=== PATIENT | female | born 1995 | race Caucasian/White ===

== ENCOUNTER 2020-05-18 15:20 | Emergency (ER) | payer OTHER, SELFPAY | END 2020-05-18 17:06 | disposition left against medical advice (07) | PROVIDERS: Emergency Provider Emergency Medicine; PCP Internal Medicine | DX: R20.0 Anesthesia of skin (principal) ==

== ENCOUNTER 2020-06-28 09:00 | Emergency (ER) | payer OTHER, SELFPAY ==
[2020-06-28 09:01] VITALS: BP 100/78; PULSE 111; RESP 18; TEMP 36.8; O2SAT 100; BMI 17.2
--- NOTE | 2020-06-28 09:41 | ED_ITS ---
HPI - Extremity Problem General Chief complaint: Extremity Problem Stated complaint: swollen feet Time Seen by Provider: 06/28/20 09:15 Source: patient Mode of arrival: ambulatory Limitations: no limitations History of Present Illness HPI Narrative: 25 y/o female with history of IVDA, hepatitis C, and depression who presents to the ED complaining of painful, itchy areas on her feet that started a few days ago and now are worse. She reports when she took a bath today her toes were purple and her feet were swollen. She states the area started out as two red dots and are now in red lines up her feet and there are small itchy lesions on her lower legs as well. She does not inject in her feet. Reports last use was last week and she was sober for 3 years prior to that. She denies fever, chills, N/V/D or abdomainal pain. MD Complaint: extremity pain and extremity swelling Onset (ago): day(s) Pain Consistency: constant Location: left, right and lower extremity Quality: burning and aching Radiation: proximal Relieving factors: nothing Exacerbating factors: palpation Associated symptoms: denies other symptoms Related Data Home Medications Medication Instructions Recorded Confirmed buprenorphine 4 mg-naloxone 1 mg 0 mg SUBLINGUAL 03/04/20 03/04/20 sublingual film hydroxyzine HCl 25 mg tablet 25 mg PO BID 03/04/20 03/04/20 medroxyprogesterone 150 mg/mL 150 mg IM 03/04/20 03/04/20 intramuscular suspension pramipexole 0.125 mg tablet 0.125 mg PO BEDTIME 03/04/20 03/04/20 Previous Rx's Medication Instructions Recorded permethrin 1 appl TOPICAL Q14D #60 g 06/28/20 Allergies Allergy/AdvReac Type Severity Reaction Status Date / Time alprazolam Allergy Unknown unsure Verified 03/04/20 15:53 azithromycin [From ZITHROMAX] AdvReac Unknown VOMITING/DI Unverified 03/04/20 15:53 ARRHEA Zithromax AdvReac Unknown vomiting Uncoded 03/04/20 15:53 Review of Systems Review of Systems: Constitutional: No Fever, No Chills Cardiovascular: No Chest Pain, No SOB, No Edema Respiratory: No Cough, No Sputum Gastrointestinal: No Nausea, No Vomiting, No Diarrhea, No abdominal Pain Musculoskeletal: No joint pain, No Myalgias Skin: + Skin Lesions, + rash Neuro: No Weakness, No Numbness Psych: + Anxiety/Panic, No Depression Heme/Lymph: + Bruising, No Lymphadenopathy Endocrine: No Polyuria, No Polydipsia PMFSH Past Medical History Attestation statement: The following information was validated with the patient. Medical History (Updated 06/28/20 @ 09:53 by RENATO Perez) Hepatitis C Social History Social History Advance Directives: No Advance Directives Information Provided: Yes Physical Exam Vital Signs: Vital Signs: Last Vital Signs Temp 98.2 F 06/28/20 09:01 Pulse 111 H 06/28/20 09:01 Resp 18 06/28/20 09:01 BP 100/78 06/28/20 09:01 Pulse Ox 100 06/28/20 09:01 Body Mass Index 17.2 Appearance: Alert. Oriented X3. No acute distress. HEENT: normal inspection CVS: Normal heart rate and rhythm. Pulses normal. Respiratory: No respiratory distress. Skin: Skin warm and dry. Lower arms with track luong consistent with known drug use. Extremities: bilateral feet with linear erythematous areas starting in between the toes and tracking proximally, pruritic. 2+ DP pulses, warm and well perfused with no edema. small lesions on lower legs as well. Neuro: Oriented X 3. Anxious, restless. Steady gait. Speaks in full, clear sentences. Course Course Course Narrative: 25 y/o female with history of IVDA & hepatitis C presenting with itchy painful rash on bilateral feet - exam is consistent with scabies infestation. Will treat with Permethrin. Patient educated on use. She is agreeable to speak with Manufacturer[employer]S Service Representative who has been contacted. Reevaluation(s) Reevaluation #1: Kirstin Ruvalcabaenter spoke with patient and she is not ready for detox. She was provided with information and detox was highly encouarged. She will follow up with Dr. Po. Erickson for d/c. Critical Care Time Critical Care Time Critical Care Time: No Discharge Plan Discharge Clinical Impression: Scabies, Active intravenous drug use Patient Disposition: Home, Self-Care Instructions: Scabies (ED), Opioid Use Disorder (ED) Additional Instructions: Use the prescribed cream as directed. Apply the cream and leave it on for 8-14 hours before washing it off. It may be easiest to do this before you go to bed and leave it on all night. If you have persistent symptoms in 2 weeks, reapply the cream in the same fashion at that time. For itching take Benadryl 25-50 mg every 6 hours as needed. Follow up with your doctor next week. RECOMMEND DETOX. DO NOT USE IV DRUGS, IT CAN KILL YOU Prescriptions: New permethrin 5 % cream 1 appl topical Q14D Qty: 60 RF: 0 No Action buprenorphine-naloxone 4-1 mg film 0 mg sublingual RF: 0 hydroxyzine HCl 25 mg tablet 25 mg PO BID RF: 0 pramipexole 0.125 mg tablet 0.125 mg PO BEDTIME RF: 0 medroxyprogesterone 150 mg/mL suspension 150 mg IM RF: 0
--- NOTE | 2020-06-28 09:44 | PC.NURSE ---
PT PRESENTS TO ED STATING MY LOWER LEGS AND FEET LOOK SWOLLEN. NO OBVIOUS SWELLING NOTED. PT HAS RASH TO BILATERAL FEET AND STATES IT FEELS ITCHY ALSO REPORTS IM STAYING AT A [facility] AND MAYBE ITS BUGS. PT APPEARS ANXIOUS.
--- NOTE | 2020-06-28 10:16 | MHC.RECOVRN ---
T/w met with pt upon pts request for recovery resources. Pt reports recovery from [id number] while in [place]. After pt returned to [place], pt states the pandemic hit and I had nothing to do, no supports. In [place] I was working the steps. Pt is currently using 1 bundle heroin daily, [place]. Pt states It's only a matter of time until IV again. Last use last night. Pt is not interested in [facility] treatment at this time but was provided with resources, including harm reduction and education regarding HCV.
== END 2020-06-28 10:21 | disposition home or self-care (01) ==
PROVIDERS: Emergency Provider Emergency Medicine Emergency Medical Services; PCP Internal Medicine
DX: B86 Scabies (principal); M79.672 Pain in left foot; M79.671 Pain in right foot; F11.10 Opioid abuse, uncomplicated; R21 Rash and other nonspecific skin eruption; Z79.899 Other long term (current) drug therapy
CPT/HCPCS: 99283

== ENCOUNTER 2021-02-14 19:03 | Emergency (ER) | payer OTHER, SELFPAY | END 2021-02-14 21:10 | disposition left against medical advice (07) | PROVIDERS: Emergency Provider Emergency Medicine; PCP Internal Medicine | DX: F10.139 Alcohol abuse with withdrawal, unspecified (principal) ==

== ENCOUNTER 2021-10-28 04:31 | Emergency (ER) | payer OTHER, SELFPAY ==
--- NOTE | 2021-10-28 04:43 | ED_ITS ---
HPI - Psych General Chief Complaint: Psychiatric Symptoms Stated Complaint: crisis Time Seen by Provider: 10/28/21 04:43 Source: patient Mode of arrival: EMS Limitations: no limitations History of Present Illness HPI Narrative: Patient has anxiety and manic depression. Today she found out that her boyfriend was with another woman and had a baby with that person. Police made her come to the ED. She denies suicidal ideation. According to police the police found her running through the trees, paranoid. There is no history of the above. MD complaint: anxiety Onset (ago): hour(s) Duration: constant History of same: Yes Associated psychiatric symptoms: depression and racing thoughts Associated symptoms: denies other symptoms Related Data Home Medications Medication Instructions Recorded Confirmed methadone 40 mg soluble tablet 94 mg PO DAILY 07/24/21 10/28/21 fluoxetine 10 mg capsule 1 cap PO DAILY 10/28/21 10/28/21 hydroxyzine HCl 25 mg tablet 1 tab PO BID 10/28/21 10/28/21 Previous Rx's Medication Instructions Recorded quetiapine 100 mg tablet 100 - 150 mg PO BEDTIME 90 days 10/03/21 #135 tabs Allergies Allergy/AdvReac Type Severity Reaction Status Date / Time alprazolam Allergy Unknown unsure Verified 07/24/21 09:10 azithromycin [From ZITHROMAX] AdvReac Unknown VOMITING/DI Verified 07/24/21 09:10 ARRHEA Zithromax AdvReac Unknown vomiting Uncoded 03/04/20 15:53 Review of Systems Constitutional: Constitutional: Reports no additional constitutional complaints Eyes: Eyes: Reports no additional eye complaints ENT: Denies dizziness Cardiovascular: Cardiovascular: Reports no additional cardiovascular complaints Respiratory: Respiratory: Reports as per HPI Gastrointestinal: Gastrointestinal: Reports no additional gastrointestinal complaints Genitourinary: Genitourinary: Reports no additional female genitourinary complaints Musculoskeletal: Musculoskeletal: Reports no additional musculoskeletal complaints Integumentary/Breasts: Skin/Breast: Denies rash Neurologic: Reports system reviewed and no additional complaints, except as documented, Denies dizziness and Denies Sensory deficit (Neuro) Psychiatric: Psychiatric: Denies anxiety PMFSH Social History Social History Housing: Assisted Living Facility Housing Other:: treatment Alcohol intake: never Patient Tobacco Use Status: Current someday Tobacco user Tobacco use type: Cigarette Cigarettes Per Day: 5 e-Cigarette/Vaping Use: Currently Using Use of substances other than those prescribed or required for medical reasons: Yes Advance Directives: No service: No Current occupational status: unemployed Physical Exam Vital Signs: Vital Signs: Last Vital Signs Pulse 113 H 10/28/21 07:16 Resp 17 10/28/21 07:16 BP 122/64 10/28/21 07:16 Pulse Ox 97 10/28/21 07:16 O2 Del Method 10/28/21 07:16 BMI result Body Mass Index 24.3 Const: Other: anxious and tearful, paranoid Nutritional Appearance: average body habitus Orientation/consciousness: oriented to person and patient oriented x3 Limitations: no limitations HEENT: Head: Yes normal to inspection Ears: external ears normal General nose exam: Normal external nose present Mouth: Normal oral and palatal mucosa present and oropharynx normal Throat: Yes posterior oropharynx normal Eyes: General: appearance normal, both eyes and all related structures Neck: Other: supple Neck: Yes normal visual inspection Chest: Chest palpation & inspection: normal inspection of the chest Resp: Auscultation: clear to auscultation bilaterally Cardio: Jugular venous distension: no JVD Rate: regular rate Rhythm: regular rhythm Heart sounds: S1 normal heart sound present and S2 normal heart sound present GI: Inspection: Yes normal to inspection Palpation (GI): Soft to palpation, nontender and No hepatosplenomegaly present Auscultation: normal bowel sounds : General: Yes no CVA tenderness Back/Spine/Pelvis: Back: no CVA tenderness Skin: Other: abrasions to legs, track luong to arms Neuro: General: oriented to person and patient oriented x3 Cranial nerves: Yes CN's II-XII intact bilaterally Motor exam (neuro): 5/5 motor strength present throughout Sensory Exam: No Sensory deficit (Neuro) Extrem: General: Yes normal to inspection Psych: Other: agitated Course Reevaluation(s) Reevaluation #1: Patient with polysubstance abuse awaiting crisis evaluation Time: 07:02 Reevaluation #2: Patient placed in physician observation at 7:30am The indication for observat ion is that the patient needs more time to see if her félix improves or she will need to be admitted. At this time the patient is well developed well nourished, lungs clear, CV RRR, abd nontender, neuro is intact, she is less manic Time: 07:43 MDM - Psych Lab Data Result diagrams: 10/28/21 05:09 10/28/21 05:09 Labs: Lab Results 10/28/21 10/28/21 10/28/21 Range/Units 05:09 05:09 05:09 WBC 10.9 H (4.8-10.8) X10*3/uL RBC 4.27 (4.20-5.50) X10*6/uL Hgb 11.9 L (12.0-16.0) g/dl Hct 36.1 L (37.0-47.0) % MCV 84.5 (80.0-98.0) fL MCH 27.9 (27.0-33.0) pg MCHC 33.0 (31.0-35.0) g/dl RDW 13.2 (11.0-16.0) % Plt Count 323 (160-400) X10*3/uL MPV 9.0 L (9.4-12.3) fL Immature Gran % (Auto) 0.4 (0.0-0.4) % Neut % (Auto) 73.2 H (45-73) % Lymph % (Auto) 15.5 L (20-40) % [place] % (Auto) 10.1 (2-11) % Eos % (Auto) 0.3 (0-4) % Baso % (Auto) 0.5 (0-2) % Lymph # (Auto) 1.7 (1.2-4.9) X10*3/uL [place] # (Auto) 1.1 (0.1-1.2) X10*3/uL Eos # (Auto) 0.0 (0.0-0.4) X10*3/uL Baso # (Auto) 0.1 (0.0-0.2) X10*3/uL Abs Immat Gran (auto) 0.04 H (0.00-0.03) X10*3/uL Absolute Neuts (auto) 8.0 (2.0-8.3) x10*3/uL Absolute Nucleated RBC 0.000 (0.0-0.012) X10*3/uL Nucleated RBC % (auto) 0.0 (0.0-0.2) /100WBC Sodium 140 (135-145) mmol/L Potassium 3.3 (3.3-5.1) mmol/L Chloride 107 (96-108) mmol/L Carbon Dioxide 22 (22-29) mmol/L Anion Gap 14 (12-20) BUN 16 (9-16) mg/dL Creatinine 0.94 (0.5-1.4) mg/dL Estim Creat Clear Calc 77.6 Estimated GFR > 60 Random Glucose 127 H (60-115) mg/dL Calcium 9.2 (8.4-10.2) mg/dL Total Bilirubin 0.7 (0.0-1.0) mg/dL AST 33 H (5-31) U/L ALT 19 (0-31) U/L Alkaline Phosphatase 97 (39-117) U/L Total Protein 7.7 (6.5-8.0) g/dL Albumin 4.7 (3.5-5.0) g/dL Urine Test (NEGATIVE) Salicylates < 5.0 L (15-30) mg/dL Urine Opiates Screen (Not Detect) Urine Fentanyl Screen (Not Detect) Acetaminophen < 1 (<30) mcg/mL Ur Barbiturates Screen (Not Detect) Ur Phencyclidine Scrn (Not Detect) Ur Amphetamines Screen (Not Detect) Urine Cocaine Screen (Not Detect) U Marijuana (THC) Screen (Not Detect) Ethyl Alcohol < 10 mg/dL 10/28/21 10/28/21 Range/Units 05:13 07:20 WBC (4.8-10.8) X10*3/uL RBC (4.20-5.50) X10*6/uL Hgb (12.0-16.0) g/dl Hct (37.0-47.0) % MCV (80.0-98.0) fL MCH (27.0-33.0) pg MCHC (31.0-35.0) g/dl RDW (11.0-16.0) % Plt Count (160-400) X10*3/uL MPV (9.4-12.3) fL Immature Gran % (Auto) (0.0-0.4) % Neut % (Auto) (45-73) % Lymph % (Auto) (20-40) % [place] % (Auto) (2-11) % Eos % (Auto) (0-4) % Baso % (Auto) (0-2) % Lymph # (Auto) (1.2-4.9) X10*3/uL [place] # (Auto) (0.1-1.2) X10*3/uL Eos # (Auto) (0.0-0.4) X10*3/uL Baso # (Auto) (0.0-0.2) X10*3/uL Abs Immat Gran (auto) (0.00-0.03) X10*3/uL Absolute Neuts (auto) (2.0-8.3) x10*3/uL Absolute Nucleated RBC (0.0-0.012) X10*3/uL Nucleated RBC % (auto) (0.0-0.2) /100WBC Sodium (135-145) mmol/L Potassium (3.3-5.1) mmol/L Chloride (96-108) mmol/L Carbon Dioxide (22-29) mmol/L Anion Gap (12-20) BUN (9-16) mg/dL Creatinine (0.5-1.4) mg/dL Estim Creat Clear Calc Estimated GFR Random Glucose (60-115) mg/dL Calcium (8.4-10.2) mg/dL Total Bilirubin (0.0-1.0) mg/dL AST (5-31) U/L ALT (0-31) U/L Alkaline Phosphatase (39-117) U/L Total Protein (6.5-8.0) g/dL Albumin (3.5-5.0) g/dL Urine Test NEGATIVE (NEGATIVE) Salicylates (15-30) mg/dL Urine Opiates Screen POSITIVE H (Not Detect) Urine Fentanyl Screen POSITIVE H (Not Detect) Acetaminophen (<30) mcg/mL Ur Barbiturates Screen Not Detected (Not Detect) Ur Phencyclidine Scrn Not Detected (Not Detect) Ur Amphetamines Screen Not Detected (Not Detect) Urine Cocaine Screen POSITIVE H (Not Detect) U Marijuana (THC) Screen Not Detected (Not Detect) Ethyl Alcohol mg/dL Discharge Plan Discharge Clinical Impression: Paranoid delusion, Cocaine intoxication Patient Disposition: Home, Self-Care Instructions: Cocaine Abuse (ED) Additional Instructions: Refrain from the use of street drugs, consists was likely the cause of your paranoid delusions Return to the emergency department any new or worsening symptoms or concerns Prescriptions: No Action quetiapine 100 mg tablet 100 - 150 mg PO BEDTIME 90 Days Qty: 135 2RF fluoxetine 10 mg capsule 1 cap PO DAILY hydroxyzine HCl 25 mg tablet 1 tab PO BID methadone 40 mg tablet,soluble 94 mg PO DAILY
[2021-10-28 04:45] VITALS: BP 148/90; PULSE 148; O2SAT 99; BMI 24.3
[2021-10-28 05:13] LABS: Basophils Absolute Auto 0.1 X10*3/uL (0.0-0.2); Basophils Percent Auto 0.5 % (0-2); Eosinophils Percent Auto 0.3 % (0-4); Hematocrit 36.1 % (37.0-47.0); Hemoglobin 11.9 g/dl (12.0-16.0); Imm Gran Abs Auto 0.04 X10*3/uL (0.00-0.03); Imm Gran Pct Auto 0.4 % (0.0-0.4); Lymphocytes Absolute Auto 1.7 X10*3/uL (1.2-4.9); Lymphocytes Percent Auto 15.5 % (20-40); MANUAL DIFF FLAG NO; Mean Corpuscular Hemoglobin 27.9 pg (27.0-33.0); Mean Corpuscular Volume 84.5 fL (80.0-98.0); Monocytes Absolute Auto 1.1 X10*3/uL (0.1-1.2); Monocytes Percent Auto 10.1 % (2-11); Neutrophils Percent Auto 73.2 % (45-73); Platelet Count 323 X10*3/uL (160-400); Red Blood Count 4.27 X10*6/uL (4.20-5.50); Red Cell Distribution Width 13.2 % (11.0-16.0); White Blood Count 10.9 X10*3/uL (4.8-10.8)
[2021-10-28 05:29] LABS: Ethanol < 10 mg/dL
[2021-10-28 05:33] LABS: Fentanyl, urine POSITIVE (Not Detect)
[2021-10-28 05:33] LABS: Acetaminophen LAB < 1 mcg/mL (<30); Alanine Aminotransferase 19 U/L (0-31); Albumin Level 4.7 g/dL (3.5-5.0); Alkaline Phosphatase 97 U/L (39-117); Anion Gap 14 (12-20); Aspartate Amino Transferase 33 U/L (5-31); Bilirubin Total 0.7 mg/dL (0.0-1.0); Blood Urea Nitrogen 16 mg/dL (9-16); Calcium 9.2 mg/dL (8.4-10.2); Carbon Dioxide 22 mmol/L (22-29); Chloride 107 mmol/L (96-108); Creatinine Clr Calc Pharmacy 77.6; Estimated Glomerular Filt Rate > 60; Glucose Random 127 mg/dL (60-115); Potassium 3.3 mmol/L (3.3-5.1); Salicylate < 5.0 mg/dL (15-30); Sodium 140 mmol/L (135-145); Total Protein 7.7 g/dL (6.5-8.0)
[2021-10-28 05:35] LABS: Amphetamine Screen Urine Not Detected (Not Detect); Barbiturates, Urine Not Detected (Not Detect); Cannabinoid Screen Urine Not Detected (Not Detect); Cocaine Screen Urine POSITIVE (Not Detect); Opiate Screen Urine POSITIVE (Not Detect); Phencyclidine Screen Urine Not Detected (Not Detect)
--- NOTE | 2021-10-28 05:56 | PC.NURSE ---
Elsa arrived with PD for psychiatric evaluation after she is suspected to have used narcotics and likely was having visual hallucinations. On arrival the pt denies drug use and states that while she was at her mothers house she came downstairs to find my boyfriend with his girlfriend and they had pictures of their baby. The story the patient tells is difficult to follow, but I believe she goes on to say that she chased her boyfriend out of the [place] and into [place]. She presents with evidence of running through the [place] with what appears to be small abrasions from brush rubbing against her ankles and shins. EMS and PD stated that a rock was found in the patients purse, possibly crack per PD. In addition, PD states they boyfriend was never there at all. On arrival she was met by RN and security and changed into hospital attire. Her belongings were secured with security. Labs were obtained and VS were obtained. Pt's HR is 138 on arrival. Crystal GALLARDO aware, no interventions requested. Referral sent to [facility] at this time. Pt is awaiting crisis eval and dispo.
[2021-10-28 07:16] VITALS: BP 122/64; PULSE 113; RESP 17; O2SAT 97
[2021-10-28 07:28] LABS: UPreg QC Valid YES; Urine Pregnancy NEGATIVE (NEGATIVE)
[2021-10-28] MEDS: FLUoxetine HCl 10 MG CAPSULE PO (09:59)
[2021-10-28] MEDS: hydrOXYzine HCL 25 MG TABLET PO (09:59)
[2021-10-28] MEDS: methADONE HCl 20 MG/2 ML ORAL.CONC 95 MG PO (10:02)
--- NOTE | 2021-10-28 11:18 | PC.NURSE ---
patient once received meds and methadone was periodically coming to nurse station asking for snacks, cereal, pudding, etc.
--- NOTE | 2021-10-28 12:07 | P.CNPS_ITS ---
History of Present Illness Date of Service: 10/28/2021 Chief Complaint: crisis Reason for Consult: psychosis Discussed with referring provider: Yes Sources of Information: patient interviewed, chart reviewed and crisis/core team assessment reviewed HPI Narrative: Mrs. De Los Santos is a 26 year-old woman with hx of polysubstance use disorder who recently was discharged from shelter residential treatment program for substance use. Pt apparently soon after relapsed. She was brought by police pt f ound running in the [place], going after her boyfriend who she recently learned had affair and child with another woman. In the ED, utox opioid, fentanyl and cocaine. Today, pt presents as calm, cooperative. She reports she learned her boyfriend was seeing someone else. She denies VH/AH. She denies SI/HI. She does note somewhat of agitated behavior prior to coming to ED, does think may have been c ocaine use. She reports she plans to continue outpatient substance use treatment. Collateral information gathered from mother who lives with pt, she reports no hx of psychosis, but thinks it could have been related to recent cocaine use. Mother denies safety concern and agrees that pt safe to return home with her. Past Psychiatric History: Inpatient: none OP: none Suicide attempt: none Medical Evaluation Reviewed: Yes REPLACED BY [facility] Medical History (Updated 10/31/21 @ 15:38 by Ary Cain) Hepatitis C Diagnostics Vital Signs (24Hr): Vital Signs - 24 hr 10/28/21 07:16 Pulse Rate 113 H Respiratory Rate 17 Blood Pressure 122/64 Pulse Oximetry 97 Oxygen Delivery Method Room Air BMI result Body Mass Index 24.3 Labs Results: 10/28/21 05:09 10/28/21 05:09 Labs: Laboratory Results - last 48 hr 10/28/21 10/28/21 10/28/21 05:09 05:09 05:09 WBC 10.9 H RBC 4.27 Hgb 11.9 L Hct 36.1 L MCV 84.5 MCH 27.9 MCHC 33.0 RDW 13.2 Plt Count 323 MPV 9.0 L Immature Gran % (Auto) 0.4 Neut % (Auto) 73.2 H Lymph % (Auto) 15.5 L [place] % (Auto) 10.1 Eos % (Auto) 0.3 Baso % (Auto) 0.5 Lymph # (Auto) 1.7 [place] # (Auto) 1.1 Eos # (Auto) 0.0 Baso # (Auto) 0.1 Abs Immat Gran (auto) 0.04 H Absolute Neuts (auto) 8.0 Absolute Nucleated RBC 0.000 Nucleated RBC % (auto) 0.0 Sodium 140 Potassium 3.3 Chloride 107 Carbon Dioxide 22 Anion Gap 14 BUN 16 Creatinine 0.94 Estim Creat Clear Calc 77.6 Estimated GFR > 60 Random Glucose 127 H Calcium 9.2 Total Bilirubin 0.7 AST 33 H ALT 19 Alkaline Phosphatase 97 Total Protein 7.7 Albumin 4.7 Urine Test Salicylates < 5.0 L Urine Opiates Screen Urine Fentanyl Screen Acetaminophen < 1 Ur Barbiturates Screen Ur Phencyclidine Scrn Ur Amphetamines Screen Urine Cocaine Screen U Marijuana (THC) Screen Ethyl Alcohol < 10 10/28/21 10/28/21 05:13 07:20 WBC RBC Hgb Hct MCV MCH MCHC RDW Plt Count MPV Immature Gran % (Auto) Neut % (Auto) Lymph % (Auto) [place] % (Auto) Eos % (Auto) Baso % (Auto) Lymph # (Auto) [place] # (Auto) Eos # (Auto) Baso # (Auto) Abs Immat Gran (auto) Absolute Neuts (auto) Absolute Nucleated RBC Nucleated RBC % (auto) Sodium Potassium Chloride Carbon Dioxide Anion Gap BUN Creatinine Estim Creat Clear Calc Estimated GFR Random Glucose Calcium Total Bilirubin AST ALT Alkaline Phosphatase Total Protein Albumin Urine Test NEGATIVE Salicylates Urine Opiates Screen POSITIVE H Urine Fentanyl Screen POSITIVE H Acetaminophen Ur Barbiturates Screen Not Detected Ur Phencyclidine Scrn Not Detected Ur Amphetamines Screen Not Detected Urine Cocaine Screen POSITIVE H U Marijuana (THC) Screen Not Detected Ethyl Alcohol Mental Status Exam Mental Status Exam Narrative: Appearance: casually groomed, fair hygiene in NAD Behavior:cooperative psychomotor: no agitation or retardation noted Speech: clear, normal rate/rhythm/volume, spontaneous Thought process:linear Thought content: no signs of psychosis, future oriented wanting to see her mother, return home, upset about boyfriend, but stable. Mood: okay Affect: congruent, non labile. SI:denies HI:denies VH/AH: no sign of psychosis or responding to internal stimuli Delusions: none Insight/judgment: none Memory/cog: alert, oriented x 3. grossly intact to conversational testing. Medications Allergies Allergies Allergy/AdvReac Type Severity Reaction Status Date / Time alprazolam Allergy Unknown unsure Verified 07/24/21 09:10 azithromycin [From ZITHROMAX] AdvReac Unknown VOMITING/DI Verified 07/24/21 09:10 ARRHEA Zithromax AdvReac Unknown vomiting Uncoded 03/04/20 15:53 Assessment & Plan Assessment & Plan (1) Cocaine-induced mood disorder with manic symptoms: Status: Acute Code(s): F14.988 - Cocaine use, unspecified with other cocaine-induced disorder Plan Ms. De Los Santos is a 26 year-old woman with hx of polysubstance use who recently was discharged from residential program for substance use. She apparently quickly relapsed. She was found running in the [place], agitated, erradic behaviors. Pt stayed overnight here in ED. Utox was positive for fentanyl, opioids, cocaine. Today, pt presents as clear, no s/s of félix, psychosis. No SI/HI. Mother comfortable and in agreement with plan to d/c pt back home. Mother denied safety concerns of suicidal or homicidal ideation. PLAN 1. no acute imminent safety concern in terms of suicidality, or homicidality. N or pt presents gravely disable due to psychiatric symptoms. Does not meet criteria for involuntary admission at this point. 2. Pt will return home with mother. give narcan on d/c. I spent minutes with the patient and/or on the patient floor today, greater than?50% of which was spent counseling/coordinating care.
--- NOTE | 2021-10-28 13:29 | MHC.CARE ---
Pts?was in her room seated on her bed in room?BH 6 wearing?hospital?attire and appearance was slightly disheveled which is congruent with reports of events leading to ED visit. Pt reported using cocaine and other?drugs. When seen today she was oriented x4, and was alert and able to answer questions. She was cooperative for this interview and willing to answer all questions and reported some memory?is not clear from the events last night while under the influence. At times in the interview pt was observed to have odd eye movements which pt?stated?is related to anxiety. Pts speech is WNL and at times distracted but redirectable. She was visibly restless and anxious to have her methadone dose (which was later than normal 6am dosing). Pts mood was reported as good and pt affect?noted congruent. Pt denied active delusions or acute paranoia. No psychotic features observed. Pt denied feeling depressed or suicidal. She does not?have a hx of SI or attempts or MH admissions. Pt denied feeling aggressive or homicidal thoughts and carries no hx of violence. Pt denied access to weapons. Due to her recent poor judgment and impulse control pt is being discharged with the plan?to?be?with her mother with agreement to seek help if needed. Pt declined need for referrals for OP mental health and she is aware of how to seek crisis help if needed. CARE reviewed signs and sxs to look for with pts mother also if her situation should change. Pt was seen by hair cutter Tuyet Redding who determined pt was cleared of acute psych need to be contained and advocated for discharge. CARE, real estate marketing coordinator met with ED provider review plan for pt to dc and go stay with her mother. Pts mother strongly advocated that pt be discharged home into her care and denied any concerns?or issues both prior to arrival or currently. Pt also in favor of dc home. Pod escorted pt out of the pod to wait for her ride.??
[2021-10-29 06:59] LABS: Benzodiazepines Screen Urine NOT DETECTED (Not Detect)
== END 2021-10-28 13:10 | disposition home or self-care (01) ==
PROVIDERS: Emergency Provider Emergency Medicine; PCP Internal Medicine
DX: F22 Delusional disorders (principal); F14.129 Cocaine abuse with intoxication, unspecified; F11.20 Opioid dependence, uncomplicated
CPT/HCPCS: 36415; 80053; 80143; 80179; 80307; 81025; 82077; 85025; 99284; 99285

== ENCOUNTER 2022-06-07 09:33 | Emergency (ER) | payer OTHER, SELFPAY ==
--- NOTE | ~2022-06-07 | US_ITS ---
EXAMINATION: US ABDOMEN COMPLETE CLINICAL INFORMATION: Nausea vomiting abdominal pain. COMPARISON: None TECHNIQUE: Real-time imaging of the abdominal viscera. FINDINGS: PANCREAS: The visualized portion of the pancreas head and body are normal, portion of the pancreatic body and tail, not visualized are obscured by bowel gas. ABDOMINAL AORTA: The proximal, mid, and distal segments are normal in caliber. INFERIOR VENA CAVA: Visualized portions are normal. LIVER: Increased echogenicity of the liver parenchyma, this can be seen in the setting of hepatic steatosis or liver parenchymal disease. The liver is normal in size. The liver contour is normal. No focal hepatic lesion. There is no intrahepatic biliary duct dilatation seen. GALLBLADDER: There is echogenic material layering in the gallbladder fall a gallbladder sludge, The gallbladder is physiologically distended without evidence of stones, polyps, wall thickening or pericholecystic fluid. COMMON BILE DUCT: Normal in caliber measuring 0.5 cm in diameter. RIGHT KIDNEY: Normal. No hydronephrosis. No renal calculi or focal parenchymal lesions. The kidney measures 10 cm in maximum dimension. LEFT KIDNEY: Normal. No hydronephrosis. No renal calculi or focal parenchymal lesions. The kidney measures 10 cm in maximum dimension. SPLEEN: Normal. The spleen measures 12 cm in maximum dimension. FREE FLUID: None. US/US abdomen complete IMPRESSION: * Increased echogenicity of the liver parenchyma, this can be seen in the setting of hepatic steatosis. * Gallbladder sludge, no ultrasound evidence of acute cholecystitis.
[2022-06-07 09:45] VITALS: BP 130/70
[2022-06-07 09:46] VITALS: BP 138/86; PULSE 96; RESP 18; O2SAT 99
[2022-06-07 09:58] VITALS: BP 138/86; PULSE 96; RESP 18; O2SAT 96; BMI 22.6
[2022-06-07] MEDS: Ketorolac Tromethamine 30 MG/ML VIAL IVPUSH (10:19)
[2022-06-07] MEDS: 0.9 % Sodium Chloride 1,000 ML 999 ML IVCONT (10:19)
[2022-06-07] MEDS: ondansetron HCL 4 MG/2 ML VIAL IVPUSH (10:19)
[2022-06-07] MEDS: diphenhydrAMINE HCL 50 MG/ML VIAL 25 MG IVPUSH (10:20)
--- NOTE | 2022-06-07 10:32 | MHC.EDTECH ---
PCT attempted to draw labs on pt. Pt states she wants too feel better before labs are drawn. pct will attempt to draw labs as soon as pt gets fluid and feel somewhat better. RN aware.
--- NOTE | 2022-06-07 10:58 | ED_ITS ---
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 Generalized Abdominal pain induced by vomiting. Reports feeling hot and cold with chills. Denies dysuria, but reports increased frequency. Denies bloody stool and vomit. Last menses 2 weeks ago. She reports her periods have become irregular and heavier despite depo. She reports being sexually active. Taking methadone. Did not get her methadone today, took it yesterday. MD elicited complaint: nausea, vomiting, diarrhea and abdominal pain Onset (ago): day(s) Description of vomiting: food contents and watery Description of diarrhea: watery Associated nausea: Yes Associated abdominal pain: Yes Location of pain: epigastric (Epigastric induced by vomiting ) Pain consistency: intermittent Severity: moderate Pain scale (0-10): 8 Quality: cramping and aching Exacerbating factors: other (supine position ) Relieving factors: other (sitting up ) Associated symptoms: myalgias, fever/chills and nausea/vomiting (And diarrhea) Related Data Home Medications Medication Instructions Recorded Confirmed methadone 40 mg soluble tablet 94 mg PO DAILY 07/24/21 10/28/21 Previous Rx's Medication Instructions Recorded quetiapine 100 mg tablet 100 - 150 mg PO BEDTIME 90 days 10/03/21 #135 tabs fluoxetine 10 mg capsule 10 mg PO DAILY 90 days #90 caps 12/04/21 amoxicillin 875 mg tablet 875 mg PO Q12H 7 days #14 tabs 01/13/22 ibuprofen 400 mg tablet 400 mg PO Q8H PRN pain 10 days #30 01/13/22 tabs hydroxyzine HCl 25 mg tablet 50 mg PO TID #60 tabs 01/29/22 ketorolac 10 mg tablet 10 mg PO Q8H #14 tabs 06/07/22 ondansetron HCl 4 mg tablet 4 mg PO Q8H #14 tabs 06/07/22 Allergies Allergy/AdvReac Type Severity Reaction Status Date / Time alprazolam Allergy Unknown unsure Verified 01/13/22 14:31 azithromycin [From ZITHROMAX] AdvReac Unknown VOMITING/DI Verified 01/13/22 14:31 ARRHEA Zithromax AdvReac Unknown vomiting Uncoded 01/13/22 14:31 Review of Systems Review of Systems: Constitutional : No Fever, + Chills, + Sweats, + Fatigue, + Malaise Cardiovascular : No Chest Pain, No SOB Respiratory : No Cough, No Sputum, No Wheezing, No Dyspnea Gastrointestinal : + Nausea, + Vomiting, + Diarrhea, + abdominal Pain, No Hematochezia, No Melena Genitourinary : No irregular bleeding, No Dysuria, No Urinary Frequency, No Hematuria,No Urinary Incontinence, No Urgency, No Flank Pain Musculoskeletal : No joint pain, + Myalgias, No Joint Swelling Skin : No Skin Lesions, No rash Neuro : No Weakness, No Numbness, No Paresthesias, No Loss of Consciousness, No Dizziness, No Headache Heme/Lymph: No Lymphadenopathy Endocrine : No Temperature Intolerance Yes all other systems are reviewed and are negative Gastrointestinal: Gastrointestinal: Reports nausea PMFSH Past Medical History Attestation statement: The following information was validated with the patient. Source: old records reviewed and nursing notes reviewed Medical History Anemia Contraceptive management Hepatitis C Herpes genitalis IV drug user Peptic ulcer disease Ureterolithiasis Surgical History H/O myringotomy H/O sinus surgery Hx of tonsillectomy Family History Family History Other Mental health disorder Substance use disorder Social History Social History Housing: Assisted Living Facility Housing Other:: treatment Alcohol intake: never Patient Tobacco Use Status: Current someday Tobacco user Tobacco use type: Cigarette Cigarettes Per Day: 3 e-Cigarette/Vaping Use: Currently Using Second Hand Smoke Exposure: Yes Advance Directives: No Advance Directives Information Provided: No Patient : No service: No Current occupational status: unemployed Cognitive needs: No Hearing needs: No Vision needs: No Physical Exam Vital Signs: Vital Signs: Last Vital Signs Pulse 96 06/07/22 09:58 Resp 18 02/05/23 09:58 BP 138/86 06/07/22 09:58 Pulse Ox 96 06/07/22 09:58 O2 Del Method 06/07/22 09:58 BMI result Body Mass Index 22.6 vital signs have been reviewed as normal and appeared to be correct. Blood pressure normal. Heart rate normal. Respiration rate normal. Temperature normal. Oxygen saturation normal. Appearance: Alert. Oriented X3. No acute distress. Head: Normal external exam. Normocephalic. Eyes: PERRLA. EOMI. Conjunctiva and sclera normal. Eyelids normal. ENT: Pharynx normal. Uvula midline. Moist mucous membranes. No trismus noted. No drooling noted. No muffled voice noted. Neck: Normal inspection. Neck supple. FROM. No adenopathy. No meningeal signs. CVS: Normal heart rate and rhythm. Heart sound normal. No murmurs noted. Pulses normal throughout. Respiratory: No respiratory distress. Painless inspiration. Breath sounds normal. No wheezes/rales/rhonchi noted. Chest nontender. No accessory muscle usage noted or decreased air movement noted. Abdomen: Soft and TTP to upper quadrants. Nondistended. No guarding. No rigidity. Bowel sounds normal in all 4 quadrants. No distention noted. No organomegaly noted. No visible injury noted. No rebound tenderness. Negative Rovsing sign. Negative obturator's sign. Negative psoas sign. Negative Vernon sign. Back: + CVA tenderness left side only. Full range of motion noted. Skin: Skin warm and dry. Normal skin color. Normal skin turgor. No rashes/lesions/lacerations noted. Extremities: Extremities exhibit normal range of motion. Extremities nontender. Neuro: Oriented X 3. No motor deficit. No sensory deficit. Reflexes normal. Normal steady gait. CN's II-XII intact bilaterally? Course Course Course Narrative: 10am - 27 year old female presents to the Ed for a one day history nausea, vomiting, diarrhea. Abdominal pain induced by vomiting. Reports feeling hot and cold with chills. Denies dysuria, but reports increased frequency. Denies bloody stool and vomit. Last menses 2 weeks ago. She reports her periods have become irregular and heavier despite depo. She reports being sexually active. Taking methadone. Did not get her methadone today, took it yesterday The patient is a 27 year old female with a history of Hep C presents with a one day history of nausea, vomiting, diarrhea. History of methadone use, missed methadone dose today. Physical exam negative aside from CVA tenderness to left side. Abdominal exam included Soft and nontender, nondistended abdomen. No gu arding. No rigidity. Bowel sounds normal in all 4 quadrants. No distention noted. No organomegaly noted. No visible injury noted. No rebound tenderness. Negative Rovsing sign. Negative obturator's sign. Negative psoas sign. Negative Vernon sign. Plan: Labs, UA, COVID/RSV/flu swab, abdominal ultrasound. Provide a L of IV fluids with 30 mg of IV Toradol, 25 mg of IV Benadryl and 4 mg of Zofran and re- evaluate. Reevaluation(s) Reevaluation #1: Labs reviewed - leukocytosis of 13,000. - chloride 113. - carbon dioxide 18. - UA revealed small leukocytes although patient has greater than 20 epithelial cells therefore this is most likely a dirty catch. Will wait for urine culture and patient denies any urinary symptoms. - patient negative for COVID/RSV/flu. - otherwise all other labs are within normal limits. Imaging - Abdominal ultrasound revealed hepatic steatosis of the liver otherwise no other acute processes are noted. Therefore at this time will attempt a p.o. trial for the patient if patient can tolerate p.o. patient will be discharged with symptomatic treatment for gastroenteritis. Instructions to follow-up with PCP. Patient understands agrees with this plan. Time: 12:30 Medications Administered Discontinued Medications Generic Name Dose Route Start Last Admin Trade Name Irvin PRN Reason Stop Dose Admin Diphenhydramine HCl 25 mg 06/07/22 10:00 06/07/22 10:20 Diphenhydramine Hcl 50 Mg/Ml Vial IVPUSH 06/07/22 10:01 25 mg ONCE ONE Administration Sodium Chloride 1,000 mls @ 999 mls/hr 06/07/22 10:00 06/07/22 11:43 Ns IVCONT 06/07/22 11:00 Infused .Q1H1M JOSE Infusion Ketorolac Tromethamine 30 mg 06/07/22 10:00 06/07/22 10:19 Ketorolac Tromethamine 30 Mg/Ml Vial IVPUSH 06/07/22 10:01 30 mg ONCE ONE Administration Ondansetron HCl 4 mg 06/07/22 10:00 06/07/22 10:19 Ondansetron Hcl 4 Mg/2 Ml Vial IVPUSH 06/07/22 10:01 4 mg ONCE ONE Administration Medical Decision Making Lab Data [facility] Lab Attestation statement: I reviewed the patient's lab results. 06/07/22 12:00 06/07/22 11:59 Labs: Lab Results 06/07/22 06/07/22 06/07/22 Range/Units 11:59 11:59 12:00 WBC 13.6 H (4.8-10.8) X10*3/uL RBC 4.54 (4.20-5.50) X10*6/uL Hgb 13.4 (12.0-16.0) g/dl Hct 40.9 (37.0-47.0) % MCV 90.1 (80.0-98.0) fL MCH 29.5 (27.0-33.0) pg MCHC 32.8 (31.0-35.0) g/dl RDW 12.9 (11.0-16.0) % Plt Count 251 (160-400) X10*3/uL MPV 9.9 (9.4-12.3) fL Immature Gran % (Auto) 0.4 (0.0-0.4) % Neut % (Auto) 87.3 H (45-73) % Lymph % (Auto) 6.1 L (20-40) % [place] % (Auto) 5.6 (2-11) % Eos % (Auto) 0.2 (0-4) % Baso % (Auto) 0.4 (0-2) % Lymph # (Auto) 0.8 L (1.2-4.9) X10*3/uL [place] # (Auto) 0.8 (0.1-1.2) X10*3/uL Eos # (Auto) 0.0 (0.0-0.4) X10*3/uL Baso # (Auto) 0.1 (0.0-0.2) X10*3/uL Abs Immat Gran (auto) 0.06 H (0.00-0.03) X10*3/uL Absolute Neuts (auto) 11.9 H (2.0-8.3) x10*3/uL Absolute Nucleated RBC 0.000 (0.0-0.012) X10*3/uL Nucleated RBC % (auto) 0.0 (0.0-0.2) /100WBC ESR (0-20) MM/HR PT (10.0-13.1) SEC INR (0.9-1.1) Sodium 141 (135-145) mmol/L Potassium 4.1 D (3.3-5.1) mmol/L Chloride 113 H (96-108) mmol/L Carbon Dioxide 18 L (22-29) mmol/L Anion Gap 14 (12-20) BUN 11 (9-16) mg/dL Creatinine 0.73 (0.5-1.4) mg/dL Estim Creat Clear Calc 99.0 Estimated GFR > 60 Random Glucose 92 (60-115) mg/dL Calcium 9.0 (8.4-10.2) mg/dL Magnesium 1.9 (1.6-2.6) mg/dL Total Bilirubin 0.4 (0.0-1.0) mg/dL AST 17 (5-31) U/L ALT 9 (0-31) U/L Alkaline Phosphatase 73 (39-117) U/L C-Reactive Protein < 0.10 (< or = 0.50) mg/dL Total Protein 6.6 (6.5-8.0) g/dL Albumin 4.3 (3.5-5.0) g/dL Lipase 21 (8-78) U/L Beta HCG, Quant < 2 mIU/mL Urine Color Urine Appearance Urine pH (5.0-9.0) Ur Specific [place] (1.005-1.025) Urine Protein (Neg-Trace) mg/dL Urine Glucose (UA) (Negative) mg/dL Urine Ketones (Negative) mg/dL Urine Blood (Negative) Urine Nitrite (Negative) Ur Leukocyte Esterase (Negative) Urine RBC (0-2) /HPF Urine WBC (0-5) /HPF Ur Squamous Epith Cells (0-2) /HPF Urine Bacteria (None Seen) Hyaline Casts (0-2) /LPF Urine Opiates Screen (Not Detect) Urine Fentanyl Screen (Not Detect) Ur Barbiturates Screen (Not Detect) Ur Phencyclidine Scrn (Not Detect) Ur Amphetamines Screen (Not Detect) U Benzodiazepines Scrn (Not Detect) Urine Cocaine Screen (Not Detect) U Marijuana (THC) Screen (Not Detect) Ethyl Alcohol < 10 mg/dL Influenza Type A (PCR) (Negative) Influenza Type B (PCR) (Negative) RSV RNA Qual (PCR) (Negative) SARS-CoV-2 RNA (RT-PCR) (Negative) 06/07/22 06/07/22 06/07/22 Range/Units 12:00 12:00 13:01 WBC (4.8-10.8) X10*3/uL RBC (4.20-5.50) X10*6/uL Hgb (12.0-16.0) g/dl Hct (37.0-47.0) % MCV (80.0-98.0) fL MCH (27.0-33.0) pg MCHC (31.0-35.0) g/dl RDW (11.0-16.0) % Plt Count (160-400) X10*3/uL MPV (9.4-12.3) fL Immature Gran % (Auto) (0.0-0.4) % Neut % (Auto) (45-73) % Lymph % (Auto) (20-40) % [place] % (Auto) (2-11) % Eos % (Auto) (0-4) % Baso % (Auto) (0-2) % Lymph # (Auto) (1.2-4.9) X10*3/uL [place] # (Auto) (0.1-1.2) X10*3/uL Eos # (Auto) (0.0-0.4) X10*3/uL Baso # (Auto) (0.0-0.2) X10*3/uL Abs Immat Gran (auto) (0.00-0.03) X10*3/uL Absolute Neuts (auto) (2.0-8.3) x10*3/uL Absolute Nucleated RBC (0.0-0.012) X10*3/uL Nucleated RBC % (auto) (0.0-0.2) /100WBC ESR 3 (0-20) MM/HR PT 12.0 (10.0-13.1) SEC INR 1.0 (0.9-1.1) Sodium (135-145) mmol/L Potassium (3.3-5.1) mmol/L Chloride (96-108) mmol/L Carbon Dioxide (22-29) mmol/L Anion Gap (12-20) BUN (9-16) mg/dL Creatinine (0.5-1.4) mg/dL Estim Creat Clear Calc Estimated GFR Random Glucose (60-115) mg/dL Calcium (8.4-10.2) mg/dL Magnesium (1.6-2.6) mg/dL Total Bilirubin (0.0-1.0) mg/dL AST (5-31) U/L ALT (0-31) U/L Alkaline Phosphatase (39-117) U/L C-Reactive Protein (< or = 0.50) mg/dL Total Protein (6.5-8.0) g/dL Albumin (3.5-5.0) g/dL Lipase (8-78) U/L Beta HCG, Quant mIU/mL Urine Color Yellow Urine Appearance Cloudy Urine pH 5.5 (5.0-9.0) Ur Specific [place] 1.025 (1.005-1.025) Urine Protein Trace (Neg-Trace) mg/dL Urine Glucose (UA) Negative (Negative) mg/dL Urine Ketones Trace (Negative) mg/dL Urine Blood Negative (Negative) Urine Nitrite Negative (Negative) Ur Leukocyte Esterase Small (1+) H (Negative) Urine RBC 3-5 H (0-2) /HPF Urine WBC 11-20 H (0-5) /HPF Ur Squamous Epith Cells >20 (0-2) /HPF Urine Bacteria 1+ (None Seen) Hyaline Casts 0-2 (0-2) /LPF Urine Opiates Screen (Not Detect) Urine Fentanyl Screen (Not Detect) Ur Barbiturates Screen (Not Detect) Ur Phencyclidine Scrn (Not Detect) Ur Amphetamines Screen (Not Detect) U Benzodiazepines Scrn (Not Detect) Urine Cocaine Screen (Not Detect) U Marijuana (THC) Screen (Not Detect) Ethyl Alcohol mg/dL Influenza Type A (PCR) (Negative) Influenza Type B (PCR) (Negative) RSV RNA Qual (PCR) (Negative) SARS-CoV-2 RNA (RT-PCR) (Negative) 06/07/22 06/07/22 Range/Units 13:01 13:01 WBC (4.8-10.8) X10*3/uL RBC (4.20-5.50) X10*6/uL Hgb (12.0-16.0) g/dl Hct (37.0-47.0) % MCV (80.0-98.0) fL MCH (27.0-33.0) pg MCHC (31.0-35.0) g/dl RDW (11.0-16.0) % Plt Count (160-400) X10*3/uL MPV (9.4-12.3) fL Immature Gran % (Auto) (0.0-0.4) % Neut % (Auto) (45-73) % Lymph % (Auto) (20-40) % [place] % (Auto) (2-11) % Eos % (Auto) (0-4) % Baso % (Auto) (0-2) % Lymph # (Auto) (1.2-4.9) X10*3/uL [place] # (Auto) (0.1-1.2) X10*3/uL Eos # (Auto) (0.0-0.4) X10*3/uL Baso # (Auto) (0.0-0.2) X10*3/uL Abs Immat Gran (auto) (0.00-0.03) X10*3/uL Absolute Neuts (auto) (2.0-8.3) x10*3/uL Absolute Nucleated RBC (0.0-0.012) X10*3/uL Nucleated RBC % (auto) (0.0-0.2) /100WBC ESR (0-20) MM/HR PT (10.0-13.1) SEC INR (0.9-1.1) Sodium (135-145) mmol/L Potassium (3.3-5.1) mmol/L Chloride (96-108) mmol/L Carbon Dioxide (22-29) mmol/L Anion Gap (12-20) BUN (9-16) mg/dL Creatinine (0.5-1.4) mg/dL Estim Creat Clear Calc Estimated GFR Random Glucose (60-115) mg/dL Calcium (8.4-10.2) mg/dL Magnesium (1.6-2.6) mg/dL Total Bilirubin (0.0-1.0) mg/dL AST (5-31) U/L ALT (0-31) U/L Alkaline Phosphatase (39-117) U/L C-Reactive Protein (< or = 0.50) mg/dL Total Protein (6.5-8.0) g/dL Albumin (3.5-5.0) g/dL Lipase (8-78) U/L Beta HCG, Quant mIU/mL Urine Color Urine Appearance Urine pH (5.0-9.0) Ur Specific [place] (1.005-1.025) Urine Protein (Neg-Trace) mg/dL Urine Glucose (UA) (Negative) mg/dL Urine Ketones (Negative) mg/dL Urine Blood (Negative) Urine Nitrite (Negative) Ur Leukocyte Esterase (Negative) Urine RBC (0-2) /HPF Urine WBC (0-5) /HPF Ur Squamous Epith Cells (0-2) /HPF Urine Bacteria (None Seen) Hyaline Casts (0-2) /LPF Urine Opiates Screen Not Detected (Not Detect) Urine Fentanyl Screen Not Detected (Not Detect) Ur Barbiturates Screen Not Detected (Not Detect) Ur Phencyclidine Scrn Not Detected (Not Detect) Ur Amphetamines Screen Not Detected (Not Detect) U Benzodiazepines Scrn Not Detected (Not Detect) Urine Cocaine Screen Not Detected (Not Detect) U Marijuana (THC) Screen POSITIVE H (Not Detect) Ethyl Alcohol mg/dL Influenza Type A (PCR) NEGATIVE (Negative) Influenza Type B (PCR) NEGATIVE (Negative) RSV RNA Qual (PCR) NEGATIVE (Negative) SARS-CoV-2 RNA (RT-PCR) NEGATIVE (Negative) Independent Interpretation I performed an independent interpretation of an: Ultrasound Radiology Impression Discussion of test interpretation with radiology: I have reviewed the radiologist's reading. Radiologist Impression: FINDINGS: PANCREAS: The visualized portion of the pancreas head and body are normal, portion of the pancreatic body and tail, not visualized are obscured by bowel gas. ABDOMINAL AORTA: The proximal, mid, and distal segments are normal in caliber. INFERIOR VENA CAVA: Visualized portions are normal. LIVER: Increased echogenicity of the liver parenchyma, this can be seen in the setting of hepatic steatosis or liver parenchymal disease. The liver is normal in size. The liver contour is normal. No focal hepatic lesion. There is no intrahepatic biliary duct dilatation seen. GALLBLADDER: There is echogenic material layering in the gallbladder fall a gallbladder sludge, The gallbladder is physiologically distended without evidence of stones,? polyps, wall thickening or pericholecystic fluid. COMMON BILE DUCT: Normal in caliber measuring 0.5 cm in diameter. RIGHT KIDNEY: Normal. No hydronephrosis. No renal calculi or focal parenchymal lesions. The kidney measures 10 cm in maximum dimension. LEFT KIDNEY: Normal. No hydronephrosis. No renal calculi or focal parenchymal lesions. The kidney measures 10 cm in maximum dimension. SPLEEN: Normal. The spleen measures 12 cm in maximum dimension. FREE FLUID: None. US/US abdomen complete IMPRESSION: ? *? Increased echogenicity of the liver parenchyma, this can be seen in the setting of hepatic steatosis. ? *? Gallbladder sludge, no ultrasound evidence of acute cholecystitis. External Record Review External record reviewed: Inpatient record, Office record, Outpatient record, Prior outpatient labs, Prior outpatient radiology, Primary care record and Outside ED record Prescription Management I considered prescription management with: Pain Medication Discharge Plan Discharge Clinical Impression: Gastroenteritis, Abdominal pain, Nausea vomiting and diarrhea Patient Disposition: Home, Self-Care Instructions: Gastroenteritis (ED) Prescriptions: New ondansetron HCl 4 mg tablet 4 mg PO Q8H Qty: 14 0RF ketorolac 10 mg tablet 10 mg PO Q8H Qty: 14 0RF Rx Instructions: First dose given in the ER by IM and patient tolerated well No Action quetiapine 100 mg tablet 100 - 150 mg PO BEDTIME 90 Days Qty: 135 2RF fluoxetine 10 mg capsule 10 mg PO DAILY 90 Days Qty: 90 0RF hydroxyzine HCl 25 mg tablet 50 mg PO TID Qty: 60 0RF methadone 40 mg tablet,soluble 94 mg PO DAILY amoxicillin 875 mg tablet 875 mg PO Q12H 7 Days Qty: 14 0RF ibuprofen 400 mg tablet 400 mg PO Q8H PRN (Reason: pain) 10 Days Qty: 30 0RF Referrals: Po,Eliazar Denton MD [Primary Care Provider] - 2 days Stand Alone Forms: Work/School Release
--- NOTE | 2022-06-07 11:44 | PC.NURSE ---
NO FURTHER VOMITING. STATES FEELING BETTER AWAITING LABS, PCT WAS UNSUCCESSFUL AT [facility] ATTEMPT
[2022-06-07 12:07] LABS: MANUAL DIFF FLAG NO
[2022-06-07 12:14] LABS: Basophils Absolute Auto 0.1 X10*3/uL (0.0-0.2); Basophils Percent Auto 0.4 % (0-2); Eosinophils Percent Auto 0.2 % (0-4); Hematocrit 40.9 % (37.0-47.0); Hemoglobin 13.4 g/dl (12.0-16.0); Imm Gran Abs Auto 0.06 X10*3/uL (0.00-0.03); Imm Gran Pct Auto 0.4 % (0.0-0.4); Lymphocytes Absolute Auto 0.8 X10*3/uL (1.2-4.9); Lymphocytes Percent Auto 6.1 % (20-40); Mean Corpuscular HGB Conc 32.8 g/dl (31.0-35.0); Mean Corpuscular Hemoglobin 29.5 pg (27.0-33.0); Mean Corpuscular Volume 90.1 fL (80.0-98.0); Mean Platelet Volume 9.9 fL (9.4-12.3); Monocytes Absolute Auto 0.8 X10*3/uL (0.1-1.2); Monocytes Percent Auto 5.6 % (2-11); Neutrophils Absolute Auto 11.9 x10*3/uL (2.0-8.3); Neutrophils Percent Auto 87.3 % (45-73); Platelet Count 251 X10*3/uL (160-400); Red Blood Count 4.54 X10*6/uL (4.20-5.50); Red Cell Distribution Width 12.9 % (11.0-16.0); White Blood Count 13.6 X10*3/uL (4.8-10.8)
[2022-06-07 12:26] LABS: Alanine Aminotransferase 9 U/L (0-31); Albumin Level 4.3 g/dL (3.5-5.0); Alkaline Phosphatase 73 U/L (39-117); Anion Gap 14 (12-20); Aspartate Amino Transferase 17 U/L (5-31); Bilirubin Total 0.4 mg/dL (0.0-1.0); Blood Urea Nitrogen 11 mg/dL (9-16); C Reactive Protein < 0.10 mg/dL (< or = 0.50); Carbon Dioxide 18 mmol/L (22-29); Chloride 113 mmol/L (96-108); Estimated Glomerular Filt Rate > 60; Glucose Random 92 mg/dL (60-115); Lipase 21 U/L (8-78); Magnesium 1.9 mg/dL (1.6-2.6); Potassium 4.1 mmol/L (3.3-5.1); Sodium 141 mmol/L (135-145); Total Protein 6.6 g/dL (6.5-8.0)
[2022-06-07 12:32] LABS: Ethanol < 10 mg/dL
[2022-06-07 12:35] LABS: HCG Quantitative < 2 mIU/mL
[2022-06-07 13:02] LABS: Erythrocyte Sedimentation Rate 3 MM/HR (0-20)
[2022-06-07 13:11] LABS: Appearance Urine Cloudy; Color Urine Yellow; Glucose Urine UA Negative (Negative); Leukocyte Esterase Urine Small (1+) (Negative); Nitrite Urine Negative (Negative); PH 5.5 (5.0-9.0); Specific Gravity - Urine 1.025 (1.005-1.025); UMIC TRIGGER UACC YES; Urine Blood Negative (Negative); Urine Ketones Trace mg/dL (Negative); Urine Protein Trace mg/dL (Neg-Trace)
[2022-06-07 13:16] LABS: Bacteria Urine 1+ (None Seen); Hyaline Casts Urine 0-2 /LPF (0-2); Squamous Epithelial Cell Urine >20 /HPF (0-2); UACC Culture Trigger YES
[2022-06-07 13:24] LABS: Amphetamine Screen Urine Not Detected (Not Detect); Barbiturates, Urine Not Detected (Not Detect); Benzodiazepines Screen Urine Not Detected (Not Detect); Cannabinoid Screen Urine POSITIVE (Not Detect); Cocaine Screen Urine Not Detected (Not Detect); Fentanyl, urine Not Detected (Not Detect); Opiate Screen Urine Not Detected (Not Detect); Phencyclidine Screen Urine Not Detected (Not Detect)
[2022-06-07 13:45] LABS: Influenza A PCR NEGATIVE (Negative); Influenza B PCR NEGATIVE (Negative); Resp Syncy Virus RNA Qual PCR NEGATIVE (Negative); SARS COV2 PCR INHOUSE NEGATIVE (Negative)
[2022-06-07 15:33] VITALS: BP 112/71; PULSE 81; RESP 16; TEMP 36.6; O2SAT 97
== END 2022-06-07 15:36 | disposition home or self-care (01) ==
PROVIDERS: Physician Assistant Medical; Emergency Provider Student in an Organized Health Care Education/Training Program; PCP Internal Medicine
DX: K52.9 Noninfective gastroenteritis and colitis, unspecified (principal); R11.2 Nausea with vomiting, unspecified; M79.10 Myalgia, unspecified site; R50.9 Fever, unspecified; F17.210 Nicotine dependence, cigarettes, uncomplicated; Z71.6 Tobacco abuse counseling; Z20.822 Contact with and (suspected) exposure to COVID-19; Z20.828 Contact with and (suspected) exposure to other viral communicable diseases; Z79.899 Other long term (current) drug therapy
CPT/HCPCS: 0241U; 36415; 76700; 80053; 80307; 81001; 82077; 83690; 83735; 84702; 85025; 85610; 85652; 86140; 87086; 96361; 96374; 96375; 99285; J1200; J1885; J2405

== ENCOUNTER 2022-07-13 10:19 | Emergency (ER) | payer OTHER, SELFPAY ==
--- NOTE | ~2022-07-13 | US_ITS ---
EXAMINATION: US ABDOMEN LIMITED CLINICAL INFORMATION: Epigastric pain. Question gallstones.. COMPARISON: 06/07/2022 TECHNIQUE: Real-time imaging of the right upper quadrant abdominal viscera. FINDINGS: PANCREAS: Mostly obscured by gas. The visualized portion of the pancreatic head is unremarkable. LIVER: Not evaluated. GALLBLADDER: Small amount of sludge in the gallbladder lumen. The gallbladder is physiologically distended without evidence of stones, polyps, wall thickening or pericholecystic fluid. COMMON BILE DUCT: Normal in caliber measuring 0.5 cm in diameter. RIGHT KIDNEY: Not evaluated. FREE FLUID: None. US/US abdomen limited IMPRESSION: Small amount of sludge in the gallbladder lumen. No stones are seen. No inflammatory changes.
[2022-07-13 10:31] VITALS: BP 132/88; BP 153/98; PULSE 60; PULSE 61; RESP 17; TEMP 36.5; O2SAT 99; BMI 24.7
[2022-07-13] MEDS: 0.9 % Sodium Chloride 1,000 ML 999 ML IV ×2 (11:06→12:50)
[2022-07-13] MEDS: ondansetron HCL 4 MG/2 ML VIAL IVPUSH (11:06)
[2022-07-13 11:30] LABS: MANUAL DIFF FLAG NO
[2022-07-13 11:40] LABS: Basophils Percent Auto 0.3 % (0-2); Eosinophils Percent Auto 0.2 % (0-4); Hematocrit 38.6 % (37.0-47.0); Hemoglobin 12.3 g/dl (12.0-16.0); Imm Gran Abs Auto 0.07 X10*3/uL (0.00-0.03); Imm Gran Pct Auto 0.5 % (0.0-0.4); Lymphocytes Absolute Auto 1.2 X10*3/uL (1.2-4.9); Mean Corpuscular HGB Conc 31.9 g/dl (31.0-35.0); Mean Corpuscular Hemoglobin 29.3 pg (27.0-33.0); Mean Corpuscular Volume 91.9 fL (80.0-98.0); Monocytes Absolute Auto 1.2 X10*3/uL (0.1-1.2); Monocytes Percent Auto 7.9 % (2-11); Neutrophils Absolute Auto 12.9 x10*3/uL (2.0-8.3); Neutrophils Percent Auto 83.1 % (45-73); Platelet Count 266 X10*3/uL (160-400); Red Cell Distribution Width 12.9 % (11.0-16.0); White Blood Count 15.5 X10*3/uL (4.8-10.8)
[2022-07-13 12:13] LABS: Alanine Aminotransferase 10 U/L (0-31); Albumin Level 3.9 g/dL (3.5-5.0); Alkaline Phosphatase 62 U/L (39-117); Anion Gap 11 (12-20); Aspartate Amino Transferase 17 U/L (5-31); Bilirubin Total 0.3 mg/dL (0.0-1.0); Blood Urea Nitrogen 13 mg/dL (9-16); Calcium 8.5 mg/dL (8.4-10.2); Carbon Dioxide 19 mmol/L (22-29); Chloride 114 mmol/L (96-108); Creatinine Clr Calc Pharmacy 105.8; Estimated Glomerular Filt Rate > 60; Glucose Random 97 mg/dL (60-115); HCG Quantitative < 2 mIU/mL; Lipase 12 U/L (8-78); Magnesium 1.8 mg/dL (1.6-2.6); Potassium 4.2 mmol/L (3.3-5.1); Sodium 140 mmol/L (135-145); Total Protein 6.3 g/dL (6.5-8.0)
[2022-07-13 12:39] VITALS: BP 91/51; PULSE 70; RESP 17; TEMP 36.7; O2SAT 99
[2022-07-13] MEDS: Lidocaine HCl Viscous 2 % 15 ML SOLUTION MUCOUS MEM (12:50)
[2022-07-13] MEDS: Magnesium Hydrox/Alum Hydrox 30 ML ORAL.SUSP PO (12:50)
[2022-07-13] MEDS: Famotidine/PF 20 MG/2 ML VIAL IVPUSH (12:50)
[2022-07-13 13:17] LABS: Appearance Urine Cloudy; Color Urine Yellow; Glucose Urine UA Negative (Negative); Leukocyte Esterase Urine Small (1+) (Negative); Nitrite Urine Negative (Negative); PH 5.5 (5.0-9.0); Specific Gravity - Urine 1.025 (1.005-1.025); UMIC TRIGGER UACC YES; Urine Blood Negative (Negative); Urine Ketones Trace mg/dL (Negative); Urine Protein Trace mg/dL (Neg-Trace)
[2022-07-13 13:18] LABS: UPreg QC Valid YES; Urine Pregnancy NEGATIVE (NEGATIVE)
[2022-07-13 13:22] LABS: Bacteria Urine 1+ (None Seen); Hyaline Casts Urine 0-2 /LPF (0-2); UACC Culture Trigger YES
[2022-07-13 13:50] VITALS: BP 94/56; PULSE 52; RESP 16; TEMP 36.8; O2SAT 99
--- NOTE | 2022-07-13 14:38 | PC.NURSE ---
pt tolerated po trial (crackers and jesus davey), mlp aware.
--- NOTE | 2022-07-13 14:40 | ED_ITS ---
HPI - General Adult General Chief complaint: Abdominal Pain Stated complaint: ABD PAIN,VOMITING Time Seen by Provider: 07/13/22 10:51 Source: patient Mode of arrival: ambulatory Limitations: no limitations History of Present Illness HPI narrative: 27 yold patient if past medical history of hepatitis C and IV drug use presents to ED for abdominal pain this morning and vomiting. Patient states pain is epigastric. Patient denies any lower abdominal pain, or urinary /Vaginal complaints. patient denies any chest pain or shortness of breath. Related Data Home Medications Medication Instructions Recorded Confirmed methadone 40 mg soluble tablet 94 mg PO DAILY 07/24/21 10/28/21 Previous Rx's Medication Instructions Recorded fluoxetine 10 mg capsule 10 mg PO DAILY 90 days #90 caps 12/04/21 amoxicillin 875 mg tablet 875 mg PO Q12H 7 days #14 tabs 01/13/22 ibuprofen 400 mg tablet 400 mg PO Q8H PRN pain 10 days #30 01/13/22 tabs hydroxyzine HCl 25 mg tablet 50 mg PO TID #60 tabs 01/29/22 ketorolac 10 mg tablet 10 mg PO Q8H #14 tabs 06/07/22 ondansetron HCl 4 mg tablet 4 mg PO Q8H #14 tabs 06/07/22 quetiapine 100 mg tablet See Rx Instructions .Route 06/17/22 .COMPLEX #45 tabs cefuroxime axetil 250 mg tablet 250 mg PO Q12H 7 days #14 tabs 07/13/22 naproxen 500 mg tablet 500 mg PO BID PRN pain 10 days #20 07/13/22 tabs Allergies Allergy/AdvReac Type Severity Reaction Status Date / Time alprazolam Allergy Unknown unsure Verified 01/13/22 14:31 azithromycin [From ZITHROMAX] AdvReac Unknown VOMITING/DI Verified 01/13/22 14:31 ARRHEA Zithromax AdvReac Unknown vomiting Uncoded 01/13/22 14:31 Review of Systems Review of Systems: Abdominal pain vomiting Yes all other systems are reviewed and are negative PMF Past Medical History Medical History Anemia Contraceptive management Hepatitis C Herpes genitalis IV drug user Peptic ulcer disease Ureterolithiasis Surgical History H/O myringotomy H/O sinus surgery Hx of tonsillectomy Family History Family History Other Mental health disorder Substance use disorder Social History Social History Housing: Assisted Living Facility Housing Other:: treatment Alcohol intake: never Patient Tobacco Use Status: Current someday Tobacco user Tobacco use type: Cigarette Cigarettes Per Day: 3 Smoked in Last 30 Days: No e-Cigarette/Vaping Use: Currently Using Second Hand Smoke Exposure: Yes Use of substances other than those prescribed or required for medical reasons: No Advance Directives: No Advance Directives Information Provided: No Patient : No service: No Current occupational status: unemployed Cognitive needs: No Hearing needs: No Vision needs: No Physical Exam ED Vital Signs: Vital Signs - 24 hr 07/13/22 10:31 07/13/22 12:39 07/13/22 13:50 Temperature 97.7 F 98.1 F 98.2 F Pulse Rate 60 70 52 Respiratory Rate 17 17 16 Blood Pressure 153/98 H 91/51 L 94/56 L Pulse Oximetry 99 99 99 Oxygen Delivery Method Room Air Room Air Room Air BMI result Body Mass Index 24.7 Const General: cooperative, healthy appearing, comfortable, no acute distress, well developed, alert, awake and Physically active Orientation/consciousness: oriented to person, oriented to place, oriented to time and patient oriented x3 HENMT Head: Yes normal to inspection, Yes No palpable skull fracture present, Yes normocephalic, Yes atraumatic and No abrasion Eyes General: appearance normal, both eyes and all related structures Neck Neck: Yes normal visual inspection, Yes full ROM, Yes no lymphadenopathy, Yes no meningeal signs, Yes trachea midline, Yes supple, No anterior neck swelling and No tender Chest Chest palpation & inspection: normal inspection of the chest and normal palpation of entire chest wall Resp Effort & Inspection: normal respiratory effort and able to speak in complete sentences Auscultation: clear to auscultation bilaterally Cardio Jugular venous distension: no JVD Heart sounds: S1 normal heart sound present and S2 normal heart sound present GI Inspection: Yes normal to inspection and No abdominal wall ecchymosis Palpation (GI): Soft to palpation, not firm, Tenderness to palpation present (GI) in the epigastrum, no guarding and not rigid General: No CVA tenderness and Yes no CVA tenderness Back/Spine/Pelvis Back: no CVA tenderness, No CVA tenderness and No back tenderness Skin General skin exam: no rashes or lesions noted and elasticity normal Neuro General: oriented to person, oriented to place, oriented to time, patient oriented x3, gait normal, tone normal, moves all extremities, Normal light touch and pain sensation, no meningeal signs, no focal motor deficits, CN's II-XI intact bilaterally and normal sensation to monofilament Extrem General: Yes normal to inspection and Yes full ROM Psych Appearance: grossly normal, well kempt and not disheveled Course Course Course Narrative: labs ordered ultrasound ordered. Pepcid fluids ordered Reevaluation(s) Reevaluation #1: labs came back normal. UA positive for UTI. Negative . Ultrasound shows sludge in gallbladder but there is no signs of cholecystitis. No gallstones. Patient has chronic elevated white blood cell count once trended. Patient would like to be discharged. Patient informed to follow-up with outpatient surgery and primary care provider. patient informed of low blood pressure and for us to repeat and recheck the blood pressure but patient wanted to be discharged immediately. Blood pressure on Discharge was 100/60 on monitor. NEgative [place] sign. Time: 14:46 Medications Administered Discontinued Medications Generic Name Dose Route Start Last Admin Trade Name Edilsonq PRN Reason Stop Dose Admin Al Hydroxide/Mg Hydroxide 30 ml 07/13/22 11:14 07/13/22 12:50 Magnesium Hydrox/Alum Hydrox 30 Ml Oral.Susp PO 07/13/22 11:15 30 ml ONCE ONE Administration Famotidine 20 mg 07/13/22 11:14 07/13/22 12:50 Famotidine/Pf 20 Mg/2 Ml Vial IVPUSH 07/13/22 11:15 20 mg ONCE ONE Administration Sodium Chloride 1,000 mls @ 999 mls/hr 07/13/22 11:00 07/13/22 12:10 Ns IV 07/13/22 12:00 Infused .Q1H1M STA Infusion Sodium Chloride 1,000 mls @ 999 mls/hr 07/13/22 11:01 07/13/22 13:50 Ns IV 07/13/22 12:01 Infused .Q1H1M STA Infusion Lidocaine HCl 15 ml 07/13/22 11:14 07/13/22 12:50 Lidocaine Hcl Viscous 2 % 15 Ml Solution MUCOUS MEM 07/13/22 11:15 15 ml ONCE ONE Administration Ondansetron HCl 4 mg 07/13/22 11:00 07/13/22 11:06 Ondansetron Hcl 4 Mg/2 Ml Vial IVPUSH 07/13/22 11:01 4 mg ONCE ONE Administration Medical Decision Making Medical Decision Making [facility] Narrative: 27-year-old female presents to ED for epigastric abdominal pain. Patient not toxic appearing. Labs ultrasound we did order. Differential Diagnosis Differential Diagnoses: The differential diagnosis associated with the presentation includes ( Cholecystitis, gallstone, pancreatitis, GERD, UTI,) Admission/Observation Consideration of admission/observation: Escalation of care including admission/observation considered Lab Data [facility] Lab Attestation statement: I reviewed the patient's lab results. 07/13/22 11:25 07/13/22 11:25 Labs: Lab Results 07/13/22 07/13/22 07/13/22 Range/Units 11:25 11:25 13:08 WBC 15.5 H (4.8-10.8) X10*3/uL RBC 4.20 (4.20-5.50) X10*6/uL Hgb 12.3 (12.0-16.0) g/dl Hct 38.6 (37.0-47.0) % MCV 91.9 (80.0-98.0) fL MCH 29.3 (27.0-33.0) pg MCHC 31.9 (31.0-35.0) g/dl RDW 12.9 (11.0-16.0) % Plt Count 266 (160-400) X10*3/uL MPV 10.0 (9.4-12.3) fL Immature Gran % (Auto) 0.5 H (0.0-0.4) % Neut % (Auto) 83.1 H (45-73) % Lymph % (Auto) 8.0 L (20-40) % [place] % (Auto) 7.9 (2-11) % Eos % (Auto) 0.2 (0-4) % Baso % (Auto) 0.3 (0-2) % Lymph # (Auto) 1.2 (1.2-4.9) X10*3/uL [place] # (Auto) 1.2 (0.1-1.2) X10*3/uL Eos # (Auto) 0.0 (0.0-0.4) X10*3/uL Baso # (Auto) 0.0 (0.0-0.2) X10*3/uL Abs Immat Gran (auto) 0.07 H (0.00-0.03) X10*3/uL Absolute Neuts (auto) 12.9 H (2.0-8.3) x10*3/uL Absolute Nucleated RBC 0.000 (0.0-0.012) X10*3/uL Nucleated RBC % (auto) 0.0 (0.0-0.2) /100WBC Sodium 140 (135-145) mmol/L Potassium 4.2 (3.3-5.1) mmol/L Chloride 114 H (96-108) mmol/L Carbon Dioxide 19 L (22-29) mmol/L Anion Gap 11 L (12-20) BUN 13 (9-16) mg/dL Creatinine 0.71 (0.5-1.4) mg/dL Estim Creat Clear Calc 105.8 Estimated GFR > 60 Random Glucose 97 (60-115) mg/dL Calcium 8.5 (8.4-10.2) mg/dL Magnesium 1.8 (1.6-2.6) mg/dL Total Bilirubin 0.3 (0.0-1.0) mg/dL AST 17 (5-31) U/L ALT 10 (0-31) U/L Alkaline Phosphatase 62 (39-117) U/L Total Protein 6.3 L (6.5-8.0) g/dL Albumin 3.9 (3.5-5.0) g/dL Lipase 12 (8-78) U/L Beta HCG, Quant < 2 mIU/mL Urine Color Urine Appearance Urine pH (5.0-9.0) Ur Specific [place] (1.005-1.025) Urine Protein (Neg-Trace) mg/dL Urine Glucose (UA) (Negative) mg/dL Urine Ketones (Negative) mg/dL Urine Blood (Negative) Urine Nitrite (Negative) Ur Leukocyte Esterase (Negative) Urine RBC (0-2) /HPF Urine WBC (0-5) /HPF Ur Squamous Epith Cells (0-2) /HPF Urine Bacteria (None Seen) Hyaline Casts (0-2) /LPF Urine Test NEGATIVE (NEGATIVE) 07/13/22 Range/Units 13:08 WBC (4.8-10.8) X10*3/uL RBC (4.20-5.50) X10*6/uL Hgb (12.0-16.0) g/dl Hct (37.0-47.0) % MCV (80.0-98.0) fL MCH (27.0-33.0) pg MCHC (31.0-35.0) g/dl RDW (11.0-16.0) % Plt Count (160-400) X10*3/uL MPV (9.4-12.3) fL Immature Gran % (Auto) (0.0-0.4) % Neut % (Auto) (45-73) % Lymph % (Auto) (20-40) % [place] % (Auto) (2-11) % Eos % (Auto) (0-4) % Baso % (Auto) (0-2) % Lymph # (Auto) (1.2-4.9) X10*3/uL [place] # (Auto) (0.1-1.2) X10*3/uL Eos # (Auto) (0.0-0.4) X10*3/uL Baso # (Auto) (0.0-0.2) X10*3/uL Abs Immat Gran (auto) (0.00-0.03) X10*3/uL Absolute Neuts (auto) (2.0-8.3) x10*3/uL Absolute Nucleated RBC (0.0-0.012) X10*3/uL Nucleated RBC % (auto) (0.0-0.2) /100WBC Sodium (135-145) mmol/L Potassium (3.3-5.1) mmol/L Chloride (96-108) mmol/L Carbon Dioxide (22-29) mmol/L Anion Gap (12-20) BUN (9-16) mg/dL Creatinine (0.5-1.4) mg/dL Estim Creat Clear Calc Estimated GFR Random Glucose (60-115) mg/dL Calcium (8.4-10.2) mg/dL Magnesium (1.6-2.6) mg/dL Total Bilirubin (0.0-1.0) mg/dL AST (5-31) U/L ALT (0-31) U/L Alkaline Phosphatase (39-117) U/L Total Protein (6.5-8.0) g/dL Albumin (3.5-5.0) g/dL Lipase (8-78) U/L Beta HCG, Quant mIU/mL Urine Color Yellow Urine Appearance Cloudy Urine pH 5.5 (5.0-9.0) Ur Specific [place] 1.025 (1.005-1.025) Urine Protein Trace (Neg-Trace) mg/dL Urine Glucose (UA) Negative (Negative) mg/dL Urine Ketones Trace (Negative) mg/dL Urine Blood Negative (Negative) Urine Nitrite Negative (Negative) Ur Leukocyte Esterase Small (1+) H (Negative) Urine RBC 3-5 H (0-2) /HPF Urine WBC 11-20 H (0-5) /HPF Ur Squamous Epith Cells 11-20 (0-2) /HPF Urine Bacteria 1+ (None Seen) Hyaline Casts 0-2 (0-2) /LPF Urine Test (NEGATIVE) Independent Interpretation I performed an independent interpretation of an: Ultrasound Radiology Impression Discussion of test interpretation with radiology: I have reviewed the radiologist's reading. Prescription Management I considered prescription management with: Pain Medication and Antibiotic Discharge Plan Discharge Clinical Impression: Biliary colic, UTI (urinary tract infection), Abdominal pain Patient Disposition: Home, Self-Care Instructions: Biliary Colic (ED), Urinary Tract Infection in Women (ED), Abdo robles Pain (ED) Additional Instructions: your urine showed an infection. Abdominal ultrasound was negative for signs of cholecystitis or gallstones were used to have sludge in the gallbladder. Recommend follow-up with surgeon and primary care provider. He will be discharged with antibiotics and pain medication. Return to the ED immediately for worsening abdominal pain, nausea, vomiting, flank pain, fever, chills, dysuria, or any other concerning symptoms. Prescriptions: New cefuroxime axetil 250 mg tablet 250 mg PO Q12H 7 Days Qty: 14 0RF naproxen 500 mg tablet 500 mg PO BID PRN (Reason: pain) 10 Days Qty: 20 0RF No Action fluoxetine 10 mg capsule 10 mg PO DAILY 90 Days Qty: 90 0RF hydroxyzine HCl 25 mg tablet 50 mg PO TID Qty: 60 0RF quetiapine 100 mg tablet See Rx Instructions .ROUTE .COMPLEX Qty: 45 0RF Dose Instruction: TAKE 1 TABLET TO 1 AND 1/2 TABLET BY MOUTH EVERY NIGHT AT BEDTIME Rx Instructions: TAKE 1 TABLET TO 1 AND 1/2 TABLET BY MOUTH EVERY NIGHT AT BEDTIME ondansetron HCl 4 mg tablet 4 mg PO Q8H Qty: 14 0RF ketorolac 10 mg tablet 10 mg PO Q8H Qty: 14 0RF Rx Instructions: First dose given in the ER by IM and patient tolerated well methadone 40 mg tablet,soluble 94 mg PO DAILY amoxicillin 875 mg tablet 875 mg PO Q12H 7 Days Qty: 14 0RF ibuprofen 400 mg tablet 400 mg PO Q8H PRN (Reason: pain) 10 Days Qty: 30 0RF Referrals: [facility] [place] General Surgeons [Provider Group] (Biliary COlic) Po,Eliazar Denton MD [Primary Care Provider] - ( UTI. Biliary COlic) Stand Alone Forms: Work/School Release Interventions: ED Discharge Assessment Last Done: 07/13/22 15:35 Discharge Date/Time: 07/13/22 15:36 Print Language: Irish
== END 2022-07-13 15:36 | disposition home or self-care (01) ==
PROVIDERS: Physician Assistant Medical; Emergency Provider Student in an Organized Health Care Education/Training Program; PCP Internal Medicine
DX: K80.50 Calculus of bile duct without cholangitis or cholecystitis without obstruction (principal); N39.0 Urinary tract infection, site not specified; F17.210 Nicotine dependence, cigarettes, uncomplicated; Z79.899 Other long term (current) drug therapy; Z71.6 Tobacco abuse counseling
CPT/HCPCS: 36415; 76705; 80053; 81001; 81025; 83690; 83735; 84702; 85025; 87086; 96361; 96374; 96375; 99284; J2405

== ENCOUNTER 2022-08-29 10:22 | Emergency (ER) | payer OTHER, SELFPAY ==
--- NOTE | ~2022-08-29 | US_ITS ---
EXAMINATION: US ABDOMEN LIMITED CLINICAL INFORMATION: Abdominal pain. COMPARISON: Abdominal ultrasound 07/13/2022. TECHNIQUE: Targeted ultrasound of the right upper quadrant was performed. The physician requested only evaluation of the gallbladder and common bile duct. FINDINGS: GALLBLADDER: There is echogenic bile within the gallbladder. The gallbladder is otherwise within normal limits. There is no gallbladder wall thickening, mural edema, pericholecystic fluid. The patient reported tenderness in the region of the gallbladder during the exam. COMMON BILE DUCT: Normal in caliber measuring 0.3 cm in diameter. US/US abdomen limited IMPRESSION: The patient reported tenderness over the gallbladder during the exam. There is echogenic bile in the gallbladder but otherwise the gallbladder is normal in appearance. There is no evidence of cholecystitis. No visible cholelithiasis.
--- NOTE | ~2022-08-29 | CT_ITS ---
EXAMINATION: CT ABDOMEN AND PELVIS WITHOUT CONTRAST CLINICAL INFORMATION: Abdominal pain and vomiting. COMPARISON: Abdominal ultrasound 08/29/2022. CT abdomen and pelvis 04/03/2019. TECHNIQUE: Multidetector volumetric imaging was performed from the superior aspect of the liver through the pubic symphysis. Sagittal and coronal reformatted images were obtained on the technologist's workstation. This CT examination was performed using dose optimization techniques as appropriate, variously including the following: *Automated exposure control *Adjustment of mA and/or kV according to patient size (this includes techniques or standardized protocols for targeted exams where dose is matched to indication/reason for exam; i.e. extremities or head) *Use of iterative reconstruction technique DLP: 436 mGy-cm FINDINGS: LUNG BASES: The visualized lung bases are unremarkable. LIVER, GALLBLADDER, AND BILIARY TREE: The liver is normal in size, shape, and attenuation. No focal hepatic lesion or biliary ductal dilatation is present. The gallbladder is unremarkable with no evidence of radiopaque gallstones, gallbladder wall thickening, or obvious pericholecystic inflammatory changes. PANCREAS: No discrete pancreatic mass. No ductal dilatation. No peripancreatic fluid. SPLEEN: Normal. ADRENAL GLANDS: No adrenal mass. KIDNEYS AND URETERS: Punctate nonobstructing calculus in the upper pole the right kidney 7 cm from the posterior skin surface. No hydroureteronephrosis. No discrete renal mass. No perinephric stranding. No ureteral calculus seen. BLADDER: No bladder calculus. GASTROINTESTINAL TRACT: The small bowel is normal in caliber. No mesenteric mass or fluid. The appendix is normal. The large bowel is normal in caliber. Minimal diverticulosis of the sigmoid colon. ABDOMINAL WALL: No significant hernia is appreciated. LYMPH NODES: No lymphadenopathy. VASCULAR: Retroaortic left renal vein. No aortic aneurysm. PELVIC VISCERA: The uterus and adnexa are unremarkable. OSSEOUS STRUCTURES: Mild degenerative disc disease at L5-S1. CT/CT abdomen pelvis wo IV con IMPRESSION: Punctate nonobstructing calculus in the upper pole right kidney. No hydroureteronephrosis. Gallbladder, biliary tree, pancreas unremarkable. No acute inflammatory changes involving the bowel. No evidence of bowel obstruction. Normal appendix. Fleischner guidelines were followed.
--- NOTE | 2022-08-29 10:32 | ED_ITS ---
HPI - Abdominal Pain General Chief Complaint: Nausea/Vomiting/Diarrhea Stated Complaint: ABD PAIN Time Seen by Provider: 08/29/22 10:26 Source: patient and EMS Mode of arrival: EMS Limitations: no limitations History of Present Illness HPI narrative: [age] y/o female with history of IV drug abuse, hepatitis-C, depression, bipolar disorder, presented today by EMS for evaluation of mid abdominal pain with nausea vomiting, no clear exacerbating or relieving factor. Patient was seen 2 weeks ago for similar pain was diagnosed with gallbladder disease. Declined any fever chills. No past surgical histories in the past. Related Data Home Medications Medication Instructions Recorded Confirmed methadone 40 mg soluble tablet 94 mg PO DAILY 07/24/21 10/28/21 Previous Rx's Medication Instructions Recorded fluoxetine 10 mg capsule 10 mg PO DAILY 90 days #90 caps 12/04/21 amoxicillin 875 mg tablet 875 mg PO Q12H 7 days #14 tabs 01/13/22 ibuprofen 400 mg tablet 400 mg PO Q8H PRN pain 10 days #30 01/13/22 tabs hydroxyzine HCl 25 mg tablet 50 mg PO TID #60 tabs 01/29/22 ketorolac 10 mg tablet 10 mg PO Q8H #14 tabs 06/07/22 ondansetron HCl 4 mg tablet 4 mg PO Q8H #14 tabs 06/07/22 cefuroxime axetil 250 mg tablet 250 mg PO Q12H 7 days #14 tabs 07/13/22 naproxen 500 mg tablet 500 mg PO BID PRN pain 10 days #20 07/13/22 tabs quetiapine 100 mg tablet See Rx Instructions .Route 07/16/22 .COMPLEX #135 tabs ondansetron 4 mg disintegrating 4 mg PO Q8-12H PRN nausea and 08/29/22 tablet vomiting #10 tabs Allergies Allergy/AdvReac Type Severity Reaction Status Date / Time alprazolam Allergy Unknown unsure Verified 01/13/22 14:31 azithromycin [From ZITHROMAX] AdvReac Unknown VOMITING/DI Verified 01/13/22 14:31 ARRHEA Zithromax AdvReac Unknown vomiting Uncoded 01/13/22 14:31 Review of Systems Review of Systems All other systems are reviewed and are negative Constitutional: Reports as per HPI and Reports no additional constitutional complaints Eyes: Reports as per HPI and Reports no additional eye complaints Reports system reviewed and no additional complaints, except as documented Cardiovascular: Reports as per HPI and Reports no additional cardiovascular complaints Respiratory: Reports as per HPI and Reports no additional respiratory complaints Gastrointestinal: Reports as per HPI and Reports no additional gastrointestinal complaints Genitourinary: Reports no additional female genitourinary complaints Musculoskeletal: Reports no additional musculoskeletal complaints Skin/Breast: Reports system reviewed and no additional complaints, except as d ocu Psychiatric: Reports no additional psychiatric complaints Endocrine: Reports no additional endocrine complaints Hematologic/Lymphatic: Reports no additional hematologic/lymphatic complaints Allergic/Immunologic: Reports no additional allergic/immunologic complaints Reports system reviewed and no additional complaints, except as documented and Reports Abnormal speech present [facility] Past Medical History Medical History Anemia Contraceptive management Hepatitis C Herpes genitalis IV drug user Peptic ulcer disease Ureterolithiasis Surgical History H/O myringotomy H/O sinus surgery Hx of tonsillectomy Family History Family History Other Mental health disorder Substance use disorder Social History Social History Housing: Assisted Living Facility Housing Other:: treatment Alcohol intake: never Patient Tobacco Use Status: Current someday Tobacco user Tobacco use type: Cigarette Cigarettes Per Day: 3 e-Cigarette/Vaping Use: Currently Using Second Hand Smoke Exposure: Yes Advance Directives: No Advance Directives Information Provided: No service: No Current occupational status: unemployed Cognitive needs: No Hearing needs: No Vision needs: No Physical Exam ED Vital Signs: Vital Signs - 24 hr 08/29/22 10:40 08/29/22 12:56 08/29/22 14:51 Temperature 98.1 F Pulse Rate 63 76 80 Respiratory Rate 16 16 16 Blood Pressure 165/103 H 106/67 115/63 Pulse Oximetry 94 99 97 Oxygen Delivery Method Room Air Room Air Room Air BMI result Body Mass Index 23.3 Vital signs have been reviewed as appeared to be correct. Blood pressure normal. Heart rate normal. Respiration rate normal. Temperature normal. Oxygen saturation normal. Appearance: Alert. Oriented X3. No acute distress. Head: Normal external exam. Normocephalic. Atraumatic. No Mckenzie signs noted. No raccoon eyes noted Eyes: PERRLA. EOMI. Conjunctiva and sclera normal. Eyelids normal. ENT: TM's Normal. Pharynx normal. Uvula midline. Moist mucous membranes. No trismus noted. No drooling noted. No muffled voice noted. Neck: Normal inspection. Neck supple. FROM. No adenopathy. Thyroid Normal. No meningeal signs. No neck mass noted. CVS: Normal heart rate and rhythm. Heart sound normal. No murmurs noted. Pulses normal throughout. Respiratory: No respiratory distress. Painless inspiration. Breath sounds normal. No wheezes/rales/rhonchi noted. Chest nontender. No accessory muscle usage noted or decreased air movement noted. Abdomen: Soft and nontender. Bowel sounds normal in all 4 quadrants. No distention noted. No organomegaly noted. No visible injury noted. Back: No CVA tenderness. Full range of motion noted. Skin: Skin warm and dry. Normal skin color. Normal skin turgor. No rashes/lesions/lacerations noted. Extremities: No lower extremity edema. Extremities exhibit normal range of motion. Extremities nontender. Neuro: Oriented X 3. Cranial nerve exam: II-XII are grossly intact No motor deficit. No sensory deficit. Reflexes normal. Course Course Course Narrative: A 27-year-old female came in with upper abdominal pain with nausea and vomiting, patient with elevated lactic acid which is secondary to dehydration lactic acidosis was improved after was given 3 L of fluid in the emergency department, patient now is not feeling nauseous or vomiting able to tolerate p.o. intake, negative ultrasound/CT of the abdomen and pelvis for acute intra-abdominal pathology. Will discharge the patient to follow-up with PCP. Medical Decision Making Differential Diagnosis Differential Diagnoses: The differential diagnosis associated with the presentation includes (Gastritis, pancreatitis, electrolyte abnormalities, severe dehydration, severe anemia, UTI.) Lab Data MDM Lab Attestation statement: I reviewed the patient's lab results. 08/29/22 10:40 08/29/22 12:21 Labs: Lab Results 08/29/22 08/29/22 08/29/22 Range/Units 10:40 10:40 12:21 WBC 13.2 H (4.8-10.8) X10*3/uL RBC 5.20 D (4.20-5.50) X10*6/uL Hgb 15.4 D (12.0-16.0) g/dl Hct 46.2 (37.0-47.0) % MCV 88.8 (80.0-98.0) fL MCH 29.6 (27.0-33.0) pg MCHC 33.3 (31.0-35.0) g/dl RDW 12.4 (11.0-16.0) % Plt Count 301 (160-400) X10*3/uL MPV 10.3 (9.4-12.3) fL Immature Gran % (Auto) 0.4 (0.0-0.4) % Neut % (Auto) 64.3 (45-73) % Lymph % (Auto) 29.6 (20-40) % [place] % (Auto) 4.6 (2-11) % Eos % (Auto) 0.6 (0-4) % Baso % (Auto) 0.5 (0-2) % Lymph # (Auto) 3.9 (1.2-4.9) X10*3/uL [place] # (Auto) 0.6 (0.1-1.2) X10*3/uL Eos # (Auto) 0.1 (0.0-0.4) X10*3/uL Baso # (Auto) 0.1 (0.0-0.2) X10*3/uL Abs Immat Gran (auto) 0.05 H (0.00-0.03) X10*3/uL Absolute Neuts (auto) 8.5 H (2.0-8.3) x10*3/uL Absolute Nucleated RBC 0.000 (0.0-0.012) X10*3/uL Nucleated RBC % (auto) 0.0 (0.0-0.2) /100WBC Sodium 140 (135-145) mmol/L Potassium 3.6 (3.3-5.1) mmol/L Chloride 111 H (96-108) mmol/L Carbon Dioxide 25 (22-29) mmol/L Anion Gap 8 L (12-20) BUN 11 (9-16) mg/dL Creatinine 0.69 (0.5-1.4) mg/dL Estim Creat Clear Calc 109.2 Estimated GFR > 60 Random Glucose 103 (60-115) mg/dL Lactic Acid 2.6 H* (0.5-2.0) mmol/L Lactic Acid F/U @ 2Hr (0.5-2.0) mmol/L Lactic Acid F/U @ 4Hr (0.5-2.0) mmol/L Calcium 8.5 (8.4-10.2) mg/dL Total Bilirubin 0.4 (0.0-1.0) mg/dL Direct Bilirubin 0.1 (0.0-0.5) mg/dL AST 17 (5-31) U/L ALT 11 (0-31) U/L Alkaline Phosphatase 61 (39-117) U/L Total Protein 6.1 L (6.5-8.0) g/dL Albumin 3.8 (3.5-5.0) g/dL Lipase 28 (8-78) U/L Beta HCG, Quant < 2 mIU/mL Urine Color Urine Appearance Urine pH (5.0-9.0) Ur Specific [place] (1.005-1.025) Urine Protein (Neg-Trace) mg/dL Urine Glucose (UA) (Negative) mg/dL Urine Ketones (Negative) mg/dL Urine Blood (Negative) Urine Nitrite (Negative) Ur Leukocyte Esterase (Negative) Urine RBC (0-2) /HPF Urine WBC (0-5) /HPF Ur Squamous Epith Cells (0-2) /HPF Urine Bacteria (None Seen) Hyaline Casts (0-2) /LPF Urine Test (NEGATIVE) 08/29/22 08/29/22 08/29/22 Range/Units 13:03 14:21 14:21 WBC (4.8-10.8) X10*3/uL RBC (4.20-5.50) X10*6/uL Hgb (12.0-16.0) g/dl Hct (37.0-47.0) % MCV (80.0-98.0) fL MCH (27.0-33.0) pg MCHC (31.0-35.0) g/dl RDW (11.0-16.0) % Plt Count (160-400) X10*3/uL MPV (9.4-12.3) fL Immature Gran % (Auto) (0.0-0.4) % Neut % (Auto) (45-73) % Lymph % (Auto) (20-40) % [place] % (Auto) (2-11) % Eos % (Auto) (0-4) % Baso % (Auto) (0-2) % Lymph # (Auto) (1.2-4.9) X10*3/uL [place] # (Auto) (0.1-1.2) X10*3/uL Eos # (Auto) (0.0-0.4) X10*3/uL Baso # (Auto) (0.0-0.2) X10*3/uL Abs Immat Gran (auto) (0.00-0.03) X10*3/uL Absolute Neuts (auto) (2.0-8.3) x10*3/uL Absolute Nucleated RBC (0.0-0.012) X10*3/uL Nucleated RBC % (auto) (0.0-0.2) /100WBC Sodium (135-145) mmol/L Potassium (3.3-5.1) mmol/L Chloride (96-108) mmol/L Carbon Dioxide (22-29) mmol/L Anion Gap (12-20) BUN (9-16) mg/dL Creatinine (0.5-1.4) mg/dL Estim Creat Clear Calc Estimated GFR Random Glucose (60-115) mg/dL Lactic Acid (0.5-2.0) mmol/L Lactic Acid F/U @ 2Hr 5.0 H* (0.5-2.0) mmol/L Lactic Acid F/U @ 4Hr (0.5-2.0) mmol/L Calcium (8.4-10.2) mg/dL Total Bilirubin (0.0-1.0) mg/dL Direct Bilirubin (0.0-0.5) mg/dL AST (5-31) U/L ALT (0-31) U/L Alkaline Phosphatase (39-117) U/L Total Protein (6.5-8.0) g/dL Albumin (3.5-5.0) g/dL Lipase (8-78) U/L Beta HCG, Quant mIU/mL Urine Color Yellow Urine Appearance Clear Urine pH 6.0 (5.0-9.0) Ur Specific [place] 1.025 (1.005-1.025) Urine Protein Negative (Neg-Trace) mg/dL Urine Glucose (UA) Negative (Negative) mg/dL Urine Ketones 40 (Negative) mg/dL Urine Blood Trace H (Negative) Urine Nitrite Negative (Negative) Ur Leukocyte Esterase Negative (Negative) Urine RBC 3-5 H (0-2) /HPF Urine WBC 0-5 (0-5) /HPF Ur Squamous Epith Cells 0-2 (0-2) /HPF Urine Bacteria None Seen (None Seen) Hyaline Casts 0-2 (0-2) /LPF Urine Test NEGATIVE (NEGATIVE) 08/29/22 Range/Units 15:20 WBC (4.8-10.8) X10*3/uL RBC (4.20-5.50) X10*6/uL Hgb (12.0-16.0) g/dl Hct (37.0-47.0) % MCV (80.0-98.0) fL MCH (27.0-33.0) pg MCHC (31.0-35.0) g/dl RDW (11.0-16.0) % Plt Count (160-400) X10*3/uL MPV (9.4-12.3) fL Immature Gran % (Auto) (0.0-0.4) % Neut % (Auto) (45-73) % Lymph % (Auto) (20-40) % [place] % (Auto) (2-11) % Eos % (Auto) (0-4) % Baso % (Auto) (0-2) % Lymph # (Auto) (1.2-4.9) X10*3/uL [place] # (Auto) (0.1-1.2) X10*3/uL Eos # (Auto) (0.0-0.4) X10*3/uL Baso # (Auto) (0.0-0.2) X10*3/uL Abs Immat Gran (auto) (0.00-0.03) X10*3/uL Absolute Neuts (auto) (2.0-8.3) x10*3/uL Absolute Nucleated RBC (0.0-0.012) X10*3/uL Nucleated RBC % (auto) (0.0-0.2) /100WBC Sodium (135-145) mmol/L Potassium (3.3-5.1) mmol/L Chloride (96-108) mmol/L Carbon Dioxide (22-29) mmol/L Anion Gap (12-20) BUN (9-16) mg/dL Creatinine (0.5-1.4) mg/dL Estim Creat Clear Calc Estimated GFR Random Glucose (60-115) mg/dL Lactic Acid (0.5-2.0) mmol/L Lactic Acid F/U @ 2Hr (0.5-2.0) mmol/L Lactic Acid F/U @ 4Hr 0.9 (0.5-2.0) mmol/L Calcium (8.4-10.2) mg/dL Total Bilirubin (0.0-1.0) mg/dL Direct Bilirubin (0.0-0.5) mg/dL AST (5-31) U/L ALT (0-31) U/L Alkaline Phosphatase (39-117) U/L Total Protein (6.5-8.0) g/dL Albumin (3.5-5.0) g/dL Lipase (8-78) U/L Beta HCG, Quant mIU/mL Urine Color Urine Appearance Urine pH (5.0-9.0) Ur Specific [place] (1.005-1.025) Urine Protein (Neg-Trace) mg/dL Urine Glucose (UA) (Negative) mg/dL Urine Ketones (Negative) mg/dL Urine Blood (Negative) Urine Nitrite (Negative) Ur Leukocyte Esterase (Negative) Urine RBC (0-2) /HPF Urine WBC (0-5) /HPF Ur Squamous Epith Cells (0-2) /HPF Urine Bacteria (None Seen) Hyaline Casts (0-2) /LPF Urine Test (NEGATIVE) Independent Interpretation I performed an independent interpretation of an: Ultrasound (Gallbladder: No ac [place] gallbladder pathology.) and CT Scan (Abdomen and pelvis: No acute intra- abdominal pathology) Radiology Impression Discussion of test interpretation with radiology: I have reviewed the radiologist's reading. Medications Administered Discontinued Medications Generic Name Dose Route Start Last Admin Trade Name Freq PRN Reason Stop Dose Admin Sodium Chloride 1,000 mls @ 999 mls/hr 08/29/22 10:26 08/29/22 13:05 Ns IV 08/29/22 11:26 Infused .Q1H1M ONE Infusion Sodium Chloride 1,000 mls @ 999 mls/hr 08/29/22 11:13 08/29/22 16:27 Ns IV 08/29/22 12:13 Infused .Q1H1M ONE Infusion Sodium Chloride 1,905.09 mls @ 1,905.09 mls/hr 08/29/22 14:19 08/29/22 15:19 Ns 30 ml/kg infuse over 1 hr (1905.09 ml) 08/29/22 15:18 1,905.09 mls/hr IV Administration .Q1H STA Ceftriaxone Sodium 1 gm/ 50 mls @ 100 mls/hr 08/29/22 14:19 08/29/22 16:28 Sodium Chloride IV 08/29/22 14:48 Infused ONCE ONE Infusion Morphine Sulfate 1 mg 08/29/22 10:31 08/29/22 10:59 Morphine Sulfate 2 Mg/Ml Cartridge IVPUSH 08/29/22 10:32 1 mg ONCE ONE Administration Protocol Ondansetron HCl 4 mg 08/29/22 10:31 08/29/22 10:59 Ondansetron Hcl 4 Mg/2 Ml Vial IVPUSH 08/29/22 10:32 4 mg ONCE ONE Administration Ondansetron HCl 4 mg 08/29/22 11:47 08/29/22 11:53 Ondansetron Hcl 4 Mg/2 Ml Vial IVPUSH 08/29/22 11:48 4 mg ONCE ONE Administration Discharge Plan Discharge Clinical Impression: Gastritis, Dehydration, Acidosis, lactic Patient Disposition: Home, Self-Care Instructions: Dehydration (ED) Prescriptions: New ondansetron 4 mg tablet,disintegrating 4 mg PO Q8-12H PRN (Reason: nausea and vomiting) Qty: 10 0RF No Action fluoxetine 10 mg capsule 10 mg PO DAILY 90 Days Qty: 90 0RF hydroxyzine HCl 25 mg tablet 50 mg PO TID Qty: 60 0RF quetiapine 100 mg tablet See Rx Instructions .ROUTE .COMPLEX Qty: 135 1RF Dose Instruction: TAKE 1 TABLET TO 1 AND 1/2 TABLET BY MOUTH EVERY NIGHT AT BEDTIME Rx Instructions: TAKE 1 TABLET TO 1 AND 1/2 TABLET BY MOUTH EVERY NIGHT AT BEDTIME ondansetron HCl 4 mg tablet 4 mg PO Q8H Qty: 14 0RF ketorolac 10 mg tablet 10 mg PO Q8H Qty: 14 0RF Rx Instructions: First dose given in the ER by IM and patient tolerated well cefuroxime axetil 250 mg tablet 250 mg PO Q12H 7 Days Qty: 14 0RF naproxen 500 mg tablet 500 mg PO BID PRN (Reason: pain) 10 Days Qty: 20 0RF methadone 40 mg tablet,soluble 94 mg PO DAILY amoxicillin 875 mg tablet 875 mg PO Q12H 7 Days Qty: 14 0RF ibuprofen 400 mg tablet 400 mg PO Q8H PRN (Reason: pain) 10 Days Qty: 30 0RF Referrals: Po,Eliazar Denton MD [Primary Care Provider] -
[2022-08-29 10:40] VITALS: BP 165/103; PULSE 63; RESP 16; O2SAT 94; BMI 23.3
[2022-08-29 10:48] LABS: MANUAL DIFF FLAG NO
[2022-08-29 10:49] LABS: Basophils Absolute Auto 0.1 X10*3/uL (0.0-0.2); Basophils Percent Auto 0.5 % (0-2); Eosinophils Absolute Auto 0.1 X10*3/uL (0.0-0.4); Eosinophils Percent Auto 0.6 % (0-4); Hematocrit 46.2 % (37.0-47.0); Hemoglobin 15.4 g/dl (12.0-16.0); Imm Gran Abs Auto 0.05 X10*3/uL (0.00-0.03); Imm Gran Pct Auto 0.4 % (0.0-0.4); Lymphocytes Absolute Auto 3.9 X10*3/uL (1.2-4.9); Lymphocytes Percent Auto 29.6 % (20-40); Mean Corpuscular HGB Conc 33.3 g/dl (31.0-35.0); Mean Corpuscular Hemoglobin 29.6 pg (27.0-33.0); Mean Corpuscular Volume 88.8 fL (80.0-98.0); Mean Platelet Volume 10.3 fL (9.4-12.3); Monocytes Absolute Auto 0.6 X10*3/uL (0.1-1.2); Monocytes Percent Auto 4.6 % (2-11); Neutrophils Absolute Auto 8.5 x10*3/uL (2.0-8.3); Neutrophils Percent Auto 64.3 % (45-73); Platelet Count 301 X10*3/uL (160-400); Red Cell Distribution Width 12.4 % (11.0-16.0); White Blood Count 13.2 X10*3/uL (4.8-10.8)
[2022-08-29] MEDS: ondansetron HCL 4 MG/2 ML VIAL IVPUSH ×2 (10:59→11:53)
[2022-08-29] MEDS: Morphine Sulfate 2 MG/ML CARTRIDGE 1 MG IVPUSH (10:59)
[2022-08-29] MEDS: 0.9 % Sodium Chloride 1,000 ML 999 ML IV ×2 (11:00→14:20)
[2022-08-29 11:09] VITALS: BP 106/70; PULSE 60
[2022-08-29 11:10] LABS: Lactic Acid 2.6 mmol/L (0.5-2.0)
--- NOTE | 2022-08-29 11:10 | PC.NURSE ---
Alert and oriented coming from home for nausea/vomiting since last night. States she has had issues in the past similar to this related to her gallbladder. Vomiting bile in room, sticking fingers down throat to induce vomiting. IV established, medicated per the MAR, fluids infusing at this time.
[2022-08-29 12:45] LABS: Reflex Lactate? Lactic Acid Added
[2022-08-29 12:54] LABS: Alanine Aminotransferase 11 U/L (0-31); Albumin Level 3.8 g/dL (3.5-5.0); Alkaline Phosphatase 61 U/L (39-117); Anion Gap 8 (12-20); Aspartate Amino Transferase 17 U/L (5-31); Bilirubin Direct 0.1 mg/dL (0.0-0.5); Bilirubin Total 0.4 mg/dL (0.0-1.0); Blood Urea Nitrogen 11 mg/dL (9-16); Calcium 8.5 mg/dL (8.4-10.2); Carbon Dioxide 25 mmol/L (22-29); Chloride 111 mmol/L (96-108); Creatinine Clr Calc Pharmacy 109.2; Estimated Glomerular Filt Rate > 60; Glucose Random 103 mg/dL (60-115); Lipase 28 U/L (8-78); Potassium 3.6 mmol/L (3.3-5.1); Sodium 140 mmol/L (135-145); Total Protein 6.1 g/dL (6.5-8.0)
[2022-08-29 12:56] VITALS: BP 106/67; PULSE 76; RESP 16; O2SAT 99
[2022-08-29 13:09] LABS: HCG Quantitative < 2 mIU/mL
--- NOTE | 2022-08-29 13:13 | PC.NURSE ---
Repeat labs obtained, pt resting in bed with call brandt in reach
[2022-08-29 14:31] LABS: Appearance Urine Clear; Color Urine Yellow; Glucose Urine UA Negative (Negative); Leukocyte Esterase Urine Negative (Negative); Nitrite Urine Negative (Negative); Specific Gravity - Urine 1.025 (1.005-1.025); UMIC TRIGGER UACC YES; Urine Blood Trace (Negative); Urine Ketones 40 mg/dL (Negative); Urine Protein Negative (Neg-Trace)
[2022-08-29 14:38] LABS: UPreg QC Valid YES; Urine Pregnancy NEGATIVE (NEGATIVE)
[2022-08-29 14:39] LABS: Bacteria Urine None Seen (None Seen); Hyaline Casts Urine 0-2 /LPF (0-2); Squamous Epithelial Cell Urine 0-2 /HPF (0-2); WBC Urine 0-5 /HPF (0-5)
[2022-08-29 14:51] VITALS: BP 115/63; PULSE 80; RESP 16; TEMP 36.7; O2SAT 97
[2022-08-29] MEDS: cefTRIAXone sodium 1 GM in 0.9 % Sodium Chloride 50 ML IV (14:57)
[2022-08-29 15:06] LABS: Reflex Lactate? 2 Y
[2022-08-29] MEDS: 0.9 % Sodium Chloride 1,905.09 ML 1905.09 ML IV (15:19)
[2022-08-29 15:43] LABS: ~Lactic Acid-LAB USE ONLY 0.9 mmol/L (0.5-2.0)
--- NOTE | 2022-08-29 16:00 | PC.NURSE ---
Pt resting comfortably in bed, no nausea/vomiting at this time reports feeling much better. IV fluids/antibiotics infusing
== END 2022-08-29 17:06 | disposition home or self-care (01) ==
PROVIDERS: Emergency Provider Emergency Medicine; PCP Internal Medicine
DX: K29.70 Gastritis, unspecified, without bleeding (principal); E86.0 Dehydration; E87.20 Acidosis, unspecified; F19.10 Other psychoactive substance abuse, uncomplicated; B19.20 Unspecified viral hepatitis C without hepatic coma; F31.9 Bipolar disorder, unspecified; F11.20 Opioid dependence, uncomplicated; F17.210 Nicotine dependence, cigarettes, uncomplicated; Z79.899 Other long term (current) drug therapy
CPT/HCPCS: 36415; 74176; 76705; 80048; 80076; 81001; 81025; 83605; 83690; 84702; 85025; 87040; 96361; 96365; 96375; 96376; 99284; J0696; J2270; J2405

== ENCOUNTER → 2022-09-02 11:25 | Outpatient (BNVA) | payer OTHER, SELFPAY | PROVIDERS: PCP Internal Medicine; Visit Provider Surgery | DX: R10.9 Unspecified abdominal pain (principal) | CPT/HCPCS: 99202 ==

== ENCOUNTER 2022-09-13 11:00 | Emergency (ER) | payer OTHER, SELFPAY ==
[2022-09-13 11:03] VITALS: BP 143/89; PULSE 83; RESP 90; TEMP 36.6; O2SAT 96; BMI 24.0
--- NOTE | 2022-09-13 11:31 | ECG_ITS ---
Test Reason : NAUSEA Blood Pressure : / mmHG Vent. Rate : 063 BPM Atrial Rate : 063 BPM P-R Int : 142 ms QRS Dur : 096 ms QT Int : 400 ms P-R-T Axes : 020 024 039 degrees QTc Int : 409 ms Normal sinus rhythm Normal ECG No previous ECGs available Referred By: Vianney Duffy Electronically Signed By:Luis Felipe Swartz
--- NOTE | 2022-09-13 11:51 | ED.GENADULT ---
HPI - General Adult General Chief complaint: Nausea/Vomiting/Diarrhea Stated complaint: gallbladder issues Time Seen by Provider: 09/13/22 11:12 Source: patient and RN notes reviewed Mode of arrival: ambulatory Limitations: no limitations History of Present Illness HPI narrative: This is a 27-year-old female, with a past medical history bipolar disorder, polysubstance abuse, and hepatitis-C, who presents to the emergency department the with complaints right upper abdominal pain, nausea, vomiting, and diarrhea. She states that all these symptoms started late last night after she ate pizza. Patient has been seen here at the emergency department for the same symptoms. She is following up outpatient patient is supposed to get a ?gallbladder test? in a week. Upon review of medical records, patient its ultrasound as well as CT scans have been unremarkable without any signs of cholecystitis or gallbladder problems. Patient is unaware that she should be altering her diet especially with having these type symptoms. She denies any fevers, chills, sore throat, nasal congestion, chest pain, shortness of breath, palpitations, urinary symptoms. No other complaints or concerns at this time. MD complaint: R UQ pain, N/V/D Severity: moderate Severity scale (1-10): 8 Quality: aching Pain Consistency: intermittent and colicky Relieving factors: none Exacerbating factors: none Associated symptoms: loss of appetite and nausea/vomiting Treatments prior to arrival: none Related Data Home Medications Medication Instructions Recorded Confirmed methadone 40 mg soluble tablet 94 mg PO DAILY 07/24/21 10/28/21 Previous Rx's Medication Instructions Recorded fluoxetine 10 mg capsule 10 mg PO DAILY 90 days #90 caps 12/04/21 amoxicillin 875 mg tablet 875 mg PO Q12H 7 days #14 tabs 01/13/22 ibuprofen 400 mg tablet 400 mg PO Q8H PRN pain 10 days #30 01/13/22 tabs hydroxyzine HCl 25 mg tablet 50 mg PO TID #60 tabs 01/29/22 ketorolac 10 mg tablet 10 mg PO Q8H #14 tabs 06/07/22 ondansetron HCl 4 mg tablet 4 mg PO Q8H #14 tabs 06/07/22 cefuroxime axetil 250 mg tablet 250 mg PO Q12H 7 days #14 tabs 07/13/22 naproxen 500 mg tablet 500 mg PO BID PRN pain 10 days #20 03/13/23 tabs quetiapine 100 mg tablet See Rx Instructions .Route 07/16/22 .COMPLEX #135 tabs ondansetron 4 mg disintegrating 4 mg PO Q8-12H PRN nausea and 08/29/22 tablet vomiting #10 tabs ondansetron HCl 4 mg tablet 4 mg PO DAILY PRN nausea and 09/13/22 vomiting 0 days #10 tabs Allergies Allergy/AdvReac Type Severity Reaction Status Date / Time alprazolam Allergy Unknown unsure Verified 09/02/22 11:32 azithromycin [From ZITHROMAX] AdvReac Unknown VOMITING/DI Verified 09/02/22 11:32 ARRHEA Zithromax AdvReac Unknown vomiting Uncoded 09/02/22 11:32 Review of Systems Review of Systems: Constitutional: No Weight loss, No Fever, No Chills, No Night Sweats, No Fatigue, No Malaise ENT/Mouth: No Hearing loss, No Ear Pain, No Nasal Congestion, No Sinus Pain, No Hoarseness, No sore throat, No Rhinorrhea, No Swallowing Difficulty Eyes: No Eye Pain, No Swelling, No Redness, No Foreign Body, No Discharge, No Vision Changes Cardiovascular: No Chest Pain, No SOB, No Dyspnea on Exertion, No Orthopnea, No Edema, No Palpitations Respiratory: No Cough, No Sputum, No Wheezing, No Smoke Exposure, No Dyspnea Gastrointestinal: + Nausea, +Vomiting, + Diarrhea, No Constipation, + Abdominal pain, No Hematochezia, No Melena Genitourinary: No irregular bleeding, No Dysuria, No Urinary Frequency, No Hematuria, No Urinary Incontinence/retention, No Urgency, No Flank Pain, No Urinary Flow Changes, No Hesitancy Musculoskeletal: No joint pain, No Myalgias, No Joint Swelling Skin: No Skin Lesions, No rash Neuro: No Weakness, No Numbness, No Paresthesias, No Loss of Consciousness, No Dizziness, No Headache Psych: No Anxiety/Panic, No Depression, No SI/HI/AH/VH, No Social Issues, Heme/Lymph: No Bruising, No Bleeding,No Lymphadenopathy Endocrine: No Polyuria, No Polydipsia, No Temperature Intolerance Yes all other systems are reviewed and are negative Constitutional: Constitutional: Reports as per [facility] Past Medical History Medical History Anemia Contraceptive management Hepatitis C Herpes genitalis IV drug user Peptic ulcer disease Right sided abdominal pain Ureterolithiasis Surgical History H/O myringotomy H/O sinus surgery Hx of tonsillectomy Family History Family History Other Mental health disorder Substance use disorder Social History Social History Housing: Assisted Living Facility Housing Other:: treatment Alcohol intake: never Patient Tobacco Use Status: Current someday Tobacco user Tobacco use type: Cigarette Cigarettes Per Day: 3 Smoked in Last 30 Days: No e-Cigarette/Vaping Use: Currently Using Second Hand Smoke Exposure: Yes Use of substances other than those prescribed or required for medical reasons: Yes Substance Use Type: Marijuana Advance Directives: No Advance Directives Information Provided: Yes Patient : No service: No Current occupational status: unemployed Cognitive needs: No Hearing needs: No Vision needs: No Physical Exam ED Vital Signs: Vital Signs - 24 hr 09/13/22 11:03 09/13/22 16:04 Temperature 98 F 97.9 F Pulse Rate 83 75 Respiratory Rate 90 H 18 Blood Pressure 143/89 H 109/73 Pulse Oximetry 96 98 Oxygen Delivery Method Room Air Room Air BMI result Body Mass Index 24.0 Const General: cooperative, comfortable and no acute distress Orientation/consciousness: patient oriented x3 Limitations: no limitations HENMT Head: Yes normal to inspection, Yes normocephalic and Yes atraumatic Ears: hearing grossly normal bilaterally General nose exam: Normal external nose present Face and sinus: Yes normal facial exam Mouth: Normal oral and palatal mucosa present, oropharynx normal and moist mucous membranes Throat: Yes posterior oropharynx normal Eyes General: appearance normal, both eyes and all related structures Eyelids: Yes eyelids normal Conjunctivae: conjunctivae normal Sclerae: sclerae normal Pupils: Equal, round and reactive pupils present EOM: EOMs intact bilaterally Neck Neck: Yes normal visual inspection, Yes full ROM and Yes no lymphadenopathy Lymphatic: no lymphadenopathy noted Chest Chest palpation & inspection: normal inspection of the chest Resp Effort & Inspection: normal respiratory effort and able to speak in complete sentences Auscultation: clear to auscultation bilaterally, no crackles, no rales, no rhonchi and no wheezes Cardio Rate: regular rate Rhythm: regular rhythm Heart sounds: S1 normal heart sound present and S2 normal heart sound present GI Other: Abdomen is soft, with tenderness in the right upper quadrant, no rebound, some guarding. Normoactive bowel sounds. Inspection: Yes normal to inspection Skin General skin exam: no rashes or lesions noted Trauma: no lacerations or abrasions Wounds: no wounds Neuro General: patient oriented x3 and moves all extremities Cranial nerves: Yes Equal, round and reactive pupils present Extrem General: Yes normal to inspection Right upper extremity: normal to inspection Left upper extremity: normal to inspection Right lower extremity: normal to inspection Left lower extremity: normal to inspection Course Reevaluation(s) Reevaluation #1: Patient re-evaluated, reporting her pain is improved after risks 0.5 L of IV fluids, Toradol, and Zofran. Still experiencing some abdominal pain. Will allow patient to rest and re-evaluate when IV fluids and medication have been discontinued. Patient remained stable. Time: 13:47 Reevaluation #2: Patient re-evaluated after receiving all medications. She still reports nausea and abdominal pain, although improved. Will administer 2nd 1 L fluids, Phenergan, and Benadryl. Time: 14:16 Reevaluation #3: Patient re-evaluated feeling better, still having some abdominal pain but feels as though she is ready to go home. P.o. trial performed in tolerated well without any nausea or vomiting or worsening pain. Patient feeling better and would like to be discharged home. Discussed with patient the importance of following up on her HIDA scan as well as staying well hydrated and avoiding foods that can trigger her gallbladder pain. Patient understands and agrees with plan, patient stable for discharge. Time: 16:18 Medications Administered Discontinued Medications Generic Name Dose Route Start Last Admin Trade Name Freq PRN Reason Stop Dose Admin Diphenhydramine HCl 50 mg 09/13/22 14:03 09/13/22 14:21 Diphenhydramine Hcl 50 Mg/Ml Vial IVPUSH 09/13/22 14:04 50 mg ONCE ONE Administration Sodium Chloride 1,000 mls @ 999 mls/hr 09/13/22 11:29 09/13/22 12:58 Ns IVCONT 09/13/22 12:29 Infused .Q1H1M ONE Infusion Promethazine HCl 12.5 mg/ 50.5 mls @ 202 mls/hr 09/13/22 14:03 09/13/22 14:42 Sodium Chloride IV 09/13/22 14:04 Infused ONCE ONE Infusion Sodium Chloride 1,000 mls @ 999 mls/hr 09/13/22 14:04 09/13/22 15:13 Ns IVCONT 09/13/22 15:04 Infused .Q1H1M ONE Infusion Ketorolac Tromethamine 30 mg 09/13/22 12:10 09/13/22 12:25 Ketorolac Tromethamine 30 Mg/Ml Vial IVPUSH 09/13/22 12:11 30 mg ONCE ONE Administration Ondansetron HCl 4 mg 09/13/22 11:28 09/13/22 11:52 Ondansetron Hcl 4 Mg/2 Ml Vial IVPUSH 09/13/22 11:29 4 mg ONCE ONE Administration Medical Decision Making Medical Decision Making [facility] Narrative: 27-year-old female, with a past medical history of bipolar disorder, polysubstance abuse, and hepatitis-C, who presents to the emergency department today episode of right upper quadrant pain, nausea, vomiting, and diarrhea since last night after eating pizza. Patient has been seen in the noted multiple times for the same symptoms, last seen on August 29, 2022 where she had a benign right upper quadrant ultrasound as well as abdomen CT. Patient is scheduled to follow-up with her GI specialist likely getting a HIDA scan within the next several weeks. On examination, patient is afebrile, normotensive, in no acute distress. Abdomen is soft with tenderness in the right upper quadrant, some guarding. No rebound. Symptoms are likely secondary to biliary dyskinesia. Plan: Labs, EKG, UA. Will hold off on repeat imaging given patient is afebrile presenting with same symptoms as before. Patient will be medicated with 1 L of IV fluids, Zofran, and Toradol 30 mg IV. Will re-evaluate symptoms after given this medication. Differential Diagnosis Differential Diagnoses: The differential diagnosis associated with the presentation includes Biliary dyskinesia, cholecystitis, cholelithiasis, cholangitis, gastritis Admission/Observation Consideration of admission/observation: Escalation of care including admission/observation considered Lab Data [facility] Lab Attestation statement: I reviewed the patient's lab results. 09/13/22 11:48 09/13/22 11:48 Labs: Lab Results 09/13/22 09/13/22 09/13/22 Range/Units 11:48 11:48 11:48 WBC 10.7 (4.8-10.8) X10*3/uL RBC 4.53 (4.20-5.50) X10*6/uL Hgb 13.1 (12.0-16.0) g/dl Hct 39.2 (37.0-47.0) % MCV 86.5 (80.0-98.0) fL MCH 28.9 (27.0-33.0) pg MCHC 33.4 (31.0-35.0) g/dl RDW 13.0 (11.0-16.0) % Plt Count 278 (160-400) X10*3/uL MPV 9.6 (9.4-12.3) fL Immature Gran % (Auto) 0.2 (0.0-0.4) % Neut % (Auto) 80.8 H (45-73) % Lymph % (Auto) 12.2 L (20-40) % [place] % (Auto) 6.0 (2-11) % Eos % (Auto) 0.4 (0-4) % Baso % (Auto) 0.4 (0-2) % Lymph # (Auto) 1.3 (1.2-4.9) X10*3/uL [place] # (Auto) 0.6 (0.1-1.2) X10*3/uL Eos # (Auto) 0.0 (0.0-0.4) X10*3/uL Baso # (Auto) 0.0 (0.0-0.2) X10*3/uL Abs Immat Gran (auto) 0.02 (0.00-0.03) X10*3/uL Absolute Neuts (auto) 8.6 H (2.0-8.3) x10*3/uL Absolute Nucleated RBC 0.000 (0.0-0.012) X10*3/uL Nucleated RBC % (auto) 0.0 (0.0-0.2) /100WBC Sodium 139 (135-145) mmol/L Potassium 4.3 (3.3-5.1) mmol/L Chloride 112 H (96-108) mmol/L Carbon Dioxide 20 L (22-29) mmol/L Anion Gap 11 L (12-20) BUN 15 (9-16) mg/dL Creatinine 0.74 (0.5-1.4) mg/dL Estim Creat Clear Calc 97.7 Estimated GFR > 60 Random Glucose 95 (60-115) mg/dL Calcium 9.2 D (8.4-10.2) mg/dL Magnesium 1.9 (1.6-2.6) mg/dL Total Bilirubin 0.6 (0.0-1.0) mg/dL Direct Bilirubin 0.1 (0.0-0.5) mg/dL AST 20 (5-31) U/L ALT 11 (0-31) U/L Alkaline Phosphatase 64 (39-117) U/L Total Protein 7.2 (6.5-8.0) g/dL Albumin 4.4 (3.5-5.0) g/dL Lipase 12 (8-78) U/L Urine Color Urine Appearance Urine pH (5.0-9.0) Ur Specific [place] (1.005-1.025) Urine Protein (Neg-Trace) mg/dL Urine Glucose (UA) (Negative) mg/dL Urine Ketones (Negative) mg/dL Urine Blood (Negative) Urine Nitrite (Negative) Ur Leukocyte Esterase (Negative) Ethyl Alcohol < 10 mg/dL 09/13/22 Range/Units 16:10 WBC (4.8-10.8) X10*3/uL RBC (4.20-5.50) X10*6/uL Hgb (12.0-16.0) g/dl Hct (37.0-47.0) % MCV (80.0-98.0) fL MCH (27.0-33.0) pg MCHC (31.0-35.0) g/dl RDW (11.0-16.0) % Plt Count (160-400) X10*3/uL MPV (9.4-12.3) fL Immature Gran % (Auto) (0.0-0.4) % Neut % (Auto) (45-73) % Lymph % (Auto) (20-40) % [place] % (Auto) (2-11) % Eos % (Auto) (0-4) % Baso % (Auto) (0-2) % Lymph # (Auto) (1.2-4.9) X10*3/uL [place] # (Auto) (0.1-1.2) X10*3/uL Eos # (Auto) (0.0-0.4) X10*3/uL Baso # (Auto) (0.0-0.2) X10*3/uL Abs Immat Gran (auto) (0.00-0.03) X10*3/uL Absolute Neuts (auto) (2.0-8.3) x10*3/uL Absolute Nucleated RBC (0.0-0.012) X10*3/uL Nucleated RBC % (auto) (0.0-0.2) /100WBC Sodium (135-145) mmol/L Potassium (3.3-5.1) mmol/L Chloride (96-108) mmol/L Carbon Dioxide (22-29) mmol/L Anion Gap (12-20) BUN (9-16) mg/dL Creatinine (0.5-1.4) mg/dL Estim Creat Clear Calc Estimated GFR Random Glucose (60-115) mg/dL Calcium (8.4-10.2) mg/dL Magnesium (1.6-2.6) mg/dL Total Bilirubin (0.0-1.0) mg/dL Direct Bilirubin (0.0-0.5) mg/dL AST (5-31) U/L ALT (0-31) U/L Alkaline Phosphatase (39-117) U/L Total Protein (6.5-8.0) g/dL Albumin (3.5-5.0) g/dL Lipase (8-78) U/L Urine Color Yellow Urine Appearance Clear Urine pH 5.5 (5.0-9.0) Ur Specific [place] 1.025 (1.005-1.025) Urine Protein Negative (Neg-Trace) mg/dL Urine Glucose (UA) Negative (Negative) mg/dL Urine Ketones Trace (Negative) mg/dL Urine Blood Negative (Negative) Urine Nitrite Negative (Negative) Ur Leukocyte Esterase Negative (Negative) Ethyl Alcohol mg/dL External Record Review External record reviewed: Inpatient record, Office record, Outpatient record, Prior outpatient labs, Prior outpatient radiology, Primary care record and Outside ED record Discharge Plan Discharge Clinical Impression: Abdominal pain Patient Disposition: Home, Self-Care Instructions: Low Fat Diet (ED), Abdominal Pain (ED) Additional Instructions: Please stick to a bland diet, avoid spicy, fatty, red meats, and dairy. See attached dietary instructions for further details about this. Please follow-up with your GI doctor, as they have a HIDA scan scheduled in this is the best course of evaluation for your symptoms at this time. Please continue to stay well hydrated and get plenty of rest. If any new or worsening symptoms occur, including but not limited to fevers, chills, worsening abdominal pain, unable to tolerate food or drink please return for re-evaluation. Prescriptions: New ondansetron HCl 4 mg tablet 4 mg PO DAILY PRN (Reason: nausea and vomiting) Qty: 10 0RF No Action fluoxetine 10 mg capsule 10 mg PO DAILY 90 Days Qty: 90 0RF hydroxyzine HCl 25 mg tablet 50 mg PO TID Qty: 60 0RF quetiapine 100 mg tablet See Rx Instructions .ROUTE .COMPLEX Qty: 135 1RF Dose Instruction: TAKE 1 TABLET TO 1 AND 1/2 TABLET BY MOUTH EVERY NIGHT AT BEDTIME Rx Instructions: TAKE 1 TABLET TO 1 AND 1/2 TABLET BY MOUTH EVERY NIGHT AT BEDTIME ondansetron HCl 4 mg tablet 4 mg PO Q8H Qty: 14 0RF ketorolac 10 mg tablet 10 mg PO Q8H Qty: 14 0RF Rx Instructions: First dose given in the ER by IM and patient tolerated well cefuroxime axetil 250 mg tablet 250 mg PO Q12H 7 Days Qty: 14 0RF naproxen 500 mg tablet 500 mg PO BID PRN (Reason: pain) 10 Days Qty: 20 0RF ondansetron 4 mg tablet,disintegrating 4 mg PO Q8-12H PRN (Reason: nausea and vomiting) Qty: 10 0RF methadone 40 mg tablet,soluble 94 mg PO DAILY amoxicillin 875 mg tablet 875 mg PO Q12H 7 Days Qty: 14 0RF ibuprofen 400 mg tablet 400 mg PO Q8H PRN (Reason: pain) 10 Days Qty: 30 0RF
[2022-09-13 11:52] LABS: MANUAL DIFF FLAG NO
[2022-09-13] MEDS: ondansetron HCL 4 MG/2 ML VIAL IVPUSH (11:52)
[2022-09-13 11:53] LABS: Basophils Percent Auto 0.4 % (0-2); Eosinophils Percent Auto 0.4 % (0-4); Hematocrit 39.2 % (37.0-47.0); Hemoglobin 13.1 g/dl (12.0-16.0); Imm Gran Abs Auto 0.02 X10*3/uL (0.00-0.03); Imm Gran Pct Auto 0.2 % (0.0-0.4); Lymphocytes Absolute Auto 1.3 X10*3/uL (1.2-4.9); Lymphocytes Percent Auto 12.2 % (20-40); Mean Corpuscular HGB Conc 33.4 g/dl (31.0-35.0); Mean Corpuscular Hemoglobin 28.9 pg (27.0-33.0); Mean Corpuscular Volume 86.5 fL (80.0-98.0); Mean Platelet Volume 9.6 fL (9.4-12.3); Monocytes Absolute Auto 0.6 X10*3/uL (0.1-1.2); Neutrophils Absolute Auto 8.6 x10*3/uL (2.0-8.3); Neutrophils Percent Auto 80.8 % (45-73); Platelet Count 278 X10*3/uL (160-400); Red Blood Count 4.53 X10*6/uL (4.20-5.50); White Blood Count 10.7 X10*3/uL (4.8-10.8)
[2022-09-13] MEDS: 0.9 % Sodium Chloride 1,000 ML 999 ML IVCONT ×2 (11:54→14:20)
[2022-09-13 12:19] LABS: Ethanol < 10 mg/dL
[2022-09-13 12:20] LABS: Alanine Aminotransferase 11 U/L (0-31); Albumin Level 4.4 g/dL (3.5-5.0); Alkaline Phosphatase 64 U/L (39-117); Anion Gap 11 (12-20); Aspartate Amino Transferase 20 U/L (5-31); Bilirubin Direct 0.1 mg/dL (0.0-0.5); Bilirubin Total 0.6 mg/dL (0.0-1.0); Blood Urea Nitrogen 15 mg/dL (9-16); Calcium 9.2 mg/dL (8.4-10.2); Carbon Dioxide 20 mmol/L (22-29); Chloride 112 mmol/L (96-108); Creatinine Clr Calc Pharmacy 97.7; Estimated Glomerular Filt Rate > 60; Glucose Random 95 mg/dL (60-115); Lipase 12 U/L (8-78); Magnesium 1.9 mg/dL (1.6-2.6); Potassium 4.3 mmol/L (3.3-5.1); Sodium 139 mmol/L (135-145); Total Protein 7.2 g/dL (6.5-8.0)
[2022-09-13] MEDS: Ketorolac Tromethamine 30 MG/ML VIAL IVPUSH (12:25)
[2022-09-13] MEDS: diphenhydrAMINE HCL 50 MG/ML VIAL IVPUSH (14:21)
[2022-09-13 16:04] VITALS: BP 109/73; PULSE 75; RESP 18; TEMP 36.6; O2SAT 98
[2022-09-13 16:20] LABS: Appearance Urine Clear; Color Urine Yellow; Glucose Urine UA Negative (Negative); Leukocyte Esterase Urine Negative (Negative); Nitrite Urine Negative (Negative); PH 5.5 (5.0-9.0); Specific Gravity - Urine 1.025 (1.005-1.025); Urine Blood Negative (Negative); Urine Ketones Trace mg/dL (Negative); Urine Protein Negative (Neg-Trace)
== END 2022-09-13 16:37 | disposition home or self-care (01) ==
PROVIDERS: Physician Assistant Medical; Emergency Provider Emergency Medicine; PCP Internal Medicine
DX: R10.11 Right upper quadrant pain (principal); R10.13 Epigastric pain; R11.2 Nausea with vomiting, unspecified; F17.200 Nicotine dependence, unspecified, uncomplicated; Z71.6 Tobacco abuse counseling; Z79.899 Other long term (current) drug therapy
CPT/HCPCS: 36415; 80048; 80076; 80307; 81003; 83690; 83735; 85025; 93005; 96361; 96374; 96375; 99284; 99285; J1200; J1885; J2405; J2550

== ENCOUNTER 2022-09-16 03:26 | Emergency (ER) | payer OTHER, SELFPAY ==
[2022-09-16 03:34] VITALS: BP 118/85; BP 144/92; PULSE 71; PULSE 76; RESP 20; TEMP 36.8; O2SAT 94; O2SAT 98; BMI 23.3
--- NOTE | 2022-09-16 03:41 | ECG_ITS ---
Test Reason : ABD PAIN Blood Pressure : / mmHG Vent. Rate : 069 BPM Atrial Rate : 069 BPM P-R Int : 182 ms QRS Dur : 088 ms QT Int : 418 ms P-R-T Axes : 029 014 014 degrees QTc Int : 447 ms Normal sinus rhythm Normal ECG When compared with ECG of 13-SEP-2022 11:36, No significant change was found Referred By: Generic ED Physician Electronically Signed By:Luis Felipe Swartz
[2022-09-16 04:00] LABS: Basophils Percent Auto 0.6 % (0-2); Eosinophils Absolute Auto 0.1 X10*3/uL (0.0-0.4); Eosinophils Percent Auto 1.8 % (0-4); Hematocrit 34.5 % (37.0-47.0); Hemoglobin 11.7 g/dl (12.0-16.0); Imm Gran Abs Auto 0.02 X10*3/uL (0.00-0.03); Imm Gran Pct Auto 0.3 % (0.0-0.4); Lymphocytes Absolute Auto 2.7 X10*3/uL (1.2-4.9); Lymphocytes Percent Auto 43.8 % (20-40); MANUAL DIFF FLAG NO; Mean Corpuscular HGB Conc 33.9 g/dl (31.0-35.0); Mean Corpuscular Hemoglobin 29.8 pg (27.0-33.0); Mean Corpuscular Volume 87.8 fL (80.0-98.0); Mean Platelet Volume 9.8 fL (9.4-12.3); Monocytes Absolute Auto 0.4 X10*3/uL (0.1-1.2); Monocytes Percent Auto 6.7 % (2-11); Neutrophils Absolute Auto 2.9 x10*3/uL (2.0-8.3); Neutrophils Percent Auto 46.8 % (45-73); Platelet Count 227 X10*3/uL (160-400); Red Blood Count 3.93 X10*6/uL (4.20-5.50); Red Cell Distribution Width 12.9 % (11.0-16.0); White Blood Count 6.3 X10*3/uL (4.8-10.8)
[2022-09-16 04:27] LABS: Alanine Aminotransferase 8 U/L (0-31); Albumin Level 3.6 g/dL (3.5-5.0); Alkaline Phosphatase 52 U/L (39-117); Anion Gap 10 (12-20); Aspartate Amino Transferase 16 U/L (5-31); Bilirubin Total 0.3 mg/dL (0.0-1.0); Blood Urea Nitrogen 10 mg/dL (9-16); Calcium 8.6 mg/dL (8.4-10.2); Carbon Dioxide 22 mmol/L (22-29); Chloride 114 mmol/L (96-108); Creatinine Clr Calc Pharmacy 109.6; Estimated Glomerular Filt Rate > 60; Glucose Random 97 mg/dL (60-115); Potassium 3.7 mmol/L (3.3-5.1); Sodium 142 mmol/L (135-145); Total Protein 5.8 g/dL (6.5-8.0)
--- NOTE | 2022-09-16 04:35 | PC.NURSE ---
this rn assumed care of pt @ 0330. iv line placed in L hand. pt tolerated well. bloodwork obtained and sent down to lab. ekg obtained. lights dimmed pt resting on stretcher
[2022-09-16 05:51] VITALS: BP 119/83; PULSE 73; RESP 18; TEMP 36.8; O2SAT 98
--- NOTE | 2022-09-16 07:07 | PC.NURSE ---
this rn made dr zuleta aware of pt status.no new orders placed. pt became agitated with wait. this rn attempted to redirect pt as additional oncoming providers are coming. pt agitation continued. pt states this hospital cannot do anything for me . oncoming nurse at bedside with this rn. oncoming nurse removed pt iv. pt left without being seen
== END 2022-09-16 07:11 | disposition left against medical advice (07) ==
PROVIDERS: Emergency Provider Emergency Medicine Emergency Medical Services; PCP Internal Medicine
DX: R10.30 Lower abdominal pain, unspecified (principal); R11.2 Nausea with vomiting, unspecified; R07.89 Other chest pain; Z79.899 Other long term (current) drug therapy
CPT/HCPCS: 36415; 80053; 85025; 93005; 99283

== ENCOUNTER → 2022-09-21 10:36 | Outpatient (REF) | payer OTHER, SELFPAY ==
--- NOTE | ~2022-09-21 | NM_ITS ---
EXAMINATION: BILIARY TRACT IMAGING STUDY WITH CCK CLINICAL INFORMATION: Unspecified abdominal pain. COMPARISON: CT of the abdomen and pelvis done on 08/29/2022.. TECHNIQUE: Serial gamma scintillation camera images were obtained over the abdomen for a total observation period of 60 minutes following the intravenous administration of 5.0 mCi Tc-99m mebrofenin. The radiotracer was injected through right hand superficial vein without complications. FINDINGS: There is good concentration of activity in the liver by 5 minutes post injection. Biliary activity is visualized by 10 minutes. The gallbladder is well visualized by 30 minutes. Small bowel is well visualized by 40 minutes. At 60 minutes post radiopharmaceutical injection, a 30-minute infusion of 1.2 micrograms Sincalide was then begun and an additional 40 minutes of images were obtained. There is minimal emptying of the gallbladder. By the end of the study there is good clearance of activity from the liver and visualization of diffuse small bowel activity. The calculated gallbladder ejection fraction is 28% (normal gallbladder ejection fraction is greater than 35%). NM/NM hepatobiliary w pharm IMPRESSION: Visualization of the gallbladder is evidence of a patent cystic duct and strong evidence against the diagnosis of acute cholecystitis. The common bile duct is patent. Gallbladder emptying and ejection fraction are abnormal. Liver function appears normal.
== END ==
LOC: HO.NUCMED 10:36
PROVIDERS: PCP Internal Medicine; Visit Provider Surgery
DX: R10.9 Unspecified abdominal pain (principal)
CPT/HCPCS: 78227; A9537

== ENCOUNTER 2022-09-23 21:38 | Emergency (ER) | payer OTHER, SELFPAY ==
--- NOTE | ~2022-09-23 | CT_ITS ---
EXAMINATION: CT ABDOMEN AND PELVIS WITHOUT CONTRAST CLINICAL INFORMATION: Abdominal pain, nausea/vomiting, difficulty voiding. COMPARISON: CT abdomen/pelvis 08/29/2022. TECHNIQUE: Multidetector volumetric imaging was performed from the superior aspect of the liver through the pubic symphysis. Sagittal and coronal reformatted images were obtained on the technologist's workstation. This CT examination was performed using dose optimization techniques as appropriate, variously including the following: *Automated exposure control *Adjustment of mA and/or kV according to patient size (this includes techniques or standardized protocols for targeted exams where dose is matched to indication/reason for exam; i.e. extremities or head) *Use of iterative reconstruction technique DLP: 347 mGy-cm FINDINGS: The lack of intravenous contrast limits evaluation of the solid visceral organs including the liver, spleen, pancreas, and kidneys. LUNG BASES: No focal consolidation or pleural effusion. LIVER, GALLBLADDER, AND BILIARY TREE: The liver is normal in size, shape, and attenuation. No focal hepatic lesion or biliary ductal dilatation is present. Subtle amount of layering hyperattenuating debris in the gallbladder without evidence of gallbladder wall thickening nor pericholecystic inflammatory changes to suspect acute cholecystitis. No biliary ductal dilatation. PANCREAS: Limited noncontrast examination. No significant peripancreatic fat stranding or free fluid. SPLEEN: Unremarkable. ADRENAL GLANDS: Unremarkable. KIDNEYS AND URETERS: Redemonstration of a few punctate nonobstructive calculi in the upper pole both kidneys. No hydronephrosis. No perinephric fat stranding. BLADDER: Underdistended, limiting its evaluation. No significant perivesical fat stranding. GASTROINTESTINAL TRACT: The stomach and the small bowel are nondilated. Normal appendix. No pericolonic fat stranding. No evidence of bowel obstruction. ABDOMINAL WALL: No significant hernia is appreciated. LYMPH NODES: No lymphadenopathy. VASCULAR: Abdominal aorta is normal in caliber. PELVIC VISCERA: Retroverted uterus. OSSEOUS STRUCTURES: No acute or aggressive appearing osseous abnormalities. CT/CT abdomen pelvis wo IV con IMPRESSION: 1. No acute abdominal or pelvic abnormalities to explain the patient's symptoms. 2. Nonobstructive bilateral renal calculi. 3. Decompressed urinary bladder, limiting its evaluation. If clinically deemed appropriate, consider reimaging after appropriate distention which could be performed with an ultrasound.
[2022-09-23 21:42] VITALS: BP 114/77; BP 136/72; PULSE 76; PULSE 80; RESP 18; TEMP 36.1; O2SAT 100; O2SAT 98; BMI 24.0
[2022-09-23 22:39] LABS: MANUAL DIFF FLAG NO
[2022-09-23 22:40] LABS: Basophils Percent Auto 0.3 % (0-2); Eosinophils Absolute Auto 0.1 X10*3/uL (0.0-0.4); Eosinophils Percent Auto 1.3 % (0-4); Hemoglobin 11.9 g/dl (12.0-16.0); Imm Gran Abs Auto 0.01 X10*3/uL (0.00-0.03); Imm Gran Pct Auto 0.2 % (0.0-0.4); Lymphocytes Absolute Auto 2.2 X10*3/uL (1.2-4.9); Lymphocytes Percent Auto 35.9 % (20-40); Mean Corpuscular HGB Conc 33.1 g/dl (31.0-35.0); Mean Corpuscular Hemoglobin 29.2 pg (27.0-33.0); Mean Corpuscular Volume 88.2 fL (80.0-98.0); Mean Platelet Volume 9.6 fL (9.4-12.3); Monocytes Absolute Auto 0.4 X10*3/uL (0.1-1.2); Monocytes Percent Auto 6.5 % (2-11); Neutrophils Absolute Auto 3.5 x10*3/uL (2.0-8.3); Neutrophils Percent Auto 55.8 % (45-73); Platelet Count 240 X10*3/uL (160-400); Red Blood Count 4.08 X10*6/uL (4.20-5.50); Red Cell Distribution Width 12.9 % (11.0-16.0); White Blood Count 6.2 X10*3/uL (4.8-10.8)
[2022-09-23 23:07] LABS: Alanine Aminotransferase 11 U/L (0-31); Albumin Level 3.9 g/dL (3.5-5.0); Alkaline Phosphatase 55 U/L (39-117); Anion Gap 11 (12-20); Aspartate Amino Transferase 15 U/L (5-31); Bilirubin Direct 0.2 mg/dL (0.0-0.5); Bilirubin Total 0.6 mg/dL (0.0-1.0); Blood Urea Nitrogen 9 mg/dL (9-16); Carbon Dioxide 25 mmol/L (22-29); Chloride 106 mmol/L (96-108); Creatinine Clr Calc Pharmacy 106.3; Estimated Glomerular Filt Rate > 60; Glucose Random 97 mg/dL (60-115); Lipase 10 U/L (8-78); Potassium 3.2 mmol/L (3.3-5.1); Sodium 139 mmol/L (135-145); Total Protein 6.1 g/dL (6.5-8.0)
[2022-09-23 23:21] LABS: UPreg QC Valid YES; Urine Pregnancy NEGATIVE (NEGATIVE)
[2022-09-23 23:27] LABS: Appearance Urine Clear; Color Urine Yellow; Glucose Urine UA Negative (Negative); Leukocyte Esterase Urine Negative (Negative); Nitrite Urine Negative (Negative); PH 6.5 (5.0-9.0); Specific Gravity - Urine 1.025 (1.005-1.025); Urine Blood Negative (Negative); Urine Ketones 40 mg/dL (Negative); Urine Protein Trace mg/dL (Neg-Trace)
[2022-09-23 23:29] LABS: Bacteria Urine None Seen (None Seen); Hyaline Casts Urine 0-2 /LPF (0-2); WBC Urine 0-5 /HPF (0-5)
[2022-09-23] MEDS: ondansetron HCL 4 MG/2 ML VIAL IVPUSH (23:50)
[2022-09-23] MEDS: 0.9 % Sodium Chloride 1,000 ML 999 ML IV (23:50)
--- NOTE | 2022-09-24 00:12 | ED.ABDPAIN ---
HPI - Abdominal Pain General Chief Complaint: Abdominal Pain Stated Complaint: ABD PAIN, VOMITING X3 HOURS Time Seen by Provider: 09/23/22 23:28 Source: patient Mode of arrival: ambulatory Limitations: no limitations History of Present Illness HPI narrative: Patient is a 27 year old female with history of bipolar disorder, polysubstance abuse, cocaine-induced mood disorder and hepatitis C presenting with 5 hours of right upper quadrant and flank pain with associated nausea and vomititng. Patient reports a known kidney stone and says that throughout the past 2 weeks she has had issues with her gallbladder and had a HIDA scan done on Wednesday pending results. She states that the abdominal pain she's experienced this evening is a 7/10 and is worse than what she's experienced previously. She additionally report darkened urine this evening. Related Data Home Medications Medication Instructions Recorded Confirmed methadone 40 mg soluble tablet 40 mg PO DAILY 09/15/22 09/15/22 quetiapine 100 mg tablet See Rx Instructions .Route .COMPLEX 09/15/22 Previous Rx's Medication Instructions Recorded ibuprofen 400 mg tablet 400 mg PO Q8H PRN pain 10 days #30 01/13/22 tabs ketorolac 10 mg tablet 10 mg PO Q8H #14 tabs 06/07/22 ondansetron HCl 4 mg tablet 4 mg PO DAILY PRN nausea and 09/13/22 vomiting 0 days #10 tabs fluoxetine 10 mg capsule 10 mg PO DAILY 90 days #90 caps 09/15/22 Allergies Allergy/AdvReac Type Severity Reaction Status Date / Time alprazolam Allergy Unknown unsure Verified 09/15/22 14:13 azithromycin [From ZITHROMAX] AdvReac Unknown VOMITING/DI Verified 09/15/22 14:13 ARRHEA Zithromax AdvReac Unknown vomiting Uncoded 09/02/22 11:32 Review of Systems Review of Systems Constitutional : + Weight loss, + Fever, + Chills, + Fatigue, + Malaise ENT/Mouth : No sore throat, No Rhinorrhea Eyes: No Eye Pain, No Swelling, No Redness Cardiovascular : No Chest Pain, No SOB, No Dyspnea on Exertion, No Orthopnea, No Edema, No Palpitations Respiratory : No Cough, No Sputum, No Wheezing Gastrointestinal : + Nausea, + Vomiting, No Diarrhea, No Constipation, No abdominal Pain, No Hematochezia, No Melena Genitourinary : + darkening of urine, No Dysuria, No Urinary Frequency, No Hematuria, Musculoskeletal : No joint pain, No Myalgias, No Joint Swelling Skin : No Skin Lesions, No rash Neuro : No Weakness, No Numbness, No Dizziness, No Headache Psych : No Anxiety/Panic, No Depression All other systems reviewed and are negative Yes all other systems are reviewed and are negative [facility] Past Medical History Medical History Anemia Contraceptive management Hepatitis C Herpes genitalis IV drug user Peptic ulcer disease Right sided abdominal pain Ureterolithiasis Surgical History H/O myringotomy H/O sinus surgery Hx of tonsillectomy Family History Family History Other Mental health disorder Substance use disorder Social History Social History Housing: Assisted Living Facility Housing Other:: treatment Alcohol intake: never Patient Tobacco Use Status: Current someday Tobacco user Tobacco use type: Cigarette Cigarettes Per Day: 3 Smoked in Last 30 Days: Yes e-Cigarette/Vaping Use: Currently Using Second Hand Smoke Exposure: Yes Use of substances other than those prescribed or required for medical reasons: Yes Substance Use Type: Marijuana Advance Directives: No Advance Directives Information Provided: Yes service: No Current occupational status: unemployed Cognitive needs: No Hearing needs: No Vision needs: No Physical Exam ED Vital Signs: Vital Signs - 24 hr 09/23/22 21:42 Temperature 97 F Pulse Rate 76 Respiratory Rate 18 Blood Pressure 114/77 Pulse Oximetry 100 Oxygen Delivery Method Room Air BMI result Body Mass Index 24.0 Vital signs stable Appearance: Alert.? Oriented X3.? No acute distress.? Head: Normocephalic, atraumatic, no step-offs or deformities Eyes: Pupils equal, round and reactive to light.? CVS: Normal heart rate and rhythm.? Pulses normal.? Respiratory: No respiratory distress.? Breath sounds normal.? Abdomen: Soft. Tenderness to palpation in RUQ. Positive for CVA tenderness on right side Skin: Skin warm and dry.? Normal skin color.? Normal skin turgor.? Extremities: No lower extremity edema.? No calf ttp. 5/5 strength to bilateral upper and lower extremities Neuro: Oriented X 3.? No motor deficit.? No sensory deficit. CN 2-12 intact Medical Decision Making Medical Decision Making [facility] Narrative: 0019 Patient is a 27 year old female presenting to the emergency department after 5 hours of nausea, vomitting and right upper quadrant pain. Physical exam significant for tnderness to palpation in RUQ. Positive for CVA tenderness on right side Differential includes kidney stones, acute cholecystitis, peptic ulcer disease, gastritis, viral illness, obstructing uropathy. Less likely cholangitis, acute abdomen. Will rule out electrolyte abnormalities, , UTI. Plan labs, imaging, UA. Differential Diagnosis Differential Diagnoses: The differential diagnosis associated with the presentation includes Differential includes kidney stones, acute cholecystitis, peptic ulcer disease, gastritis, viral illness, obstructing uropathy. Less likely cholangitis, acute abdomen. Will rule out electrolyte abnormalities, , UTI. Admission/Observation Consideration of admission/observation: Escalation of care including admission/observation considered Lab Data [facility] Lab Attestation statement: I reviewed the patient's lab results. 09/23/22 22:28 09/23/22 22:28 Labs: Lab Results 09/23/22 09/23/22 09/23/22 Range/Units 22:28 22:28 23:13 WBC 6.2 (4.8-10.8) X10*3/uL RBC 4.08 L (4.20-5.50) X10*6/uL Hgb 11.9 L (12.0-16.0) g/dl Hct 36.0 L (37.0-47.0) % MCV 88.2 (80.0-98.0) fL MCH 29.2 (27.0-33.0) pg MCHC 33.1 (31.0-35.0) g/dl RDW 12.9 (11.0-16.0) % Plt Count 240 (160-400) X10*3/uL MPV 9.6 (9.4-12.3) fL Immature Gran % (Auto) 0.2 (0.0-0.4) % Neut % (Auto) 55.8 (45-73) % Lymph % (Auto) 35.9 (20-40) % [place] % (Auto) 6.5 (2-11) % Eos % (Auto) 1.3 (0-4) % Baso % (Auto) 0.3 (0-2) % Lymph # (Auto) 2.2 (1.2-4.9) X10*3/uL [place] # (Auto) 0.4 (0.1-1.2) X10*3/uL Eos # (Auto) 0.1 (0.0-0.4) X10*3/uL Baso # (Auto) 0.0 (0.0-0.2) X10*3/uL Abs Immat Gran (auto) 0.01 (0.00-0.03) X10*3/uL Absolute Neuts (auto) 3.5 (2.0-8.3) x10*3/uL Absolute Nucleated RBC 0.000 (0.0-0.012) X10*3/uL Nucleated RBC % (auto) 0.0 (0.0-0.2) /100WBC Sodium 139 (135-145) mmol/L Potassium 3.2 L (3.3-5.1) mmol/L Chloride 106 (96-108) mmol/L Carbon Dioxide 25 (22-29) mmol/L Anion Gap 11 L (12-20) BUN 9 (9-16) mg/dL Creatinine 0.68 (0.5-1.4) mg/dL Estim Creat Clear Calc 106.3 Estimated GFR > 60 Random Glucose 97 (60-115) mg/dL Calcium 9.0 (8.4-10.2) mg/dL Total Bilirubin 0.6 (0.0-1.0) mg/dL Direct Bilirubin 0.2 (0.0-0.5) mg/dL AST 15 (5-31) U/L ALT 11 (0-31) U/L Alkaline Phosphatase 55 (39-117) U/L Total Protein 6.1 L (6.5-8.0) g/dL Albumin 3.9 (3.5-5.0) g/dL Lipase 10 (8-78) U/L Urine Color Yellow Urine Appearance Clear Urine pH 6.5 (5.0-9.0) Ur Specific [place] 1.025 (1.005-1.025) Urine Protein Trace (Neg-Trace) mg/dL Urine Glucose (UA) Negative (Negative) mg/dL Urine Ketones 40 (Negative) mg/dL Urine Blood Negative (Negative) Urine Nitrite Negative (Negative) Ur Leukocyte Esterase Negative (Negative) Urine RBC 3-5 H (0-2) /HPF Urine WBC 0-5 (0-5) /HPF Ur Squamous Epith Cells 6-10 (0-2) /HPF Urine Bacteria None Seen (None Seen) Hyaline Casts 0-2 (0-2) /LPF Urine Test (NEGATIVE) 09/23/22 Range/Units 23:13 WBC (4.8-10.8) X10*3/uL RBC (4.20-5.50) X10*6/uL Hgb (12.0-16.0) g/dl Hct (37.0-47.0) % MCV (80.0-98.0) fL MCH (27.0-33.0) pg MCHC (31.0-35.0) g/dl RDW (11.0-16.0) % Plt Count (160-400) X10*3/uL MPV (9.4-12.3) fL Immature Gran % (Auto) (0.0-0.4) % Neut % (Auto) (45-73) % Lymph % (Auto) (20-40) % [place] % (Auto) (2-11) % Eos % (Auto) (0-4) % Baso % (Auto) (0-2) % Lymph # (Auto) (1.2-4.9) X10*3/uL [place] # (Auto) (0.1-1.2) X10*3/uL Eos # (Auto) (0.0-0.4) X10*3/uL Baso # (Auto) (0.0-0.2) X10*3/uL Abs Immat Gran (auto) (0.00-0.03) X10*3/uL Absolute Neuts (auto) (2.0-8.3) x10*3/uL Absolute Nucleated RBC (0.0-0.012) X10*3/uL Nucleated RBC % (auto) (0.0-0.2) /100WBC Sodium (135-145) mmol/L Potassium (3.3-5.1) mmol/L Chloride (96-108) mmol/L Carbon Dioxide (22-29) mmol/L Anion Gap (12-20) BUN (9-16) mg/dL Creatinine (0.5-1.4) mg/dL Estim Creat Clear Calc Estimated GFR Random Glucose (60-115) mg/dL Calcium (8.4-10.2) mg/dL Total Bilirubin (0.0-1.0) mg/dL Direct Bilirubin (0.0-0.5) mg/dL AST (5-31) U/L ALT (0-31) U/L Alkaline Phosphatase (39-117) U/L Total Protein (6.5-8.0) g/dL Albumin (3.5-5.0) g/dL Lipase (8-78) U/L Urine Color Urine Appearance Urine pH (5.0-9.0) Ur Specific [place] (1.005-1.025) Urine Protein (Neg-Trace) mg/dL Urine Glucose (UA) (Negative) mg/dL Urine Ketones (Negative) mg/dL Urine Blood (Negative) Urine Nitrite (Negative) Ur Leukocyte Esterase (Negative) Urine RBC (0-2) /HPF Urine WBC (0-5) /HPF Ur Squamous Epith Cells (0-2) /HPF Urine Bacteria (None Seen) Hyaline Casts (0-2) /LPF Urine Test NEGATIVE (NEGATIVE) Independent Interpretation I performed an independent interpretation of an: CT Scan Radiology Impression Discussion of test interpretation with radiology: I have reviewed the radiologist's reading. Core Measures AMI core measures followed: Yes Measure exclusions: not indicated Medications Administered Generic Name Dose Route Start Last Admin Trade Name Freq PRN Reason Stop Dose Admin Sodium Chloride 1,000 mls @ 999 mls/hr 09/23/22 23:45 09/23/22 23:50 Ns IV 09/24/22 00:45 999 mls/hr .Q1H1M JOSE Administration Discontinued Medications Generic Name Dose Route Start Last Admin Trade Name Freq PRN Reason Stop Dose Admin Ondansetron HCl 4 mg 09/23/22 23:40 09/23/22 23:50 Ondansetron Hcl 4 Mg/2 Ml Vial IVPUSH 09/23/22 23:41 4 mg ONCE ONE Administration Discharge Plan Discharge Clinical Impression: Abdominal pain, RUQ, Nausea & vomiting Patient Disposition: Home, Self-Care Instructions: Abdominal Pain (ED), Acute Nausea and Vomiting (ED) Additional Instructions: Take your medications as prescribed. If you were prescribed antibiotics today, it is important that you take your medication to their entirety, do not skip any doses, do not finish them early. Follow-up with your primary care provider this week. Return to the emergency department with new or worsening symptoms. Such as fevers, chills, chest pain, shortness of breath, nausea, vomiting, dizziness, headache, vision changes, lethargy In case of emergency call 911 Prescriptions: No Action ketorolac 10 mg tablet 10 mg PO Q8H Qty: 14 0RF Rx Instructions: First dose given in the ER by IM and patient tolerated well ondansetron HCl 4 mg tablet 4 mg PO DAILY PRN (Reason: nausea and vomiting) Qty: 10 0RF methadone 40 mg tablet,soluble 40 mg PO DAILY ibuprofen 400 mg tablet 400 mg PO Q8H PRN (Reason: pain) 10 Days Qty: 30 0RF quetiapine 100 mg tablet See Rx Instructions .ROUTE .COMPLEX Dose Instruction: TAKE 1 TABLET TO 1 AND 1/2 TABLET BY MOUTH EVERY NIGHT AT BEDTIME Rx Instructions: TAKE 1 TABLET TO 1 AND 1/2 TABLET BY MOUTH EVERY NIGHT AT BEDTIME fluoxetine 10 mg capsule 10 mg PO DAILY 90 Days Qty: 90 0RF Referrals: Physician,Unknown J [Primary Care Provider] - 2 days [facility] [place] [facility] [Provider Group] - 2 days Stand Alone Forms: Work/School Release
[2022-09-24] MEDS: Ketorolac Tromethamine 15 MG/ML VIAL 30 MG IVPUSH (00:38)
== END 2022-09-24 02:59 | disposition home or self-care (01) ==
PROVIDERS: Emergency Provider Internal Medicine
DX: R10.11 Right upper quadrant pain (principal); R11.2 Nausea with vomiting, unspecified; F11.20 Opioid dependence, uncomplicated; F17.210 Nicotine dependence, cigarettes, uncomplicated
CPT/HCPCS: 36415; 74176; 80048; 80076; 81001; 81025; 83690; 85025; 96361; 96374; 96375; 99284; J1885; J2405

== ENCOUNTER 2022-09-24 11:14 | Emergency (ER) | payer OTHER, SELFPAY ==
--- NOTE | 2022-09-24 11:26 | ED_ITS ---
HPI - Abdominal Pain General Chief Complaint: Abdominal Pain Stated Complaint: Vomiting/Abd pain Time Seen by Provider: 09/24/22 12:57 History of Present Illness HPI narrative: Patient was seen here last night with CT scan and labs done for similar complaint Complaint today is she has had persistent vomiting, she has had intermittent crampy abdominal pain, she is not dizzy or weak no confusion no headache no neck pain no chest pain no shortness of breath no dysuria Main complaint is persistent nausea and vomiting Second complaint is she is out of Seroquel and fluoxetine and has not taken it 3 days and has no prescriber, she denies any suicidal ideation, does not 1 hurt anybody does not hear voices but feels better when she is compliant with her medications Related Data Home Medications Medication Instructions Recorded Confirmed methadone 40 mg soluble tablet 40 mg PO DAILY 09/15/22 09/15/22 quetiapine 100 mg tablet See Rx Instructions .Route .COMPLEX 09/15/22 Previous Rx's Medication Instructions Recorded ibuprofen 400 mg tablet 400 mg PO Q8H PRN pain 10 days #30 01/13/22 tabs ketorolac 10 mg tablet 10 mg PO Q8H #14 tabs 06/07/22 ondansetron HCl 4 mg tablet 4 mg PO DAILY PRN nausea and 09/13/22 vomiting 0 days #10 tabs fluoxetine 10 mg capsule 10 mg PO DAILY 90 days #90 caps 09/15/22 cefuroxime axetil 250 mg tablet 250 mg PO BID 7 days #14 tabs 09/24/22 famotidine 20 mg tablet (Pepcid) 20 mg PO DAILY #14 tabs 09/24/22 fluoxetine 10 mg capsule 10 mg PO DAILY #14 caps 09/24/22 ketorolac 10 mg tablet 10 mg PO TID PRN pain 5 days #15 09/24/22 tabs quetiapine 200 mg tablet (Seroquel) 200 mg PO BEDTIME #14 tabs 09/24/22 Allergies Allergy/AdvReac Type Severity Reaction Status Date / Time alprazolam Allergy Unknown unsure Verified 09/15/22 14:13 azithromycin [From ZITHROMAX] AdvReac Unknown VOMITING/DI Verified 09/15/22 14:13 ARRHEA Zithromax AdvReac Unknown vomiting Uncoded 09/02/22 11:32 [facility] Past Medical History Source: nursing notes reviewed Medical History Anemia Contraceptive management Hepatitis C Herpes genitalis IV drug user Peptic ulcer disease Right sided abdominal pain Ureterolithiasis Surgical History H/O myringotomy H/O sinus surgery Hx of tonsillectomy Family History Family History Other Mental health disorder Substance use disorder Social History Social History Housing: Assisted Living Facility Housing Other:: treatment Alcohol intake: unknown Patient Tobacco Use Status: Current someday Tobacco user Tobacco use type: Cigarette Cigarettes Per Day: 3 Smoked in Last 30 Days: Yes e-Cigarette/Vaping Use: Currently Using Second Hand Smoke Exposure: Yes Use of substances other than those prescribed or required for medical reasons: Yes Substance Use Type: Marijuana and Other Substance Use Type Other:: fentynl Substance Use Frequency: Chronic Longstanding Last Used Substance: Unknown Advance Directives: No Advance Directives Information Provided: Yes service: No Current occupational status: unemployed Cognitive needs: No Hearing needs: No Vision needs: No Physical Exam ED Vital Signs: Vital Signs - 24 hr 09/24/22 11:30 09/24/22 13:48 09/24/22 15:34 Temperature 98.1 F 99.3 F Pulse Rate 80 70 Respiratory Rate 18 16 Blood Pressure 97/55 L 98/58 L 112/71 Pulse Oximetry 93 98 Oxygen Delivery Method Room Air Room Air BMI result Body Mass Index 18.9 General appearance no acute distress but uncomfortable appearing The eyes anicteric no pallor The pharynx is clear without redness swelling or exudate, membranes are mildly dry The neck is supple Chest is clear Abdomen soft nontender Extremities pharyngeal motion x4 Skin no rash Course Course Course Narrative: This is a rapid medical exam. Deferred additional HPI, ROS, PE to primary provider. 27 year old female with history of bipolar disorder, polysubstance abuse, cocaine-induced mood disorder and hepatitis C here with right sided abdominal pain, vomiting, chills, diarrhea, restless, irritable x 2 days. Was here last evening and had CT, labs. Haven't had fluoextine and seroquel x 4 days-ran out. Does not have a prescribing provider. Will obtain labs, UA, ur preg, [place], covid screen. VSS Patient is treated with IV fluids and Zofran and she fell asleep and when she woke up she was able to tolerate p.o., repeat abdominal exam was negative, she is sent home with prescription for Zofran and for her medications needing refill Labs from last night and today were reviewed, no acute abnormalities She is not CT from last night no acute pathology Medical Decision Making Lab Data MDM Lab Attestation statement: I reviewed the patient's lab results. 09/24/22 12:04 09/24/22 12:04 Labs: Lab Results 09/24/22 09/24/22 09/24/22 Range/Units 11:48 11:48 11:48 WBC (4.8-10.8) X10*3/uL RBC (4.20-5.50) X10*6/uL Hgb (12.0-16.0) g/dl Hct (37.0-47.0) % MCV (80.0-98.0) fL MCH (27.0-33.0) pg MCHC (31.0-35.0) g/dl RDW (11.0-16.0) % Plt Count (160-400) X10*3/uL MPV (9.4-12.3) fL Immature Gran % (Auto) (0.0-0.4) % Neut % (Auto) (45-73) % Lymph % (Auto) (20-40) % [place] % (Auto) (2-11) % Eos % (Auto) (0-4) % Baso % (Auto) (0-2) % Lymph # (Auto) (1.2-4.9) X10*3/uL [place] # (Auto) (0.1-1.2) X10*3/uL Eos # (Auto) (0.0-0.4) X10*3/uL Baso # (Auto) (0.0-0.2) X10*3/uL Abs Immat Gran (auto) (0.00-0.03) X10*3/uL Absolute Neuts (auto) (2.0-8.3) x10*3/uL Absolute Nucleated RBC (0.0-0.012) X10*3/uL Nucleated RBC % (auto) (0.0-0.2) /100WBC Sodium (135-145) mmol/L Potassium (3.3-5.1) mmol/L Chloride (96-108) mmol/L Carbon Dioxide (22-29) mmol/L Anion Gap (12-20) BUN (9-16) mg/dL Creatinine (0.5-1.4) mg/dL Estim Creat Clear Calc Estimated GFR Random Glucose (60-115) mg/dL Calcium (8.4-10.2) mg/dL Total Bilirubin (0.0-1.0) mg/dL Direct Bilirubin (0.0-0.5) mg/dL AST (5-31) U/L ALT (0-31) U/L Alkaline Phosphatase (39-117) U/L Total Protein (6.5-8.0) g/dL Albumin (3.5-5.0) g/dL Urine Color Yellow Urine Appearance Cloudy Urine pH 6.0 (5.0-9.0) Ur Specific [place] 1.020 (1.005-1.025) Urine Protein Trace (Neg-Trace) mg/dL Urine Glucose (UA) Negative (Negative) mg/dL Urine Ketones >=160 (Negative) mg/dL Urine Blood Negative (Negative) Urine Nitrite Negative (Negative) Ur Leukocyte Esterase Negative (Negative) Urine Test NEGATIVE (NEGATIVE) Urine Opiates Screen Not Detected (Not Detect) Urine Fentanyl Screen POSITIVE H (Not Detect) Ur Barbiturates Screen Not Detected (Not Detect) Ur Phencyclidine Scrn Not Detected (Not Detect) Ur Amphetamines Screen Not Detected (Not Detect) U Benzodiazepines Scrn Not Detected (Not Detect) Urine Cocaine Screen Not Detected (Not Detect) U Marijuana (THC) Screen POSITIVE H (Not Detect) COVID-19 (ROSA) (Negative) COVID-19 Clin Com 09/24/22 09/24/22 09/24/22 Range/Units 11:49 12:04 12:04 WBC 6.9 (4.8-10.8) X10*3/uL RBC 4.07 L (4.20-5.50) X10*6/uL Hgb 11.9 L (12.0-16.0) g/dl Hct 36.3 L (37.0-47.0) % MCV 89.2 (80.0-98.0) fL MCH 29.2 (27.0-33.0) pg MCHC 32.8 (31.0-35.0) g/dl RDW 12.9 (11.0-16.0) % Plt Count 252 (160-400) X10*3/uL MPV 9.7 (9.4-12.3) fL Immature Gran % (Auto) 0.1 (0.0-0.4) % Neut % (Auto) 77.8 H (45-73) % Lymph % (Auto) 15.4 L (20-40) % [place] % (Auto) 5.7 (2-11) % Eos % (Auto) 0.7 (0-4) % Baso % (Auto) 0.3 (0-2) % Lymph # (Auto) 1.1 L (1.2-4.9) X10*3/uL [place] # (Auto) 0.4 (0.1-1.2) X10*3/uL Eos # (Auto) 0.1 (0.0-0.4) X10*3/uL Baso # (Auto) 0.0 (0.0-0.2) X10*3/uL Abs Immat Gran (auto) 0.01 (0.00-0.03) X10*3/uL Absolute Neuts (auto) 5.4 (2.0-8.3) x10*3/uL Absolute Nucleated RBC 0.000 (0.0-0.012) X10*3/uL Nucleated RBC % (auto) 0.0 (0.0-0.2) /100WBC Sodium 141 (135-145) mmol/L Potassium 3.7 (3.3-5.1) mmol/L Chloride 108 (96-108) mmol/L Carbon Dioxide 24 (22-29) mmol/L Anion Gap 13 (12-20) BUN 9 (9-16) mg/dL Creatinine 0.65 (0.5-1.4) mg/dL Estim Creat Clear Calc 101.5 Estimated GFR > 60 Random Glucose 95 (60-115) mg/dL Calcium 8.9 (8.4-10.2) mg/dL Total Bilirubin 0.6 (0.0-1.0) mg/dL Direct Bilirubin 0.2 (0.0-0.5) mg/dL AST 14 (5-31) U/L ALT 11 (0-31) U/L Alkaline Phosphatase 53 (39-117) U/L Total Protein 6.1 L (6.5-8.0) g/dL Albumin 4.0 (3.5-5.0) g/dL Urine Color Urine Appearance Urine pH (5.0-9.0) Ur Specific [place] (1.005-1.025) Urine Protein (Neg-Trace) mg/dL Urine Glucose (UA) (Negative) mg/dL Urine Ketones (Negative) mg/dL Urine Blood (Negative) Urine Nitrite (Negative) Ur Leukocyte Esterase (Negative) Urine Test (NEGATIVE) Urine Opiates Screen (Not Detect) Urine Fentanyl Screen (Not Detect) Ur Barbiturates Screen (Not Detect) Ur Phencyclidine Scrn (Not Detect) Ur Amphetamines Screen (Not Detect) U Benzodiazepines Scrn (Not Detect) Urine Cocaine Screen (Not Detect) U Marijuana (THC) Screen (Not Detect) COVID-19 (ROSA) Negative (Negative) COVID-19 Clin Com See Note Medications Administered Discontinued Medications Generic Name Dose Route Start Last Admin Trade Name Freq PRN Reason Stop Dose Admin Famotidine 20 mg 09/24/22 13:28 09/24/22 13:47 Famotidine/Pf 20 Mg/2 Ml Vial IVPUSH 09/24/22 13:29 20 mg ONCE ONE Administration Sodium Chloride 1,000 mls @ 999 mls/hr 09/24/22 13:30 09/24/22 15:33 Ns IVCONT 09/24/22 14:30 Infused .Q1H1M JOSE Infusion Ondansetron HCl 4 mg 09/24/22 13:25 09/24/22 13:47 Ondansetron Hcl 4 Mg/2 Ml Vial IVPUSH 09/24/22 13:26 4 mg ONCE ONE Administration Discharge Plan Discharge Clinical Impression: Vomiting and diarrhea, Medication refill Patient Disposition: Home, Self-Care Additional Instructions: drink plenty of fluids Follow with your prescribing doctor for your regular medications Return any time any worse condition or any concerns Lab evaluation today did not show any urine infection kidneys and liver function were all normal no acute or emergent findings Prescriptions: New fluoxetine 10 mg capsule 10 mg PO DAILY Qty: 14 0RF quetiapine [Seroquel] 200 mg tablet 200 mg PO BEDTIME Qty: 14 0RF famotidine [Pepcid] 20 mg tablet 20 mg PO DAILY Qty: 14 0RF No Action ketorolac 10 mg tablet 10 mg PO Q8H Qty: 14 0RF Rx Instructions: First dose given in the ER by IM and patient tolerated well cefuroxime axetil 250 mg tablet 250 mg PO BID 7 Days Qty: 14 0RF ketorolac 10 mg tablet 10 mg PO TID PRN (Reason: pain) 5 Days Qty: 15 0RF ondansetron HCl 4 mg tablet 4 mg PO DAILY PRN (Reason: nausea and vomiting) Qty: 10 0RF methadone 40 mg tablet,soluble 40 mg PO DAILY ibuprofen 400 mg tablet 400 mg PO Q8H PRN (Reason: pain) 10 Days Qty: 30 0RF quetiapine 100 mg tablet See Rx Instructions .ROUTE .COMPLEX Dose Instruction: TAKE 1 TABLET TO 1 AND 1/2 TABLET BY MOUTH EVERY NIGHT AT BEDTIME Rx Instructions: TAKE 1 TABLET TO 1 AND 1/2 TABLET BY MOUTH EVERY NIGHT AT BEDTIME fluoxetine 10 mg capsule 10 mg PO DAILY 90 Days Qty: 90 0RF Interventions: ED Discharge Assessment Last Done: 09/24/22 17:13 Discharge Date/Time: 09/24/22 17:13
[2022-09-24 11:30] VITALS: BP 97/55; PULSE 80; RESP 18; TEMP 36.7; O2SAT 93; BMI 18.9
[2022-09-24 12:10] LABS: MANUAL DIFF FLAG NO
[2022-09-24 12:22] LABS: Appearance Urine Cloudy; Color Urine Yellow; Glucose Urine UA Negative (Negative); Leukocyte Esterase Urine Negative (Negative); Nitrite Urine Negative (Negative); Urine Blood Negative (Negative); Urine Ketones >=160 mg/dL (Negative); Urine Protein Trace mg/dL (Neg-Trace)
[2022-09-24 12:23] LABS: Basophils Percent Auto 0.3 % (0-2); Eosinophils Absolute Auto 0.1 X10*3/uL (0.0-0.4); Eosinophils Percent Auto 0.7 % (0-4); Hematocrit 36.3 % (37.0-47.0); Hemoglobin 11.9 g/dl (12.0-16.0); Imm Gran Abs Auto 0.01 X10*3/uL (0.00-0.03); Imm Gran Pct Auto 0.1 % (0.0-0.4); Lymphocytes Absolute Auto 1.1 X10*3/uL (1.2-4.9); Lymphocytes Percent Auto 15.4 % (20-40); Mean Corpuscular HGB Conc 32.8 g/dl (31.0-35.0); Mean Corpuscular Hemoglobin 29.2 pg (27.0-33.0); Mean Corpuscular Volume 89.2 fL (80.0-98.0); Mean Platelet Volume 9.7 fL (9.4-12.3); Monocytes Absolute Auto 0.4 X10*3/uL (0.1-1.2); Monocytes Percent Auto 5.7 % (2-11); Neutrophils Absolute Auto 5.4 x10*3/uL (2.0-8.3); Neutrophils Percent Auto 77.8 % (45-73); Platelet Count 252 X10*3/uL (160-400); Red Blood Count 4.07 X10*6/uL (4.20-5.50); Red Cell Distribution Width 12.9 % (11.0-16.0); White Blood Count 6.9 X10*3/uL (4.8-10.8)
[2022-09-24 12:25] LABS: Amphetamine Screen Urine Not Detected (Not Detect); Barbiturates, Urine Not Detected (Not Detect); Benzodiazepines Screen Urine Not Detected (Not Detect); Cannabinoid Screen Urine POSITIVE (Not Detect); Cocaine Screen Urine Not Detected (Not Detect); Fentanyl, urine POSITIVE (Not Detect); Opiate Screen Urine Not Detected (Not Detect); Phencyclidine Screen Urine Not Detected (Not Detect)
[2022-09-24 12:27] LABS: Alanine Aminotransferase 11 U/L (0-31); Alkaline Phosphatase 53 U/L (39-117); Anion Gap 13 (12-20); Aspartate Amino Transferase 14 U/L (5-31); Bilirubin Direct 0.2 mg/dL (0.0-0.5); Bilirubin Total 0.6 mg/dL (0.0-1.0); Blood Urea Nitrogen 9 mg/dL (9-16); Calcium 8.9 mg/dL (8.4-10.2); Carbon Dioxide 24 mmol/L (22-29); Chloride 108 mmol/L (96-108); Creatinine Clr Calc Pharmacy 101.5; Estimated Glomerular Filt Rate > 60; Glucose Random 95 mg/dL (60-115); Potassium 3.7 mmol/L (3.3-5.1); Sodium 141 mmol/L (135-145); Total Protein 6.1 g/dL (6.5-8.0)
[2022-09-24 12:28] LABS: COVID-19 Test Negative (Negative); IDNOW Serial# BCCEAD1C
[2022-09-24 12:56] LABS: UPreg QC Valid YES
[2022-09-24 12:57] LABS: Urine Pregnancy NEGATIVE (NEGATIVE)
[2022-09-24] MEDS: 0.9 % Sodium Chloride 1,000 ML 999 ML IVCONT (13:42)
[2022-09-24] MEDS: ondansetron HCL 4 MG/2 ML VIAL IVPUSH (13:47)
[2022-09-24] MEDS: Famotidine/PF 20 MG/2 ML VIAL IVPUSH (13:47)
[2022-09-24 13:48] VITALS: BP 98/58; PULSE 70; RESP 16; TEMP 37.4; O2SAT 98
--- NOTE | 2022-09-24 13:53 | PC.NURSE ---
meds scanned by Katie DOWD but were given by Alma PINEDA.
[2022-09-24 15:34] VITALS: BP 112/71
[2022-09-24 16:57] VITALS: BP 122/77; PULSE 72; RESP 16; TEMP 36.8; O2SAT 99
== END 2022-09-24 17:13 | disposition home or self-care (01) ==
PROVIDERS: Nurse Practitioner Family; Emergency Provider Emergency Medicine
DX: R11.2 Nausea with vomiting, unspecified (principal); R19.7 Diarrhea, unspecified; Z76.0 Encounter for issue of repeat prescription; Z20.822 Contact with and (suspected) exposure to COVID-19; Z20.828 Contact with and (suspected) exposure to other viral communicable diseases; Z79.899 Other long term (current) drug therapy
CPT/HCPCS: 36415; 80048; 80076; 80307; 81003; 81025; 85025; 87635; 96361; 96374; 96375; 99284; J2405

== ENCOUNTER → 2022-10-05 15:07 | Outpatient (BNVA) | payer OTHER, SELFPAY | PROVIDERS: Visit Provider Surgery | DX: K82.8 Other specified diseases of gallbladder (principal) | CPT/HCPCS: 99212 ==

== ENCOUNTER 2022-10-22 09:57 | Day surgery (SDC) | payer OTHER, SELFPAY ==
--- NOTE | 2022-10-20 15:20 | P.CONAN_ITS ---
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) Hepatitis C (Acute) Past Medical History Medical History Anemia Biliary dyskinesia Contraceptive management Hepatitis C Herpes genitalis IV drug user Peptic ulcer disease Right sided abdominal pain Ureterolithiasis Family History Family History Other Mental health disorder Substance use disorder Surgical History Surgical History H/O myringotomy H/O sinus surgery Hx of tonsillectomy Social History Social History Housing: Assisted Living Facility Housing Other:: treatment Alcohol intake: unknown Patient Tobacco Use Status: Former Tobacco user Quit Date: 2021 Tobacco use type: Cigarette Cigarettes Per Day: 3 Smoked in Last 30 Days: No e-Cigarette/Vaping Use: Currently Using Second Hand Smoke Exposure: Yes Use of substances other than those prescribed or required for medical reasons: Yes Substance Use Type: Marijuana and Other Substance Use Frequency: Daily Are you DNR?: No Advance Directives: No Advance Directives Information Provided: Yes service: No Current occupational status: unemployed Cognitive needs: No Hearing needs: No Vision needs: No Meds Allergies Allergy/AdvReac Type Severity Reaction Status Date / Time alprazolam Allergy Unknown I dont Verified 10/22/22 10:15 like taking it per patient azithromycin [From ZITHROMAX] AdvReac Unknown VOMITING/DI Verified 10/22/22 10:15 ARRHEA Zithromax AdvReac Mild vomiting Uncoded 10/22/22 10:15 Home Medications Medication Instructions Recorded Confirmed Last Taken Type methadone 40 mg soluble tablet 37 mg PO DAILY 09/15/22 10/22/22 10/22/22 History quetiapine 100 mg tablet See Rx Instructions .Route .COMPLEX 09/15/22 10/22/22 Unknown History Exam Exam Date and Time: October 20, 2022 1520 Pertinent Lab Results Pertinent Lab Results: Laboratory Tests 09/24/22 09/24/22 12:04 12:04 WBC 6.9 Hgb 11.9 L Hct 36.3 L Plt Count 252 Sodium 141 Potassium 3.7 Chloride 108 Carbon Dioxide 24 BUN 9 Creatinine 0.65 Narrative Narrative: EKG 08/2022 Vent. Rate : 069 BPM ? ? Atrial Rate : 069 BPM ?? P-R Int : 182 ms? QRS Dur : 088 ms ? ? QT Int : 418 ms ? ? ? P-R-T Axes : 029 014 014 degrees ?? QTc Int : 447 ms ? Normal sinus rhythm Normal ECG When compared with ECG of 13-SEP-2022 11:36, No significant change was found Assessment and Plan Assessment Anesthesia Assessment: Chart Reviewed Documented by User: Harjinder Armenta MD 10/22/22 11:39 HPI - Anesthesia Eval Consult details Narrative: 27yo F for Cholecystectomy Laparoscopic poss open IVDA with Methadone daily +Fentanyl utox 09/24/22 Denies cocaine use recently. States she has been clean for years . [facility] Past Medical History Medical History Anemia Biliary dyskinesia Contraceptive management Hepatitis C Herpes genitalis IV drug user Peptic ulcer disease Right sided abdominal pain Ureterolithiasis Family History Family History Other Mental health disorder Substance use disorder Family history of problems with anesthesia: Yes Surgical History Surgical History H/O myringotomy H/O sinus surgery Hx of tonsillectomy History of Problems with Anesthesia: Yes Social History Social History Housing: Assisted Living Facility Housing Other:: treatment Alcohol intake: unknown Patient Tobacco Use Status: Former Tobacco user Quit Date: 2021 Tobacco use type: Cigarette Cigarettes Per Day: 3 Smoked in Last 30 Days: No e-Cigarette/Vaping Use: Currently Using Second Hand Smoke Exposure: Yes Use of substances other than those prescribed or required for medical reasons: Yes Substance Use Type: Marijuana and Other Substance Use Frequency: Daily Are you DNR?: No Advance Directives: No Advance Directives Information Provided: Yes service: No Current occupational status: unemployed Cognitive needs: No Hearing needs: No Vision needs: No Meds Allergies Allergy/AdvReac Type Severity Reaction Status Date / Time alprazolam Allergy Unknown I dont Verified 10/22/22 10:15 like taking it per patient azithromycin [From ZITHROMAX] AdvReac Unknown VOMITING/DI Verified 10/22/22 10:15 ARRHEA Zithromax AdvReac Mild vomiting Uncoded 10/22/22 10:15 Home Medications Medication Instructions Recorded Confirmed Last Taken Type methadone 40 mg soluble tablet 37 mg PO DAILY 09/15/22 10/22/22 10/22/22 History quetiapine 100 mg tablet See Rx Instructions .Route .COMPLEX 09/15/22 10/22/22 Unknown History Exam Airway Mallampati Class: I TM Dist: >3cm Neck ROM: Full Partial: Lower Loose/Missing/Broken Teeth: Yes (7 [place] teeth lower, rest missing) Assessment and Plan Assessment Anesthesia Assessment: Anesthesia Plan Discussed Final Anesthetic Review Family History of Problems with Anesthesia: Yes History of Problems with Anesthesia: Yes NPO: Yes ASA Class: III Final Preanesthetic Review: No Changes in Pt Med Stat, Meds/Allgs Chart Reviewed, Consent Obtained/Reviewed and Anes Risks/Benef Reviewed Patient Risk: Intermediate Procedure Risk: Intermediate Anesthetic Plan Anesthetic Plan: GA Disposition: Standard PACU
[2022-10-22] VITALS (10 sets, daily range): BP systolic 101–115; BP diastolic 45–71; PULSE 64–84; RESP 12–18; TEMP 36.1–36.8; O2SAT 94–100; BMI 22.7
[2022-10-22 10:20] LABS: UPreg QC Valid YES; Urine Pregnancy NEGATIVE (NEGATIVE)
[2022-10-22 10:42] LABS: Amphetamine Screen Urine Not Detected (Not Detect); Barbiturates, Urine Not Detected (Not Detect); Benzodiazepines Screen Urine Not Detected (Not Detect); Cannabinoid Screen Urine POSITIVE (Not Detect); Cocaine Screen Urine Not Detected (Not Detect); Fentanyl, urine Not Detected (Not Detect); Opiate Screen Urine Not Detected (Not Detect); Phencyclidine Screen Urine Not Detected (Not Detect)
[2022-10-22] MEDS: Lactated Ringers 1,000 ML 100 ML IVCONT (10:52)
--- NOTE | 2022-10-22 11:19 | MHC.SHP ---
Pre-Procedural Eval Section A Date of Service: 10/22/22 The patient is an INPATIENT: No Changes since office visit: No Cold of Flu in the past 2 weeks, No New Medical Problems, No Changes in Medication and No Patient answered all questions The History & Physical has been completed within 30 days and I have reviewed it.: Yes Section B Chief Complaint: Other specified diseases of gallbladder Allergies: Allergies Allergy/AdvReac Type Severity Reaction Status Date / Time alprazolam Allergy Unknown I dont Verified 10/22/22 10:15 like taking it per patient azithromycin [From ZITHROMAX] AdvReac Unknown VOMITING/DI Verified 10/22/22 10:15 ARRHEA Zithromax AdvReac Mild vomiting Uncoded 10/22/22 10:15 Plan I have reviewed the history and physical and performed a pertinent physical examination on my patient. No changes have occurred unless specified. Time Spent With Patient Time: Total time managing care of this patient today ____ minutes.
--- NOTE | 2022-10-22 12:55 | W.PM.OPN ---
Operative Note Operative Note Date of Service: 10/22/22 Narrative: Prep diagnosis: Biliary dyskinesia Postop diagnosis: biliary dyskinesia Procedure: Laparoscopic cholecystectomy Surgeon: Dagoberto Dove MD delinquent tax collection assistant: RENATO Aguilera The patient is a 27-year-old female with note of chronic right upper quadrant pain and tenderness with HIDA scan showing a decreased ejection fraction of 28%. The rest of her imaging studies do not reveal any other obvious collagen. In view of her persistent pain, along with poor oral intake secondary to this, she wanted to proceed with mastectomy. She understood the technique of laparoscopic cholecystectomy. She was aware of the risks, benefits, and alternatives. She was brought to the operating room. He was placed supine under general anesthesia via endotracheal tube. The abdomen is prepped and draped in the usual sterile fashion. A surgical time-out was done. The patient received Cefotan 2 g IV preoperatively I made a short supraumbilical incision using blade 15. This was carried down through the full-thickness of the skin and subcutaneous fat to the fascia. The fascia was incised. The peritoneum was entered. Through this incision a Walt port was introduced. Pneumoperitoneum was introduced to a pressure of 15 mm hg. From here on the rest of the procedure was done under vision with the 10 mm 0 degree laparoscope. With laparoscopic visualization a 5/12 mm ports introduced a small incision in the epigastric area below the subcostal margin. Two 5 mm ports were introduced through small incisions in the subcostal margin along the anterior axillary line and the midclavicular line. Graspers were placed through these working ports. the patient was placed in head-up and [id number] position. The gallbladder was seen. This was inflamed and supple. I applied a grasper towards the fundus to retract this cephalad. Another grasper was applied towards the pus retract this laterally. At this point therefore the gallbladder was being retracted in a cephalad and lateral fashion to put the area of the cystic duct on stretch. I dissected the cystic duct by teasing off the peritoneal lining using the [place] dissector until I was able to completely define this. Able to confirm its confluence with the neck of the gallbladder. A critical view of the hepatocystic triangle was also is achieved. There were no other tubular structures in this area except for what appeared to be very thin cystic artery. I therefore applied clips on the cystic duct with 2 clips being applied distally. The cystic duct was transected between clips with Endo scissors. I applied clips on the cystic artery and this was transected between clips with Endo scissors as well. 2 clips had been applied distally. With traction on the gallbladder away from the liver bed, I proceeded to then gently across the hilum with the electrocautery spatula. I then incised the peritoneum the gallbladder and proceeded to define a plane of dissection between the gallbladder wall and the liver bed using a combination of blunt dissection with the tip of the spatula and electrocautery. I the gallbladder from the liver bed along this well-defined plane of dissection all the way to the fundus until the entire gallbladder was completely . The gallbladder was retrieved through an endobag through the umbilical incision. I reinserted all ports and re-insufflated. Examine the subhepatic space. There was no evidence of any bleeding or any bile leak. I observed all 4 quadrants. There was no evidence of any bowel injury or any other pathology . Once hemostasis was confirmed, I desufflated through the port sites. I then removed all ports under vision with the laparoscope. The umbilical port was removed last . The fascia of the umbilical incision was closed with a [id number] Polysorb 0 stitch. Skin closure was achieved on all incisions using Polysorb 4-0 for all incisions with subcuticular running sutures. Steri-Strips were applied. All incisions were infiltrated with Marcaine 0.5% for postop analgesia Dressings were applied. The procedure was completed. The patient tolerated the procedure well. There were no immediate complications . Estimated blood loss was about 25 cc. The patient was extubated without difficulty and transferred to the recovery room with stable vital signs.
[2022-10-22] MEDS: oxyCODONE HCl Immed Release 5 MG TABLET 10 MG PO (13:33)
[2022-10-22] MEDS: HYDROmorphone HCl 0.5 MG/0.5 ML SYRINGE 0.25 MG IVPUSH ×2 (13:55→14:00)
== END 2022-10-22 14:56 | disposition home or self-care (01) ==
PROVIDERS: Nurse Practitioner; PCP Internal Medicine; Visit Provider Surgery
PROC: 0FT44ZZ Resection of Gallbladder, Percutaneous Endoscopic Approach (ICD-10-PCS; CPT 47562; principal; 2022-10-22 11:30)
DX: K80.10 Calculus of gallbladder with chronic cholecystitis without obstruction (principal); K82.9 Disease of gallbladder, unspecified; F11.90 Opioid use, unspecified, uncomplicated; F12.90 Cannabis use, unspecified, uncomplicated; F14.14 Cocaine abuse with cocaine-induced mood disorder; Z79.1 Long term (current) use of non-steroidal anti-inflammatories (NSAID); Z79.899 Other long term (current) drug therapy; Z88.1 Allergy status to other antibiotic agents; Z88.8 Allergy status to other drugs, medicaments and biological substances
CPT/HCPCS: 47562; 80307; 81025; 88304; J0131; J1100; J1170; J1885; J2250; J2405; J2795; J3010

== ENCOUNTER → 2022-11-04 13:03 | Outpatient (BNVA) | payer OTHER, SELFPAY | PROVIDERS: Visit Provider Surgery ==

== ENCOUNTER 2022-11-12 09:25 | Outpatient (AMB) | payer OTHER, SELFPAY ==
--- NOTE | 2022-11-12 09:41 | MHC.OFFVIS ---
Intake Vital Signs 11/12/22 09:45 Weight 119 lb BP 109/76 Blood Pressure Location Rt brachial Position Sitting Pulse 68 Intake Visit Reasons: post op assess (pt wants to go back to work early) Intake Note: This patient presents for a post-op follow-up assessment status post laparoscopic cholecystectomy. Patient denies complaints pertaining to surgery at this time and is ready to go back to work. Crown Blocker Required: No Accompanied by: Self / Same As Patient Allergies alprazolam Allergy (Unknown, Verified 11/12/22 09:46) I dont like taking it per patient azithromycin [From ZITHROMAX] Adverse Reaction (Unknown, Verified 11/12/22 09:46) VOMITING/DIARRHEA Zithromax Adverse Reaction (Mild, Uncoded 11/12/22 09:46) vomiting HPI post op assess (pt wants to go back to work early) HPI Details She had undergone laparoscopic cholecystectomy, uneventful, last 10/22/2022. She says she really needs to go back to work soon. She says that she does not have any income and may lose her job if she does not go back to work. She denies any complaints and says she feels well. [facility] Medical History Anemia Biliary dyskinesia Contraceptive management Hepatitis C Herpes genitalis IV drug user Peptic ulcer disease Right sided abdominal pain Ureterolithiasis Surgical History (Updated 11/12/22 @ 09:52 by Dagoberto Dove MD) H/O myringotomy H/O sinus surgery Hx laparoscopic cholecystectomy Hx of tonsillectomy Status post laparoscopic cholecystectomy Family History Other Mental health disorder Substance use disorder Social History Housing: Assisted Living Facility Housing Other:: treatment Alcohol intake: unknown Patient Tobacco Use Status: Former Tobacco user Quit Date: 2021 Tobacco use type: Cigarette Cigarettes Per Day: 3 e-Cigarette/Vaping Use: Currently Using Second Hand Smoke Exposure: Yes Substance Use Type: Marijuana and Other service: No Current occupational status: unemployed Cognitive needs: No Hearing needs: No Vision needs: No Review of Systems Const Denies chills and Denies fever(s) Card Denies chest pain, Denies dyspnea and Denies dyspnea on exertion Resp Denies cough, Denies dyspnea and Denies dyspnea on exertion GI Denies hematochezia and Denies change in bowel habits Denies hematuria Musc Denies back pain and Denies limited range of motion Neuro Denies focal weakness and Denies convulsions Psych Denies depression and Denies mood swings Physical Exam Vital Signs: Last Vital Signs Pulse 68 11/12/22 09:45 BP 109/76 11/12/22 09:45 Const General: comfortable and no acute distress Eyes Sclerae: sclerae normal Resp Effort & Inspection: normal respiratory effort GI Other: Incisions well healed, no hernias Assessment & Plan Assessment & Plan (1) Status post laparoscopic cholecystectomy: Code(s): Z90.49 - Acquired absence of other specified parts of digestive tract Plan: She insists on returning to work soon. I explained to her that she will be at risk for developing if she does heavy lifting to early. I had recommended for her to wait for at least a full 4 weeks before she can do heavy lifting as she is [employer]. She says she has to go back to work before that. She understands the risks of developing these hernias. I wrote her a note stating she is cleared to return to work with restrictions starting 11/16/2022. Coding Level of Care Code Global (78380) Diagnoses Status post laparoscopic cholecystectomy Z90.49
[2022-11-12 09:45] VITALS: BP 109/76; PULSE 68
== END 2022-11-12 09:51 | disposition home or self-care (01) ==
PROVIDERS: Visit Provider Surgery
DX: Z90.49 Acquired absence of other specified parts of digestive tract (principal)
CPT/HCPCS: 99024

== ENCOUNTER → 2022-11-12 09:25 | Outpatient (BNVA) | payer OTHER, SELFPAY | PROVIDERS: Visit Provider Surgery ==

== ENCOUNTER 2022-12-27 06:26 | Emergency (ER) | payer OTHER, SELFPAY ==
--- NOTE | ~2022-12-27 | US_ITS ---
EXAMINATION:US pelvic and transvaginal, US pelvic ovarian doppler CLINICAL INFORMATION: Reason for Exam RLQ pain COMPARISON: Prior ultrasound April 2019 LMP: One month ago FINDINGS: UTERUS: The uterus is anteverted. Size: 7 x 4.2 x 5.3 cm. Uterine mass: There is no uterine mass. Cervix: Grossly unremarkable. Endometrium: No ultrasound evidence of endometrial lesion. endometrial thickness measures 1 cm ADNEXA: Normal Right ovary: Normal in size. Hypoechoic Hemorrhagic cyst in the right ovary 4 x 4.5 x 4.7 cm. Small amount of free fluid. Left ovary: Normal in size. Doppler exam: Normal Doppler flow identified in both ovaries. FREE FLUID: Trace amount of free fluid. OTHER FINDINGS: None US/US pelvic and transvaginal IMPRESSION: - Hemorrhagic cyst right ovary 4.7 cm. In this patient age group this is considered physiologic, no follow-up is required. - No ultrasound explanation for patient's pain symptoms. In women who undergo transvaginal ultrasound (TVUS) imaging of adnexal masses, benign ovarian and other adnexal cysts are commonly detected, leading to follow-up sonographic evaluation and, often, patient anxiety. In 2010 the Society of Radiologists in Ultrasound convened a panel of gynecologists, radiologists, and pathologists to develop a consensus statement encompassing characteristic imaging findings for various adnexal cysts as well as follow-up recommendations. Highlights of the statement are as follows: Simple cysts (reproductive age) * Follicles <3 cm in diameter are considered normal. * Cysts <5 cm: follow-up not required. * Cysts >5 to <7 cm: annual follow-up recommended. Simple cysts (postmenopausal) * Cysts <3 cm are considered clinically unimportant. * Simple cysts of any size are highly likely to be benign, but annual sonographic follow-up of cysts >3 cm is reasonable. Simple cysts >7 cm (any age) * Further imaging (e.g., magnetic resonance imaging) or surgical evaluation should be considered. Thin-walled cysts with single thin septation or focal calcification in [place] * Follow-up similar to that for simple cysts based on size and menopausal status. Hemorrhagic cysts (reproductive age) * Cysts <5 cm: No follow-up needed. * Cysts >5 cm: Follow-up in 6 to 12 weeks to ensure resolution.
--- NOTE | ~2022-12-27 | CT_ITS ---
EXAMINATION: CT abdomen pelvis w IV con CLINICAL INFORMATION: Reason for Exam LLQ pain COMPARISON: Prior CT August 2022 TECHNIQUE: Multidetector volumetric imaging was performed from the superior aspect of the liver through the pubic symphysis 85 mL of Omnipaque 350 injected Sagittal and coronal reformatted images were obtained on the technologist's workstation. This CT examination was performed using dose optimization techniques as appropriate, variously including the following: *Automated exposure control *Adjustment of mA and/or kV according to patient size (this includes techniques or standardized protocols for targeted exams where dose is matched to indication/reason for exam; i.e. extremities or head) *Use of iterative reconstruction technique DLP: 341 mGy-cm FINDINGS: LOWER THORAX: Included lung bases are clear. HEPATOBILIARY: No focal hepatic lesions. No biliary ductal dilatation. GALLBLADDER: Gallbladder has been removed. SPLEEN: Spleen is normal in size. PANCREAS: No focal mass or ductal dilatation. STOMACH AND GASTROINTESTINAL TRACT: Stomach is grossly unremarkable. There is no bowel distention or thickening. No CT evidence of appendicitis. There is excess amount of stool in the colon suggests constipation. ADRENALS: No adrenal nodules. KIDNEYS/URETERS: No hydronephrosis, stones or solid mass lesions. There is a small cystic structure upper pole right kidney 9 mm, attenuation of its matrix measuring 50, this is higher than expected for a simple cyst, this could be artifactual, difficult to properly evaluate due to small size, most commonly evolving cysts. No solid lesion. No kidney stone or hydronephrosis. URINARY BLADDER: Partially decompressed. PELVIC VISCERA: There is a cystic mass in the right side of the pelvis most likely of right ovarian origin measures 5 x 4.6 cm, there is adjacent small amount of free fluid in the right adnexa and cul-de-sac, uncertain origin.. PERITONEUM: There is no free air in the abdomen or pelvis. LYMPH NODES: No lymphadenopathy. VASCULAR:Abdominal aorta normal in size, no aneurysm found. BONES, ABDOMINAL WALL AND SOFT TISSUES: Age-appropriate changes of the spine and skeletal system, no destructive osteolytic or osteosclerotic bone lesion found CT/CT abdomen pelvis w IV con IMPRESSION: - There is cystic mass in the right side of the pelvis most likely of right ovarian origin measures 5 cm, there is adjacent small amount of free fluid in the right adnexa and cul-de-sac, uncertain origin. Would recommend correlation with follow-up outpatient pelvic ultrasound. - Excess amount of stool in the colon suggests constipation. Otherwise no CT explanation for patient's left lower quadrant pain. No evidence of diverticular disease. No kidney stone or hydronephrosis. - Gallbladder has been removed.
[2022-12-27 06:35] VITALS: BP 103/57; BP 124/80; PULSE 66; PULSE 91; RESP 16; TEMP 36.7; O2SAT 97; O2SAT 98; BMI 20.6
[2022-12-27 06:44] VITALS: BP 103/57; PULSE 66; RESP 16; TEMP 36.7; O2SAT 97
--- NOTE | 2022-12-27 06:44 | ED.ABDPAIN ---
HPI - Abdominal Pain General Chief Complaint: Abdominal Pain Stated Complaint: vomiting Time Seen by Provider: 12/27/22 06:38 Source: patient Mode of arrival: ambulatory Limitations: no limitations History of Present Illness HPI narrative: Patient is a 27 year old female with a past medical history of polysubstance use and cholecystitis (status post cholecystectomy 2 months ago) presenting for nausea and vomiting starting last night. Patient reports that last night she began feeling nauseous, vomiting yellow vomit and is having left sided abdominal pain. Patient states she was vomiting all night. Patient has a history of kidney stones. Patient states her last period was around December 10 and admits to a chance of . Patient denies sick contacts. Patient denies headache, fevers, chills, chest pain, shortness of breath, changes in urination or changes in bowel movements. Related Data Home Medications Medication Instructions Recorded Confirmed methadone 40 mg soluble tablet 37 mg PO DAILY 09/15/22 10/22/22 quetiapine 100 mg tablet See Rx Instructions .Route .COMPLEX 09/15/22 10/22/22 Previous Rx's Medication Instructions Recorded ibuprofen 400 mg tablet 400 mg PO Q8H PRN pain 10 days #30 01/13/22 tabs ondansetron HCl 4 mg tablet 4 mg PO DAILY PRN nausea and 09/13/22 vomiting 0 days #10 tabs quetiapine 200 mg tablet (Seroquel) 200 mg PO BEDTIME #14 tabs 09/24/22 ibuprofen 600 mg tablet 600 mg PO Q6H PRN pain #30 tabs 10/22/22 oxycodone-acetaminophen 5 mg-325 1 tab PO Q4-6H PRN pain #30 tabs 10/22/22 mg tablet (Percocet) docusate sodium 100 mg capsule 100 mg PO BID #20 caps 12/27/22 (Colace) ketorolac 10 mg tablet 10 mg PO TID PRN pain 5 days #15 12/27/22 tabs ondansetron 4 mg disintegrating 4 mg PO Q6H PRN nausea and 12/27/22 tablet vomiting #14 tabs polyethylene glycol 3350 17 17 g PO BID PRN constipation #238 12/27/22 gram/dose oral powder (Miralax) grams sennosides 8.6 mg tablet (senna) 8.6 mg PO BEDTIME #14 tabs 12/27/22 Allergies Allergy/AdvReac Type Severity Reaction Status Date / Time alprazolam Allergy Unknown I dont Verified 11/12/22 09:46 like taking it per patient azithromycin [From ZITHROMAX] AdvReac Unknown VOMITING/DI Verified 11/12/22 09:46 ARRHEA Zithromax AdvReac Mild vomiting Uncoded 11/12/22 09:46 Review of Systems Review of Systems Constitutional : No Weight loss, No Fever, No Chills, No Fatigue, No Malaise ENT/Mouth : No sore throat, No Rhinorrhea Eyes: No Eye Pain, No Swelling, No Redness Cardiovascular : No Chest Pain, No SOB, No Dyspnea on Exertion, No Orthopnea, No Edema, No Palpitations Respiratory : No Cough, No Sputum, No Wheezing Gastrointestinal : + Nausea, Vomiting, and abdominal pain, No Diarrhea, No Constipation, No Hematochezia, No Melena Genitourinary : No Dysuria, No Urinary Frequency, No Hematuria, Musculoskeletal : No joint pain, No Myalgias, No Joint Swelling Skin : No Skin Lesions, No rash Neuro : No Weakness, No Numbness, No Dizziness, No Headache Psych : No Anxiety/Panic, No Depression Heme/Lymph: No Bruising, No Bleeding,No Lymphadenopathy Endocrine : No Polyuria, No Polydipsia All other systems reviewed and are negative Yes all other systems are reviewed and are negative [facility] Past Medical History Attestation statement: The following information was validated with the patient. Source: old records reviewed and nursing notes reviewed Medical History Anemia Biliary dyskinesia Contraceptive management Hepatitis C Herpes genitalis IV drug user Peptic ulcer disease Right sided abdominal pain Ureterolithiasis Surgical History H/O myringotomy H/O sinus surgery Hx laparoscopic cholecystectomy Hx of tonsillectomy Status post laparoscopic cholecystectomy Family History Family History Other Mental health disorder Substance use disorder Social History Social History Housing: Assisted Living Facility Housing Other:: treatment Alcohol intake: unknown Patient Tobacco Use Status: Former Tobacco user Quit Date: 2021 Tobacco use type: Cigarette Cigarettes Per Day: 3 Smoked in Last 30 Days: No e-Cigarette/Vaping Use: Currently Using Second Hand Smoke Exposure: Yes Use of substances other than those prescribed or required for medical reasons: No Substance Use Type: Marijuana and Other Advance Directives: No Advance Directives Information Provided: Yes service: No Current occupational status: unemployed Cognitive needs: No Hearing needs: No Vision needs: No Physical Exam ED Vital Signs: Vital Signs - 24 hr 12/27/22 06:35 12/27/22 06:44 12/27/22 08:33 Temperature 98.1 F 98.1 F Pulse Rate 66 66 55 Respiratory Rate 16 16 16 Blood Pressure 103/57 L 103/57 L 108/66 Pulse Oximetry 97 97 98 Oxygen Delivery Method Room Air Room Air Room Air 12/27/22 10:40 Temperature Pulse Rate 57 Respiratory Rate 16 Blood Pressure 93/52 L Pulse Oximetry 98 Oxygen Delivery Method Room Air BMI result Body Mass Index 20.6 VSS Appearance: Alert.? Oriented X3.? No acute distress.? Head: Normocephalic, atraumatic, no step-offs or deformities Eyes: Pupils equal, round and reactive to light.? ENT: Pharynx normal.? Neck: Normal inspection.? Neck supple.? CVS: Normal heart rate and rhythm.? Pulses normal.? Respiratory: No respiratory distress.? Breath sounds normal.? Abdomen: Soft and nondistended. Mild tenderness to palpation to the left upper and lower quadrants.? Negative [place], [place], and [place]. No rebound tenderness. No signs of acute abdomen. Skin: Skin warm and dry.? Normal skin color.? Normal skin turgor.? Extremities: No lower extremity edema.? No calf ttp. 5/5 strength to bilateral upper and lower extremities Back: No midline tenderness, no C-spine tenderness, full range of motion, no CVA tenderness bilaterally Neuro: Oriented X 3.? No motor deficit.? No sensory deficit. CN 2-12 intact Course Reevaluation(s) Reevaluation #1: CBC with slight leukocytosis 11.9 likely secondary to reactivity nausea, vomiting, chemistry unremarkable no acute findings requiring intervention. Lipase normal hCG negative. UA with 1+ bacteria however high level of urine squamous epithelial cells, likely contaminated, no UTI symptoms low suspicion for UTI however will repeat urine. Patient's CT abdomen pelvis with a cystic mass in the right side of the pelvis most likely of right ovarian origin measuring 5 cm there is an adjacent small amount of free fluid in the right adnexa and cul-de-sac. Recommend ultrasound will obtain with Doppler. Excess amount of stool in the colon suggesting constipation will give patient senna, Colace and MiraLax. US pending Time: 10:36 Reevaluation #2: Ultrasound of pelvic and transvaginal region with a hemorrhagic cyst of the right ovary 4.7 cm normal Doppler flow. Have her follow-up with OBGYN. Will repeat urine at this time in color of results are positive. Patient feeling well she states the medicine helped a lot. Patient comfortable appearing. Educated patient on diagnosis and treatment plan, answered all question, patient verbalizes understanding. At this time patient will be discharged home, advised to return with new or worsening symptoms. Educated on worrisome signs and symptoms and when to return. At this time I feel comfortable discharge home. Time: 12:25 Medical Decision Making Medical Decision Making [facility] Narrative: 6:30 27 year old female presenting with left sided abdominal pain, nausea and vomiting X1 day. Exam significant for mild left sided abdominal tenderness to palpation. This is likely viral illness vs kidney stones vs vs small bowel obstruction. Unlikely torsion, ovarian cysts, ectopic , urinary tract infection, sexually trasmitted infection given history and physical exam and lack of pelvic/urinary symptoms. Unlikely diverticulitis given no changes in bowel movements and no history. Unlikely appendicitis given the location of pain and no rebound tenderness. Unlikely acute abdomen, arterial occlusion, or perforation given the history and exam findings of mild tenderness. Plan: labs, urine Differential Diagnosis Differential Diagnoses: The differential diagnosis associated with the presentation includes This is likely viral illness vs kidney stones vs vs small bowel obstruction. Unlikely torsion, ovarian cysts, ectopic , urinary tract infection, sexually trasmitted infection given history and physical exam and lack of pelvic/urinary symptoms. Unlikely diverticulitis given no changes in bowel movements and no history. Unlikely appendicitis given the location of pain and no rebound tenderness. Unlikely acute abdomen, arterial occlusion, or perforation given the history and exam findings of mild tenderness. Admission/Observation Consideration of admission/observation: Escalation of care including admission/observation considered Not indicated. Lab Data MDM Lab Attestation statement: I reviewed the patient's lab results. 12/27/22 07:20 12/27/22 07:20 Labs: Lab Results 12/27/22 12/27/22 12/27/22 Range/Units 07:20 07:20 07:20 WBC 11.9 H (4.8-10.8) X10*3/uL RBC 4.60 (4.20-5.50) X10*6/uL Hgb 13.7 (12.0-16.0) g/dl Hct 40.7 (37.0-47.0) % MCV 88.5 (80.0-98.0) fL MCH 29.8 (27.0-33.0) pg MCHC 33.7 (31.0-35.0) g/dl RDW 12.9 (11.0-16.0) % Plt Count 246 (160-400) X10*3/uL MPV 9.7 (9.4-12.3) fL Immature Gran % (Auto) 0.3 (0.0-0.4) % Neut % (Auto) 82.6 H (45-73) % Lymph % (Auto) 10.9 L (20-40) % [place] % (Auto) 5.6 (2-11) % Eos % (Auto) 0.3 (0-4) % Baso % (Auto) 0.3 (0-2) % Lymph # (Auto) 1.3 (1.2-4.9) X10*3/uL [place] # (Auto) 0.7 (0.1-1.2) X10*3/uL Eos # (Auto) 0.0 (0.0-0.4) X10*3/uL Baso # (Auto) 0.0 (0.0-0.2) X10*3/uL Abs Immat Gran (auto) 0.04 H (0.00-0.03) X10*3/uL Absolute Neuts (auto) 9.8 H (2.0-8.3) x10*3/uL Absolute Nucleated RBC 0.000 (0.0-0.012) X10*3/uL Nucleated RBC % (auto) 0.0 (0.0-0.2) /100WBC Sodium 139 (135-145) mmol/L Potassium 4.3 (3.3-5.1) mmol/L Chloride 112 H (96-108) mmol/L Carbon Dioxide 19 L (22-29) mmol/L Anion Gap 12 (12-20) BUN 16 (9-16) mg/dL Creatinine 0.73 (0.5-1.4) mg/dL Estim Creat Clear Calc 98.5 Estimated GFR > 60 Random Glucose 102 (60-115) mg/dL Calcium 9.5 D (8.4-10.2) mg/dL Magnesium 2.1 (1.6-2.6) mg/dL Total Bilirubin 0.3 (0.0-1.0) mg/dL AST 19 (5-31) U/L ALT 13 (0-31) U/L Alkaline Phosphatase 49 (39-117) U/L Total Protein 7.8 (6.5-8.0) g/dL Albumin 4.7 (3.5-5.0) g/dL Lipase 13 (8-78) U/L Beta HCG, Quant < 2 mIU/mL Urine Color Urine Appearance Urine pH (5.0-9.0) Ur Specific [place] (1.005-1.025) Urine Protein (Neg-Trace) mg/dL Urine Glucose (UA) (Negative) mg/dL Urine Ketones (Negative) mg/dL Urine Blood (Negative) Urine Nitrite (Negative) Ur Leukocyte Esterase (Negative) Urine RBC (0-2) /HPF Urine WBC (0-5) /HPF Ur Squamous Epith Cells (0-2) /HPF Urine Bacteria (None Seen) Hyaline Casts (0-2) /LPF 12/27/22 Range/Units 08:47 WBC (4.8-10.8) X10*3/uL RBC (4.20-5.50) X10*6/uL Hgb (12.0-16.0) g/dl Hct (37.0-47.0) % MCV (80.0-98.0) fL MCH (27.0-33.0) pg MCHC (31.0-35.0) g/dl RDW (11.0-16.0) % Plt Count (160-400) X10*3/uL MPV (9.4-12.3) fL Immature Gran % (Auto) (0.0-0.4) % Neut % (Auto) (45-73) % Lymph % (Auto) (20-40) % [place] % (Auto) (2-11) % Eos % (Auto) (0-4) % Baso % (Auto) (0-2) % Lymph # (Auto) (1.2-4.9) X10*3/uL [place] # (Auto) (0.1-1.2) X10*3/uL Eos # (Auto) (0.0-0.4) X10*3/uL Baso # (Auto) (0.0-0.2) X10*3/uL Abs Immat Gran (auto) (0.00-0.03) X10*3/uL Absolute Neuts (auto) (2.0-8.3) x10*3/uL Absolute Nucleated RBC (0.0-0.012) X10*3/uL Nucleated RBC % (auto) (0.0-0.2) /100WBC Sodium (135-145) mmol/L Potassium (3.3-5.1) mmol/L Chloride (96-108) mmol/L Carbon Dioxide (22-29) mmol/L Anion Gap (12-20) BUN (9-16) mg/dL Creatinine (0.5-1.4) mg/dL Estim Creat Clear Calc Estimated GFR Random Glucose (60-115) mg/dL Calcium (8.4-10.2) mg/dL Magnesium (1.6-2.6) mg/dL Total Bilirubin (0.0-1.0) mg/dL AST (5-31) U/L ALT (0-31) U/L Alkaline Phosphatase (39-117) U/L Total Protein (6.5-8.0) g/dL Albumin (3.5-5.0) g/dL Lipase (8-78) U/L Beta HCG, Quant mIU/mL Urine Color Yellow Urine Appearance Turbid Urine pH 6.0 (5.0-9.0) Ur Specific [place] 1.025 (1.005-1.025) Urine Protein Negative (Neg-Trace) mg/dL Urine Glucose (UA) Negative (Negative) mg/dL Urine Ketones Negative (Negative) mg/dL Urine Blood Negative (Negative) Urine Nitrite Negative (Negative) Ur Leukocyte Esterase Small (1+) H (Negative) Urine RBC 3-5 H (0-2) /HPF Urine WBC 6-10 H (0-5) /HPF Ur Squamous Epith Cells 11-20 (0-2) /HPF Urine Bacteria 1+ (None Seen) Hyaline Casts 0-2 (0-2) /LPF Core Measures AMI core measures followed: Yes Measure exclusions: not indicated Medications Administered Discontinued Medications Generic Name Dose Route Start Last Admin Trade Name Freq PRN Reason Stop Dose Admin Docusate Sodium 100 mg 12/27/22 10:36 12/27/22 10:45 Docusate Sodium 100 Mg Capsule PO 12/27/22 10:37 100 mg ONCE ONE Administration Sodium Chloride 1,000 mls @ 999 mls/hr 12/27/22 06:45 12/27/22 08:31 Ns IV 12/27/22 07:45 Infused .Q1H1M JOSE Infusion Sodium Chloride 1,000 mls @ 999 mls/hr 12/27/22 10:45 12/27/22 10:48 Ns IV 12/27/22 11:45 999 mls/hr .Q1H1M JOSE Administration Iohexol 85 ml 12/27/22 09:39 12/27/22 09:40 Iohexol 350 Mg/Ml 100 Ml Infus..Btl IV 12/27/22 09:40 85 ml ONCE ONE Administration Ketorolac Tromethamine 15 mg 12/27/22 08:12 12/27/22 08:31 Ketorolac Tromethamine 15 Mg/Ml Vial IVPUSH 12/27/22 08:13 15 mg ONCE ONE Administration Ondansetron HCl 4 mg 12/27/22 07:21 12/27/22 07:32 Ondansetron Hcl 4 Mg/2 Ml Vial IVPUSH 12/27/22 07:22 4 mg ONCE ONE Administration Polyethylene Glycol 17 gm 12/27/22 10:36 12/27/22 10:45 Polyethylene Glycol 3350 17 Gm Powd.Pack PO 12/27/22 10:37 17 gm ONCE ONE Administration Senna 15 ml 12/27/22 10:36 12/27/22 10:45 Senna Purple Sage Extract Oral Syrup 15 Ml Syrup PO 12/27/22 10:37 15 ml ONCE ONE Administration Critical Care Time Critical Care Time Critical Care Time: No Discharge Plan Discharge Clinical Impression: Abdominal pain, Nausea & vomiting, Ovarian cyst, Constipation Patient Disposition: Home, Self-Care Instructions: Ovarian Cyst (ED), Acute Nausea and Vomiting (ED), Abdominal Pain (ED) Additional Instructions: Take your medications as prescribed. If you were prescribed antibiotics today, it is important that you take your medication to their entirety, do not skip any doses, do not finish them early. Follow-up with your primary care provider this week. Please follow-up with OBGYN as soon as possible Return to the emergency department with new or worsening symptoms. Such as fevers, chills, chest pain, shortness of breath, nausea, vomiting, dizziness, headache, vision changes, lethargy In case of emergency call 911 Toradol has been sent to your pharmacy, you tolerated this well in the department. Please take this as prescribed do not take this with ibuprofen, or other NSAIDs, do not mix this with alcohol. Side effects of this medication including increased risk for bleeding and possible kidney injury. ?US/US pelvic ovarian doppler IMPRESSION: ? - Hemorrhagic cyst right ovary 4.7 cm. In this patient age group this is considered physiologic, no follow-up is required. ? - No ultrasound explanation for patient's pain symptoms. ? CT/CT abdomen pelvis w IV con IMPRESSION: ? - There is cystic mass in the right side of the pelvis most likely of right ovarian origin measures 5 cm, there is adjacent small amount of free fluid in the right adnexa and cul-de-sac, uncertain origin. Would recommend correlation with follow-up outpatient pelvic ultrasound. ? - Excess amount of stool in the colon suggests constipation. Otherwise no CT explanation for patient's left lower quadrant pain. No evidence of diverticular disease. No kidney stone or hydronephrosis. ? - Gallbladder has been removed. Prescriptions: New ketorolac 10 mg tablet 10 mg PO TID PRN (Reason: pain) 5 Days Qty: 15 0RF ondansetron 4 mg tablet,disintegrating 4 mg PO Q6H PRN (Reason: nausea and vomiting) Qty: 14 0RF sennosides [senna] 8.6 mg tablet 8.6 mg PO BEDTIME Qty: 14 0RF docusate sodium [Colace] 100 mg capsule 100 mg PO BID Qty: 20 0RF polyethylene glycol 3350 [Miralax] 17 gram/dose powder 17 g PO BID PRN (Reason: constipation) Qty: 238 0RF No Action ondansetron HCl 4 mg tablet 4 mg PO DAILY PRN (Reason: nausea and vomiting) Qty: 10 0RF quetiapine [Seroquel] 200 mg tablet 200 mg PO BEDTIME Qty: 14 0RF oxycodone-acetaminophen [Percocet] 5-325 mg tablet 1 tab PO Q4-6H PRN (Reason: pain) Qty: 30 0RF Rx Instructions: Partial Fill upon patient request. ibuprofen 600 mg tablet 600 mg PO Q6H PRN (Reason: pain) Qty: 30 0RF methadone 40 mg tablet,soluble 37 mg PO DAILY ibuprofen 400 mg tablet 400 mg PO Q8H PRN (Reason: pain) 10 Days Qty: 30 0RF quetiapine 100 mg tablet See Rx Instructions .ROUTE .COMPLEX Dose Instruction: TAKE 1 TABLET TO 1 AND 1/2 TABLET BY MOUTH EVERY NIGHT AT BEDTIME Rx Instructions: TAKE 1 TABLET TO 1 AND 1/2 TABLET BY MOUTH EVERY NIGHT AT BEDTIME Referrals: Austin Warren MD [Physician] - 2 days Stand Alone Forms: Work/School Release
[2022-12-27 07:27] LABS: MANUAL DIFF FLAG NO
[2022-12-27 07:29] LABS: Basophils Percent Auto 0.3 % (0-2); Eosinophils Percent Auto 0.3 % (0-4); Hematocrit 40.7 % (37.0-47.0); Hemoglobin 13.7 g/dl (12.0-16.0); Imm Gran Abs Auto 0.04 X10*3/uL (0.00-0.03); Imm Gran Pct Auto 0.3 % (0.0-0.4); Lymphocytes Absolute Auto 1.3 X10*3/uL (1.2-4.9); Lymphocytes Percent Auto 10.9 % (20-40); Mean Corpuscular HGB Conc 33.7 g/dl (31.0-35.0); Mean Corpuscular Hemoglobin 29.8 pg (27.0-33.0); Mean Corpuscular Volume 88.5 fL (80.0-98.0); Mean Platelet Volume 9.7 fL (9.4-12.3); Monocytes Absolute Auto 0.7 X10*3/uL (0.1-1.2); Monocytes Percent Auto 5.6 % (2-11); Neutrophils Absolute Auto 9.8 x10*3/uL (2.0-8.3); Neutrophils Percent Auto 82.6 % (45-73); Platelet Count 246 X10*3/uL (160-400); Red Cell Distribution Width 12.9 % (11.0-16.0); White Blood Count 11.9 X10*3/uL (4.8-10.8)
[2022-12-27] MEDS: ondansetron HCL 4 MG/2 ML VIAL IVPUSH (07:32)
[2022-12-27] MEDS: 0.9 % Sodium Chloride 1,000 ML 999 ML IV ×2 (07:32→10:48)
[2022-12-27 07:47] LABS: Alanine Aminotransferase 13 U/L (0-31); Albumin Level 4.7 g/dL (3.5-5.0); Alkaline Phosphatase 49 U/L (39-117); Anion Gap 12 (12-20); Aspartate Amino Transferase 19 U/L (5-31); Bilirubin Total 0.3 mg/dL (0.0-1.0); Blood Urea Nitrogen 16 mg/dL (9-16); Calcium 9.5 mg/dL (8.4-10.2); Carbon Dioxide 19 mmol/L (22-29); Chloride 112 mmol/L (96-108); Creatinine Clr Calc Pharmacy 98.5; Estimated Glomerular Filt Rate > 60; Glucose Random 102 mg/dL (60-115); Lipase 13 U/L (8-78); Magnesium 2.1 mg/dL (1.6-2.6); Potassium 4.3 mmol/L (3.3-5.1); Sodium 139 mmol/L (135-145); Total Protein 7.8 g/dL (6.5-8.0)
[2022-12-27 07:51] LABS: HCG Quantitative < 2 mIU/mL
--- NOTE | 2022-12-27 07:54 | PC.NURSE ---
pt reports LLQ abd pain/n/v onset today 010. pt denies d/cp/sob. vss. respirations even and unlabored. iv established; labs drawn. ivf infusing; pt medicated per mar. denies questions/concerns at this time. call brandt within reach.
[2022-12-27] MEDS: Ketorolac Tromethamine 15 MG/ML VIAL IVPUSH (08:31)
[2022-12-27 08:33] VITALS: BP 108/66; PULSE 55; RESP 16; O2SAT 98
[2022-12-27 09:19] LABS: Appearance Urine Turbid; Color Urine Yellow; Glucose Urine UA Negative (Negative); Leukocyte Esterase Urine Small (1+) (Negative); Nitrite Urine Negative (Negative); Specific Gravity - Urine 1.025 (1.005-1.025); UMIC TRIGGER UACC YES; Urine Blood Negative (Negative); Urine Ketones Negative (Negative); Urine Protein Negative (Neg-Trace)
[2022-12-27 09:32] LABS: Bacteria Urine 1+ (None Seen); Hyaline Casts Urine 0-2 /LPF (0-2); UACC Culture Trigger YES
[2022-12-27] MEDS: iohexoL 350 MG/ML 100 ML INFUS..BTL 85 ML IV (09:40)
[2022-12-27 10:40] VITALS: BP 93/52; PULSE 57; RESP 16; O2SAT 98
[2022-12-27] MEDS: polyethylene glycoL 3350 17 GM POWD.PACK PO (10:45)
[2022-12-27] MEDS: Docusate Sodium 100 MG CAPSULE PO (10:45)
--- NOTE | 2022-12-27 10:52 | PC.NURSE ---
pt states abd. pain decreased to level 3/10. last bp soft / Christina GROSS aware. pt denies dizziness; ambulatory to bathroom with steady gait. IVF infusing per order. pt medicated per order. all needs met at this time; call brandt within reach.
--- NOTE | 2022-12-27 11:04 | PC.NURSE ---
pt to u/s at this time.
--- NOTE | 2022-12-27 11:47 | PC.NURSE ---
pt return from u/s. resting in stretcher. call brandt within reach.
[2022-12-27 12:47] LABS: Appearance Urine Clear; Color Urine Yellow; Glucose Urine UA Negative (Negative); Leukocyte Esterase Urine Negative (Negative); Nitrite Urine Negative (Negative); PH 5.5 (5.0-9.0); Specific Gravity - Urine >= 1.030 (1.005-1.025); Urine Blood Negative (Negative); Urine Ketones Negative (Negative); Urine Protein Negative (Neg-Trace)
== END 2022-12-27 13:00 | disposition home or self-care (01) ==
PROVIDERS: Physician Assistant; Emergency Provider Emergency Medicine; PCP Internal Medicine
DX: R11.2 Nausea with vomiting, unspecified (principal); N83.201 Unspecified ovarian cyst, right side; D64.9 Anemia, unspecified; R10.31 Right lower quadrant pain; F19.90 Other psychoactive substance use, unspecified, uncomplicated; K59.00 Constipation, unspecified; Z90.49 Acquired absence of other specified parts of digestive tract
CPT/HCPCS: 36415; 74177; 76830; 76856; 80053; 81001; 81003; 83690; 83735; 84702; 85025; 87086; 93975; 96361; 96374; 96375; 99284; 99285; J1885; J2405; Q9967

== ENCOUNTER 2023-04-09 08:04 | Emergency (ER) | payer OTHER, SELFPAY ==
--- NOTE | ~2023-04-09 | CT_ITS ---
EXAMINATION: CT CERVICAL SPINE WITHOUT CONTRAST CLINICAL INFORMATION: Seizure. Trauma. COMPARISON: Cervical spine CT from 2016 TECHNIQUE: Axial images through the cervical spine without contrast. Sagittal and coronal reconstructions on the technologist workstation were performed This CT examination was performed using dose optimization techniques as appropriate, variously including the following: *Automated exposure control *Adjustment of mA and/or kV according to patient size (this includes techniques or standardized protocols for targeted exams where dose is matched to indication/reason for exam; i.e. extremities or head) *Use of iterative reconstruction technique DLP: 215 mGy-cm FINDINGS: Bone alignment is normal. No fracture or dislocation. Normal disc spaces. Normal prevertebral soft tissues. Visualized lung apices are clear. CT/CT cervical spine wo IV con IMPRESSION: Unremarkable examination. Fleischner guidelines were followed.
--- NOTE | ~2023-04-09 | CT_ITS ---
EXAMINATION: CT HEAD WITHOUT CONTRAST CLINICAL INFORMATION: Seizure COMPARISON: None available. TECHNIQUE: Contiguous axial imaging was performed from the skull base to vertex without intravenous administration of contrast. This CT examination was performed using dose optimization techniques as appropriate, variously including the following: *Automated exposure control *Adjustment of mA and/or kV according to patient size (this includes techniques or standardized protocols for targeted exams where dose is matched to indication/reason for exam; i.e. extremities or head) *Use of iterative reconstruction technique DLP: 571 mGy-cm FINDINGS: There is no evidence of an extra-axial collection. There is no evidence of intra-axial or extra-axial hemorrhage. The ventricles and extra-axial CSF spaces are appropriate. Chopra-white matter differentiation is normal. No mass, mass effect or infarct. No skull fracture. Visualized paranasal sinuses, mastoid air cells and middle ears are clear. CT/CT head/brain wo IV con IMPRESSION: Unremarkable exam
[2023-04-09 08:08] VITALS: BP 100/72; BP 113/70; PULSE 79; PULSE 80; RESP 20; TEMP 36.7; O2SAT 95; O2SAT 97; BMI 19.7
--- NOTE | 2023-04-09 08:08 | ECG_ITS ---
Test Reason : seizure Blood Pressure : / mmHG Vent. Rate : 078 BPM Atrial Rate : 078 BPM P-R Int : 102 ms QRS Dur : 096 ms QT Int : 386 ms P-R-T Axes : 046 028 125 degrees QTc Int : 440 ms Sinus rhythm with short MS Nonspecific T wave abnormality Abnormal ECG When compared with ECG of 16-SEP-2022 03:51, MS interval has decreased Nonspecific T wave abnormality now evident in Lateral leads Referred By: Cristobal Rojas Electronically Signed By:SHANTEL BARCENAS
--- NOTE | 2023-04-09 08:10 | ED.SEIZURE ---
HPI - Seizure General Chief Complaint: Seizure Stated Complaint: SEIZURE LAST NIGHT HIT HEAD Source: patient and EMS Mode of arrival: EMS Limitations: no limitations History of Present Illness HPI Narrative: patient with no prior history of seizure. Today her heard a crash and found her on the floor having a grandmal seizure. She denies recent drug use, she is on 20mg of methadone. She presents slightly confused with large hematoma over her left eye MD complaint: seizure Onset (ago): minute(s) Description of Episode: tonic-clonic movement Witnessed: Yes - by Bystander Seizure History: No Place: Home Related Data Home Medications Medication Instructions Recorded Confirmed methadone 40 mg soluble tablet 37 mg PO DAILY 09/15/22 10/22/22 quetiapine 100 mg tablet See Rx Instructions .Route .COMPLEX 09/15/22 10/22/22 Previous Rx's Medication Instructions Recorded ibuprofen 400 mg tablet 400 mg PO Q8H PRN pain 10 days #30 01/13/22 tabs ondansetron HCl 4 mg tablet 4 mg PO DAILY PRN nausea and 09/13/22 vomiting 0 days #10 tabs quetiapine 200 mg tablet (Seroquel) 200 mg PO BEDTIME #14 tabs 09/24/22 ibuprofen 600 mg tablet 600 mg PO Q6H PRN pain #30 tabs 10/22/22 oxycodone-acetaminophen 5 mg-325 1 tab PO Q4-6H PRN pain #30 tabs 10/22/22 mg tablet (Percocet) docusate sodium 100 mg capsule 100 mg PO BID #20 caps 12/27/22 (Colace) ketorolac 10 mg tablet 10 mg PO TID PRN pain 5 days #15 12/27/22 tabs ondansetron 4 mg disintegrating 4 mg PO Q6H PRN nausea and 12/27/22 tablet vomiting #14 tabs polyethylene glycol 3350 17 17 g PO BID PRN constipation #238 12/27/22 gram/dose oral powder (Miralax) grams sennosides 8.6 mg tablet (senna) 8.6 mg PO BEDTIME #14 tabs 12/27/22 Allergies Allergy/AdvReac Type Severity Reaction Status Date / Time alprazolam Allergy Unknown I dont Verified 11/12/22 09:46 like taking it per patient azithromycin [From ZITHROMAX] AdvReac Unknown VOMITING/DI Verified 11/12/22 09:46 ARRHEA Zithromax AdvReac Mild vomiting Uncoded 11/12/22 09:46 Review of Systems Review of Systems: Yes all other systems are reviewed and are negative Neurologic: Denies Sensory deficit (Neuro) [facility] Past Medical History Medical History Biliary dyskinesia Right sided abdominal pain Herpes genitalis Ureterolithiasis Peptic ulcer disease Anemia Contraceptive management IV drug user Hepatitis C Surgical History Status post laparoscopic cholecystectomy Hx laparoscopic cholecystectomy H/O myringotomy H/O sinus surgery Hx of tonsillectomy Family History Family History Other Mental health disorder Substance use disorder Social History Social History Housing: Assisted Living Facility Housing Other:: treatment Alcohol intake: unknown Patient Tobacco Use Status: Former Tobacco user Quit Date: 2021 Tobacco use type: Cigarette Cigarettes Per Day: 3 Smoked in Last 30 Days: Yes e-Cigarette/Vaping Use: Currently Using Second Hand Smoke Exposure: Yes Use of substances other than those prescribed or required for medical reasons: Yes Substance Use Type: Marijuana Advance Directives: No service: No Current occupational status: unemployed Cognitive needs: No Hearing needs: No Vision needs: No Physical Exam Vital Signs: Vital Signs: Last Vital Signs Temp 98.4 F 04/09/23 10:25 Pulse 61 04/09/23 10:25 Resp 16 04/09/23 10:25 BP 107/68 04/09/23 10:25 Pulse Ox 98 04/09/23 10:25 O2 Del Method Room Air 04/09/23 10:25 BMI result Body Mass Index 19.7 Const: Other: female looking older than stated age Nutritional Appearance: average body habitus Orientation/consciousness: oriented to person and patient oriented x3 Limitations: no limitations HEENT: Other: hematoma over right eyebrow Ears: external ears normal General nose exam: Normal external nose present Mouth: Normal oral and palatal mucosa present and oropharynx normal Throat: Yes posterior oropharynx normal Eyes: General: appearance normal, both eyes and all related structures Neck: Other: supple Neck: Yes normal visual inspection Chest: Chest palpation & inspection: normal inspection of the chest Resp: Auscultation: clear to auscultation bilaterally Cardio: Jugular venous distension: no JVD Rate: regular rate Rhythm: regular rhythm Heart sounds: S1 normal heart sound present and S2 normal heart sound present GI: Inspection: Yes normal to inspection Palpation (GI): Soft to palpation, nontender and No hepatosplenomegaly present Auscultation: normal bowel sounds : General: Yes no CVA tenderness Back/Spine/Pelvis: Back: no CVA tenderness Skin: General skin exam: no rashes or lesions noted Neuro: General: oriented to person and patient oriented x3 Cranial nerves: Yes CN's II-XII intact bilaterally Motor exam (neuro): 5/5 motor strength present throughout Sensory Exam: No Sensory deficit (Neuro) Extrem: General: Yes normal to inspection Psych: Appearance: grossly normal Course Reevaluation(s) Reevaluation #1: Patient awake and alert, CT negative will dc home with followup Time: 10:32 Medications Administered Discontinued Medications Generic Name Dose Route Start Last Admin Trade Name Edilsonq PRN Reason Stop Dose Admin Acetaminophen 650 mg 04/09/23 10:06 04/09/23 10:12 Acetaminophen 325 Mg Tablet PO 04/09/23 10:07 650 mg ONCE ONE Administration Medical Decision Making Differential Diagnosis Differential Diagnoses: The differential diagnosis associated with the presentation includes (seizure, brain bleed, brain mass, drug abuse, withdrawal were all considered) Admission/Observation Consideration of admission/observation: Escalation of care including admission/observation considered (upon arrival patient was considered for admission) Lab Data MDM Lab Attestation statement: I reviewed the patient's lab results. 04/09/23 08:19 04/09/23 08:19 Labs: Lab Results 04/09/23 04/09/23 Range/Units 08:19 10:03 WBC 5.7 (4.8-10.8) X10*3/uL RBC 4.50 (4.20-5.50) X10*6/uL Hgb 13.4 (12.0-16.0) g/dl Hct 40.6 (37.0-47.0) % MCV 90.2 (80.0-98.0) fL MCH 29.8 (27.0-33.0) pg MCHC 33.0 (31.0-35.0) g/dl RDW 12.1 (11.0-16.0) % Plt Count 245 (160-400) X10*3/uL MPV 9.5 (9.4-12.3) fL Immature Gran % (Auto) 0.3 (0.0-0.4) % Neut % (Auto) 49.6 (45-73) % Lymph % (Auto) 40.6 H (20-40) % [place] % (Auto) 6.6 (2-11) % Eos % (Auto) 2.4 (0-4) % Baso % (Auto) 0.5 (0-2) % Lymph # (Auto) 2.3 (1.2-4.9) X10*3/uL [place] # (Auto) 0.4 (0.1-1.2) X10*3/uL Eos # (Auto) 0.1 (0.0-0.4) X10*3/uL Baso # (Auto) 0.0 (0.0-0.2) X10*3/uL Abs Immat Gran (auto) 0.02 (0.00-0.03) X10*3/uL Absolute Neuts (auto) 2.8 (2.0-8.3) x10*3/uL Absolute Nucleated RBC 0.000 (0.0-0.012) X10*3/uL Nucleated RBC % (auto) 0.0 (0.0-0.2) /100WBC Sodium 142 (135-145) mmol/L Potassium 4.0 (3.3-5.1) mmol/L Chloride 111 H (96-108) mmol/L Carbon Dioxide 20 L (22-29) mmol/L Anion Gap 15 (12-20) BUN 10 (9-16) mg/dL Creatinine 0.79 (0.5-1.4) mg/dL Estim Creat Clear Calc 87.0 Estimated GFR > 60 Random Glucose 93 (60-115) mg/dL Calcium 9.1 (8.4-10.2) mg/dL Urine Color Yellow Urine Appearance Clear Urine pH 6.5 (5.0-9.0) Ur Specific [place] 1.020 (1.005-1.025) Urine Protein Negative (Neg-Trace) mg/dL Urine Glucose (UA) Negative (Negative) mg/dL Urine Ketones Trace (Negative) mg/dL Urine Blood Negative (Negative) Urine Nitrite Negative (Negative) Ur Leukocyte Esterase Trace H (Negative) Urine RBC 0-2 (0-2) /HPF Urine WBC 0-5 (0-5) /HPF Ur Squamous Epith Cells 6-10 (0-2) /HPF Urine Bacteria None Seen (None Seen) Hyaline Casts 0-2 (0-2) /LPF Urine Test NEGATIVE (NEGATIVE) Independent Interpretation I performed an independent interpretation of an: EKG (sinus 80, no st or twave changes) and CT Scan (brain: no mass or bleed Cervical: no fracture) Radiology Impression Discussion of test interpretation with radiology: I have reviewed the radiologist's reading. (and agree) Independent Historian Clinical information obtained from an independent historian. History obtained from or confirmed by: EMS Tests considered The following testing was considered but not selected: MRI considered but will perform as outpatient Social Determinants Patient?s care significantly limited by Social Determinants of Health including: Alcoholism and drug addiction in family Discharge Plan Discharge Clinical Impression: Generalized seizure Patient Disposition: Home, Self-Care Instructions: New-Onset Seizure in Adults (ED) Prescriptions: No Action ondansetron HCl 4 mg tablet 4 mg PO DAILY PRN (Reason: nausea and vomiting) Qty: 10 0RF quetiapine [Seroquel] 200 mg tablet 200 mg PO BEDTIME Qty: 14 0RF oxycodone-acetaminophen [Percocet] 5-325 mg tablet 1 tab PO Q4-6H PRN (Reason: pain) Qty: 30 0RF Rx Instructions: Partial Fill upon patient request. ibuprofen 600 mg tablet 600 mg PO Q6H PRN (Reason: pain) Qty: 30 0RF ketorolac 10 mg tablet 10 mg PO TID PRN (Reason: pain) 5 Days Qty: 15 0RF ondansetron 4 mg tablet,disintegrating 4 mg PO Q6H PRN (Reason: nausea and vomiting) Qty: 14 0RF sennosides [senna] 8.6 mg tablet 8.6 mg PO BEDTIME Qty: 14 0RF docusate sodium [Colace] 100 mg capsule 100 mg PO BID Qty: 20 0RF polyethylene glycol 3350 [Miralax] 17 gram/dose powder 17 g PO BID PRN (Reason: constipation) Qty: 238 0RF methadone 40 mg tablet,soluble 37 mg PO DAILY ibuprofen 400 mg tablet 400 mg PO Q8H PRN (Reason: pain) 10 Days Qty: 30 0RF quetiapine 100 mg tablet See Rx Instructions .ROUTE .COMPLEX Dose Instruction: TAKE 1 TABLET TO 1 AND 1/2 TABLET BY MOUTH EVERY NIGHT AT BEDTIME Rx Instructions: TAKE 1 TABLET TO 1 AND 1/2 TABLET BY MOUTH EVERY NIGHT AT BEDTIME Referrals: Po,Eliazar Denton MD [Primary Care Provider] - 5 days
[2023-04-09 08:22] LABS: MANUAL DIFF FLAG NO
[2023-04-09 08:24] LABS: Basophils Percent Auto 0.5 % (0-2); Eosinophils Absolute Auto 0.1 X10*3/uL (0.0-0.4); Eosinophils Percent Auto 2.4 % (0-4); Hematocrit 40.6 % (37.0-47.0); Hemoglobin 13.4 g/dl (12.0-16.0); Imm Gran Abs Auto 0.02 X10*3/uL (0.00-0.03); Imm Gran Pct Auto 0.3 % (0.0-0.4); Lymphocytes Absolute Auto 2.3 X10*3/uL (1.2-4.9); Lymphocytes Percent Auto 40.6 % (20-40); Mean Corpuscular Hemoglobin 29.8 pg (27.0-33.0); Mean Corpuscular Volume 90.2 fL (80.0-98.0); Mean Platelet Volume 9.5 fL (9.4-12.3); Monocytes Absolute Auto 0.4 X10*3/uL (0.1-1.2); Monocytes Percent Auto 6.6 % (2-11); Neutrophils Absolute Auto 2.8 x10*3/uL (2.0-8.3); Neutrophils Percent Auto 49.6 % (45-73); Platelet Count 245 X10*3/uL (160-400); Red Cell Distribution Width 12.1 % (11.0-16.0); White Blood Count 5.7 X10*3/uL (4.8-10.8)
[2023-04-09 08:36] LABS: Anion Gap 15 (12-20); Blood Urea Nitrogen 10 mg/dL (9-16); Calcium 9.1 mg/dL (8.4-10.2); Carbon Dioxide 20 mmol/L (22-29); Chloride 111 mmol/L (96-108); Estimated Glomerular Filt Rate > 60; Glucose Random 93 mg/dL (60-115); Sodium 142 mmol/L (135-145)
[2023-04-09 10:11] LABS: UPreg QC Valid YES; Urine Pregnancy NEGATIVE (NEGATIVE)
[2023-04-09 10:12] LABS: Appearance Urine Clear; Color Urine Yellow; Glucose Urine UA Negative (Negative); Leukocyte Esterase Urine Trace (Negative); Nitrite Urine Negative (Negative); PH 6.5 (5.0-9.0); UMIC TRIGGER UACC YES; Urine Blood Negative (Negative); Urine Ketones Trace mg/dL (Negative); Urine Protein Negative (Neg-Trace)
[2023-04-09] MEDS: Acetaminophen 325 MG TABLET 650 MG PO (10:12)
[2023-04-09 10:16] LABS: Bacteria Urine None Seen (None Seen); Hyaline Casts Urine 0-2 /LPF (0-2); RBC Urine 0-2 /HPF (0-2); WBC Urine 0-5 /HPF (0-5)
[2023-04-09 10:25] VITALS: BP 107/68; PULSE 61; RESP 16; TEMP 36.9; O2SAT 98
[2023-04-09 10:45] LABS: Amphetamine Screen Urine Not Detected (Not Detect); Barbiturates, Urine Not Detected (Not Detect); Benzodiazepines Screen Urine Not Detected (Not Detect); Cannabinoid Screen Urine POSITIVE (Not Detect); Cocaine Screen Urine Not Detected (Not Detect); Fentanyl, urine Not Detected (Not Detect); Opiate Screen Urine Not Detected (Not Detect); Phencyclidine Screen Urine Not Detected (Not Detect)
== END 2023-04-09 11:04 | disposition home or self-care (01) ==
PROVIDERS: Emergency Provider Emergency Medicine; PCP Internal Medicine
DX: R56.9 Unspecified convulsions (principal); M54.2 Cervicalgia; R51.9 Headache, unspecified; R94.31 Abnormal electrocardiogram [ECG] [EKG]; Z87.891 Personal history of nicotine dependence; Z79.899 Other long term (current) drug therapy
CPT/HCPCS: 36415; 70450; 72125; 80048; 80307; 81001; 81025; 85025; 93005; 99284

== ENCOUNTER → 2023-04-09 08:08 | Outpatient (BNV) | payer OTHER, SELFPAY | PROVIDERS: Emergency Provider Emergency Medicine; PCP Internal Medicine; Visit Provider Internal Medicine | DX: R94.31 Abnormal electrocardiogram [ECG] [EKG] (principal) | CPT/HCPCS: 93010 ==

== ENCOUNTER 2023-05-06 08:58 | Emergency (ER) | payer OTHER, SELFPAY ==
--- NOTE | 2023-05-06 09:20 | ED_ITS ---
HPI - General Adult General Chief complaint: Seizure Stated complaint: WIT SZ,POST ICTAL PER EMS Time Seen by Provider: 05/06/23 09:20 Source: patient and EMS Mode of arrival: EMS Limitations: no limitations History of Present Illness HPI narrative: Patient is a 28 year old assigned female at with a history of polysubstance abuse, hepatitis C, and seizure presenting to the emergency department today after a seizure. Patient states that she was sitting on the couch when she began to shake and roll around, per her patient's . Patient states that this is her second seizure and she has not seen a neurologist. Patient denies any trauma with this seizure. Patient denies any dizziness, lightheadedness, abdominal pain, nausea, vomiting, fever, chills, blurry vision, double vision, loss of vision, chest pain, difficulty breathing, shortness of breath, back pain, night sweats, pain with urination, increased urinary frequency, increased urinary urgency, blood in her urine or stool, syncope or a near syncopal episode, bowel incontinence, bladder incontinence, bowel retention, bladder retention, or any other complaints at this time. Onset (ago): minute(s) Relieving factors: none Exacerbating factors: none Associated symptoms: seizure Treatments prior to arrival: none Related Data Home Medications Medication Instructions Recorded Confirmed methadone 40 mg soluble tablet 37 mg PO DAILY 09/15/22 10/22/22 quetiapine 100 mg tablet See Rx Instructions .Route .COMPLEX 09/15/22 10/22/22 Previous Rx's Medication Instructions Recorded ibuprofen 400 mg tablet 400 mg PO Q8H PRN pain 10 days #30 01/13/22 tabs ondansetron HCl 4 mg tablet 4 mg PO DAILY PRN nausea and 09/13/22 vomiting 0 days #10 tabs quetiapine 200 mg tablet (Seroquel) 200 mg PO BEDTIME #14 tabs 09/24/22 ibuprofen 600 mg tablet 600 mg PO Q6H PRN pain #30 tabs 10/22/22 oxycodone-acetaminophen 5 mg-325 1 tab PO Q4-6H PRN pain #30 tabs 10/22/22 mg tablet (Percocet) docusate sodium 100 mg capsule 100 mg PO BID #20 caps 12/27/22 (Colace) ketorolac 10 mg tablet 10 mg PO TID PRN pain 5 days #15 12/27/22 tabs ondansetron 4 mg disintegrating 4 mg PO Q6H PRN nausea and 12/27/22 tablet vomiting #14 tabs polyethylene glycol 3350 17 17 g PO BID PRN constipation #238 12/27/22 gram/dose oral powder (Miralax) grams sennosides 8.6 mg tablet (senna) 8.6 mg PO BEDTIME #14 tabs 12/27/22 levetiracetam 500 mg tablet 500 mg PO BID #60 tabs 05/06/23 (Keppra) Allergies Allergy/AdvReac Type Severity Reaction Status Date / Time alprazolam Allergy Unknown I dont Verified 05/06/23 09:34 like taking it per patient azithromycin [From ZITHROMAX] AdvReac Unknown VOMITING/DI Verified 05/06/23 09:34 ARRHEA Zithromax AdvReac Mild vomiting Uncoded 11/12/22 09:46 Review of Systems 2 Constitutional: Constitutional: Reports no additional constitutional complaints, Denies chills, Denies fever(s) and Denies night sweats Eyes: Eyes: Reports no additional eye complaints, Denies blurry vision, Denies change in vision, Denies diplopia, Denies eye discharge, Denies loss of vision and Denies eye pain ENT: Denies dizziness Cardiovascular: Cardiovascular: Reports no additional cardiovascular complaints, Denies chest pain, Denies lightheadedness, Denies Loss of Consciousness and Denies dyspnea Respiratory: Respiratory: Reports no additional respiratory complaints and Denies dyspnea Gastrointestinal: Gastrointestinal: Reports no additional gastrointestinal complaints, Denies abdominal pain, Denies melena, Denies hematochezia, Denies change in bowel habits and Denies change in stool character Genitourinary: Genitourinary: Denies hematuria, Denies urinary frequency, Denies dysuria, Denies urinary incontinence, Denies urinary hesitancy and Denies urinary urgency Musculoskeletal: Musculoskeletal: Reports no additional musculoskeletal complaints, Denies numbness and Denies tingling Neurologic: Denies dizziness, Denies loss of vision, Denies numbness, Reports seizure-like activity and Denies tingling Psychiatric: Psychiatric: Reports no additional psychiatric complaints Endocrine: Endocrine: Reports no additional endocrine complaints Hematologic/Lymphatic: Hematologic/Lymphatic: Reports no additional hematologic/lymphatic complaints Allergic/Immunologic: Allergic/Immunologic: Reports no additional allergic/immunologic complaints PMFSH Past Medical History Attestation statement: The following information was validated with the patient. Source: old records reviewed and nursing notes reviewed Onset Date is defined in the Problem List Problems that require an onset date and time if occurred within 24 hrs of arrival to the ED Aortic Dissection and Rupture; Neurologic impairment; Cardiopulmonary Arrest; Endotracheal Intubation; Insertion or Replacement of Mechanical Circulatory Assist Device Medical History Biliary dyskinesia Right sided abdominal pain Pre-employment examination Left otitis media Cocaine-induced mood disorder with manic symptoms Herpes genitalis Ureterolithiasis Peptic ulcer disease Anemia Contraceptive management IV drug user Hepatitis C Surgical History Status post laparoscopic cholecystectomy Hx of cholecystectomy H/O myringotomy H/O sinus surgery Hx of tonsillectomy Family History Family History Other Mental health disorder Substance use disorder Social History Social History Housing: Assisted Living Facility Housing Other:: treatment Alcohol intake: unknown Patient Tobacco Use Status: Former Tobacco user Quit Date: 2021 Tobacco use type: Cigarette Cigarettes Per Day: 3 Smoked in Last 30 Days: No e-Cigarette/Vaping Use: Currently Using Second Hand Smoke Exposure: Yes Use of substances other than those prescribed or required for medical reasons: Yes Substance Use Type: Marijuana Substance Use Frequency: Occasionally Advance Directives: No service: No Current occupational status: unemployed Cognitive needs: No Hearing needs: No Vision needs: No Physical Exam ED Vital Signs: Vital Signs - 24 hr 05/06/23 09:29 05/06/23 10:53 05/06/23 13:05 Temperature 98.0 F Pulse Rate 63 61 73 Respiratory Rate 18 16 18 Blood Pressure 106/64 101/55 L 94/46 L Pulse Oximetry 95 100 Oxygen Delivery Method Room Air Room Air BMI result Body Mass Index 20.8 Const General: cooperative, no acute distress, alert and awake Nutritional Appearance: well nourished Orientation/consciousness: patient oriented x3 Limitations: no limitations HENMT Head: Yes normal to inspection and Yes atraumatic Ears: hearing grossly normal bilaterally and external ears normal General nose exam: Normal external nose present, no nasal discharge noted and no epistaxis Face and sinus: Yes normal facial exam, No abrasion and No laceration Mouth: Normal oral and palatal mucosa present, no drooling and no muffled voice Eyes General: appearance normal, both eyes and all related structures Periorbital: periorbital findings normal Eyelids: Yes eyelids normal Conjunctivae: conjunctivae normal Pupils: Equal, round and reactive pupils present EOM: EOMs intact bilaterally Neck Neck: Yes normal visual inspection, Yes full ROM and Yes no lymphadenopathy Chest Chest palpation & inspection: normal inspection of the chest Resp Effort & Inspection: normal respiratory effort and able to speak in complete sentences GI Inspection: Yes normal to inspection Neuro General: patient oriented x3 and moves all extremities Cranial nerves: Yes Equal, round and reactive pupils present Cognition (Neuro): normal cognition Motor exam (neuro): 5/5 motor strength present throughout Sensory Exam: Normal double simultaneous stimulation for sensation Coordination: [id number] test normal Extrem General: Yes normal to inspection, Yes full ROM and Yes capillary refill normal Psych Appearance: grossly normal Mental Status: mental status grossly normal Affect: normal affect Attitude: cooperative Thought process: Normal thought process present Thought content: Normal thought content present Insight: Good insight present (Psych) Medications Administered Discontinued Medications Generic Name Dose Route Start Last Admin Trade Name Edilsonq PRN Reason Stop Dose Admin Acetaminophen 650 mg 05/06/23 10:49 05/06/23 11:02 Acetaminophen 325 Mg Tablet PO 05/06/23 10:50 650 mg ONCE ONE Administration Sodium Chloride 1,000 mls @ 999 mls/hr 05/06/23 12:45 05/06/23 14:11 Ns IV 05/06/23 13:45 Infused .Q1H1M JOSE Infusion Levetiracetam 1,000 mg in 100 mls @ 400 mls/hr 05/06/23 13:01 05/06/23 13:25 Keppra IV 05/06/23 13:15 Infused ONCE ONE Infusion Sodium Chloride 1,000 mls @ 999 mls/hr 05/06/23 13:15 05/06/23 14:12 Ns IV 05/06/23 14:15 999 mls/hr .Q1H1M JOSE Administration Medical Decision Making Medical Decision Making MDM Narrative: Patient is a 28 year old assigned female at with a history of seizure, hepatitis C, and polysubstance abuse presenting to the emergency department today after seizure like activity on the couch. Patient's physical exam was unremarkable. Patient's blood work showed an elevated lactic of 3.6 which is consistent with a seizure type episode. Repeat lactic decreased to 1.4. Patient's urine showed no acute process. Patient's EKG was unremarkable. Patient's chest x-ray showed no acute process. Patient received 1 liter of NS. This is the second seizure in 1 month however, the patient's neurological examination is non-focal. Patient does not need medical admission at this time but does need neurological follow up on an outpatient basis, will start on Keppra. I explained my physical exam findings as well as all test results to the patient. I answered all questions asked by the patient. I stressed the importance of the patient taking her medication as prescribed. I stressed the importance of the patient following up with her primary care provider. I stressed the importance of the patient returning to the emergency department immediately if her symptoms were to worsen or if she were to develop any dizziness, shortness of breath, difficulty breathing, chest pain, blurry vision, loss of vision, nausea, vomiting, abdominal pain, fever, chills, back pain, or any other complaints. Patient verbalized agreement and understanding with this treatment plan and discharge. Differential Diagnosis Differential Diagnoses: The differential diagnosis associated with the presentation includes Seizure Epilepsy Polysubstance abuse Admission/Observation Consideration of admission/observation: Escalation of care including admission/observation considered Patient would have been admitted to the hospital had her work up had any findings where hospital admission was appropriate and her clinical presentation warranted hospital admission. Lab Data [facility] Lab Attestation statement: I reviewed the patient's lab results. My interpretation of these results are in the [facility] Rationale portion of this note. 05/06/23 10:43 05/06/23 10:43 Labs: Lab Results 05/06/23 05/06/23 05/06/23 Range/Units 10:43 10:44 10:58 WBC 6.8 (4.8-10.8) X10*3/uL RBC 4.23 (4.20-5.50) X10*6/uL Hgb 12.6 (12.0-16.0) g/dl Hct 37.5 (37.0-47.0) % MCV 88.7 (80.0-98.0) fL MCH 29.8 (27.0-33.0) pg MCHC 33.6 (31.0-35.0) g/dl RDW 12.4 (11.0-16.0) % Plt Count 250 (160-400) X10*3/uL MPV 9.5 (9.4-12.3) fL Immature Gran % (Auto) 0.3 (0.0-0.4) % Neut % (Auto) 72.1 (45-73) % Lymph % (Auto) 20.4 (20-40) % [place] % (Auto) 6.2 (2-11) % Eos % (Auto) 0.6 (0-4) % Baso % (Auto) 0.4 (0-2) % Lymph # (Auto) 1.4 (1.2-4.9) X10*3/uL [place] # (Auto) 0.4 (0.1-1.2) X10*3/uL Eos # (Auto) 0.0 (0.0-0.4) X10*3/uL Baso # (Auto) 0.0 (0.0-0.2) X10*3/uL Abs Immat Gran (auto) 0.02 (0.00-0.03) X10*3/uL Absolute Neuts (auto) 4.9 (2.0-8.3) x10*3/uL Absolute Nucleated RBC 0.000 (0.0-0.012) X10*3/uL Nucleated RBC % (auto) 0.0 (0.0-0.2) /100WBC PT 12.7 (11.1-13.3) SEC INR 1.0 (0.9-1.1) APTT 27.2 (26.0-36.4) SEC Sodium 139 (135-145) mmol/L Potassium 4.2 (3.3-5.1) mmol/L Chloride 110 H (96-108) mmol/L Carbon Dioxide 22 (22-29) mmol/L Anion Gap 11 L (12-20) BUN 10 (9-16) mg/dL Creatinine 0.73 (0.5-1.4) mg/dL Estim Creat Clear Calc 98.2 Estimated GFR > 60 Random Glucose 99 (60-115) mg/dL Lactic Acid (0.5-2.0) mmol/L Lactic Acid F/U @ 2Hr (0.5-2.0) mmol/L Calcium 8.9 (8.4-10.2) mg/dL Magnesium 2.1 (1.6-2.6) mg/dL Total Bilirubin 0.4 (0.0-1.0) mg/dL AST 19 (5-31) U/L ALT 7 (0-31) U/L Alkaline Phosphatase 41 (39-117) U/L Troponin I High Sens < 2.7 (<3.5-17.0) ng/L Total Protein 7.0 (6.5-8.0) g/dL Albumin 4.1 (3.5-5.0) g/dL Urine Color Yellow Urine Appearance Clear Urine pH 6.0 (5.0-9.0) Ur Specific [place] 1.020 (1.005-1.025) Urine Protein Trace (Neg-Trace) mg/dL Urine Glucose (UA) Negative (Negative) mg/dL Urine Ketones Trace (Negative) mg/dL Urine Blood Negative (Negative) Urine Nitrite Negative (Negative) Ur Leukocyte Esterase Negative (Negative) Urine Opiates Screen Not Detected (Not Detect) Urine Fentanyl Screen Not Detected (Not Detect) Ur Barbiturates Screen Not Detected (Not Detect) Ur Phencyclidine Scrn Not Detected (Not Detect) Ur Amphetamines Screen Not Detected (Not Detect) U Benzodiazepines Scrn Not Detected (Not Detect) Urine Cocaine Screen Not Detected (Not Detect) U Marijuana (THC) Screen POSITIVE H (Not Detect) Ethyl Alcohol < 10 mg/dL Influenza Type A (PCR) NEGATIVE (Negative) Influenza Type B (PCR) NEGATIVE (Negative) RSV RNA Qual (PCR) NEGATIVE (Negative) SARS-CoV-2 RNA (RT-PCR) NEGATIVE (Negative) 05/06/23 05/06/23 Range/Units 11:57 14:25 WBC (4.8-10.8) X10*3/uL RBC (4.20-5.50) X10*6/uL Hgb (12.0-16.0) g/dl Hct (37.0-47.0) % MCV (80.0-98.0) fL MCH (27.0-33.0) pg MCHC (31.0-35.0) g/dl RDW (11.0-16.0) % Plt Count (160-400) X10*3/uL MPV (9.4-12.3) fL Immature Gran % (Auto) (0.0-0.4) % Neut % (Auto) (45-73) % Lymph % (Auto) (20-40) % [place] % (Auto) (2-11) % Eos % (Auto) (0-4) % Baso % (Auto) (0-2) % Lymph # (Auto) (1.2-4.9) X10*3/uL [place] # (Auto) (0.1-1.2) X10*3/uL Eos # (Auto) (0.0-0.4) X10*3/uL Baso # (Auto) (0.0-0.2) X10*3/uL Abs Immat Gran (auto) (0.00-0.03) X10*3/uL Absolute Neuts (auto) (2.0-8.3) x10*3/uL Absolute Nucleated RBC (0.0-0.012) X10*3/uL Nucleated RBC % (auto) (0.0-0.2) /100WBC PT (11.1-13.3) SEC INR (0.9-1.1) APTT (26.0-36.4) SEC Sodium (135-145) mmol/L Potassium (3.3-5.1) mmol/L Chloride (96-108) mmol/L Carbon Dioxide (22-29) mmol/L Anion Gap (12-20) BUN (9-16) mg/dL Creatinine (0.5-1.4) mg/dL Estim Creat Clear Calc Estimated GFR Random Glucose (60-115) mg/dL Lactic Acid 3.6 H* (0.5-2.0) mmol/L Lactic Acid F/U @ 2Hr 1.4 (0.5-2.0) mmol/L Calcium (8.4-10.2) mg/dL Magnesium (1.6-2.6) mg/dL Total Bilirubin (0.0-1.0) mg/dL AST (5-31) U/L ALT (0-31) U/L Alkaline Phosphatase (39-117) U/L Troponin I High Sens (<3.5-17.0) ng/L Total Protein (6.5-8.0) g/dL Albumin (3.5-5.0) g/dL Urine Color Urine Appearance Urine pH (5.0-9.0) Ur Specific [place] (1.005-1.025) Urine Protein (Neg-Trace) mg/dL Urine Glucose (UA) (Negative) mg/dL Urine Ketones (Negative) mg/dL Urine Blood (Negative) Urine Nitrite (Negative) Ur Leukocyte Esterase (Negative) Urine Opiates Screen (Not Detect) Urine Fentanyl Screen (Not Detect) Ur Barbiturates Screen (Not Detect) Ur Phencyclidine Scrn (Not Detect) Ur Amphetamines Screen (Not Detect) U Benzodiazepines Scrn (Not Detect) Urine Cocaine Screen (Not Detect) U Marijuana (THC) Screen (Not Detect) Ethyl Alcohol mg/dL Influenza Type A (PCR) (Negative) Influenza Type B (PCR) (Negative) RSV RNA Qual (PCR) (Negative) SARS-CoV-2 RNA (RT-PCR) (Negative) Independent Interpretation I performed an independent interpretation of an: EKG and Plain X-Ray Interpretation: My interpretation is in agreement with the radiologist's impression of this imaging study. - EXAMINATION: XR CHEST CLINICAL INFORMATION: Seizure. COMPARISON: None available. TECHNIQUE: 2 views of the chest were obtained. FINDINGS: The lungs are well expanded. No focal consolidation. No pleural effusion. Cardiac silhouette is within normal limits. XR/XR chest 2V IMPRESSION: No acute abnormality. Dictated By: Oneil Fisher MD Signed By: Electronically signed by Oneil Fisher MD 05/06/23 1030 - Vent. Rate: 054 BPM Atrial Rate: 054 BPM P-R Int: 134 ms QRS Dur: 100 ms QT Int: 428 ms P-R-T Axes: 010 037 055 degrees QTc Int: 405 ms Sinus bradycardia Otherwise normal ECG When compared with ECG of 09-APR-2023 08:16, Nonspecific T wave abnormality no longer evident in Inferior leads Nonspecific T wave abnormality no longer evident in Lateral leads DD/ 1030 Radiology Impression Discussion of test interpretation with radiology: I have reviewed the radiologist's reading. Independent Historian Clinical information obtained from an independent historian. History obtained from or confirmed by: EMS (EMS provided additional history and confirmed the history provided by the patient.) Prescription Management I considered prescription management with: Other (patient prescribed keppra) Critical Care Time Critical Care Time Critical Care Time: Yes Total Critical Care Time: 35 Attestation: I spent 35 minutes of Critical Care Time with this patient. This does not include time spent on separately reported billable procedures. Discharge Plan Discharge Clinical Impression: Seizure Patient Disposition: Home, Self-Care Instructions: New-Onset Seizure in Adults (ED) Additional Instructions: Follow up with your primary care provider and a neurologist. Return to the emergency department immediately if your symptoms worsen or if you develop any dizziness, shortness of breath, difficulty breathing, chest pain, blurry vision, loss of vision, nausea, vomiting, abdominal pain, fever, chills, back pain, or any other complaints. Prescriptions: New levetiracetam [Keppra] 500 mg tablet 500 mg PO BID Qty: 60 0RF No Action ondansetron HCl 4 mg tablet 4 mg PO DAILY PRN (Reason: nausea and vomiting) Qty: 10 0RF quetiapine [Seroquel] 200 mg tablet 200 mg PO BEDTIME Qty: 14 0RF oxycodone-acetaminophen [Percocet] 5-325 mg tablet 1 tab PO Q4-6H PRN (Reason: pain) Qty: 30 0RF Rx Instructions: Partial Fill upon patient request. ibuprofen 600 mg tablet 600 mg PO Q6H PRN (Reason: pain) Qty: 30 0RF ketorolac 10 mg tablet 10 mg PO TID PRN (Reason: pain) 5 Days Qty: 15 0RF ondansetron 4 mg tablet,disintegrating 4 mg PO Q6H PRN (Reason: nausea and vomiting) Qty: 14 0RF sennosides [senna] 8.6 mg tablet 8.6 mg PO BEDTIME Qty: 14 0RF docusate sodium [Colace] 100 mg capsule 100 mg PO BID Qty: 20 0RF polyethylene glycol 3350 [Miralax] 17 gram/dose powder 17 g PO BID PRN (Reason: constipation) Qty: 238 0RF methadone 40 mg tablet,soluble 37 mg PO DAILY ibuprofen 400 mg tablet 400 mg PO Q8H PRN (Reason: pain) 10 Days Qty: 30 0RF quetiapine 100 mg tablet See Rx Instructions .ROUTE .COMPLEX Dose Instruction: TAKE 1 TABLET TO 1 AND 1/2 TABLET BY MOUTH EVERY NIGHT AT BEDTIME Rx Instructions: TAKE 1 TABLET TO 1 AND 1/2 TABLET BY MOUTH EVERY NIGHT AT BEDTIME Referrals: Rosi Ley MD [Physician] - (Call to establish and follow up with a neurologist.) Eliazar Case MD [Primary Care Provider] - Stand Alone Forms: Work/School Release Print Language: Libyan
[2023-05-06 09:29] VITALS: BP 102/67; BP 106/64; PULSE 63; PULSE 80; RESP 18; TEMP 36.7; O2SAT 95; O2SAT 97; BMI 20.8
--- NOTE | 2023-05-06 10:25 | PC.NURSE ---
pt is alert and oriented, skin pwd, respirations even and unlabored, ls clear, pt reports new diagnosis of seizures about three weeks, not taking any medications for seizures as of now, boyfriend reported to ems that pt had seizure like activity for about 45sec, did not hit her head, but pt is reporting a headache 11/09, no incontinence but was post ictal on see with ems, seizure pads in place, ns on the monitor
[2023-05-06 10:49] LABS: MANUAL DIFF FLAG NO
[2023-05-06 10:51] LABS: Basophils Percent Auto 0.4 % (0-2); Eosinophils Percent Auto 0.6 % (0-4); Hematocrit 37.5 % (37.0-47.0); Hemoglobin 12.6 g/dl (12.0-16.0); Imm Gran Abs Auto 0.02 X10*3/uL (0.00-0.03); Imm Gran Pct Auto 0.3 % (0.0-0.4); Lymphocytes Absolute Auto 1.4 X10*3/uL (1.2-4.9); Lymphocytes Percent Auto 20.4 % (20-40); Mean Corpuscular HGB Conc 33.6 g/dl (31.0-35.0); Mean Corpuscular Hemoglobin 29.8 pg (27.0-33.0); Mean Corpuscular Volume 88.7 fL (80.0-98.0); Mean Platelet Volume 9.5 fL (9.4-12.3); Monocytes Absolute Auto 0.4 X10*3/uL (0.1-1.2); Monocytes Percent Auto 6.2 % (2-11); Neutrophils Absolute Auto 4.9 x10*3/uL (2.0-8.3); Neutrophils Percent Auto 72.1 % (45-73); Platelet Count 250 X10*3/uL (160-400); Red Blood Count 4.23 X10*6/uL (4.20-5.50); Red Cell Distribution Width 12.4 % (11.0-16.0); White Blood Count 6.8 X10*3/uL (4.8-10.8)
[2023-05-06 10:53] VITALS: BP 101/55; PULSE 61; RESP 16; O2SAT 100
[2023-05-06 10:56] LABS: Prothrombin Time 12.7 SEC (11.1-13.3)
[2023-05-06 10:59] LABS: Partial Thromboplastin Time 27.2 SEC (26.0-36.4)
[2023-05-06 11:06] LABS: Alanine Aminotransferase 7 U/L (0-31); Albumin Level 4.1 g/dL (3.5-5.0); Alkaline Phosphatase 41 U/L (39-117); Anion Gap 11 (12-20); Aspartate Amino Transferase 19 U/L (5-31); Bilirubin Total 0.4 mg/dL (0.0-1.0); Blood Urea Nitrogen 10 mg/dL (9-16); Calcium 8.9 mg/dL (8.4-10.2); Carbon Dioxide 22 mmol/L (22-29); Chloride 110 mmol/L (96-108); Creatinine Clr Calc Pharmacy 98.2; Estimated Glomerular Filt Rate > 60; Glucose Random 99 mg/dL (60-115); Magnesium 2.1 mg/dL (1.6-2.6); Potassium 4.2 mmol/L (3.3-5.1); Sodium 139 mmol/L (135-145)
[2023-05-06 11:08] LABS: Appearance Urine Clear; Color Urine Yellow; Glucose Urine UA Negative (Negative); Leukocyte Esterase Urine Negative (Negative); Nitrite Urine Negative (Negative); Urine Blood Negative (Negative); Urine Ketones Trace mg/dL (Negative); Urine Protein Trace mg/dL (Neg-Trace)
[2023-05-06 13:05] VITALS: BP 94/46; PULSE 73; RESP 18
[2023-05-06 14:51] VITALS: BP 112/53; PULSE 71; RESP 18
== END 2023-05-06 15:42 | disposition home or self-care (01) ==
PROVIDERS: Physician Assistant Medical; Emergency Provider Student in an Organized Health Care Education/Training Program; PCP Internal Medicine
DX: R56.9 Unspecified convulsions (principal); Z20.828 Contact with and (suspected) exposure to other viral communicable diseases; Z20.822 Contact with and (suspected) exposure to COVID-19; F19.10 Other psychoactive substance abuse, uncomplicated; B19.20 Unspecified viral hepatitis C without hepatic coma; F11.20 Opioid dependence, uncomplicated; Z87.891 Personal history of nicotine dependence; Z79.899 Other long term (current) drug therapy
CPT/HCPCS: 0241U; 36415; 71046; 80053; 80307; 81003; 83605; 83735; 84484; 85025; 85610; 85730; 93005; 96361; 96374; 99284; 99285; J1953

== ENCOUNTER → 2023-05-06 09:22 | Outpatient (BNV) | payer OTHER, SELFPAY | PROVIDERS: Emergency Provider Student in an Organized Health Care Education/Training Program; PCP Internal Medicine; Visit Provider Internal Medicine Cardiovascular Disease | DX: R00.1 Bradycardia, unspecified (principal) | CPT/HCPCS: 93010 ==

== ENCOUNTER 2023-05-10 13:28 | Outpatient (AMB) | payer OTHER, SELFPAY ==
[2023-05-10 13:37] VITALS: BP 100/62; PULSE 70; O2SAT 100; BMI 19.9
--- NOTE | 2023-05-10 13:37 | A.OFFPC_ITS ---
Vital Signs 05/10/23 13:37 Height 5 ft 4 in Weight 116 lb 0.6 oz BMI 19.9 BP 100/62 Blood Pressure Location Lt brachial Position Sitting Pulse 70 Pulse Source Pulse Oximeter Pulse Oximetry (%) 100 Oxygen Delivery Method Room Air Intake Visit Reasons: [facility] Seizure Intake Note: Patient is here to follow-up after a visit the emergency department at [facility] on 05/06/2023 Strip Picker Required: No Allergies alprazolam Allergy (Unknown, Verified 05/10/23 13:51) I dont like taking it per patient azithromycin [From ZITHROMAX] Adverse Reaction (Unknown, Verified 05/10/23 13:51) VOMITING/DIARRHEA Zithromax Adverse Reaction (Mild, Uncoded 05/10/23 13:51) vomiting Tobacco use date assessed: 05/10/23 Dental Screening Dental Screen Date: 05/10/23 Did you have a dental visit in the last 12 months?: Yes Did you have a dental problem in the last 6 months where you did not have access to dental care?: No Was dental information given to patient?: Patient has dentist HPI [facility] Seizure HPI Details 28-year-old female with a history of maggy ysubstance abuse bipolar disorder generalized anxiety disorder coming in for follow-up. Last seen in August 2022. Review of the notes last week ER visit presented do the ER after seizure patient was started on Keppra. October 2022 had laparoscopic cholecystectomy diagnosis biliary dyskinesia. Review of the notes was seen by the nurse practitioner in August 2022 for the abdominal pain 05/11/2023 patient relates to me that she has been going down on the dose of methadone from 120 last year to now 20. Concern with the fast decrease of the methadone and so advised patient to continue what she is taking right now do not change and she will follow-up with Neurology. Referral done and will be seen tomorrow blood work review discussed with her. [facility] Medical History Biliary dyskinesia Right sided abdominal pain Pre-employment examination Left otitis media Cocaine-induced mood disorder with manic symptoms Herpes genitalis Ureterolithiasis Peptic ulcer disease Anemia Contraceptive management IV drug user Hepatitis C Surgical History Status post laparoscopic cholecystectomy Hx of cholecystectomy H/O myringotomy H/O sinus surgery Hx of tonsillectomy Family History Other Mental health disorder Substance use disorder Social History Housing: Assisted Living Facility Housing Other:: treatment Alcohol intake: unknown Patient Tobacco Use Status: Former Tobacco user Quit Date: 2021 Tobacco use type: Cigarette Cigarettes Per Day: 3 e-Cigarette/Vaping Use: Currently Using Second Hand Smoke Exposure: Yes Substance Use Type: Marijuana service: No Current occupational status: unemployed Cognitive needs: No Hearing needs: No Vision needs: No Questionnaire PHQ-9 Over the last 2 weeks, how often have you been bothered by any of the following problems? 1. Little interest or pleasure in doing things: several days 2. Feeling down, depressed, or hopeless: several days 3. Trouble falling or staying asleep, or sleeping too much: several days 4. Feeling tired or having little energy: several days 5. Poor appetite or overeating: several days 6. Feeling bad about yourself - or that you are a failure or have let yourself or your family down: several days 7. Trouble concentrating on things, such as reading the newspaper or watching television: several days 8. Moving or speaking so slowly that other people could have noticed. Or the opposite - being so fidgety or restless that you have been moving around a lot more than usual: several days 9. Thoughts that you would be better off or of hurting yourself in some way: several days Total score: 9 Depression Screening Interpretation: Positive Depression Screening Done: Yes Source: Developed by Drs. Tom Posey, Arlette Taylor, Alberto Anaya and colleagues, with an educational vinay from [employer]. Thrive Questionnaire Date Thrive assessed: 05/10/23 I am a: Patient What is your living situation today?: I have a steady place to live Within the past 12 months, did the food you bought not last and you didn't have the money to get more?: Never true Within the past 12 months, did you worry whether your food would run out before you got money to buy more?: Never true AUDIT C Alcohol Use Questionnaire (AUDIT-C) 1. How often do you have a drink containing alcohol?: Never Total Score: 0 KM-7 AMB Questionnaire KM-7 Date KM - 7 assessed: 05/10/23 Feeling nervous, anxious, or on edge: 0 = Not at all Not being able to stop or control worryin = Not at all Worrying too much about different things: 0 = Not at all Trouble relaxin = Not at all Being so restless that it is hard to sit still: 0 = Not at all Becoming easily annoyed or irritable: 0 = Not at all Feeling afraid as if something awful might happen: 0 = Not at all Total KM-7 score (0-4 normal; 5-9 mild; 10-14 moderate; 15-21 severe): 0 Source: Developed by Drs. Tom Posey, Arlette Taylor, Alberto Anaya and colleagues, with an educational vinay from [employer]. Physical exam (Primary Care) Vital Signs: Last Vital Signs Pulse 70 05/10/23 13:37 BP 100/62 05/10/23 13:37 Pulse Ox 100 05/10/23 13:37 Oxygen Delivery Method Room Air 05/10/23 13:37 BMI result Body Mass Index 19.9 Tobacco/Smoking Status: Tobacco use Status Tobacco use date assessed 05/10/23 05/10/23 13:40 Patient Tobacco Use Status Former Tobacco user 05/10/23 13:40 Tobacco use type Cigarette 05/10/23 13:40 e-Cigarette/Vaping Use Currently Using 05/10/23 13:40 PHQ-9: PHQ-9 Score PHQ-9: Total score 9 05/10/23 13:52 Depression Screening Interpretation: Positive Thrive Assessment: Date of Thrive Assessment Date Thrive assessed 05/10/23 05/10/23 13:43 Const General: alert; No acute distress Eyes Conjunctivae: conjunctivae normal Resp Auscultation: clear to auscultation bilaterally Cardio Rate: regular rate Rhythm: regular rhythm GI Inspection: Yes normal to inspection Extrem General: Yes normal to inspection and No edema Assessment and Plan Assessment & Plan (1) Seizure disorder: Code(s): G40.909 - Epilepsy, unspecified, not intractable, without status epilepticus Plan: Patient has been started on Keppra 500 twice a day. Will be seeing Neurology tomorrow (2) Peptic ulcer disease: Comment: Dr. Diaz 2013 colonoscopy and EGD Code(s): K27.9 - Peptic ulcer, site unspecified, unspecified as acute or chronic, without hemorrhage or perforation Plan: Avoid the foods that causes that usually spicy foods, tomato products, juices, coffee, soda and foods that your sensitive to. After eating do not lie down, allow 3-4 hours before in lie down. And keep the head of bed above 30 degrees to avoid the acid from going up. (3) Bipolar disorder: Code(s): F31.9 - Bipolar disorder, unspecified Plan: Continue to follow-up with counseling and therapy (4) Polysubstance abuse: Code(s): F19.10 - Other psychoactive substance abuse, uncomplicated Plan: Continue with methadone. Discussed about keeping the present dose till we can get clearance from Neurology Orders: Orders EEG electroencephalogram Today G40.909 - Epilepsy, unspecified, not intractable, without status epilepticus Referrals Neurology Referral G40.909 - Epilepsy, unspecified, not intractable, without status epilepticus Coding Level of Care Code Est Pt Level 4 (19312) Diagnoses Seizure disorder G40.909 Peptic ulcer disease K27.9 Bipolar disorder F31.9 Polysubstance abuse F19.10 Additional Codes PHQ-9 - 44916 - PHQ-9 Billing: ([id number])
== END 2023-05-10 14:43 | disposition home or self-care (01) ==
PROVIDERS: PCP Internal Medicine; Visit Provider Internal Medicine
DX: G40.909 Epilepsy, unspecified, not intractable, without status epilepticus (principal); K27.9 Peptic ulcer, site unspecified, unspecified as acute or chronic, without hemorrhage or perforation; F31.9 Bipolar disorder, unspecified; F19.10 Other psychoactive substance abuse, uncomplicated
CPT/HCPCS: 99214

== ENCOUNTER 2023-06-01 05:35 | Emergency (ER) | payer OTHER, SELFPAY ==
[2023-06-01 05:42] VITALS: BP 101/62; PULSE 98; O2SAT 99
[2023-06-01 05:49] VITALS: BP 102/49; PULSE 82; RESP 12; TEMP 36.8; O2SAT 96; BMI 20.6
[2023-06-01 06:39] LABS: MANUAL DIFF FLAG NO
[2023-06-01 06:47] LABS: Basophils Percent Auto 0.6 % (0-2); Eosinophils Absolute Auto 0.1 X10*3/uL (0.0-0.4); Eosinophils Percent Auto 2.4 % (0-4); Hematocrit 35.2 % (37.0-47.0); Hemoglobin 12.2 g/dl (12.0-16.0); Imm Gran Abs Auto 0.01 X10*3/uL (0.00-0.03); Imm Gran Pct Auto 0.2 % (0.0-0.4); Lymphocytes Absolute Auto 1.2 X10*3/uL (1.2-4.9); Lymphocytes Percent Auto 26.7 % (20-40); Mean Corpuscular HGB Conc 34.7 g/dl (31.0-35.0); Mean Corpuscular Hemoglobin 30.5 pg (27.0-33.0); Mean Platelet Volume 9.6 fL (9.4-12.3); Monocytes Absolute Auto 0.4 X10*3/uL (0.1-1.2); Monocytes Percent Auto 7.8 % (2-11); Neutrophils Absolute Auto 2.9 x10*3/uL (2.0-8.3); Neutrophils Percent Auto 62.3 % (45-73); Platelet Count 220 X10*3/uL (160-400); Red Cell Distribution Width 12.4 % (11.0-16.0); White Blood Count 4.6 X10*3/uL (4.8-10.8)
[2023-06-01 06:49] LABS: Appearance Urine Hazy; Color Urine Yellow; Glucose Urine UA Negative (Negative); Leukocyte Esterase Urine Negative (Negative); Nitrite Urine Negative (Negative); PH 6.5 (5.0-9.0); Specific Gravity - Urine 1.025 (1.005-1.025); Urine Blood Negative (Negative); Urine Ketones Negative (Negative); Urine Protein Negative (Neg-Trace)
--- NOTE | 2023-06-01 07:07 | ED_ITS ---
HPI - Seizure General Chief Complaint: Seizure Stated Complaint: SEIZURES Time Seen by Provider: 06/01/23 06:07 Source: patient Mode of arrival: EMS History of Present Illness HPI Narrative: 28-year-old female arrives via EMS after having a seizure that was witnessed by boyfriend and child. Patient reports that this is her 4th seizure since 04/08, she has been evaluated by Neurology. Patient denies any recent constitutional symptoms such as cough, fever, chills or sore throat and states that she is 2 years clean and is currently on methadone and reports that she has been taking her methadone as prescribed as well as her anti seizure medication as prescribed. She endorses that she has an MRI scheduled for tomorrow. Seizure History: Yes Place: Home Related Data Home Medications Medication Instructions Recorded Confirmed methadone 40 mg soluble tablet 37 mg PO DAILY 09/15/22 10/22/22 Previous Rx's Medication Instructions Recorded ibuprofen 400 mg tablet 400 mg PO Q8H PRN pain 10 days #30 01/13/22 tabs ondansetron HCl 4 mg tablet 4 mg PO DAILY PRN nausea and 09/13/22 vomiting 0 days #10 tabs quetiapine 200 mg tablet (Seroquel) 200 mg PO BEDTIME #14 tabs 09/24/22 ibuprofen 600 mg tablet 600 mg PO Q6H PRN pain #30 tabs 10/22/22 oxycodone-acetaminophen 5 mg-325 1 tab PO Q4-6H PRN pain #30 tabs 10/22/22 mg tablet (Percocet) docusate sodium 100 mg capsule 100 mg PO BID #20 caps 12/27/22 (Colace) ketorolac 10 mg tablet 10 mg PO TID PRN pain 5 days #15 12/27/22 tabs ondansetron 4 mg disintegrating 4 mg PO Q6H PRN nausea and 12/27/22 tablet vomiting #14 tabs polyethylene glycol 3350 17 17 g PO BID PRN constipation #238 12/27/22 gram/dose oral powder (Miralax) grams sennosides 8.6 mg tablet (senna) 8.6 mg PO BEDTIME #14 tabs 12/27/22 levetiracetam 500 mg tablet 500 mg PO BID #60 tabs 05/06/23 (Keppra) quetiapine 100 mg tablet See Rx Instructions .Route 05/20/23 .COMPLEX #45 tabs Allergies Allergy/AdvReac Type Severity Reaction Status Date / Time alprazolam Allergy Unknown I dont Verified 05/10/23 13:51 like taking it per patient azithromycin [From ZITHROMAX] AdvReac Unknown VOMITING/DI Verified 05/10/23 13:51 ARRHEA Zithromax AdvReac Mild vomiting Uncoded 05/10/23 13:51 Review of Systems 2 Review of Systems: Pertinent positives and negatives as stated in HPI PMFSH Past Medical History Source: nursing notes reviewed Medical History Biliary dyskinesia Right sided abdominal pain Pre-employment examination Left otitis media Cocaine-induced mood disorder with manic symptoms Herpes genitalis Ureterolithiasis Peptic ulcer disease Anemia Contraceptive management IV drug user Hepatitis C Surgical History Status post laparoscopic cholecystectomy Hx of cholecystectomy H/O myringotomy H/O sinus surgery Hx of tonsillectomy Family History Family History Other Mental health disorder Substance use disorder Social History Social History Housing: Assisted Living Facility Housing Other:: treatment Alcohol intake: unknown Patient Tobacco Use Status: Former Tobacco user Quit Date: 2021 Tobacco use type: Cigarette Cigarettes Per Day: 3 e-Cigarette/Vaping Use: Currently Using Second Hand Smoke Exposure: Yes Substance Use Type: Marijuana Advance Directives: No Advance Directives Information Provided: No service: No Current occupational status: unemployed Cognitive needs: No Hearing needs: No Vision needs: No Physical Exam 2 Vital Signs: Vital Signs: Last Vital Signs Temp 98.3 F 06/01/23 05:49 Pulse 82 06/01/23 05:49 Resp 12 06/01/23 05:49 BP 102/49 L 06/01/23 05:49 Pulse Ox 96 06/01/23 05:49 O2 Del Method Room Air 06/01/23 05:49 BMI result Body Mass Index 20.6 VITAL SIGNS: Reviewed. GENERAL: Well developed, well nourished, in no acute distress. HEAD: Normocephalic/atraumatic EYES: PERRLA, EOMI EARS: Ext canals without abnormality, TMs non-bulging and non-erythematous NOSE: Nares patent bilateral OROPHARYNX: no oral lesions noted, posterior pharynx clear and non-erythematous without noted tonsillar enlargement/erythema/exudates, appears to have bitten the left side of her tongue NECK: Supple, no adenopathy LUNGS: Normal breath sounds. No adventitious sounds or accessory muscle use. SpO2<96> CARDIOVASCULAR: Regular rate and rhythm without noted murmurs ABDOMEN: Soft, non-tender, non-distended with bowel sounds. MUSCULOSKELETAL: No tenderness, deformities, or effusions noted on gross inspection. EXTREMITIES: No cyanosis, clubbing or edema. SKIN: Inspection of the skin reveals no rashes NEUROLOGIC: Alert and oriented x 4. Strength and sensation to light touch were grossly intact x 4. Medical Decision Making Medical Decision Making [facility] Narrative: 28-year-old female with history and clinical presentation, DDX: Breakthrough seizure and will evaluate for possible infection, anemia, electrolyte derangement, viral illness as inciting factors. In addition, will evaluate Keppra level and reach out to neurology to discuss possible change in dosage. Patient does have an MRI scheduled for tomorrow. She is otherwise nonfocal and appears well. Signed out to Dr Mcdaniel - labs - neuro Differential Diagnosis Differential Diagnoses: The differential diagnosis associated with the presentation includes Please see the discussion above Admission/Observation Consideration of admission/observation: Escalation of care including admission/observation considered Please see the discussion above Lab Data 06/01/23 06:23 06/01/23 06:23 Labs: Lab Results 06/01/23 06/01/23 Range/Units 06:23 06:44 WBC 4.6 L (4.8-10.8) X10*3/uL RBC 4.00 L (4.20-5.50) X10*6/uL Hgb 12.2 (12.0-16.0) g/dl Hct 35.2 L (37.0-47.0) % MCV 88.0 (80.0-98.0) fL MCH 30.5 (27.0-33.0) pg MCHC 34.7 (31.0-35.0) g/dl RDW 12.4 (11.0-16.0) % Plt Count 220 (160-400) X10*3/uL MPV 9.6 (9.4-12.3) fL Immature Gran % (Auto) 0.2 (0.0-0.4) % Neut % (Auto) 62.3 (45-73) % Lymph % (Auto) 26.7 (20-40) % Cottle % (Auto) 7.8 (2-11) % Eos % (Auto) 2.4 (0-4) % Baso % (Auto) 0.6 (0-2) % Lymph # (Auto) 1.2 (1.2-4.9) X10*3/uL Cottle # (Auto) 0.4 (0.1-1.2) X10*3/uL Eos # (Auto) 0.1 (0.0-0.4) X10*3/uL Baso # (Auto) 0.0 (0.0-0.2) X10*3/uL Abs Immat Gran (auto) 0.01 (0.00-0.03) X10*3/uL Absolute Neuts (auto) 2.9 (2.0-8.3) x10*3/uL Absolute Nucleated RBC 0.000 (0.0-0.012) X10*3/uL Nucleated RBC % (auto) 0.0 (0.0-0.2) /100WBC Urine Color Yellow Urine Appearance Hazy Urine pH 6.5 (5.0-9.0) Ur Specific Orange 1.025 (1.005-1.025) Urine Protein Negative (Neg-Trace) mg/dL Urine Glucose (UA) Negative (Negative) mg/dL Urine Ketones Negative (Negative) mg/dL Urine Blood Negative (Negative) Urine Nitrite Negative (Negative) Ur Leukocyte Esterase Negative (Negative) Critical Care Time Critical Care Time Critical Care Time: Yes Total Critical Care Time: 30 Attestation: I personally attest to this time spent taking care of the patient. Discharge Plan Discharge Clinical Impression: Seizure disorder Patient Disposition: Still a Patient Prescriptions: No Action quetiapine 100 mg tablet See Rx Instructions .ROUTE .COMPLEX Qty: 45 0RF Dose Instruction: TAKE 1 TABLET TO 1 AND 1/2 TABLET BY MOUTH EVERY NIGHT AT BEDTIME Rx Instructions: TAKE 1 TABLET TO 1 AND 1/2 TABLET BY MOUTH EVERY NIGHT AT BEDTIME levetiracetam [Keppra] 500 mg tablet 500 mg PO BID Qty: 60 0RF ondansetron HCl 4 mg tablet 4 mg PO DAILY PRN (Reason: nausea and vomiting) Qty: 10 0RF quetiapine [Seroquel] 200 mg tablet 200 mg PO BEDTIME Qty: 14 0RF oxycodone-acetaminophen [Percocet] 5-325 mg tablet 1 tab PO Q4-6H PRN (Reason: pain) Qty: 30 0RF Rx Instructions: Partial Fill upon patient request. ibuprofen 600 mg tablet 600 mg PO Q6H PRN (Reason: pain) Qty: 30 0RF ketorolac 10 mg tablet 10 mg PO TID PRN (Reason: pain) 5 Days Qty: 15 0RF ondansetron 4 mg tablet,disintegrating 4 mg PO Q6H PRN (Reason: nausea and vomiting) Qty: 14 0RF sennosides [senna] 8.6 mg tablet 8.6 mg PO BEDTIME Qty: 14 0RF docusate sodium [Colace] 100 mg capsule 100 mg PO BID Qty: 20 0RF polyethylene glycol 3350 [Miralax] 17 gram/dose powder 17 g PO BID PRN (Reason: constipation) Qty: 238 0RF methadone 40 mg tablet,soluble 37 mg PO DAILY ibuprofen 400 mg tablet 400 mg PO Q8H PRN (Reason: pain) 10 Days Qty: 30 0RF
[2023-06-01 07:16] LABS: Influenza A PCR NEGATIVE (Negative); Influenza B PCR NEGATIVE (Negative); Resp Syncy Virus RNA Qual PCR NEGATIVE (Negative); SARS COV2 PCR INHOUSE NEGATIVE (Negative)
[2023-06-01 07:35] LABS: Anion Gap 14 (12-20)
[2023-06-01 07:41] LABS: Alanine Aminotransferase 8 U/L (0-31); Albumin Level 3.8 g/dL (3.5-5.0); Alkaline Phosphatase 42 U/L (39-117); Aspartate Amino Transferase 19 U/L (5-31); Bilirubin Total 0.3 mg/dL (0.0-1.0); Blood Urea Nitrogen 9 mg/dL (9-16); Calcium 8.8 mg/dL (8.4-10.2); Carbon Dioxide 19 mmol/L (22-29); Chloride 111 mmol/L (96-108); Estimated Glomerular Filt Rate > 60; Glucose Random 98 mg/dL (60-115); Potassium 4.5 mmol/L (3.3-5.1); Sodium 139 mmol/L (135-145); Total Protein 6.5 g/dL (6.5-8.0)
[2023-06-01 07:46] LABS: HCG Quantitative < 2 mIU/mL
[2023-06-01 08:29] VITALS: BP 96/43; PULSE 62; RESP 14; TEMP 36.9; O2SAT 97
--- NOTE | 2023-06-01 08:38 | PC.NURSE ---
this RN resumed care of pt at this time. vss and up to date aside from pt's BP being slightly soft. pt c/o headache/feeling hot/flushed throughout entire body. provider aware of [facility]/speaking w/ pt at this time. no sob/wob noted. respirations even and unlabored. seizure pads in place for safety precaution. call brandt placed within reach.
[2023-06-01] MEDS: Acetaminophen 325 MG TABLET 975 MG PO (08:41)
--- NOTE | 2023-06-01 08:42 | PC.NURSE ---
medication administered per provider order. will reassess.
[2023-06-01] MEDS: levETIRAcetam 500 MG TABLET PO (09:03)
--- NOTE | 2023-06-01 09:03 | PC.NURSE ---
medication administered per provider order.
[2023-06-03 19:23] LABS: Levetiracetam Keppra 14.9 mcg/mL (6.0-46.0)
== END 2023-06-01 09:32 | disposition home or self-care (01) ==
PROVIDERS: Student in an Organized Health Care Education/Training Program; Emergency Provider Emergency Medicine Emergency Medical Services; PCP Internal Medicine
DX: R56.9 Unspecified convulsions (principal); Z87.891 Personal history of nicotine dependence; Z79.899 Other long term (current) drug therapy; Z11.52 Encounter for screening for COVID-19
CPT/HCPCS: 0241U; 80053; 80177; 81003; 84702; 85025; 99283; 99284

== ENCOUNTER 2023-06-02 11:22 | Outpatient (REF) | payer OTHER, SELFPAY ==
--- NOTE | ~2023-06-02 | MR_ITS ---
MRI OF THE BRAIN WITHOUT IV CONTRAST INDICATION: Seizure disorder. COMPARISON: Head CT April 09, 2023. TECHNIQUE: Multiplanar multisequence MR imaging of the brain was obtained without IV contrast. FINDINGS: There is no hydrocephalus, extra-axial surface collection, or herniation. No parenchymal signal abnormality. There is no mesial temporal sclerosis. The major flow voids at the skull base are preserved. There is no acute infarct on diffusion-weighted imaging. There is no intracranial hemorrhage on the gradient recalled echo acquisition. The midline structures are normal. The cerebellar tonsils are normally positioned. The cerebellum and brainstem are normal. The craniocervical junction is normal. Osseous marrow signal intensity is homogenous. The visualized soft tissues are unremarkable. MR/MR head/brain wo con IMPRESSION: Unremarkable noncontrast MRI of the brain.
== END 2023-06-02 11:23 | disposition home or self-care (01) ==
LOC: HO.MRI 11:22
PROVIDERS: PCP Internal Medicine; Visit Provider Psychiatry & Neurology Neurology
DX: G40.909 Epilepsy, unspecified, not intractable, without status epilepticus (principal)
CPT/HCPCS: 70551

== ENCOUNTER 2023-08-12 09:14 | Outpatient (AMB) | payer OTHER, SELFPAY ==
[2023-08-12 09:19] VITALS: BP 102/62; PULSE 77; O2SAT 98; BMI 18.5
--- NOTE | 2023-08-12 09:19 | MHC.PC.OV ---
Vital Signs 08/12/23 09:19 Height 5 ft 4 in Weight 108 lb BMI 18.5 BP 102/62 Blood Pressure Location Lt brachial Position Sitting Pulse 77 Pulse Source Pulse Oximeter Pulse Oximetry (%) 98 Oxygen Delivery Method Room Air Intake Visit Reasons: ? Strep, seizure episode Intake Note: Patient is also concerned about her weight loss. She did not take any of her jackets off to get weighed and she is at 108. Son came home with a cough and she thinks she may have strep. Allergies alprazolam Allergy (Unknown, Verified 08/12/23 09:20) I dont like taking it per patient azithromycin [From ZITHROMAX] Adverse Reaction (Unknown, Verified 08/12/23 09:20) VOMITING/DIARRHEA Zithromax Adverse Reaction (Mild, Uncoded 08/12/23 09:20) vomiting Tobacco use date assessed: 08/12/23 Dental Screening Dental Screen Date: 08/12/23 Did you have a dental visit in the last 12 months?: Yes Did you have a dental problem in the last 6 months where you did not have access to dental care?: No Was dental information given to patient?: Patient has dentist HPI seizure episode HPI Details 28-year-old female with a history of peptic ulcer disease bipolar disorder polysubstance abuse and seizure disorder last seen in May 2023. Review of the notes had an MRI done in June 2023 has unremarkable noncontrast MRI of the brain. ER visit May 2023 tonic-clonic seizure biting on her tongue and this is the 4th since April 2023 admits to 2 years of being clean and on currently methadone patient's neurology note was in May 2023 eeg 48 07/21/2023 has been done - result i do not have - followed up with neuro so far patient last seizure was the 1 in May and has been good. Discussed about basic blood work checking for thyroid and electrolytes request done. Discussed about keeping well hydrated eating healthy and keeping active. [facility] Medical History Biliary dyskinesia Right sided abdominal pain Pre-employment examination Left otitis media Cocaine-induced mood disorder with manic symptoms Herpes genitalis Ureterolithiasis Peptic ulcer disease Anemia Contraceptive management IV drug user Hepatitis C Surgical History Status post laparoscopic cholecystectomy Hx of cholecystectomy H/O myringotomy H/O sinus surgery Hx of tonsillectomy Family History Other Mental health disorder Substance use disorder Social History Housing: Assisted Living Facility Housing Other:: treatment Alcohol intake: unknown Patient Tobacco Use Status: Former Tobacco user Quit Date: 2021 Tobacco use type: Cigarette Cigarettes Per Day: 3 e-Cigarette/Vaping Use: Currently Using Second Hand Smoke Exposure: Yes Substance Use Type: Marijuana service: No Current occupational status: unemployed Cognitive needs: No Hearing needs: No Vision needs: No Questionnaire PHQ-9 Over the last 2 weeks, how often have you been bothered by any of the following problems? 1. Little interest or pleasure in doing things: several days 2. Feeling down, depressed, or hopeless: several days 3. Trouble falling or staying asleep, or sleeping too much: several days 4. Feeling tired or having little energy: several days 5. Poor appetite or overeating: several days 6. Feeling bad about yourself - or that you are a failure or have let yourself or your family down: several days 7. Trouble concentrating on things, such as reading the newspaper or watching television: several days 8. Moving or speaking so slowly that other people could have noticed. Or the opposite - being so fidgety or restless that you have been moving around a lot more than usual: several days 9. Thoughts that you would be better off or of hurting yourself in some way: several days Total score: 9 Depression Screening Interpretation: Positive Depression Screening Done: Yes Source: Developed by Drs. Tom Posey, Arlette Taylor, Alberto Anaya and colleagues, with an educational vinay from [employer]. Thrive Questionnaire Date Thrive assessed: 08/12/23 I am a: Patient What is your living situation today?: I have a steady place to live Within the past 12 months, did the food you bought not last and you didn't have the money to get more?: Never true Within the past 12 months, did you worry whether your food would run out before you got money to buy more?: Never true Do you have trouble paying for medicines?: No Do you have trouble getting transportation to medical appointments?: No Do you have trouble paying your heating and electricity bill?: No Do you have trouble taking care of your child, family member or friend?: No Do you have trouble with day-to-day activities such as bathing, preparing meals, shopping, managing finances, etc.?: No Are you currently unemployed and looking for a job?: No Are you interested in more education?: No Currently or been in a relationship where the following occur: no concerns reported THRIVE Score: 0 AUDIT C Alcohol Use Questionnaire (AUDIT-C) 1. How often do you have a drink containing alcohol?: Never Total Score: 0 KM-7 AMB Questionnaire KM-7 Date KM - 7 assessed: 08/12/23 Feeling nervous, anxious, or on edge: 0 = Not at all Not being able to stop or control worryin = Not at all Worrying too much about different things: 0 = Not at all Trouble relaxin = Not at all Being so restless that it is hard to sit still: 0 = Not at all Becoming easily annoyed or irritable: 0 = Not at all Feeling afraid as if something awful might happen: 0 = Not at all Total KM-7 score (0-4 normal; 5-9 mild; 10-14 moderate; 15-21 severe): 0 Source: Developed by Drs. Tom Posey, Arlette Taylor, Alberto Anaya and colleagues, with an educational vinay from [employer]. Physical exam (Primary Care) Vital Signs: Last Vital Signs Pulse 77 08/12/23 09:19 BP 102/62 08/12/23 09:19 Pulse Ox 98 08/12/23 09:19 Oxygen Delivery Method Room Air 08/12/23 09:19 BMI result Body Mass Index 18.5 Tobacco/Smoking Status: Tobacco use Status Tobacco use date assessed 08/12/23 08/12/23 09:28 Patient Tobacco Use Status Former Tobacco user 08/12/23 09:28 Tobacco use type Cigarette 08/12/23 09:28 e-Cigarette/Vaping Use Currently Using 08/12/23 09:28 PHQ-9: PHQ-9 Score PHQ-9: Total score 9 08/12/23 09:28 Depression Screening Interpretation: Positive Thrive Assessment: Date of Thrive Assessment Date Thrive assessed 08/12/23 08/12/23 09:28 Currently or been in a relationship where the following occur: no concerns reported Const General: alert; No acute distress Eyes Conjunctivae: conjunctivae normal Resp Auscultation: clear to auscultation bilaterally Cardio Rate: regular rate Rhythm: regular rhythm GI Inspection: Yes normal to inspection Extrem General: Yes normal to inspection and No edema Assessment and Plan Assessment & Plan (1) Seizure disorder: Comment: Tonic-clonic April 2023 Code(s): G40.909 - Epilepsy, unspecified, not intractable, without status epilepticus Plan: Patient is being followed up by Neurology has had Butch . EEG has been done(I do not have the results yet) (2) Bipolar disorder: Code(s): F31.9 - Bipolar disorder, unspecified Plan: Continue with therapy with Seroquel (3) Polysubstance abuse: Code(s): F19.10 - Other psychoactive substance abuse, uncomplicated Plan: Continue with methadone (4) Hepatitis C: Code(s): B19.20 - Unspecified viral hepatitis C without hepatic coma Plan: Will try to control the seizures 1st and then discussed about hepatitis-C treatment. Orders: Orders Free T4 (Free Thyroxine) Today G40.909 - Epilepsy, unspecified, not intractable, without status epilepticus Vitamin B12 and Folate Today G40.909 - Epilepsy, unspecified, not intractable, without status epilepticus Magnesium Today G40.909 - Epilepsy, unspecified, not intractable, without status epilepticus UA CC w/rflx Micro + Cult Today G40.909 - Epilepsy, unspecified, not intractable, without status epilepticus, R30.0 - Dysuria Complete Blood Count Auto Diff Today G40.909 - Epilepsy, unspecified, not intractable, without status epilepticus Comprehensive Met. Panel Today G40.909 - Epilepsy, unspecified, not intractable, without status epilepticus Thyroid Stimulating Hormone Today G40.909 - Epilepsy, unspecified, not intractable, without status epilepticus Lipid Panel Today E78.00 - Pure hypercholesterolemia, unspecified, G40.909 - Epilepsy, unspecified, not intractable, without status epilepticus Vitamin D 25-OH Total Today G40.909 - Epilepsy, unspecified, not intractable, without status epilepticus Phosphorus Today G40.909 - Epilepsy, unspecified, not intractable, without status epilepticus Hepatitis B,C Profile Today B19.20 - Unspecified viral hepatitis C without hepatic coma, R79.89 - Other specified abnormal findings of blood chemistry Hepatitis C Genotype Today B19.20 - Unspecified viral hepatitis C without hepatic coma Hepatitis C Viral Load Today B19.20 - Unspecified viral hepatitis C without hepatic coma Coding Level of Care Code Est Pt Level 4 (09028) Diagnoses Seizure disorder G40.909 Bipolar disorder F31.9 Polysubstance abuse F19.10 Hepatitis C B19.20 Additional Codes PHQ-9 - 10608 - PHQ-9 Billing: ([id number])
== END 2023-08-12 09:44 | disposition home or self-care (01) ==
PROVIDERS: PCP Internal Medicine; Visit Provider Internal Medicine
DX: G40.909 Epilepsy, unspecified, not intractable, without status epilepticus (principal); F31.9 Bipolar disorder, unspecified; F19.10 Other psychoactive substance abuse, uncomplicated; B19.20 Unspecified viral hepatitis C without hepatic coma
CPT/HCPCS: 99214

== ENCOUNTER 2023-08-24 10:39 | Outpatient (REF) | payer OTHER, SELFPAY ==
[2023-08-24 10:56] LABS: MANUAL DIFF FLAG NO
[2023-08-24 11:13] LABS: Basophils Percent Auto 0.6 % (0-2); Eosinophils Absolute Auto 0.1 X10*3/uL (0.0-0.4); Eosinophils Percent Auto 0.7 % (0-4); Hematocrit 35.2 % (37.0-47.0); Hemoglobin 11.8 g/dl (12.0-16.0); Imm Gran Abs Auto 0.02 X10*3/uL (0.00-0.03); Imm Gran Pct Auto 0.3 % (0.0-0.4); Lymphocytes Absolute Auto 2.3 X10*3/uL (1.2-4.9); Mean Corpuscular HGB Conc 33.5 g/dl (31.0-35.0); Mean Corpuscular Hemoglobin 29.7 pg (27.0-33.0); Mean Corpuscular Volume 88.7 fL (80.0-98.0); Mean Platelet Volume 9.2 fL (9.4-12.3); Monocytes Absolute Auto 0.4 X10*3/uL (0.1-1.2); Monocytes Percent Auto 6.1 % (2-11); Neutrophils Absolute Auto 4.1 x10*3/uL (2.0-8.3); Neutrophils Percent Auto 59.3 % (45-73); Platelet Count 331 X10*3/uL (160-400); Red Blood Count 3.97 X10*6/uL (4.20-5.50); Red Cell Distribution Width 12.4 % (11.0-16.0); White Blood Count 6.9 X10*3/uL (4.8-10.8)
[2023-08-24 11:55] LABS: Alanine Aminotransferase 11 U/L (0-31); Albumin Level 3.8 g/dL (3.5-5.0); Alkaline Phosphatase 49 U/L (39-117); Anion Gap 9 (12-20); Aspartate Amino Transferase 14 U/L (5-31); Bilirubin Total 0.2 mg/dL (0.0-1.0); Blood Urea Nitrogen 7 mg/dL (9-16); Carbon Dioxide 28 mmol/L (22-29); Chloride 108 mmol/L (96-108); Cholesterol 125 mg/dL (<200); Estimated Glomerular Filt Rate > 60; Glucose Random 99 mg/dL (60-115); HDL Cholesterol 34 mg/dL (>40); LDL Cholesterol Calculated 59 mg/dL (<100); Magnesium 2.1 mg/dL (1.6-2.6); Phosphorus 2.8 mg/dL (2.7-4.5); Potassium 3.3 mmol/L (3.3-5.1); Sodium 142 mmol/L (135-145); Total Protein 6.3 g/dL (6.5-8.0); Triglycerides 163 mg/dL (<150)
[2023-08-24 12:07] LABS: Folate 6.9 ng/mL (> or = 4.0); Vitamin B12 729 pg/mL (200-900)
[2023-08-24 12:30] LABS: Free T4 (Free Thyroxine) 0.75 ng/dL (0.71-1.85); Thyroid Stimulating Hormone 2.02 uIU/mL (0.32-4.0); Vitamin D 25-OH Total 12.9 ng/mL (>30)
[2023-08-24 13:48] LABS: Appearance Urine Turbid; Color Urine Yellow; Glucose Urine UA Negative (Negative); Leukocyte Esterase Urine Negative (Negative); Nitrite Urine Negative (Negative); PH 7.5 (5.0-9.0); Urine Blood Negative (Negative); Urine Ketones Trace mg/dL (Negative); Urine Protein Negative (Neg-Trace)
[2023-08-25 04:37] LABS: HBS Num1 3.96 mIU/mL (0-7.99); HBc Num1 0.07 S/CO (0.00-0.79); HBsAGNum1 0.34 S/CO (0.00-0.99); Hepatitis B Core Antibody Nonreactive (Nonreactive); Hepatitis B Surface Antigen Negative (Negative); ~HepC Num1 12.24 S/CO (0.00-0.79); ~Hepatitis B Surface Antibody NONREACTIVE (Nonreactive); ~Hepatitis C Antibody Reactive (Nonreactive)
[2023-08-25 19:38] LABS: HCV RNA PCR Qn <15 NOT DETECTED IU/mL (NOT DETECTED)
[2023-08-29 08:48] LABS: HCV RNA PCR Qn <1.18 NOT DETECTED Log IU/mL (NOT DETECTED)
== END 2023-08-24 10:40 | disposition home or self-care (01) ==
LOC: HO.LAB 10:39
PROVIDERS: PCP Internal Medicine; Visit Provider Internal Medicine
DX: G40.909 Epilepsy, unspecified, not intractable, without status epilepticus (principal); E87.6 Hypokalemia; B19.20 Unspecified viral hepatitis C without hepatic coma; R30.0 Dysuria; E78.00 Pure hypercholesterolemia, unspecified; R79.89 Other specified abnormal findings of blood chemistry
CPT/HCPCS: 36415; 80053; 80061; 81003; 82306; 82607; 82746; 83735; 84100; 84439; 84443; 85025; 86704; 86706; 86803; 87340; 87522; 87902

== ENCOUNTER 2023-08-24 16:11 | Outpatient (AMB) | payer OTHER, SELFPAY ==
[2023-08-24 16:19] VITALS: BP 116/60; PULSE 65; O2SAT 99; BMI 18.7
--- NOTE | 2023-08-24 16:19 | MHC.PC.OV ---
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 Automatic Required: No Security Operations Center Analyst: Not Required per policy Accompanied by: Self / Same As Patient Allergies alprazolam Allergy (Unknown, Verified 08/24/23 16:19) I dont like taking it per patient azithromycin [From ZITHROMAX] Adverse Reaction (Unknown, Verified 08/24/23 16:19) VOMITING/DIARRHEA Zithromax Adverse Reaction (Mild, Uncoded 08/24/23 16:19) vomiting Medication List - Last Reconciled 08/24/23 by Eliazar Case MD levetiracetam (Keppra) 1,000 mg PO BID methadone 21 mg PO DAILY polyethylene glycol 3350 (Miralax) 17 grams PO BID PRN potassium chloride ER (Klor-Con M) 20 mEq PO BID quetiapine TAKE 1 TABLET TO 1 AND 1/2 TABLET BY MOUTH am and NIGHT Tobacco use date assessed: 08/12/23 Dental Screening Dental Screen Date: 08/12/23 HPI PHY HPI Details 28-year-old female with a history of seizure disorder bipolar disorder polysubstance abuse hepatitis-C last seen August 2023 patient had blood work done. Patient is here for physical exam [facility] Medical History Biliary dyskinesia Right sided abdominal pain Pre-employment examination Left otitis media Cocaine-induced mood disorder with manic symptoms Herpes genitalis Ureterolithiasis Peptic ulcer disease Anemia Contraceptive management IV drug user Hepatitis C Surgical History Status post laparoscopic cholecystectomy Hx of cholecystectomy H/O myringotomy H/O sinus surgery Hx of tonsillectomy Family History Other Mental health disorder Substance use disorder Social History (Updated 08/24/23 @ 16:58 by Eliazar Case MD) Housing: Assisted Living Facility Housing Other:: treatment Alcohol intake: never Patient Tobacco Use Status: Former Tobacco user Quit Date: 2021 Tobacco use type: Cigarette Cigarettes Per Day: 3 Years Smoked: vape (08/2023) e-Cigarette/Vaping Use: Currently Using Second Hand Smoke Exposure: Yes Substance Use Type: Marijuana service: No Current occupational status: unemployed Cognitive needs: No Hearing needs: No Vision needs: No Questionnaire Thrive Questionnaire Date Thrive assessed: 08/12/23 KM-7 AMB Questionnaire KM-7 Date KM - 7 assessed: 08/12/23 Source: Developed by Drs. Tom Posey, Arlette Taylor, Alberto Anaya and colleagues, with an educational vinay from [employer] Review of Systems Const Denies poor appetite and Denies weakness Eyes Denies no additional complaints ENT Reports Normal hearing present, Denies dizziness, Denies nasal congestion, Denies tinnitus and Denies sore throat Card Denies chest pain, Denies syncope, Denies rapid heart rate and Denies dyspnea Resp Denies cough and Denies dyspnea GI Denies change in stool character, Reports constipation, Denies diarrhea, Denies nausea and Denies vomiting Denies urinary frequency, Denies difficulty voiding and Denies dysuria Neuro Reports Normal hearing present, Denies confusion, Denies dizziness, Denies syncope and Denies weakness Psych Denies confusion Physical exam (Primary Care) Vital Signs: Last Vital Signs Pulse 65 08/24/23 16:19 BP 116/60 08/24/23 16:19 Pulse Ox 99 08/24/23 16:19 Oxygen Delivery Method Room Air 08/24/23 16:19 BMI result Body Mass Index 18.7 Tobacco/Smoking Status: Tobacco use Status Tobacco use date assessed 08/12/23 08/24/23 16:20 Patient Tobacco Use Status Former Tobacco user 08/24/23 16:58 Tobacco use type Cigarette 08/24/23 16:58 e-Cigarette/Vaping Use Currently Using 08/24/23 16:58 Thrive Assessment: Date of Thrive Assessment Date Thrive assessed 08/12/23 08/24/23 16:20 Const General: No confusion Orientation/consciousness: No confusion HENMT Head: Yes normocephalic Ears: external ears normal and TM's normal bilaterally Face and sinus: Yes normal facial exam Mouth: moist mucous membranes Throat: Yes tonsils normal Eyes Conjunctivae: conjunctivae normal Pupils: Equal, round and reactive pupils present and Pupil accommodation reflex normal Direct Ophthalmoscopy: normal light reflex Neck Neck: No lymphadenopathy Thyroid: Thyroid normal Chest Chest palpation & inspection: normal inspection of the chest Resp Effort & Inspection: normal respiratory effort and no audible wheezes Auscultation: clear to auscultation bilaterally, no crackles, no wheezes and lung sounds not diminished Cardio Rate: regular rate Rhythm: regular rhythm Peripheral pulses: radial pulses present and dorsalis pedis present GI Palpation (GI): no masses Auscultation: normal bowel sounds and normoactive bowel sounds Rectal Exam - Female: deferred Skin General skin exam: no rashes or lesions noted Rashes: no rashes Neuro General: No confusion Cranial nerves: Yes Equal, round and reactive pupils present and Yes Normal hearing present Cognition (Neuro): normal cognition Gait exam (Neuro): Normal gait present Motor exam (neuro): 5/5 motor strength present throughout Deep tendon reflexes (DTR's): Right brachioradialis reflex intensity grade: 2+, Left brachioradialis reflex intensity grade: 2+, Right patellar reflex intensity grade: 2+ and Left patellar reflex intensity grade: 2+ Extrem General: No edema Assessment and Plan Assessment & Plan (1) Annual physical exam: Code(s): Z00.00 - Encounter for general adult medical examination without abnormal findings (2) Seizure disorder: Comment: Tonic-clonic April 2023 Code(s): G40.909 - Epilepsy, unspecified, not intractable, without status epilepticus Plan: Continue with Keppra 1000 mg twice a day (3) Peptic ulcer disease: Comment: Dr. Diaz 2013 colonoscopy and EGD Code(s): K27.9 - Peptic ulcer, site unspecified, unspecified as acute or chronic, without hemorrhage or perforation Plan: Peptic ulcer disease with advise patient to stay away from NSAIDs and if taking to take it with food. Patient is strongly advised to stop vaping also (4) Bipolar disorder: Code(s): F31.9 - Bipolar disorder, unspecified Plan: Continue with therapy (5) Polysubstance abuse: Code(s): F19.10 - Other psychoactive substance abuse, uncomplicated Plan: Continue with methadone (6) Hypokalemia: Code(s): E87.6 - Hypokalemia Plan: Replacement of potassium prescription sent and will retest in 1 month. Orders: Orders Basic Metabolic Panel Today E87.6 - Hypokalemia Coding Level of Care Code Est Pt Prev Care 18-39y(28874) Diagnoses Annual physical exam Z00.00 Seizure disorder G40.909 Peptic ulcer disease K27.9 Bipolar disorder F31.9 Polysubstance abuse F19.10 Hypokalemia E87.6 Additional Codes PHQ-9 - 00376 - PHQ-9 Billing: ([id number])
== END 2023-08-24 17:23 | disposition home or self-care (01) ==
PROVIDERS: PCP Internal Medicine; Visit Provider Internal Medicine
DX: Z00.00 Encounter for general adult medical examination without abnormal findings (principal); G40.909 Epilepsy, unspecified, not intractable, without status epilepticus; F31.9 Bipolar disorder, unspecified; F19.10 Other psychoactive substance abuse, uncomplicated; K27.9 Peptic ulcer, site unspecified, unspecified as acute or chronic, without hemorrhage or perforation; E87.6 Hypokalemia
CPT/HCPCS: 99395

== ENCOUNTER 2023-09-29 06:23 | Emergency (ER) | payer OTHER, SELFPAY ==
[2023-09-29 06:30] VITALS: BP 103/68; PULSE 92; RESP 18; TEMP 36.8; O2SAT 97
[2023-09-29 06:34] VITALS: BP 106/69; PULSE 103; O2SAT 97
[2023-09-29 06:47] VITALS: BP 103/68; PULSE 83; RESP 16; TEMP 36.8; O2SAT 96; BMI 18.8
--- NOTE | 2023-09-29 06:48 | MHC.EDTECH ---
pt changed into hospital gown and placed on [employer] infrastructure consultant
--- NOTE | 2023-09-29 07:05 | ED_ITS ---
HPI - Seizure General Chief Complaint: Seizure Stated Complaint: seizure Time Seen by Provider: 09/29/23 07:01 Source: patient, EMS and old records reviewed Mode of arrival: EMS Limitations: no limitations History of Present Illness ED Provider: PARAM ATKINSON Narrative: 28 yo female with PMH of seizures on keppra 1000mg BID admits to not always taking her medications particularly last night due to having autistic 5 year old son had witnessed seizure on couch by x 1, no tongue biting no falls no head trauma. woke up with her typical seizure headache. 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) Description of Episode: loss of consciousness and tonic-clonic movement -: minutes(s) Witnessed: Yes - by Bystander Trauma: No Seizure History: Yes Place: Home Possible Precipitating Event: medication Associated symptoms: denies other symptoms Treatments prior to arrival: none Related Data Home Medications ?Medication ?Instructions ?Recorded ?Confirmed methadone 40 mg soluble tablet 21 mg PO DAILY 08/24/23 08/24/23 quetiapine 100 mg tablet See Rx Instructions .Route .COMPLEX 08/24/23 Previous Rx's ?Medication ?Instructions ?Recorded polyethylene glycol 3350 17 17 g PO BID PRN constipation #238 12/27/22 gram/dose oral powder (Miralax) grams levetiracetam 1,000 mg tablet 1,000 mg PO BID #60 tabs 06/01/23 (Keppra) potassium chloride 20 mEq 20 meq PO BID #10 tabs 08/24/23 tablet,extended release(part/cryst) (Klor-Con M) Allergies Allergy/AdvReac Type Severity Reaction Status Date / Time alprazolam Allergy Unknown I dont Verified 09/29/23 06:49 like taking it per patient azithromycin [From ZITHROMAX] AdvReac Unknown VOMITING/DI Verified 09/29/23 06:49 ARRHEA Zithromax AdvReac Mild vomiting Uncoded 09/29/23 06:49 Review of Systems 2 Review of Systems: Constitutional : No Fever, No Chills, No Fatigue ENT/Mouth : No sore throat, No Rhinorrhea Eyes: No Eye Pain, No Swelling, No Redness Cardiovascular : No Chest Pain, No SOB, No Dyspnea on Exertion Respiratory : No Cough, No Sputum Gastrointestinal : No Nausea, No Vomiting, No Diarrhea, No abdominal Pain Genitourinary : No Dysuria, No Urinary Frequency, No Hematuria, Musculoskeletal : No joint pain, No Myalgias, No Joint Swelling Skin : No Skin Lesions, No rash Neuro : No Weakness, No Numbness, No Dizziness, positive Headache Psych : No Anxiety/Panic, No Depression Heme/Lymph: No Bruising, No Bleeding,No Lymphadenopathy Endocrine : No Polyuria, No Polydipsia All other systems reviewed and are negative [facility] Past Medical History Attestation statement: The following information was validated with the patient. Source: old records reviewed Medical History Biliary dyskinesia Right sided abdominal pain Pre-employment examination Left otitis media Cocaine-induced mood disorder with manic symptoms Herpes genitalis Ureterolithiasis Peptic ulcer disease Anemia Contraceptive management IV drug user Hepatitis C Surgical History Status post laparoscopic cholecystectomy Hx of cholecystectomy H/O myringotomy H/O sinus surgery Hx of tonsillectomy Family History Family History Other Mental health disorder Substance use disorder Social History Social History Housing: Assisted Living Facility Housing Other:: treatment Alcohol intake: never Patient Tobacco Use Status: Former Tobacco user Quit Date: 2021 Tobacco use type: Cigarette Cigarettes Per Day: 3 Years Smoked: vape (08/2023) e-Cigarette/Vaping Use: Currently Using Second Hand Smoke Exposure: Yes Substance Use Type: Marijuana Advance Directives: No Do you have a plan to hurt others: No Plan Patient : No service: No Current occupational status: unemployed Cognitive needs: No Hearing needs: No Vision needs: No Physical Exam 2 Vital Signs: Vital Signs: Last Vital Signs Temp 98.2 F 09/29/23 06:47 Pulse 83 09/29/23 06:47 Resp 16 09/29/23 06:47 BP 103/68 09/29/23 06:47 Pulse Ox 96 09/29/23 06:47 O2 Del Method Room Air 09/29/23 06:47 BMI result Body Mass Index 18.8 Appearance: Alert. Oriented X3. No acute distress. Eyes: Pupils equal, round and reactive to light. ENT: Pharynx normal. atraumatic no tongue biting Neck: Normal inspection. Neck supple. CVS: Normal heart rate and rhythm. Pulses normal. Respiratory: No respiratory distress. Breath sounds normal. Abdomen: Soft and nontender. Skin: Skin warm and dry. Normal skin color. Normal skin turgor. Extremities: No lower extremity edema. No calf ttp Neuro: Oriented X 3. No motor deficit. No sensory deficit. Medications Administered Discontinued Medications Generic Name Dose Route Start Last Admin Trade Name Edilsonq PRN Reason Stop Dose Admin Acetaminophen 975 mg 09/29/23 07:51 09/29/23 07:55 Acetaminophen 325 Mg Tablet PO 09/29/23 07:52 975 mg ONCE ONE Administration Levetiracetam 1,000 mg in 100 mls @ 400 mls/hr 09/29/23 07:23 09/29/23 07:55 Keppra IV 09/29/23 07:37 400 mls/hr ONCE ONE Administration Medical Decision Making Medical Decision Making [facility] Narrative: 28 yo female with PMH of seizures here with seizure at home on couch witnessed by did not take her keppra dose last night as she was busy with her son - no trauma reported has her typical headache post seizure will give tylenol and toradol, load with keppra and DC home with precautions. Suspect lack of meds as cause. Differential Diagnosis Differential Diagnoses: The differential diagnosis associated with the presentation includes seizure due to lack of medications no head trauma GCS 15 Admission/Observation Consideration of admission/observation: Escalation of care including admission/observation considered at baseline no repeat seizures stable for DC once keppra infused Lab Data [facility] Lab Attestation statement: I reviewed the patient's lab results. 09/29/23 07:51 09/29/23 07:51 Labs: Lab Results 09/29/23 09/29/23 Range/Units 07:51 08:01 WBC 6.1 (4.8-10.8) X10*3/uL RBC 4.46 (4.20-5.50) X10*6/uL Hgb 13.6 (12.0-16.0) g/dl Hct 40.6 (37.0-47.0) % MCV 91.0 (80.0-98.0) fL MCH 30.5 (27.0-33.0) pg MCHC 33.5 (31.0-35.0) g/dl RDW 13.1 (11.0-16.0) % Plt Count 265 (160-400) X10*3/uL MPV 9.3 L (9.4-12.3) fL Immature Gran % (Auto) 0.3 (0.0-0.4) % Neut % (Auto) 66.0 (45-73) % Lymph % (Auto) 25.5 (20-40) % [place] % (Auto) 6.4 (2-11) % Eos % (Auto) 1.3 (0-4) % Baso % (Auto) 0.5 (0-2) % Lymph # (Auto) 1.5 (1.2-4.9) X10*3/uL [place]t # (Auto) 0.4 (0.1-1.2) X10*3/uL Eos # (Auto) 0.1 (0.0-0.4) X10*3/uL Baso # (Auto) 0.0 (0.0-0.2) X10*3/uL Abs Immat Gran (auto) 0.02 (0.00-0.03) X10*3/uL Absolute Neuts (auto) 4.0 (2.0-8.3) x10*3/uL Absolute Nucleated RBC 0.000 (0.0-0.012) X10*3/uL Nucleated RBC % (auto) 0.0 (0.0-0.2) /100WBC Sodium 143 (135-145) mmol/L Potassium 3.7 (3.3-5.1) mmol/L Chloride 110 H (96-108) mmol/L Carbon Dioxide 25 (22-29) mmol/L Anion Gap 12 (12-20) BUN 8 L (9-16) mg/dL Creatinine 0.74 (0.5-1.4) mg/dL Estim Creat Clear Calc 87.7 Estimated GFR > 60 Random Glucose 99 (60-115) mg/dL Calcium 9.2 (8.4-10.2) mg/dL Beta HCG, Quant < 2 mIU/mL Urine Color Yellow Urine Appearance Cloudy Urine pH 7.0 (5.0-9.0) Ur Specific [place] 1.015 (1.005-1.025) Urine Protein Negative (Neg-Trace) mg/dL Urine Glucose (UA) Negative (Negative) mg/dL Urine Ketones Negative (Negative) mg/dL Urine Blood Negative (Negative) Urine Nitrite Negative (Negative) Ur Leukocyte Esterase Negative (Negative) Urine RBC 0-2 (0-2) /HPF Urine WBC 0-5 (0-5) /HPF Ur Squamous Epith Cells 11-20 (0-2) /HPF Urine Bacteria Trace (None Seen) Hyaline Casts 0-2 (0-2) /LPF External Record Review External record reviewed: Inpatient record Prescription Management I considered prescription management with: Other Discharge Plan Discharge Clinical Impression: Seizure disorder Patient Disposition: Home, Self-Care Instructions: Recurrent Seizures in Adults (ED) Additional Instructions: take your night dose of keppra remember no driving no swimming alone no cooking over an open flame rest and take it easy today stay with responsible adult Prescriptions: No Action potassium chloride [Klor-Con M20] 20 mEq tablet,ER particles/crystals 20 meq PO BID Qty: 10 0RF polyethylene glycol 3350 [Miralax] 17 gram/dose powder 17 g PO BID PRN (Reason: constipation) Qty: 238 0RF levetiracetam [Keppra] 1,000 mg tablet 1,000 mg PO BID Qty: 60 0RF quetiapine 100 mg tablet See Rx Instructions .ROUTE .COMPLEX Dose Instruction: TAKE 1 TABLET TO 1 AND 1/2 TABLET BY MOUTH EVERY NIGHT AT BEDTIME Rx Instructions: TAKE 1 TABLET TO 1 AND 1/2 TABLET BY MOUTH am and NIGHT methadone 40 mg tablet,soluble 21 mg PO DAILY Stand Alone Forms: Work/School Release Print Language: Armenian
[2023-09-29 07:55] LABS: MANUAL DIFF FLAG NO
[2023-09-29] MEDS: Acetaminophen 325 MG TABLET 975 MG PO (07:55)
[2023-09-29] MEDS: levETIRAcetam in NaCl (iso-os) 1,000 MG/100 ML PIGGYBACK 400 MG IV (07:55)
[2023-09-29 07:57] LABS: Basophils Percent Auto 0.5 % (0-2); Eosinophils Absolute Auto 0.1 X10*3/uL (0.0-0.4); Eosinophils Percent Auto 1.3 % (0-4); Hematocrit 40.6 % (37.0-47.0); Hemoglobin 13.6 g/dl (12.0-16.0); Imm Gran Abs Auto 0.02 X10*3/uL (0.00-0.03); Imm Gran Pct Auto 0.3 % (0.0-0.4); Lymphocytes Absolute Auto 1.5 X10*3/uL (1.2-4.9); Lymphocytes Percent Auto 25.5 % (20-40); Mean Corpuscular HGB Conc 33.5 g/dl (31.0-35.0); Mean Corpuscular Hemoglobin 30.5 pg (27.0-33.0); Mean Platelet Volume 9.3 fL (9.4-12.3); Monocytes Absolute Auto 0.4 X10*3/uL (0.1-1.2); Monocytes Percent Auto 6.4 % (2-11); Platelet Count 265 X10*3/uL (160-400); Red Blood Count 4.46 X10*6/uL (4.20-5.50); Red Cell Distribution Width 13.1 % (11.0-16.0); White Blood Count 6.1 X10*3/uL (4.8-10.8)
[2023-09-29 08:06] LABS: Appearance Urine Cloudy; Color Urine Yellow; Glucose Urine UA Negative (Negative); Leukocyte Esterase Urine Negative (Negative); Nitrite Urine Negative (Negative); Specific Gravity - Urine 1.015 (1.005-1.025); Urine Blood Negative (Negative); Urine Ketones Negative (Negative); Urine Protein Negative (Neg-Trace)
[2023-09-29 08:09] LABS: Bacteria Urine Trace (None Seen); Hyaline Casts Urine 0-2 /LPF (0-2); RBC Urine 0-2 /HPF (0-2); WBC Urine 0-5 /HPF (0-5)
[2023-09-29 08:25] LABS: Anion Gap 12 (12-20); Blood Urea Nitrogen 8 mg/dL (9-16); Calcium 9.2 mg/dL (8.4-10.2); Carbon Dioxide 25 mmol/L (22-29); Chloride 110 mmol/L (96-108); Creatinine Clr Calc Pharmacy 87.7; Estimated Glomerular Filt Rate > 60; Glucose Random 99 mg/dL (60-115); Potassium 3.7 mmol/L (3.3-5.1); Sodium 143 mmol/L (135-145)
[2023-09-29 08:27] LABS: HCG Quantitative < 2 mIU/mL
[2023-09-29] MEDS: Ketorolac Tromethamine 15 MG/ML VIAL IVPUSH (08:35)
[2023-09-29 08:53] VITALS: BP 103/68; PULSE 83; RESP 18; TEMP 37; O2SAT 97
== END 2023-09-29 08:53 | disposition home or self-care (01) ==
PROVIDERS: Emergency Provider Emergency Medicine; PCP Internal Medicine
DX: G40.909 Epilepsy, unspecified, not intractable, without status epilepticus (principal); F11.20 Opioid dependence, uncomplicated; F19.10 Other psychoactive substance abuse, uncomplicated; B19.20 Unspecified viral hepatitis C without hepatic coma; F31.9 Bipolar disorder, unspecified; Z79.899 Other long term (current) drug therapy
CPT/HCPCS: 36415; 80048; 81001; 84702; 85025; 96365; 96375; 99284; J1885; J1953

== ENCOUNTER 2023-11-15 01:14 | Emergency (ER) | payer OTHER, SELFPAY ==
[2023-11-15 01:27] VITALS: BP 114/82; PULSE 82; O2SAT 98
[2023-11-15 01:48] VITALS: BP 108/71; PULSE 62; RESP 18; TEMP 36.9; O2SAT 98; BMI 19.3
[2023-11-15 02:07] LABS: MANUAL DIFF FLAG NO
[2023-11-15 02:08] LABS: Basophils Percent Auto 0.4 % (0-2); Eosinophils Percent Auto 0.1 % (0-4); Hematocrit 36.4 % (37.0-47.0); Hemoglobin 12.7 g/dl (12.0-16.0); Imm Gran Abs Auto 0.01 X10*3/uL (0.00-0.03); Imm Gran Pct Auto 0.1 % (0.0-0.4); Lymphocytes Absolute Auto 1.1 X10*3/uL (1.2-4.9); Lymphocytes Percent Auto 16.4 % (20-40); Mean Corpuscular HGB Conc 34.9 g/dl (31.0-35.0); Mean Corpuscular Hemoglobin 30.4 pg (27.0-33.0); Mean Corpuscular Volume 87.1 fL (80.0-98.0); Mean Platelet Volume 9.3 fL (9.4-12.3); Monocytes Absolute Auto 0.3 X10*3/uL (0.1-1.2); Monocytes Percent Auto 3.7 % (2-11); Neutrophils Absolute Auto 5.4 x10*3/uL (2.0-8.3); Neutrophils Percent Auto 79.3 % (45-73); Platelet Count 254 X10*3/uL (160-400); Red Blood Count 4.18 X10*6/uL (4.20-5.50); Red Cell Distribution Width 12.4 % (11.0-16.0); White Blood Count 6.8 X10*3/uL (4.8-10.8)
[2023-11-15 02:33] LABS: Alanine Aminotransferase 19 U/L (0-31); Albumin Level 4.3 g/dL (3.5-5.0); Alkaline Phosphatase 46 U/L (39-117); Anion Gap 14 (12-20); Aspartate Amino Transferase 29 U/L (5-31); Bilirubin Total 0.4 mg/dL (0.0-1.0); Blood Urea Nitrogen 15 mg/dL (9-16); Calcium 9.1 mg/dL (8.4-10.2); Carbon Dioxide 21 mmol/L (22-29); Chloride 109 mmol/L (96-108); Creatinine Clr Calc Pharmacy 101.5; Estimated Glomerular Filt Rate > 60; Glucose Random 113 mg/dL (60-115); Lipase 12 U/L (8-78); Sodium 140 mmol/L (135-145)
[2023-11-15 02:42] LABS: HCG Quantitative < 2 mIU/mL
--- NOTE | 2023-11-15 04:27 | ED.NAVMDI ---
HPI - Nausea/Vomiting/Diarrhea General Chief complaint: Nausea/Vomiting/Diarrhea Stated complaint: Nausea & vomiting Time Seen by Provider: 11/15/23 04:22 Source: patient Mode of arrival: ambulatory Limitations: no limitations History of Present Illness ED Provider: Dr. Brooke Alarcon HPI Narrative: Patient comes to the emergency room complaining of nausea vomiting for 24 hours. Patient denies signature abdominal pain, mild abdominal cramping. This is a she is concerned that she vomited all of her p.o. medications including the Keppra. Patient states that she is prone to having seizures if she does not take her Keppra. At this time, patient denies any abdominal pain. Related Data Home Medications ?Medication ?Instructions ?Recorded ?Confirmed methadone 40 mg soluble tablet 21 mg PO DAILY 08/24/23 08/24/23 quetiapine 100 mg tablet See Rx Instructions .Route .COMPLEX 08/24/23 Previous Rx's ?Medication ?Instructions ?Recorded polyethylene glycol 3350 17 17 g PO BID PRN constipation #238 12/27/22 gram/dose oral powder (Miralax) grams levetiracetam 1,000 mg tablet 1,000 mg PO BID #60 tabs 06/01/23 (Keppra) potassium chloride 20 mEq 20 meq PO BID #10 tabs 08/24/23 tablet,extended release(part/cryst) (Klor-Con M) ondansetron 4 mg disintegrating 4 mg PO Q6H PRN nausea and 11/15/23 tablet vomiting #14 tabs Allergies Allergy/AdvReac Type Severity Reaction Status Date / Time alprazolam Allergy Unknown I dont Verified 11/15/23 01:48 like taking it per patient azithromycin [From ZITHROMAX] AdvReac Unknown VOMITING/DI Verified 11/15/23 01:48 ARRHEA Zithromax AdvReac Mild vomiting Uncoded 11/15/23 01:48 Review of Systems Review of Systems: Constitutional : No Weight loss, No Fever, No Chills, No Night Sweats, No Fatigue, No Malaise ENT/Mouth : No Hearing loss, No Ear Pain, No Nasal Congestion, No Sinus Pain, No Hoarseness, No sore throat, No Rhinorrhea, No Swallowing Difficulty Eyes: No Eye Pain, No Swelling, No Redness, No Foreign Body, No Discharge, No Vision Changes Cardiovascular : No Chest Pain, No SOB, No Dyspnea on Exertion, No Orthopnea, No Edema, No Palpitations Respiratory : No Cough, No Sputum, No Wheezing, No Smoke Exposure, No Dyspnea Gastrointestinal : Complaining of nausea and vomiting, No Diarrhea, No Constipation, No abdominal Pain, No Hematochezia, No Melena Genitourinary : no irregular bleeding, No Dysuria, No Urinary Frequency, No Hematuria, No Urinary Incontinence, No Urgency, No Flank Pain, No Urinary Flow Changes, No Hesitancy Musculoskeletal : No joint pain, No Myalgias, No Joint Swelling Skin : No Skin Lesions, No rash Neuro : No Weakness, No Numbness, No Paresthesias, No Loss of Consciousness, No Dizziness, No Headache Psych : No Anxiety/Panic, No Depression, No SI/HI/AH/VH, No Social Issues, Heme/Lymph: No Bruising, No Bleeding,No Lymphadenopathy Endocrine : No Polyuria, No Polydipsia, No Temperature Intolerance PMFSH Past Medical History Medical History Biliary dyskinesia Right sided abdominal pain Pre-employment examination Left otitis media Cocaine-induced mood disorder with manic symptoms Herpes genitalis Ureterolithiasis Peptic ulcer disease Anemia Contraceptive management IV drug user Hepatitis C Surgical History Status post laparoscopic cholecystectomy Hx of cholecystectomy H/O myringotomy H/O sinus surgery Hx of tonsillectomy Family History Family History Other Mental health disorder Substance use disorder Social History Social History Housing: Assisted Living Facility Housing Other:: treatment Alcohol intake: never Patient Tobacco Use Status: Former Tobacco user Tobacco use type: Cigarette Cigarettes Per Day: 3 Years Smoked: vape (08/2023) Smoked in Last 30 Days: No e-Cigarette/Vaping Use: Currently Using Second Hand Smoke Exposure: Yes Use of substances other than those prescribed or required for medical reasons: No Substance Use Type: Marijuana Advance Directives: No Advance Directives Information Provided: No Patient : No service: No Current occupational status: unemployed Cognitive needs: No Hearing needs: No Vision needs: No Physical Exam Vital Signs: Vital Signs: Last Vital Signs Temp 98.4 F 11/15/23 01:48 Pulse 62 11/15/23 01:48 Resp 18 11/15/23 01:48 BP 108/71 11/15/23 01:48 Pulse Ox 98 11/15/23 01:48 BMI result Body Mass Index 19.3 Const: Other: Appearance: Alert. Oriented X3. No acute distress. Eyes: Pupils equal, round and reactive to light. ENT: Pharynx normal. Neck: Normal inspection. Neck supple. No lymph nodes noted. No crepitus CVS: Normal heart rate and rhythm. Pulses normal. Normal S1 and S2 Respiratory: No respiratory distress. Breath sounds normal. No Wheezing. No rales Abdomen: Soft and nontender. No rigidity. No distention. Skin: Skin warm and dry. Normal skin color. Normal skin turgor. Extremities: No lower extremity edema. No Lacerations. No Rash Neuro: Oriented X 3. No motor deficit. No sensory deficit. Moving all extremities. No slurred speech. CN 2 through 12 grossly intact Psych: calm, cooperative, normal affect Medical Decision Making Medical Decision Making [facility] Narrative: -my interpretation of labs, no significant abnormality in the hematology and chemistry -patient receiving IV fluids, Zofran and a dose of IV Keppra, since the patient has not been able to tolerate p.o. medications and to avoid a seizure -however, before I saw the patient, patient helped herself to get some water, Amish crackers. Patient successfully p.o. challenged herself, no vomiting Differential Diagnosis Differential Diagnoses: The differential diagnosis associated with the presentation includes (Gastritis, gastroenteritis, viral illness) Admission/Observation Consideration of admission/observation: Escalation of care including admission/observation considered (Given patient's initial presentation, observation considered) Lab Data [facility] Lab Attestation statement: I reviewed the patient's lab results. 11/15/23 02:03 11/15/23 02:03 Labs: Lab Results 11/15/23 Range/Units 02:03 WBC 6.8 (4.8-10.8) X10*3/uL RBC 4.18 L (4.20-5.50) X10*6/uL Hgb 12.7 (12.0-16.0) g/dl Hct 36.4 L (37.0-47.0) % MCV 87.1 (80.0-98.0) fL MCH 30.4 (27.0-33.0) pg MCHC 34.9 (31.0-35.0) g/dl RDW 12.4 (11.0-16.0) % Plt Count 254 (160-400) X10*3/uL MPV 9.3 L (9.4-12.3) fL Immature Gran % (Auto) 0.1 (0.0-0.4) % Neut % (Auto) 79.3 H (45-73) % Lymph % (Auto) 16.4 L (20-40) % Vernon % (Auto) 3.7 (2-11) % Eos % (Auto) 0.1 (0-4) % Baso % (Auto) 0.4 (0-2) % Lymph # (Auto) 1.1 L (1.2-4.9) X10*3/uL Vernon # (Auto) 0.3 (0.1-1.2) X10*3/uL Eos # (Auto) 0.0 (0.0-0.4) X10*3/uL Baso # (Auto) 0.0 (0.0-0.2) X10*3/uL Abs Immat Gran (auto) 0.01 (0.00-0.03) X10*3/uL Absolute Neuts (auto) 5.4 (2.0-8.3) x10*3/uL Absolute Nucleated RBC 0.000 (0.0-0.012) X10*3/uL Nucleated RBC % (auto) 0.0 (0.0-0.2) /100WBC Sodium 140 (135-145) mmol/L Potassium 4.0 (3.3-5.1) mmol/L Chloride 109 H (96-108) mmol/L Carbon Dioxide 21 L (22-29) mmol/L Anion Gap 14 (12-20) BUN 15 (9-16) mg/dL Creatinine 0.72 (0.5-1.4) mg/dL Estim Creat Clear Calc 101.5 Estimated GFR > 60 Random Glucose 113 (60-115) mg/dL Calcium 9.1 (8.4-10.2) mg/dL Total Bilirubin 0.4 (0.0-1.0) mg/dL AST 29 (5-31) U/L ALT 19 (0-31) U/L Alkaline Phosphatase 46 (39-117) U/L Total Protein 7.0 (6.5-8.0) g/dL Albumin 4.3 (3.5-5.0) g/dL Lipase 12 (8-78) U/L Beta HCG, Quant < 2 mIU/mL Critical Care Time Critical Care Time Critical Care Time: Yes Total Critical Care Time: 30 Attestation: I have personally provided critical care time. Time includes review of lab data, radiology results, discussion with consultants, and monitoring for potential decompensation. Intervention performed as documented. Discharge Plan Discharge Clinical Impression: Nausea & vomiting Patient Disposition: Home, Self-Care Instructions: Acute Nausea and Vomiting (ED) Additional Instructions: Please follow-up with your primary care physician tomorrow. If you have any worsening or new symptoms, please return to the emergency room or call 911 Prescriptions: New ondansetron 4 mg tablet,disintegrating 4 mg PO Q6H PRN (Reason: nausea and vomiting) Qty: 14 0RF No Action potassium chloride [Klor-Con M20] 20 mEq tablet,ER particles/crystals 20 meq PO BID Qty: 10 0RF polyethylene glycol 3350 [Miralax] 17 gram/dose powder 17 g PO BID PRN (Reason: constipation) Qty: 238 0RF levetiracetam [Keppra] 1,000 mg tablet 1,000 mg PO BID Qty: 60 0RF quetiapine 100 mg tablet See Rx Instructions .ROUTE .COMPLEX Dose Instruction: TAKE 1 TABLET TO 1 AND 1/2 TABLET BY MOUTH EVERY NIGHT AT BEDTIME Rx Instructions: TAKE 1 TABLET TO 1 AND 1/2 TABLET BY MOUTH am and NIGHT methadone 40 mg tablet,soluble 21 mg PO DAILY Print Language: Macedonian
[2023-11-15] MEDS: levETIRAcetam in NaCl (iso-os) 1,000 MG/100 ML PIGGYBACK 400 MG IV (04:48)
[2023-11-15] MEDS: 0.9 % Sodium Chloride 1,000 ML 999 ML IVCONT (04:49)
[2023-11-15] MEDS: ondansetron HCL 4 MG/2 ML VIAL IVPUSH (04:49)
[2023-11-15 07:07] VITALS: BP 124/68; PULSE 68; RESP 18; TEMP 36.6; O2SAT 99
[2023-11-19 15:17] LABS: Levetiracetam Keppra 3.7 mcg/mL (6.0-46.0)
== END 2023-11-15 07:07 | disposition home or self-care (01) ==
PROVIDERS: Emergency Provider Emergency Medicine; PCP Internal Medicine
DX: R11.2 Nausea with vomiting, unspecified (principal); F17.210 Nicotine dependence, cigarettes, uncomplicated; F12.90 Cannabis use, unspecified, uncomplicated; Z79.899 Other long term (current) drug therapy
CPT/HCPCS: 36415; 80053; 80177; 83690; 84702; 85025; 96361; 96365; 96375; 99284; J1953; J2405

== ENCOUNTER 2023-11-25 06:50 | Inpatient (IN) | payer OTHER, SELFPAY ==
[2023-11-25] VITALS (14 sets, daily range): BP systolic 106–129; BP diastolic 60–72; PULSE 80–132; RESP 12–24; TEMP 36.1–37.8; O2SAT 95–100; BMI 17.1
--- NOTE | 2023-11-25 | ECG_ITS ---
Test Reason : SEIZURE Blood Pressure : / mmHG Vent. Rate : 122 BPM Atrial Rate : 122 BPM P-R Int : 158 ms QRS Dur : 084 ms QT Int : 312 ms P-R-T Axes : 071 046 066 degrees QTc Int : 444 ms Sinus tachycardia Nonspecific ST abnormality Abnormal ECG When compared with ECG of 06-MAY-2023 10:30, Vent. rate has increased BY 68 BPM Referred By: Generic ED Physician Electronically Signed By:SHANTEL BARCENAS
--- NOTE | ~2023-11-25 | CT_ITS ---
EXAMINATION: CT HEAD WITHOUT CONTRAST CLINICAL INFORMATION: Seizure, head strike COMPARISON: Head CT from 04/09/2023 and brain MRI from 06/02/2023 TECHNIQUE: Contiguous axial imaging was performed from the skull base to vertex without intravenous administration of contrast. This CT examination was performed using dose optimization techniques as appropriate, variously including the following: *Automated exposure control *Adjustment of mA and/or kV according to patient size (this includes techniques or standardized protocols for targeted exams where dose is matched to indication/reason for exam; i.e. extremities or head) *Use of iterative reconstruction technique DLP: 607 mGy-cm FINDINGS: The brain parenchyma has normal attenuation. The torres-white matter differentiation is well preserved. No evidence of an acute major vascular territory infarction. No intracranial hemorrhage, extra-axial fluid collection, focal mass effect or midline shift. The ventricles have normal size and configuration; no hydrocephalus. The brainstem and cerebellum have a normal appearance. The cerebellar tonsils are in normal position. The calvarium is intact. The visualized paranasal sinuses, mastoid air cells and middle ear cavities are well aerated. The orbits and globes are unremarkable. The temporomandibular joints are normal. CT/CT head/brain wo IV con IMPRESSION: No acute intracranial pathology.
--- NOTE | ~2023-11-25 | XR_ITS ---
EXAMINATION: XR CHEST CLINICAL INFORMATION: Seizure. Evaluate for aspiration. COMPARISON: 05/06/2023 TECHNIQUE: Frontal view of the chest was obtained. FINDINGS: The lungs are mildly hypoinflated and clear. No interstitial infiltrate, consolidation or pleural effusion. Cardiomediastinal silhouette has normal size and contour. The visualized bones and upper abdomen are unremarkable. XR/XR chest 1V IMPRESSION: No evidence of aspiration pneumonia.
--- NOTE | 2023-11-25 07:07 | ED.SEIZURE ---
HPI - Seizure General Chief Complaint: Seizure Stated Complaint: SEIZURE Time Seen by Provider: 11/25/23 06:57 Source: patient and EMS Mode of arrival: EMS Limitations: no limitations History of Present Illness ED Provider: Nini López PA-C HPI Narrative: 28 yo female with history of polysubstance use disorder on methadone maintenance, seizure disorder, bipolar disorder, depression, who presents to the ER for evaluation of multiple witnessed seizures that started at 03:00 at home. Patient was 1st diagnosed with seizure disorder in April of 2023 and was started on Keppra. She saw Dr. Leggett here. Her Keppra has been up titrated to 1500 mg twice per day due to ongoing seizures. She reports compliance. Patient reportedly had witnessed seizure at home around 03:00. Was tonic-clonic in nature with tongue biting but no incontinence. Per EMS patient had another seizure after that and EMS was called. On arrival to the home EMS reports patient was extremely combative. On arrival to the ER the patient is awake and alert. She is disoriented to time. She states she last took her Keppra this morning but is unaware of the time. She reports a severe headache which she usually gets after her seizures. Per patient's significant other patient has frequent seizures in the morning, last one was a month ago. He heard her having a seizure at 3:30am. She woke up confused but refused him calling EMS. She took her Keppra. At 430am she had another seizure while sitting up on the couch. She fell forward and hit her head. She woke up completely crazy running around the house. complaint: seizure Onset (ago): hour(s) Description of Episode: loss of consciousness, tonic-clonic movement, post-event confusion and other (Tongue biting) Witnessed: Yes - by Bystander Trauma: Yes (Tongue biting) Seizure History: Yes Place: Home Possible Precipitating Event: none Associated symptoms: confusion and other (Headache) Treatments prior to arrival: none Related Data Home Medications ?Medication ?Instructions ?Recorded ?Confirmed methadone 40 mg soluble tablet 21 mg PO DAILY 08/24/23 08/24/23 carbamazepine 200 mg tablet mg PO 11/25/23 fluoxetine 10 mg capsule 10 mg PO QAM 11/25/23 hydroxyzine HCl 25 mg tablet 25 mg PO BID PRN anxiety 11/25/23 pramipexole 0.25 mg tablet 0.25 mg PO QPM 11/25/23 quetiapine 300 mg tablet 300 mg PO BEDTIME 11/25/23 Previous Rx's ?Medication ?Instructions ?Recorded polyethylene glycol 3350 17 17 g PO BID PRN constipation #238 12/27/22 gram/dose oral powder (Miralax) grams levetiracetam 1,000 mg tablet 1,000 mg PO BID #60 tabs 06/01/23 (Keppra) potassium chloride 20 mEq 20 meq PO BID #10 tabs 08/24/23 tablet,extended release(part/cryst) (Klor-Con M) ondansetron 4 mg disintegrating 4 mg PO Q6H PRN nausea and 11/15/23 tablet vomiting #14 tabs Allergies Allergy/AdvReac Type Severity Reaction Status Date / Time alprazolam Allergy Unknown I dont Verified 11/25/23 06:53 like taking it per patient azithromycin [From ZITHROMAX] AdvReac Unknown VOMITING/DI Verified 11/25/23 06:53 ARRHEA Zithromax AdvReac Mild vomiting Uncoded 11/15/23 01:48 Review of Systems Review of Systems: Yes Unobtainable due to mental status PMFSH Past Medical History Medical History Biliary dyskinesia Right sided abdominal pain Pre-employment examination Left otitis media Cocaine-induced mood disorder with manic symptoms Herpes genitalis Ureterolithiasis Peptic ulcer disease Anemia Contraceptive management IV drug user Hepatitis C Surgical History Status post laparoscopic cholecystectomy Hx of cholecystectomy H/O myringotomy H/O sinus surgery Hx of tonsillectomy Family History Family History Other Mental health disorder Substance use disorder Social History Social History Housing: Assisted Living Facility Housing Other:: treatment Alcohol intake: never Patient Tobacco Use Status: Former Tobacco user Tobacco use type: Cigarette Cigarettes Per Day: 3 Years Smoked: vape (08/2023) Smoked in Last 30 Days: No e-Cigarette/Vaping Use: Currently Using Second Hand Smoke Exposure: Yes Use of substances other than those prescribed or required for medical reasons: Yes Substance Use Type: Marijuana Advance Directives: No Patient : No service: No Current occupational status: unemployed Cognitive needs: No Hearing needs: No Vision needs: No Physical Exam Vital Signs: Vital Signs: Last Vital Signs Temp 97.6 F 11/25/23 06:58 Pulse 99 11/25/23 09:13 Resp 19 11/25/23 09:13 BP 114/70 11/25/23 09:13 Pulse Ox 100 11/25/23 09:13 O2 Del Method Room Air 11/25/23 09:13 BMI result Body Mass Index 17.1 Appearance: Alert young female, restless. Oriented X2. dried blood on her left cheek and mouth Head: normocephalic, atraumatic. Eyes: Pupils equal, round and reactive to light. ENT: Pharynx with a small laceration to the tongue, no active bleeding. dried blood on the lips. No tonsillar swelling or exudate. Neck: Normal inspection. Neck supple. CVS: Normal heart rate and rhythm. Pulses normal. Respiratory: No respiratory distress. Breath sounds normal. Abdomen: Soft and nontender. +BS x4 Skin: Skin warm and dry. Normal skin color. Normal skin turgor. No rashes. Extremities: No lower extremity edema. No joint swelling. No track luong Neuro/psych: Oriented X 2. No motor deficit. No sensory deficit. CN II-XII intact. Slightly slurred speech, repeating I want to go home. Course Reevaluation(s) Reevaluation #1: Patient given a total of 3 mg of Ativan. She had [address] Leggett her neurologist was consulted, he agrees with admission here, no need for transfer for LTM. He will reassess the need for an addition antiepileptic drug. Will continue to monitor. Pending CT scan and then will admit the patient for further management. Time: 08:47 Reevaluation #2: CT head is unremarkable. Patient has been seizure-free for the last hour. Respiratory rate is 18, SpO2 100%. She remains confused but redirectable. She is stable to be admitted to the hospital at this time. Time: 09:35 Medications Administered Discontinued Medications Generic Name Dose Route Start Last Admin Trade Name Freq PRN Reason Stop Dose Admin Acetaminophen 975 mg 11/25/23 07:06 11/25/23 09:14 Acetaminophen 325 Mg Tablet PO 11/25/23 07:07 Not Given ONCE ONE Levetiracetam 1,500 mg in 100 mls @ 400 mls/hr 11/25/23 07:08 11/25/23 07:43 Keppra IV 11/25/23 07:22 Infused ONCE ONE Infusion Sodium Chloride 1,000 mls @ 999 mls/hr 11/25/23 07:45 11/25/23 09:13 Ns IV 11/25/23 08:45 Infused .Q1H1M JOSE Infusion Sodium Chloride 1,000 mls @ 999 mls/hr 11/25/23 08:15 11/25/23 09:14 Ns IV 11/25/23 09:15 999 mls/hr .Q1H1M JOSE Administration Lorazepam 2 mg 11/25/23 07:14 11/25/23 07:17 Lorazepam 2 Mg/Ml Vial IM 11/25/23 07:15 2 mg ONCE ONE Administration Lorazepam 1 mg 11/25/23 07:28 11/25/23 07:33 Lorazepam 2 Mg/Ml Vial IVPUSH 11/25/23 07:29 1 mg ONCE ONE Administration Medical Decision Making Medical Decision Making MDM Narrative: 28-year-old female with a history of seizure disorder on max dose Keppra, history polysubstance abuse on methadone maintenance, bipolar disorder, depression who presents to the ER for evaluation of 3 witnessed seizures at home. Very combative on seen which is new for her per her significant other. Has been seen here several times for ongoing seizures and her Keppra has been up titrated. On arrival to the ER patient is awake, alert, slightly disoriented, asking to go home. She reports a headache. Per history she did hit her head, CT scan of her head is pending About 20 minutes after arrival patient had a generalized tonic-clonic seizure lasting about 1 minute, 2 mg of intramuscular Ativan were given. Patient postictal and agitated afterward. Very restless. Another mg of Ativan was given with good effect. She is protecting her airway and respiratory status is stable. Patient was closely monitored in the ER. Her labs showed acute metabolic acidosis, likely due to lactic acidosis and seizing. She was given 2 L of IV fluids. Her renal function was normal. Tox screen is positive for methadone and marijuana only. CT scan of her head was performed that was negative for any acute pathology. At this time patient is stable for admission to the hospital. Differential Diagnosis Differential Diagnoses: The differential diagnosis associated with the presentation includes Status epilepticus, intractable seizures, seizure disorder, infection, alcohol withdrawal seizure, psychogenic seizure, seizure due to intracranial hemorrhage Admission/Observation Consideration of admission/observation: Escalation of care including admission/observation considered Consult Healthcare Provider Management of the patient was discussed with: Hospitalist and Vocational Education Teacher Dr. Leggett from Neurology Lab Data MDM Lab Attestation statement: I reviewed the patient's lab results. Mild leukocytosis, metabolic acidosis likely due to lactic acidosis due to seizure activity 11/25/23 07:24 11/25/23 07:24 Labs: Lab Results 11/25/23 11/25/23 11/25/23 Range/Units 07:24 09:25 09:27 WBC 11.6 H (4.8-10.8) X10*3/uL RBC 4.26 (4.20-5.50) X10*6/uL Hgb 13.0 (12.0-16.0) g/dl Hct 40.1 (37.0-47.0) % MCV 94.1 (80.0-98.0) fL MCH 30.5 (27.0-33.0) pg MCHC 32.4 (31.0-35.0) g/dl RDW 12.9 (11.0-16.0) % Plt Count 290 (160-400) X10*3/uL MPV 9.3 L (9.4-12.3) fL Immature Gran % (Auto) 0.5 H (0.0-0.4) % Neut % (Auto) 77.7 H (45-73) % Lymph % (Auto) 14.9 L (20-40) % [place] % (Auto) 6.4 (2-11) % Eos % (Auto) 0.2 (0-4) % Baso % (Auto) 0.3 (0-2) % Lymph # (Auto) 1.7 (1.2-4.9) X10*3/uL [place] # (Auto) 0.7 (0.1-1.2) X10*3/uL Eos # (Auto) 0.0 (0.0-0.4) X10*3/uL Baso # (Auto) 0.0 (0.0-0.2) X10*3/uL Abs Immat Gran (auto) 0.06 H (0.00-0.03) X10*3/uL Absolute Neuts (auto) 9.0 H (2.0-8.3) x10*3/uL Absolute Nucleated RBC 0.000 (0.0-0.012) X10*3/uL Nucleated RBC % (auto) 0.0 (0.0-0.2) /100WBC Sodium 146 H (135-145) mmol/L Potassium 3.6 (3.3-5.1) mmol/L Chloride 112 H (96-108) mmol/L Carbon Dioxide 16 L (22-29) mmol/L Anion Gap 22 H (12-20) BUN 8 L (9-16) mg/dL Creatinine 0.83 (0.5-1.4) mg/dL Estim Creat Clear Calc 75.9 Estimated GFR > 60 Random Glucose 145 H (60-115) mg/dL Calcium 9.7 D (8.4-10.2) mg/dL Total Bilirubin 0.3 (0.0-1.0) mg/dL AST 16 (5-31) U/L ALT 10 (0-31) U/L Alkaline Phosphatase 45 (39-117) U/L Total Creatine Kinase 110 (26-140) U/L Troponin I High Sens < 2.7 (<3.5-17.0) ng/L Total Protein 7.2 (6.5-8.0) g/dL Albumin 4.6 (3.5-5.0) g/dL Beta HCG, Quant < 2 mIU/mL Urine Color Yellow Urine Appearance Clear Urine pH 5.5 (5.0-9.0) Ur Specific [place] 1.015 (1.005-1.025) Urine Protein Negative (Neg-Trace) mg/dL Urine Glucose (UA) Negative (Negative) mg/dL Urine Ketones Trace (Negative) mg/dL Urine Blood Negative (Negative) Urine Nitrite Negative (Negative) Ur Leukocyte Esterase Negative (Negative) Urine Opiates Screen Not Detected (Not Detect) Ur Buprenorphine Scrn Not Detected (Not Detect) ng/mL Ur Oxycodone Screen Not Detected (Not Detect) ng/mL Urine Methadone Screen Positive H (Not Detect) ng/mL Urine Fentanyl Screen Not Detected (Not Detect) Ur Barbiturates Screen Not Detected (Not Detect) Ur Phencyclidine Scrn Not Detected (Not Detect) Ur Amphetamines Screen Not Detected (Not Detect) U Benzodiazepines Scrn Not Detected (Not Detect) Urine Cocaine Screen Not Detected (Not Detect) U Marijuana (THC) Screen POSITIVE H (Not Detect) Ethyl Alcohol < 10 mg/dL Independent Interpretation I performed an independent interpretation of an: CT Scan Interpretation: CT head without any acute edema or bleed, agree with radiology read Radiology Impression Discussion of test interpretation with radiology: I have reviewed the radiologist's reading. Radiologist Impression: EXAMINATION: CT HEAD WITHOUT CONTRAST CLINICAL INFORMATION: Seizure, head strike COMPARISON: Head CT from 04/09/2023 and brain MRI from 06/02/2023 TECHNIQUE: Contiguous axial imaging was performed from the skull base to vertex without intravenous administration of contrast. This CT examination was performed using dose optimization techniques as appropriate, variously including the following: *Automated exposure control *Adjustment of mA and/or kV according to patient size (this includes techniques or standardized protocols for targeted exams where dose is matched to indication/reason for exam; i.e. extremities or head) *Use of iterative reconstruction technique DLP: 607 mGy-cm FINDINGS: The brain parenchyma has normal attenuation. The torres-white matter differentiation is well preserved. No evidence of an acute major vascular territory infarction. No intracranial hemorrhage, extra-axial fluid collection, focal mass effect or midline shift. The ventricles have normal size and configuration; no hydrocephalus. The brainstem and cerebellum have a normal appearance. The cerebellar tonsils are in normal position. The calvarium is intact. The visualized paranasal sinuses, mastoid air cells and middle ear cavities are well aerated. The orbits and globes are unremarkable. The temporomandibular joints are normal. CT/CT head/brain wo IV con IMPRESSION: No acute intracranial pathology. Independent Historian Clinical information obtained from an independent historian. History obtained from or confirmed by: Spouse and EMS External Record Review External record reviewed: Office record and Prior outpatient labs Prescription Management I considered prescription management with: Other (Antiepileptic) Chronic Conditions Patient?s care impacted by: Other (Seizure disorder) Critical Care Time Critical Care Time Critical Care Time: Yes Total Critical Care Time: 67 Attestation: I have personally provided critical care time exclusive of time spent on separately billable procedures. Time includes review of lab data, radiology results, discussion with consultants, and monitoring for potential decompensation. Intervention performed as documented. Discharge Plan Discharge Clinical Impression: Status epilepticus Patient Disposition: Admitted As Inpatient Print Language: [place] Zealander
[2023-11-25] MEDS: LORazepam 2 MG/ML VIAL IM (07:17)
[2023-11-25] MEDS: levETIRAcetam in NaCl (iso-os) 1,500 MG/100 ML PIGGYBACK 400 MG IV (07:28)
[2023-11-25] MEDS: LORazepam 2 MG/ML VIAL 1 MG IVPUSH (07:33)
[2023-11-25 07:34] LABS: MANUAL DIFF FLAG NO
[2023-11-25 07:36] LABS: Basophils Percent Auto 0.3 % (0-2); Eosinophils Percent Auto 0.2 % (0-4); Hematocrit 40.1 % (37.0-47.0); Imm Gran Abs Auto 0.06 X10*3/uL (0.00-0.03); Imm Gran Pct Auto 0.5 % (0.0-0.4); Lymphocytes Absolute Auto 1.7 X10*3/uL (1.2-4.9); Lymphocytes Percent Auto 14.9 % (20-40); Mean Corpuscular HGB Conc 32.4 g/dl (31.0-35.0); Mean Corpuscular Hemoglobin 30.5 pg (27.0-33.0); Mean Corpuscular Volume 94.1 fL (80.0-98.0); Mean Platelet Volume 9.3 fL (9.4-12.3); Monocytes Absolute Auto 0.7 X10*3/uL (0.1-1.2); Monocytes Percent Auto 6.4 % (2-11); Neutrophils Percent Auto 77.7 % (45-73); Platelet Count 290 X10*3/uL (160-400); Red Blood Count 4.26 X10*6/uL (4.20-5.50); Red Cell Distribution Width 12.9 % (11.0-16.0); White Blood Count 11.6 X10*3/uL (4.8-10.8)
[2023-11-25] MEDS: 0.9 % Sodium Chloride 1,000 ML 999 ML IV ×2 (07:43→09:14)
[2023-11-25 07:58] LABS: Alanine Aminotransferase 10 U/L (0-31); Albumin Level 4.6 g/dL (3.5-5.0); Alkaline Phosphatase 45 U/L (39-117); Anion Gap 22 (12-20); Aspartate Amino Transferase 16 U/L (5-31); Bilirubin Total 0.3 mg/dL (0.0-1.0); Blood Urea Nitrogen 8 mg/dL (9-16); Calcium 9.7 mg/dL (8.4-10.2); Carbon Dioxide 16 mmol/L (22-29); Chloride 112 mmol/L (96-108); Creatinine Clr Calc Pharmacy 75.9; Estimated Glomerular Filt Rate > 60; Ethanol < 10 mg/dL; Glucose Random 145 mg/dL (60-115); HCG Quantitative < 2 mIU/mL; Potassium 3.6 mmol/L (3.3-5.1); Sodium 146 mmol/L (135-145); Total Protein 7.2 g/dL (6.5-8.0); Troponin-I High Sensitivity < 2.7 ng/L (<3.5-17.0)
[2023-11-25 09:34] LABS: Appearance Urine Clear; Color Urine Yellow; Glucose Urine UA Negative (Negative); Leukocyte Esterase Urine Negative (Negative); Nitrite Urine Negative (Negative); PH 5.5 (5.0-9.0); Specific Gravity - Urine 1.015 (1.005-1.025); Urine Blood Negative (Negative); Urine Ketones Trace mg/dL (Negative); Urine Protein Negative (Neg-Trace)
[2023-11-25 09:43] LABS: Amphetamine Screen Urine Not Detected (Not Detect); Barbiturates, Urine Not Detected (Not Detect); Benzodiazepines Screen Urine Not Detected (Not Detect); Buprenorphine Scr Not Detected (Not Detect); Cannabinoid Screen Urine POSITIVE (Not Detect); Cocaine Screen Urine Not Detected (Not Detect); Fentanyl, urine Not Detected (Not Detect); Methadone Screen, Urine Positive (Not Detect); Opiate Screen Urine Not Detected (Not Detect); Oxycodone Screen Urine Not Detected (Not Detect); Phencyclidine Screen Urine Not Detected (Not Detect)
--- NOTE | 2023-11-25 11:12 | P.HPHOSP_ITS ---
History of Present Illness Date of Service: 11/25/23 Attending physician on admission: Mónica Son Chief Complaint: Breakthrough seizure Pt is a 28-year-old female with a PMH significant for?seizure disorder on Keppra, polysubstance use on methadone, depression, and bipolar disorder who presents to the ED after witnessed seizures at home. Patient is somnolent and postictal at time of interview and exam and unable to provide meaningful HPI, which is instead taken from family who was at bedside. Partner reports he noticed patient having a light seizure at 03:30. Normally she would be mildly postictal and they would immediately go to the ED for evaluation. This morning, however, pt got up and was moving around, did not want to go to the ED, took her Keppra and methadone, and then went back to sleep. At 06:00 patient experienced a worse seizure with full tonic-clonic movements, tongue bite, and head strike on the floor. Partner moved patient to the couch and called EMS; while waiting pt experienced another episode of seizure activity, and possibly another while in EMS care. In the ED patient had another witnessed seizure and was given Ativan 2mg IM. But patient's partner indicates she was in her normal state of health last night and has been compliant with her medications. No witnessed nausea or vomiting, but apparently was bleeding significantly from mouth. She apparently was complaining of headache earlier in the ED. Of note, patient was 1st diagnosed with seizure disorder in 04/21/2023, though had been experiencing symptoms for at least 1 year prior[address] with Dr. Leggett in Neurology. In the ED pt was tachycardic up to 132, tachypneic up to 24, but afebrile and normotensive. Labs were significant for mild leukocytosis of 11.6 and sodium 146, otherwise grossly unremarkable. Stable H&H. No other significant electrolyte abnormalities. Renal and hepatic function WNL. Troponin negative. UA negative for UTI. Tox screen positive methadone and marijuana, otherwise negative. CT?of head showed no acute intracranial pathology. EKG demonstrated sinus tachycardia of [address] elevations or depressions. Pt was treated with IVF, Ativan 2 mg IM in 1 mg IV, Keppra 1500 mg IV. Pt will be admitted to the hospital for treatment and further evaluation of breakthrough seizures. Review of Systems 2 Review of Systems: Unable to obtain due to patient's mentation COUNT INCLUDES THE [facility] Medical History Biliary dyskinesia Right sided abdominal pain Pre-employment examination Left otitis media Cocaine-induced mood disorder with manic symptoms Herpes genitalis Ureterolithiasis Peptic ulcer disease Anemia Contraceptive management IV drug user Hepatitis C Family History Other Mental health disorder Substance use disorder Surgical History Status post laparoscopic cholecystectomy Hx of cholecystectomy H/O myringotomy H/O sinus surgery Hx of tonsillectomy Social History Housing: Assisted Living Facility Housing Other:: treatment Alcohol intake: never Patient Tobacco Use Status: Former Tobacco user Tobacco use type: Cigarette Cigarettes Per Day: 3 Years Smoked: vape (08/2023) Smoked in Last 30 Days: No e-Cigarette/Vaping Use: Currently Using Second Hand Smoke Exposure: Yes Use of substances other than those prescribed or required for medical reasons: Yes Substance Use Type: Marijuana Advance Directives: No Patient : No service: No Current occupational status: unemployed Cognitive needs: No Hearing needs: No Vision needs: No Meds Allergies Allergy/AdvReac Type Severity Reaction Status Date / Time alprazolam Allergy Unknown I dont Verified 11/25/23 06:53 like taking it per patient azithromycin [From ZITHROMAX] AdvReac Unknown VOMITING/DI Verified 11/25/23 06:53 ARRHEA Zithromax AdvReac Mild vomiting Uncoded 11/15/23 01:48 Home Medications ?Medication ?Instructions ?Recorded ?Confirmed ?Last Taken ?Type methadone 40 mg soluble tablet 21 mg PO DAILY 08/24/23 08/24/23 Unknown History carbamazepine 200 mg tablet mg PO 11/25/23 Unknown History fluoxetine 10 mg capsule 10 mg PO QAM 11/25/23 Unknown History hydroxyzine HCl 25 mg tablet 25 mg PO BID PRN anxiety 11/25/23 Unknown History pramipexole 0.25 mg tablet 0.25 mg PO QPM 11/25/23 Unknown History quetiapine 300 mg tablet 300 mg PO BEDTIME 07/25/24 07/25/24 07/24/24 History Physical Exam 2 Vital Signs and Narrative: Vital Signs: Last Vital Signs Temp 97.1 F 11/25/23 10:32 Pulse 106 H 11/25/23 10:32 Resp 20 11/25/23 10:32 BP 116/72 11/25/23 10:32 Pulse Ox 100 11/25/23 10:32 O2 Del Method Room Air 11/25/23 10:32 BMI result Body Mass Index 17.1 General: Postictal: somnolent but arousable, though immediately falls back asleep. In no acute distress Face: Mild bruising on left upper lateral aspect of face. Mouth: Dried blood around mouth. No obvious tongue laceration noted. Resp: CTA bilaterally CVS: S1, S2, RRR GI: +BS, NT, no distention Skin: Warm, dry Neuro: Cranial nerves II-XII grossly intact bilaterally. Motor grossly intact bilaterally. Extremities: No edema Results Labs 11/25/23 07:24 11/25/23 07:24 Labs: Laboratory Results - last 24 hr 11/25/23 11/25/23 11/25/23 07:24 09:25 09:27 MCV 94.1 MCH 30.5 MCHC 32.4 RDW 12.9 Plt Count 290 MPV 9.3 L Immature Gran % (Auto) 0.5 H Neut % (Auto) 77.7 H Lymph % (Auto) 14.9 L [place] % (Auto) 6.4 Eos % (Auto) 0.2 Baso % (Auto) 0.3 Lymph # (Auto) 1.7 [place] # (Auto) 0.7 Eos # (Auto) 0.0 Baso # (Auto) 0.0 Abs Immat Gran (auto) 0.06 H Absolute Neuts (auto) 9.0 H Absolute Nucleated RBC 0.000 Nucleated RBC % (auto) 0.0 Anion Gap 22 H Estim Creat Clear Calc 75.9 Estimated GFR > 60 Random Glucose 145 H Calcium 9.7 D Total Bilirubin 0.3 AST 16 ALT 10 Alkaline Phosphatase 45 Total Creatine Kinase 110 Troponin I High Sens < 2.7 Total Protein 7.2 Albumin 4.6 Beta HCG, Quant < 2 Urine Color Yellow Urine Appearance Clear Urine pH 5.5 Ur Specific [place] 1.015 Urine Protein Negative Urine Glucose (UA) Negative Urine Ketones Trace Urine Blood Negative Urine Nitrite Negative Ur Leukocyte Esterase Negative Urine Opiates Screen Not Detected Ur Buprenorphine Scrn Not Detected Ur Oxycodone Screen Not Detected Urine Methadone Screen Positive H Urine Fentanyl Screen Not Detected Ur Barbiturates Screen Not Detected Ur Phencyclidine Scrn Not Detected Ur Amphetamines Screen Not Detected U Benzodiazepines Scrn Not Detected Urine Cocaine Screen Not Detected U Marijuana (THC) Screen POSITIVE H Ethyl Alcohol < 10 Imaging Radiologist's Impressions: Impressions Head CT 11/25/23 09:09 IMPRESSION: No acute intracranial pathology. Assessment and Plan (1) Breakthrough seizure: Status: Acute Plan Pt is a 28-year-old female with a PMH significant for?seizure disorder on Keppra, polysubstance use on methadone, depression, and bipolar disorder who presents to the ED after witnessed seizures at home. Pt will be admitted to the hospital for treatment and further evaluation of breakthrough seizures. Breakthrough seizures Pt with multiple witnessed tonic-clonic seizures this morning; last previous seizure was mild, 1 month ago Reports has been compliant with medication, in normal state of health Given Ativan 2mg IM and 1mg IV, Keppra 1,500mg IV in the ED Continue Keppra 1,000mg IV b.i.d. Ativan 1mg IV prn Maintenance IVF: lactated ringers Seizure precautions Neurology consult for possible medication adjustment; follows with Dr. Leggett Monitor on telemetry Polysubstance use disorder Tox screen negative Continue methadone Mood disorder Continue home mood stabalizers Full Code Attending:?Dr. Son DVT Prophylaxis: Lovenox Pt will require a hospitalization of at least two nights for treatment of?breakthrough seizures. Given that patient continues to be postictal and unable to tolerate p.o. medications, will require hospitalization for administration IV anticonvulsants, close monitoring for additional breakthrough seizures, and specialist consultation with Neurology likely medication adjustment. Quality Stroke Does the patient have a stroke diagnosis?: No VTE Prior VTE?: No VTE Risk Level:: Medical - moderate - high VTE Device Contraindication: Treatment Not Indicated VTE Drug Contraindication: N/A - Med Ordered
--- NOTE | 2023-11-25 11:27 | PC.NURSE ---
pt BIBA via EMS postictal combative w EMS and attempting to bit EMS workers, unable to obtain vss en route. family remember reports 3 witnessed tonic clonic seizures w +ve head strike from standing. per partner, pt is typically not aggressive postictal. pt took 1500mg of keppra this morning upon waking. while this RN was attempting to obtain IV access, pt witnessed having a silent seizure at 0715 lasting ~ 60sec before tonic clonic sz lasting ~2-3 minutes. pt medicated per JUL w IM ativan, IV access established w labs obtained, additional IV ativan given. pt combative while post ical, unable to tolerate lines/monitor wires, attempting to bite staff. soft restrains applied per MD order for nonbehavioral restraints. pt resting quietly and restraints discontinued, head CT obtained. plan for admission, family at bedside aware of plan of care.
--- NOTE | 2023-11-25 12:33 | MHC.EDTECH ---
pt was one assisted to and from bedside commode for a bowel movement and to urinate. RN made aware
[2023-11-25 13:01] LABS: Anion Gap 11 (12-20); Blood Urea Nitrogen 6 mg/dL (9-16); Carbon Dioxide 20 mmol/L (22-29); Chloride 116 mmol/L (96-108); Creatinine Clr Calc Pharmacy 96.9; Estimated Glomerular Filt Rate > 60; Glucose Random 109 mg/dL (60-115); Potassium 3.5 mmol/L (3.3-5.1); Sodium 143 mmol/L (135-145)
[2023-11-25] MEDS: Lactated Ringers 1,000 ML 100 ML IVCONT ×2 (13:03→23:48)
[2023-11-25 13:21] LABS: Calcium 8.2 mg/dL (8.4-10.2)
--- NOTE | 2023-11-25 13:25 | PHA.MEDREC ---
Pharmacy Consult ? Medication Reconciliation Pharmacy has completed the medication reconciliation. Spoke to Patient family he was able to provide pictures of patients medication bottle, however he didn't know much about what patient is taking. He was only able to confirm Patient is on Methadone 27 or 30 mg daily, patient gets at [facility] in [place] last dose was today before patient came to the ER. Keppra 1,000 mg bid and Quetiapine 300 mg at bedtime.
[2023-11-25] MEDS: Acetaminophen 325 MG TABLET 650 MG PO ×2 (15:01→20:43)
[2023-11-25] MEDS: levETIRAcetam in NaCl (iso-os) 1,000 MG/100 ML PIGGYBACK 400 MG IV (20:39)
[2023-11-25] MEDS: Enoxaparin Sodium 40 MG/0.4 ML SYRINGE SUBCUT (20:43)
[2023-11-25] MEDS: QUEtiapine Fumarate 300 MG TABLET PO (20:43)
[2023-11-25] MEDS: 0.9 % Sodium Chloride Flush 3 ML SYRINGE IVFLUSH (20:44)
[2023-11-25] MEDS: Potassium Chloride ER 20 MEQ TAB.ER.PRT PO (21:43)
--- NOTE | 2023-11-25 23:29 | PM.EVENT ---
Event Note Date of Service: 11/25/23 Event Note: Contacted to notify patient is c/o body aches. Motrin was ordered but she refused to take it as she feels it is not going to help. She was requesting her methadone because she did not take it today, however, it has been already verified by pharmacy that patient took her methadone today before arrival to ED. Also, she was requesting additional 300 mg PO of Seroquel (she already received 300 mg PO at bedtime, 9PM, maye). She said to her nurse that she wanted to LAMA. While speaking with her she is now confused about taking her methadone today AM and getting her Seroquel at bedtime. It seems she is looking to get a stronger pain killer. She told her nurse: I shoot up heroin, ibuprofen isn't going to do shit for me . Unfortunately, I do not feel comfortable giving her IV narcotics due to her hx of IV drugs which could be non beneficial to her. Also, she seems quite drowsy to me. I did offer her to give Tylenol and Toradol (both IV form) for now and she was agreeable. If she persists with pain we will consider to give oxycodone PO. Time Spent With Patient Time: Total time managing care of this patient today ____ minutes.
--- NOTE | 2023-11-25 23:42 | PC.NURSE ---
Addendum entered by Danielle Young RN 11/26/23 06:43: Patient medicated with 1x stat 30mg IV toradol. +Effect. No further complaints of pain for remainder of blurb writer's shift. Patient observed sleeping on hourly rounds with breathing even and unlabored without distress. Original Note: Assumed care of patient at 19:00. Pt admitted earlier this evening for breakthrough seizures with fall at home with +head strike. Pt is A&Ox4 on evening assessment with pt's significant other present at bedside. Neuros intact, only complaint is of headache on initial assessment 20:00 hour. Patient was given prn tylenol for headache as per JUL. No seizure activity noted. Seizure precautions and in room camera in place in addition to high falls risk measures. 23:00 hour patient reported generalized body aches and requested something stronger for the pain . Pt stated to this blurb writer that she takes methadone daily and that she did not get her dose today. However, documented pharmacy note from today states they confirmed with they patient's family that the patient did receive her last dose of methadone today prior to coming to the ED. This was discussed with the patient as well as MD with order placed for ibuprofen; warm blankets and heat or ice packs also offered to patient. Patient was upset by this and stated to this blurb writer that she shoots up heroin, ibuprofen isn't going to do shit for me . She also requested more seroquel at this time. Tubing Machine Operator discussed with patient that she already received her 300mg ordered home dose this evening; despite this she was requesting another dose. MD notified. Patient educated on risks and safety concerns of sedating medications confounding neuro assessments necessary given recent seizure hx. Patient then threatened to leave against medical advice. Covering Dr. Adrian Seymour notified and to bedside with blurb writer, pain medication options and health status were discussed. Patient is agreeable to staying at this time after pain med option discussion.
[2023-11-25] MEDS: Ketorolac Tromethamine 30 MG/ML VIAL IVPUSH (23:47)
[2023-11-26 04:00] VITALS: BP 108/64; PULSE 69; RESP 20; TEMP 36.6; O2SAT 97
[2023-11-26 04:40] VITALS: RESP 16
[2023-11-26 06:42] LABS: Anion Gap 12 (12-20); Blood Urea Nitrogen 6 mg/dL (9-16); Calcium 8.4 mg/dL (8.4-10.2); Carbon Dioxide 18 mmol/L (22-29); Chloride 115 mmol/L (96-108); Creatinine Clr Calc Pharmacy 103.3; Estimated Glomerular Filt Rate > 60; Glucose Random 105 mg/dL (60-115); Potassium 3.3 mmol/L (3.3-5.1); Sodium 142 mmol/L (135-145)
[2023-11-26 07:08] VITALS: BP 125/76; PULSE 71; RESP 18; TEMP 36.7; O2SAT 99
--- NOTE | 2023-11-26 08:12 | HE.PHANOTE ---
RE: methadone Called [facility]; spoke to Livier and confirmed patient gets 26mg last dosed 11/09 with #27 take home bottles.
[2023-11-26] MEDS: methADONE HCl 20 MG/2 ML ORAL.CONC 26 MG PO (08:30)
[2023-11-26] MEDS: 0.9 % Sodium Chloride Flush 3 ML SYRINGE IVFLUSH ×3 (08:30→20:15)
[2023-11-26] MEDS: Potassium Chloride ER 20 MEQ TAB.ER.PRT PO ×2 (08:30→20:02)
[2023-11-26] MEDS: FLUoxetine HCl 10 MG CAPSULE PO (08:30)
[2023-11-26] MEDS: levETIRAcetam in NaCl (iso-os) 1,000 MG/100 ML PIGGYBACK 400 MG IV (08:30)
--- NOTE | 2023-11-26 09:13 | MHC.CM.PN ---
Pt is independent, lives with finance and son. HCP discussed, and she will complete form, and it will be added to chart. Pt get Methadone from [facility]. [facility]. PCP is Dr. Mathews and she sees Dr. Guan for Neurology. DCP: home, self care. CM will follow for DC needs.
[2023-11-26] MEDS: levETIRAcetam 500 MG TABLET PO (09:37)
[2023-11-26] MEDS: carBAMazepine 200 MG TABLET 300 MG PO ×2 (09:37→20:01)
[2023-11-26 10:51] VITALS: BMI 17.1
--- NOTE | 2023-11-26 10:57 | MHC.CLN ---
PT IS UNDER WT FOR HT PT WITH 9% NONSIGNIFICANT WT LOSS X 6 MONTHS WITH POOR PO INTAKE AND HX POLY SUBSTANCE ABUSE PT REPORTS SHE WEIGHED 180# LAST SUMMER PREVIOUS WT HX REVEALS 55.8KG (11/04/22) WITH 14% NONSIGNIFICANT WT LOSS X 1 YEAR-PT'S POLY SUBSTANCE ABUSE MAY BE CONTRIBUTING TO RECENT WT LOSS PT IS NOT MALNOURISHED AT THIS TIME BUT PT IS AT RISK DIET RX: REGULAR-APPROPRIATE PT RECEPTIVE TO RECEIVING MAGIC CUP TID TO INCREASE KCALS SUPP PROVIDES 870KCALS, 27G PROTEIN EDUCATED PT ON HIGH CALORIE AND HEALTHY FOOD ITEMS TO PROMOTE WT GAIN MONITOR PO INTAKE AND ENCOURAGE SUPPLEMENTS SEE ALSO FULL CLINICAL NUTRITION ASSESSMENT
[2023-11-26 11:15] VITALS: BP 108/58; PULSE 92; RESP 18; TEMP 37; O2SAT 96
[2023-11-26] MEDS: LORazepam 2 MG/ML VIAL 1 MG IVPUSH (13:05)
--- NOTE | 2023-11-26 14:28 | PM.NEUROCN ---
History of Present Illness Data of Consult Service Date: 11/26/23 Primary Care Provider: Eliazar Case MD [facility] Reason for consult: Recurrent seizures This is a 28-year-old female with h/o?seizure disorder on [id number] bid and Carbamazepine 200mg 1.5 a day ( supposed to be on Carbamazepine 200mg 1.5 tabs bid) , polysubstance use on methadone, depression, and bipolar disorder who presents to the ED after witnessed seizures at home. Her partner reports he noticed patient having a light seizure at 03:30. Normally she would be mildly postictal and they would immediately go to the ED for evaluation. This morning, however, pt got up and was moving around, did not want to go to the ED, took her Keppra and methadone, and then went back to sleep. At 06:00 patient experienced a worse seizure with full tonic-clonic movements, tongue bite, and head strike on the floor. Partner moved patient to the couch and called EMS; while waiting pt experienced another episode of seizure activity, and possibly another while in EMS care. In the ED patient had another witnessed seizure and was given Ativan 2mg IM. She was 1st diagnosed with seizure disorder in 04/21/2023, though had been experiencing symptoms for at least 1 year prior. Labs negative. Positive for methadone and marijuana. Keppra levels pending. CT negative. MRI earlier in the year was also normal. [facility] Past Medical History Medical History Biliary dyskinesia Right sided abdominal pain Pre-employment examination Left otitis media Cocaine-induced mood disorder with manic symptoms Herpes genitalis Ureterolithiasis Peptic ulcer disease Anemia Contraceptive management IV drug user Hepatitis C Family History Family History Other Mental health disorder Substance use disorder Surgical History Surgical History Status post laparoscopic cholecystectomy Hx of cholecystectomy H/O myringotomy H/O sinus surgery Hx of tonsillectomy Social History Social History Housing: Assisted Living Facility Housing Other:: treatment Do you presently have visiting nurse or other home services: No Alcohol intake: never Patient Tobacco Use Status: Former Tobacco user Tobacco use type: Cigarette Cigarettes Per Day: 3 Years Smoked: vape (08/2023) e-Cigarette/Vaping Use: Currently Using Second Hand Smoke Exposure: Yes Substance Use Type: Marijuana service: No Current occupational status: unemployed Cognitive needs: No Hearing needs: No Vision needs: No Meds Allergies Allergy/AdvReac Type Severity Reaction Status Date / Time alprazolam Allergy Unknown I dont Verified 11/25/23 06:53 like taking it per patient azithromycin [From ZITHROMAX] AdvReac Unknown VOMITING/DI Verified 11/25/23 06:53 ARRHEA Zithromax AdvReac Mild vomiting Uncoded 11/15/23 01:48 Active Medications: Current Medications Acetaminophen (Acetaminophen 325 Mg Tablet) 650 mg PO Q6H PRN PRN Reason: Pain, Mild (Pain Scale 1-3), fever or headache Last Admin: 11/25/23 20:43 Dose: 650 mg Benzonatate (Benzonatate 100 Mg Capsule) 100 mg PO TID PRN PRN Reason: Cough Calcium Carbonate (Calcium Carbonate 750 Mg Tab.Chew) 750 mg PO Q4H PRN PRN Reason: Heartburn Carbamazepine (Carbamazepine 200 Mg Tablet) 300 mg PO BID [facility] Last Admin: 11/26/23 09:37 Dose: 300 mg Enoxaparin Sodium (Enoxaparin Sodium 40 Mg/0.4 Ml Syringe) 40 mg SUBCUT Q24H [facility] Last Admin: 11/25/23 20:43 Dose: 40 mg Fluoxetine HCl (Fluoxetine Hcl 10 Mg Capsule) 10 mg PO DAILY [facility] Last Admin: 11/26/23 08:30 Dose: 10 mg Acetaminophen (Ofirmev) 1,000 mg in 100 mls @ 400 mls/hr IV Q6H PRN PRN Reason: Pain, Severe (Pain Scale 7-10) Ketorolac Tromethamine (Ketorolac Tromethamine 30 Mg/Ml Vial) 30 mg IVPUSH Q6H PRN PRN Reason: Pain, Moderate(Pain Scale 4-6) Levetiracetam (Levetiracetam 500 Mg Tablet) 1,500 mg PO BID [facility] Lorazepam (Lorazepam 2 Mg/Ml Vial) 1 mg IVPUSH Q2H PRN PRN Reason: Seizures Last Admin: 11/26/23 13:05 Dose: 1 mg Magnesium Hydroxide (Milk Of Magnesia 30 Ml Oral.Susp) 30 ml PO DAILY PRN PRN Reason: Constipation Melatonin (Melatonin 3 Mg Tablet) 6 mg PO BEDTIME PRN PRN Reason: Insomnia Methadone HCl (Methadone Hcl 20 Mg/2 Ml Oral.Conc) 26 mg PO DAILY [facility] Last Admin: 11/26/23 08:30 Dose: 26 mg Ondansetron HCl (Ondansetron Hcl 4 Mg/2 Ml Vial) 4 mg IVPUSH Q8H PRN PRN Reason: Nausea and Vomiting Oxycodone HCl (Oxycodone Hcl Immed Release 5 Mg Tablet) 5 mg PO Q3H PRN PRN Reason: Pain, Severe (Pain Scale 7-10) Potassium Chloride (Potassium Chloride Er 20 Meq Tab.Er.Prt) 20 meq PO BID [facility] Last Admin: 11/26/23 08:30 Dose: 20 meq Quetiapine Fumarate (Quetiapine Fumarate 300 Mg Tablet) 300 mg PO BEDTIME [facility] Last Admin: 11/25/23 20:43 Dose: 300 mg Sodium Chloride (0.9 % Sodium Chloride Flush 3 Ml Syringe) 3 ml IVFLUSH QSHIFT [facility] Last Admin: 11/26/23 08:30 Dose: 3 ml Home Medications ?Medication ?Instructions ?Recorded ?Confirmed ?Last Taken ?Type fluoxetine 10 mg capsule 10 mg PO DAILY 11/25/23 11/25/23 Unknown History quetiapine 300 mg tablet 300 mg PO BEDTIME 11/25/23 11/25/23 11/24/23 History carbamazepine 300 mg 300 mg PO BID 11/26/23 11/26/23 Unknown History capsule,extended release [id number] levetiracetam 1,000 mg tablet 1,500 mg PO Q12H 11/26/23 11/26/23 Unknown History (Keppra) methadone 10 mg/mL oral 26 mg PO DAILY 11/26/23 11/26/23 11/10/23 History concentrate (Methadone Intensol) Physical Exam Vital Signs: Vital Signs: Last Vital Signs Temp 98.6 F 11/26/23 11:15 Pulse 92 11/26/23 11:15 Resp 18 11/26/23 11:15 BP 108/58 L 11/26/23 11:15 Pulse Ox 96 11/26/23 11:15 O2 Del Method Room Air 11/26/23 11:15 BMI result Body Mass Index 17.1 Neuro: Other: Slight left facial droop. Tongue is bitten. Non focal exam. Alert and oriented x 3. Slightly slow in responses. Results Labs 11/25/23 07:24 11/26/23 06:12 Labs: BMP 11/26/23 06:12 Sodium 142 Potassium 3.3 Chloride 115 H Carbon Dioxide 18 L BUN 6 L Creatinine 0.61 Calcium 8.4 Assessment and Plan (1) Breakthrough seizure: Status: Acute Recommend: Check Carbamazepine level. Adjust meds to Keppra 2gm bid and Carbamazepine 200mg 1.5 tabs bid (2) Seizure disorder: Status: Acute Procedures Date of Service Date of Service: 11/26/23
[2023-11-26 15:26] VITALS: BP 128/77; PULSE 80; RESP 18; TEMP 37.3; O2SAT 97
[2023-11-26 15:28] LABS: Amphetamine Screen Urine Not Detected (Not Detect); Barbiturates, Urine Not Detected (Not Detect); Benzodiazepines Screen Urine Not Detected (Not Detect); Buprenorphine Scr Not Detected (Not Detect); Cannabinoid Screen Urine POSITIVE (Not Detect); Cocaine Screen Urine Not Detected (Not Detect); Fentanyl, urine Not Detected (Not Detect); Methadone Screen, Urine Positive (Not Detect); Opiate Screen Urine Not Detected (Not Detect); Oxycodone Screen Urine Not Detected (Not Detect); Phencyclidine Screen Urine Not Detected (Not Detect)
--- NOTE | 2023-11-26 16:25 | HO.PM.IMPN ---
Subjective Subjective Date of Service: 11/26/23 Interval History: Breakthrough seizure Review of Systems no new seizures denies any chest pain or sob somewhat anxious Physical Exam Vital Signs: Vital Signs: Last Vital Signs Temp 99.2 F 11/26/23 15:26 Pulse 80 11/26/23 15:26 Resp 18 11/26/23 15:26 BP 128/77 11/26/23 15:26 Pulse Ox 97 11/26/23 15:26 O2 Del Method Room Air 11/26/23 15:26 BMI result Body Mass Index 17.1 General: awake ,aox3.. Resp: CTA bilaterally CVS: S1, S2, RRR GI: +BS, NT, no distention Skin: Warm, dry Neuro: Cranial nerves II-XII grossly intact bilaterally. Motor grossly intact bilaterally. Extremities: No edema Objective Data Active Medications Acetaminophen (Acetaminophen 325 Mg Tablet) 650 mg PO Q6H PRN PRN Reason: Pain, Mild (Pain Scale 1-3), fever or headache Last Admin: 11/25/23 20:43 Dose: 650 mg Documented By: MARLENA Benzonatate (Benzonatate 100 Mg Capsule) 100 mg PO TID PRN PRN Reason: Cough Calcium Carbonate (Calcium Carbonate 750 Mg Tab.Chew) 750 mg PO Q4H PRN PRN Reason: Heartburn Carbamazepine (Carbamazepine 200 Mg Tablet) 300 mg PO BID [facility] Last Admin: 11/26/23 09:37 Dose: 300 mg Documented By: ALEXANDRIA Enoxaparin Sodium (Enoxaparin Sodium 40 Mg/0.4 Ml Syringe) 40 mg SUBCUT Q24H [facility] Last Admin: 11/25/23 20:43 Dose: 40 mg Documented By: MARLENA Fluoxetine HCl (Fluoxetine Hcl 10 Mg Capsule) 10 mg PO DAILY [facility] Last Admin: 11/26/23 08:30 Dose: 10 mg Documented By: ALEXANDRIA Acetaminophen (Ofirmev) 1,000 mg in 100 mls @ 400 mls/hr IV Q6H PRN PRN Reason: Pain, Severe (Pain Scale 7-10) Ketorolac Tromethamine (Ketorolac Tromethamine 30 Mg/Ml Vial) 30 mg IVPUSH Q6H PRN PRN Reason: Pain, Moderate(Pain Scale 4-6) Levetiracetam (Levetiracetam 1,000 Mg Tablet) 2,000 mg PO BID [facility] Lorazepam (Lorazepam 2 Mg/Ml Vial) 1 mg IVPUSH Q2H PRN PRN Reason: Seizures Last Admin: 11/26/23 13:05 Dose: 1 mg Documented By: ALEXANDRIA Magnesium Hydroxide (Milk Of Magnesia 30 Ml Oral.Susp) 30 ml PO DAILY PRN PRN Reason: Constipation Melatonin (Melatonin 3 Mg Tablet) 6 mg PO BEDTIME PRN PRN Reason: Insomnia Methadone HCl (Methadone Hcl 20 Mg/2 Ml Oral.Conc) 26 mg PO DAILY [facility] Last Admin: 11/26/23 08:30 Dose: 26 mg Documented By: ALEXANDRIA Ondansetron HCl (Ondansetron Hcl 4 Mg/2 Ml Vial) 4 mg IVPUSH Q8H PRN PRN Reason: Nausea and Vomiting Oxycodone HCl (Oxycodone Hcl Immed Release 5 Mg Tablet) 5 mg PO Q3H PRN PRN Reason: Pain, Severe (Pain Scale 7-10) Potassium Chloride (Potassium Chloride Er 20 Meq Tab.Er.Prt) 20 meq PO BID [facility] Last Admin: 11/26/23 08:30 Dose: 20 meq Documented By: ALEXANDRIA Quetiapine Fumarate (Quetiapine Fumarate 300 Mg Tablet) 300 mg PO BEDTIME [facility] Last Admin: 11/25/23 20:43 Dose: 300 mg Documented By: MARLENA Sodium Chloride (0.9 % Sodium Chloride Flush 3 Ml Syringe) 3 ml IVFLUSH QSHIFT [facility] Last Admin: 11/26/23 15:29 Dose: 3 ml Documented By: FELICIAAA Labs 11/25/23 07:24 11/26/23 06:12 Labs: Laboratory Results - last 24 hr 11/26/23 11/26/23 11/26/23 06:12 15:01 15:15 Hold Purple Top SEE NOTE Anion Gap 12 Estim Creat Clear Calc 103.3 Estimated GFR > 60 Random Glucose 105 Calcium 8.4 Urine Opiates Screen Not Detected Ur Buprenorphine Scrn Not Detected Ur Oxycodone Screen Not Detected Urine Methadone Screen Positive H Urine Fentanyl Screen Not Detected Ur Barbiturates Screen Not Detected Carbamazepine 5.0 Ur Phencyclidine Scrn Not Detected Ur Amphetamines Screen Not Detected U Benzodiazepines Scrn Not Detected Urine Cocaine Screen Not Detected U Marijuana (THC) Screen POSITIVE H Assessment and Plan (1) Breakthrough seizure: Status: Acute Plan 28-year-old female with a PMH significant for?seizure disorder on Keppra, polysubstance use on methadone, depression, and bipolar disorder who presents to the ED after witnessed seizures at home. Pt will be admitted to the hospital for treatment and further evaluation of breakthrough seizures. Breakthrough seizures multiple witnessed tonic-clonic seizures this morning; last previous seizure was mild, 1 month ago Reports has been compliant with medication, in normal state of health Patient was initially started on Keppra 1.5 g IV b.i.d. then switched to 2g b.i.d. today, carbamazepine 300 mg p.o. b.i.d. Seizure precautions Monitor on telemetry Polysubstance use disorder Tox screen negative Continue methadone Mood disorder Continue home mood stabalizers Full Code DVT Prophylaxis: Lovenox Ongoing hospitalization need for treatment of?breakthrough seizures. Given that patient continues to be postictal and unable to tolerate p.o. medications, will require hospitalization for administration IV anticonvulsants, close monitoring for additional breakthrough seizures, and specialist consultation with Neurology likely medication adjustment. Quality Stroke Does the patient have a stroke diagnosis?: No VTE Prior VTE?: No VTE Risk Level:: Medical - moderate - high VTE Device Contraindication: Treatment Not Indicated VTE Drug Contraindication: N/A - Med Ordered
--- NOTE | 2023-11-26 16:28 | PC.NURSE ---
Assumed care at 1500. Patient not on tele monitor. Per Dr Son patient no longer needs tele. Awaiting order to be discontinued - MD aware.
[2023-11-26 20:00] VITALS: BP 135/85; PULSE 76; RESP 20; TEMP 36.8; O2SAT 94
[2023-11-26] MEDS: levETIRAcetam 1,000 MG TABLET 2000 MG PO (20:02)
[2023-11-26] MEDS: Enoxaparin Sodium 40 MG/0.4 ML SYRINGE SUBCUT (20:02)
[2023-11-26] MEDS: QUEtiapine Fumarate 300 MG TABLET PO (20:02)
[2023-11-26] MEDS: Nicotine 14 MG PATCH.TD24 TRANSDERMA (20:03)
[2023-11-26] MEDS: LORazepam 1 MG TABLET PO (21:01)
[2023-11-27] VITALS: BP 115/68; PULSE 74; RESP 16; TEMP 36.6; O2SAT 94
[2023-11-27 04:00] VITALS: BP 126/70; PULSE 80; RESP 16; TEMP 36.6; O2SAT 97
[2023-11-27 08:00] VITALS: BP 120/73; PULSE 90; RESP 18; TEMP 36.9; O2SAT 96
[2023-11-27] MEDS: 0.9 % Sodium Chloride Flush 3 ML SYRINGE IVFLUSH (08:38)
[2023-11-27] MEDS: Nicotine 14 MG PATCH.TD24 TRANSDERMA (08:38)
[2023-11-27] MEDS: levETIRAcetam 1,000 MG TABLET 2000 MG PO (08:39)
[2023-11-27] MEDS: carBAMazepine 200 MG TABLET 300 MG PO (08:39)
[2023-11-27] MEDS: Potassium Chloride ER 20 MEQ TAB.ER.PRT PO (08:39)
[2023-11-27] MEDS: FLUoxetine HCl 10 MG CAPSULE PO (08:39)
[2023-11-27] MEDS: methADONE HCl 20 MG/2 ML ORAL.CONC 26 MG PO (08:40)
--- NOTE | 2023-11-27 10:52 | PM.DS ---
DS: Providers Provider Date of Service: 11/27/23 Date of admission: 11/25/23 12:19 Date of discharge: 11/27/23 Primary care physician: Eliazar Case MD Consults: 11/25/23 12:32 Consult to Neurology Routine Consulting Provider: [facility] Reason for consultation: Multiple breakthrough seizures 11/26/23 13:06 Consult to Psychiatry Routine Consulting Provider: Psych Covering Reason for consultation: severe anxiety Has provider been notified: No Attending physician on discharge: Mónica Son Discharging clinician: Mónica Son DS: Diagnosis Discharge Diagnosis (1) Breakthrough seizure: Status: Acute DS: Summary Hospital Course Hospital Course: 28-year-old female with a PMH significant for?seizure disorder on Keppra, polysubstance use on methadone, depression, and bipolar disorder who presents to the ED after witnessed seizures at home. Patient is somnolent and postictal at time of interview and exam and unable to provide meaningful HPI, which is instead taken from family who was at bedside. Partner reports he noticed patient having a light seizure at 03:30. Normally she would be mildly postictal and they would immediately go to the ED for evaluation. This morning, however, pt got up and was moving around, did not want to go to the ED, took her Keppra and methadone, and then went back to sleep. At 06:00 patient experienced a worse seizure with full tonic-clonic movements, tongue bite, and head strike on the floor. Partner moved patient to the couch and called EMS; while waiting pt experienced another episode of seizure activity, and possibly another while in EMS care. In the ED patient had another witnessed seizure and was given Ativan 2mg IM. But patient's partner indicates she was in her normal state of health last night and has been compliant with her medications. No witnessed nausea or vomiting, but apparently was bleeding significantly from mouth. She apparently was complaining of headache earlier in the ED. Of note, patient was 1st diagnosed with seizure disorder in 04/21/2023, though had been experiencing symptoms for at least 1 year prior[address] with Dr. Leggett in Neurology. In the ED pt was tachycardic up to 132, tachypneic up to 24, but afebrile and normotensive. Labs were significant for mild leukocytosis of 11.6 and sodium 146, otherwise grossly unremarkable. Stable H&H. No other significant electrolyte abnormalities. Renal and hepatic function WNL. Troponin negative. UA negative for UTI. Tox screen positive methadone and marijuana, otherwise negative. CT?of head showed no acute intracranial pathology. EKG demonstrated sinus tachycardia of [address] elevations or depressions. Pt was treated with IVF, Ativan 2 mg IM in 1 mg IV, Keppra 1500 mg IV. Pt will be admitted to the hospital for treatment and further evaluation of breakthrough seizures. Hospital course: Patient was admitted for breakthrough seizures: Received IV Ativan, Keppra in emergency room, in addition head CT, chest x-ray was done which is negative. Mild hyponatremia seems to be resolved with hydration. Patient seen by Neurology:Adjusted meds to Keppra 2gm bid and Carbamazepine 200mg 1.5 tabs bid. Patient is afterwards did not had seizure overnight, feeling much better going home with above medications. plan: Keppra 2gm bid and Carbamazepine 200mg 1.5 tabs bid. avoid driving ,swimming Above management discussed with the patient in detail length he and she understand in agreement with the above plan, time spent 40 minute. Time Attestation Total time managing care of this patient today: 40 mintues. Discharge Coordination Time (in mins): 40 min Quality: Safe Use of Opioids Does Pt have an Active Cancer Diagnosis on the Problem List?: No Quality: Stroke Does the patient have a stroke diagnosis?: No Physical Exam Vital Signs: Vital Signs: Last Vital Signs Temp 98.5 F 11/27/23 08:00 Pulse 90 11/27/23 08:00 Resp 18 11/27/23 08:00 BP 120/73 11/27/23 08:00 Pulse Ox 96 11/27/23 08:00 O2 Del Method Room Air 11/27/23 08:00 BMI result Body Mass Index 17.1 General: awake ,aox3. Resp: CTA bilaterally CVS: S1, S2, RRR GI: +BS, NT, no distention Skin: Warm, dry Neuro: Cranial nerves II-XII grossly intact bilaterally. Motor grossly intact bilaterally. Extremities: No edema DS: Data Data Completed and Pending Labs on day of discharge: Laboratory Results - last 24 hr 11/26/23 11/26/23 15:01 15:15 Urine Opiates Screen Not Detected Ur Buprenorphine Scrn Not Detected Ur Oxycodone Screen Not Detected Urine Methadone Screen Positive H Urine Fentanyl Screen Not Detected Ur Barbiturates Screen Not Detected Carbamazepine 5.0 Ur Phencyclidine Scrn Not Detected Ur Amphetamines Screen Not Detected U Benzodiazepines Scrn Not Detected Urine Cocaine Screen Not Detected U Marijuana (THC) Screen POSITIVE H Discharge Plan Discharge Anticipated Discharge Date/Time: 11/27/23 10:33 Patient Disposition: Home, Self-Care Discharge Diagnosis: Breakthrough seizure Referrals: Po,Eliazar Denton MD [Primary Care Provider] - 1 Week Discharge Medications: New levetiracetam 1,000 mg Tablet 2,000 mg PO BID Qty: 120 0RF Continued ondansetron 4 mg tablet,disintegrating 4 mg PO Q6H PRN (Reason: nausea and vomiting) Qty: 14 0RF quetiapine 300 mg tablet 300 mg PO BEDTIME fluoxetine 10 mg capsule 10 mg PO DAILY methadone [Methadone Intensol] 10 mg/mL Concentrate 26 mg PO DAILY Rx Instructions: pt last dosed at clinic 11/09 with #27 take home bottles carbamazepine 300 mg Capsule, Er Multiphase 12 Hr 300 mg PO BID Discontinued levetiracetam [Keppra] 1,000 mg Tablet 1,500 mg PO Q12H Discharge Orders: Discharge Order (Routine); Ordered 11/27/23 Ordered By: Mónica Son Diet: Advance to usual diet Activity on Discharge: As tolerated Stand Alone Forms: Patient Portal Discharge page Print Language: Cymro Care Plan Goals: Patient was admitted for breakthrough seizures: Received IV Ativan, Keppra in emergency room, in addition head CT, chest x-ray was done which is negative. Mild hyponatremia seems to be resolved with hydration. Patient seen by Neurology:Adjust meds to Keppra 2gm bid and Carbamazepine 200mg 1.5 tabs bid. Patient is afterwards did not had seizure overnight, feeling much better going home with above medications. Above management discussed with the patient in detail length he and she understand in agreement with the above plan, time spent 40 minute. Health Concerns: As above. Plan of Treatment: As above. Assessment: As above.
--- NOTE | 2023-11-27 12:03 | MHC.CM.PN ---
PT TO DC HOME WITH HER FIANCE TODAY VIA PRIVATE TRANSPORT
[2023-11-29 19:39] LABS: Levetiracetam Keppra 18.5 mcg/mL (6.0-46.0)
== END 2023-11-27 11:33 | disposition home or self-care (01) | DRG 53 ==
LOC: HO.ED 07:36 → HO.EDOVER 12:49 → HO.IMC 16:49
PROVIDERS: Physician Assistant; Admitting Provider Student in an Organized Health Care Education/Training Program; Emergency Provider Emergency Medicine; PCP Internal Medicine; Visit Provider Internal Medicine
DX: G40.919 Epilepsy, unspecified, intractable, without status epilepticus (principal); E87.1 Hypo-osmolality and hyponatremia; F11.20 Opioid dependence, uncomplicated; F19.90 Other psychoactive substance use, unspecified, uncomplicated; F31.9 Bipolar disorder, unspecified; Z87.891 Personal history of nicotine dependence; Z79.899 Other long term (current) drug therapy
CPT/HCPCS: 36415; 70450; 71045; 80048; 80053; 80156; 80177; 80307; 81003; 82550; 84484; 84702; 85025; 93005; 99285; J1650; J1885; J1953; J2060; J7120

== ENCOUNTER → 2023-11-25 09:55 | Outpatient (BNV) | payer OTHER, SELFPAY | PROVIDERS: Admitting Provider Student in an Organized Health Care Education/Training Program; Emergency Provider Emergency Medicine; Visit Provider Internal Medicine | DX: R94.31 Abnormal electrocardiogram [ECG] [EKG] (principal) | CPT/HCPCS: 93010 ==

== ENCOUNTER → 2023-11-25 12:19 | Outpatient (BNV) | payer OTHER, SELFPAY | PROVIDERS: Admitting Provider Student in an Organized Health Care Education/Training Program; Emergency Provider Emergency Medicine; PCP Internal Medicine; Visit Provider Psychiatry & Neurology Neurology | DX: G40.919 Epilepsy, unspecified, intractable, without status epilepticus (principal) | CPT/HCPCS: 99222 ==

== ENCOUNTER → 2023-11-25 12:19 | Outpatient (BNV) | payer OTHER, SELFPAY | PROVIDERS: Admitting Provider Student in an Organized Health Care Education/Training Program; Emergency Provider Emergency Medicine; Visit Provider Student in an Organized Health Care Education/Training Program | DX: G40.919 Epilepsy, unspecified, intractable, without status epilepticus (principal) | CPT/HCPCS: 99223; 99231; 99239; 99499 ==

== ENCOUNTER 2023-12-28 07:59 | Outpatient (AMB) | payer OTHER, SELFPAY ==
[2023-12-28 08:09] VITALS: BP 110/70; PULSE 73; O2SAT 97; BMI 17.9
--- NOTE | 2023-12-28 08:09 | A.OFFPC_ITS ---
Vital Signs 12/28/23 08:09 Height 5 ft 6 in Weight 111 lb BMI 17.9 BP 110/70 Blood Pressure Location Lt brachial Position Sitting Pulse 73 Pulse Source Pulse Oximeter Pulse Oximetry (%) 97 Oxygen Delivery Method Room Air Intake Visit Reasons: Follow up on seizures Allergies alprazolam Allergy (Unknown, Verified 12/28/23 08:09) I dont like taking it per patient azithromycin [From ZITHROMAX] Adverse Reaction (Unknown, Verified 12/28/23 08:09) VOMITING/DIARRHEA Zithromax Adverse Reaction (Mild, Uncoded 12/28/23 08:09) vomiting Medication List - Last Reconciled 12/28/23 by Estephania Haji PA-C carbamazepine ER 300 mg PO BID fluoxetine 10 mg PO DAILY levetiracetam 2,000 mg (2 x 1,000 mg) PO BID methadone (Methadone Intensol) 26 mg PO DAILY nicotine 14 mg transdermal DAILY ondansetron 4 mg PO Q6H PRN quetiapine 300 mg PO BEDTIME Tobacco use date assessed: 08/12/23 Dental Screening Dental Screen Date: 08/12/23 HPI Follow up on seizures HPI Details 28-year-old female with a history of sei zure disorder bipolar disorder polysubstance abuse hepatitis-C last seen by Dr. Case 08/2023 coming in for follow up.? In review of the notes, patient was seen in [facility] ED 11/25/2023 after a witnessed seizure in the ED patient had witnessed seizure and was given 2 mg Ativan and was admitted for further monitoring.?Seen by Neurology and adjusted Keppra to 2 g b.i.d. and carbamazepine 200 mg b.i.d..? Patient had no further seizures and was discharged home. Since discharge from the hospital patient has seen Neurology 12/08/2023 and had repeat EEG which showed movement disorder and is scheduled for a follow up along with repeat brain MRI in June 2024. Since May patient has been having issues with rapid weight loss, hot flashes, memory issues along with multiple joint pain. She has been evaluated several times and still does not have diagnosis. She also mentioned she occasionally will have a rash on the bridge of her nose and cheeks that comes and goes. [facility] Medical History Biliary dyskinesia Right sided abdominal pain Pre-employment examination Left otitis media Cocaine-induced mood disorder with manic symptoms Herpes genitalis Ureterolithiasis Peptic ulcer disease Anemia Contraceptive management IV drug user Hepatitis C Surgical History Status post laparoscopic cholecystectomy Hx of cholecystectomy H/O myringotomy H/O sinus surgery Hx of tonsillectomy Family History Other Mental health disorder Substance use disorder Social History Housing: Assisted Living Facility Housing Other:: treatment Do you presently have visiting nurse or other home services: No Alcohol intake: never Patient Tobacco Use Status: Former Tobacco user Tobacco use type: Cigarette Cigarettes Per Day: 3 Years Smoked: vape (08/2023) e-Cigarette/Vaping Use: Currently Using Second Hand Smoke Exposure: Yes Substance Use Type: Marijuana service: No Current occupational status: unemployed Cognitive needs: No Hearing needs: No Vision needs: No Questionnaire PHQ-9 Over the last 2 weeks, how often have you been bothered by any of the following problems? 1. Little interest or pleasure in doing things: not at all 2. Feeling down, depressed, or hopeless: not at all 3. Trouble falling or staying asleep, or sleeping too much: not at all 4. Feeling tired or having little energy: not at all 5. Poor appetite or overeating: not at all 6. Feeling bad about yourself - or that you are a failure or have let yourself or your family down: not at all 7. Trouble concentrating on things, such as reading the newspaper or watching television: not at all 8. Moving or speaking so slowly that other people could have noticed. Or the opposite - being so fidgety or restless that you have been moving around a lot more than usual: not at all 9. Thoughts that you would be better off or of hurting yourself in some way: not at all Total score: 0 Depression Screening Interpretation: Negative Depression Screening Done: Yes Source: Developed by Drs. Tom Posey, Arlette Taylor, Alberto Anaya and colleagues, with an educational vinay from [employer]. Thrive Questionnaire Date Thrive assessed: 11/26/23 AUDIT C Alcohol Use Questionnaire (AUDIT-C) 1. How often do you have a drink containing alcohol?: Never 3. How often do you have six or more drinks on one occasion?: Never Total Score: 0 KM-7 AMB Questionnaire KM-7 Date KM - 7 assessed: 12/28/23 Feeling nervous, anxious, or on edge: 2 = More than half the days Not being able to stop or control worryin = More than half the days Worrying too much about different things: 2 = More than half the days Trouble relaxin = More than half the days Being so restless that it is hard to sit still: 2 = More than half the days Becoming easily annoyed or irritable: 2 = More than half the days Feeling afraid as if something awful might happen: 2 = More than half the days Total KM-7 score (0-4 normal; 5-9 mild; 10-14 moderate; 15-21 severe): 14 Source: Developed by Drs. Tom Posey, Arlette Taylor, Alberto Anaya and colleagues, with an educational vinay from [employer]. Review of Systems Const Denies body aches, Denies chills, Reports fatigue, Denies fever(s), Reports headache(s) (Occasional), Reports night sweats (Occasional hot flashes), Denies poor appetite and Reports weight loss Eyes Reports no additional complaints ENT Denies dysphagia, Denies dizziness, Reports headache(s) (Occasional) and Denies odynophagia Card Denies chest pain, Denies syncope, Denies edema, Denies irregular heart rhythm, Denies lightheadedness and Denies dyspnea Resp Denies cough and Denies dyspnea GI Denies abdominal pain, Denies constipation, Denies dysphagia, Reports diarrhea (S/p cholecystectomy), Denies nausea, Denies odynophagia and Denies vomiting Reports no additional complaints Musc Details: Hip, knee, foot joint pain Denies abnormal gait Skin/Breast Details: Brittle hair and nails Reports as per HPI Neuro Denies abnormal gait, Denies dizziness, Denies syncope, Reports headache(s) (Occasional) and Reports restless legs Psych Reports no additional complaints Endo Reports fatigue Physical exam (Primary Care) Vital Signs: Last Vital Signs Pulse 73 12/28/23 08:09 BP 110/70 12/28/23 08:09 Pulse Ox 97 12/28/23 08:09 Oxygen Delivery Method Room Air 12/28/23 08:09 BMI result Body Mass Index 17.9 BMI Assessment/Plan discussion: Low BMI Low, Plan discussed: increase calorie intake and dietary Tobacco/Smoking Status: Tobacco use Status Tobacco use date assessed 08/12/23 12/28/23 08:15 Patient Tobacco Use Status Former Tobacco user 12/28/23 08:15 Tobacco use type Cigarette 12/28/23 08:15 e-Cigarette/Vaping Use Currently Using 12/28/23 08:15 PHQ-9: PHQ-9 Score PHQ-9: Total score 0 12/28/23 08:20 Depression Screening Interpretation: Negative Thrive Assessment: Date of Thrive Assessment Date Thrive assessed 11/26/23 12/28/23 08:15 Const General: cooperative, healthy appearing, comfortable and no acute distress Orientation/consciousness: patient oriented x3 HENMT Head: Yes normocephalic Ears: hearing grossly normal bilaterally General nose exam: Normal external nose present Eyes General: appearance normal, both eyes and all related structures Conjunctivae: conjunctivae normal Neck Neck: Yes full ROM and Yes no lymphadenopathy Resp Effort & Inspection: normal respiratory effort Auscultation: clear to auscultation bilaterally, no crackles, no rales, no rhonchi and no wheezes Cardio Rate: regular rate Rhythm: regular rhythm Skin General skin exam: no rashes or lesions noted Neuro General: patient oriented x3 Gait exam (Neuro): Normal gait present Extrem General: Yes normal to inspection, Yes full ROM and No edema Psych Affect: normal affect Attitude: cooperative Insight: Good insight present (Psych) Judgement: Good judgement present (Psych) Assessment and Plan Assessment & Plan (1) Seizure disorder: Comment: Tonic-clonic April 2023 Code(s): G40.909 - Epilepsy, unspecified, not intractable, without status epilepticus Plan: Patient had breakthrough seizure November 2023 with med adjustment from Neurology. Continue to follow up with Neurology continue on Keppra and carbamazepine. (2) Weight loss: Code(s): R63.4 - Abnormal weight loss Plan: Patient has been having steady weight loss since May along with other symptoms such as brittle hair and nails, hot flashes, generalized joint pains, and occasional mouth or rash. Blood work is within normal limits and has been consistent. We will order for autoimmune panel for further evaluation and follow up at next appointment or sooner pending blood work results. (3) Leg cramps: Code(s): R25.2 - Cramp and spasm Plan: Initially thought to have been caused by low potassium which has normalized. Electrolytes are within normal limits. Advised patient to increase water intake and exercise and may try magnesium. Plan This note was constructed using voice recognition software. While every effort has been made to ensure accuracy and environmental field team member, still areas may have been included sometimes these areas may affect the content or meeting of the given symptoms. Total time spent caring for the patient today was 25 minutes. This includes time spent before the visit reviewing the chart, time spent during the visit, and time spent after the visit and documentation. Orders: Orders Rheumatoid Factor Today M25.50 - Pain in unspecified joint TSH reflex Free T4 Today Z00.00 - Encounter for general adult medical examination without abnormal findings Vitamin D 25-OH (D2 and D3) Today Z00.00 - Encounter for general adult medical examination without abnormal findings Erythrocyte Sedimentation Rate Today M25.50 - Pain in unspecified joint, R63.4 - Abnormal weight loss GERMAINE Reflex Titer and Pattern Today R63.4 - Abnormal weight loss Free T4 (Free Thyroxine) Today Z00.00 - Encounter for general adult medical examination without abnormal findings Magnesium Today R25.2 - Cramp and spasm C Reactive Protein Today M25.50 - Pain in unspecified joint Coding Level of Care Code Est Pt Level 4 (52323) Diagnoses Seizure disorder G40.909 Weight loss R63.4 Leg cramps R25.2 Additional Codes PHQ-9 - 41852 - PHQ-9 Billing: ([id number])
== END 2023-12-28 08:48 | disposition home or self-care (01) ==
PROVIDERS: PCP Internal Medicine
DX: G40.909 Epilepsy, unspecified, not intractable, without status epilepticus (principal); R63.4 Abnormal weight loss; R25.2 Cramp and spasm
CPT/HCPCS: 99214

== ENCOUNTER 2023-12-28 08:45 | Outpatient (REF) | payer OTHER, SELFPAY ==
[2023-12-28 10:33] LABS: Anion Gap 11 (12-20); Blood Urea Nitrogen 10 mg/dL (9-16); C Reactive Protein 0.36 mg/dL (< or = 0.50); Calcium 9.2 mg/dL (8.4-10.2); Carbon Dioxide 25 mmol/L (22-29); Chloride 107 mmol/L (96-108); Estimated Glomerular Filt Rate > 60; Glucose Random 117 mg/dL (60-115); Magnesium 2.1 mg/dL (1.6-2.6); Potassium 3.7 mmol/L (3.3-5.1); Sodium 139 mmol/L (135-145)
[2023-12-28 10:41] LABS: Rheumatoid Factor < 13.0 IU/mL (<15.0)
[2023-12-28 10:43] LABS: Erythrocyte Sedimentation Rate 8 MM/HR (0-20)
[2023-12-28 10:59] LABS: Free T4 (Free Thyroxine) 0.71 ng/dL (0.71-1.85); TSH reflex Free T4 1.46 uIU/mL (0.32-4.0)
[2023-12-29 12:19] LABS: HCV Log PCR <1.18 NOT DETECTED Log IU/mL (NOT DETECTED); HepC Viral Load <15 NOT DETECTED IU/mL (NOT DETECTED)
[2024-01-01 14:58] LABS: Hepatitis C Genotype Not Detected
[2024-01-01 17:23] LABS: Vitamin D 25-OH, D2 <4 ng/mL; Vitamin D 25-OH, D3 24 ng/mL; Vitamin D 25-OH, Total 24 ng/mL (30-100)
[2024-01-03 11:18] LABS: Anti Nuclear Antibody Screen NEGATIVE (NEGATIVE)
== END 2023-12-28 08:46 | disposition home or self-care (01) ==
LOC: HO.LAB 08:45
PROVIDERS: PCP Internal Medicine
DX: Z00.00 Encounter for general adult medical examination without abnormal findings (principal); R63.4 Abnormal weight loss; E87.6 Hypokalemia; B19.20 Unspecified viral hepatitis C without hepatic coma; M25.50 Pain in unspecified joint; R25.2 Cramp and spasm
CPT/HCPCS: 36415; 80048; 82306; 83735; 84439; 84443; 85652; 86038; 86140; 86431; 87522; 87902

== ENCOUNTER 2024-03-09 13:33 | Outpatient (AMB) | payer OTHER, SELFPAY ==
[2024-03-09 13:36] VITALS: BP 92/58; PULSE 73; O2SAT 98; BMI 17.6
--- NOTE | 2024-03-09 13:36 | MHC.PC.OV ---
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: No Allergies alprazolam Allergy (Unknown, Verified 03/09/24 13:36) I dont like taking it per patient azithromycin [From ZITHROMAX] Adverse Reaction (Unknown, Verified 03/09/24 13:36) VOMITING/DIARRHEA Zithromax Adverse Reaction (Mild, Uncoded 03/09/24 13:36) vomiting Medication List - Last Reconciled 03/09/24 by Estephania Haji PA-C carbamazepine ER 300 mg PO BID fluoxetine 10 mg PO DAILY levetiracetam 2,000 mg (2 x 1,000 mg) PO BID methadone (Methadone Intensol) 26 mg PO DAILY nicotine 14 mg transdermal DAILY ondansetron 4 mg PO Q6H PRN polymyxin B sulf-trimethoprim 10,000 unit- 1 mg/mL 1 drp ophthalmic (eye) QID 5 days quetiapine 300 mg PO BEDTIME Tobacco use date assessed: 08/12/23 Dental Screening Dental Screen Date: 08/12/23 HPI hypokalemia HPI Details 28-year-old female with past medical history of seizure disorder, bipolar disorder, polysubstance abuse, hepatitis-C last seen December 2023 coming in for follow up. In review of the notes, patient was seen by Neurology 12/08/2023 advised to continue on current medication regimen and follow up in 2 months Patient states she is doing well on her current medications denies any side effects. She continues to have fatigue, brittle nails, hair thinning, and nighttime leg cramps that are intermittent and no identifiable trigger. Symptoms have been pretty much consistent since her last office visit. [facility] Medical History Biliary dyskinesia Right sided abdominal pain Pre-employment examination Left otitis media Cocaine-induced mood disorder with manic symptoms Herpes genitalis Ureterolithiasis Peptic ulcer disease Anemia Contraceptive management IV drug user Hepatitis C Surgical History Status post laparoscopic cholecystectomy Hx of cholecystectomy H/O myringotomy H/O sinus surgery Hx of tonsillectomy Family History Other Mental health disorder Substance use disorder Social History Housing: Assisted Living Facility Housing Other:: treatment Do you presently have visiting nurse or other home services: No Alcohol intake: never Patient Tobacco Use Status: Former Tobacco user Tobacco use type: Cigarette Cigarettes Per Day: 3 Years Smoked: vape (08/2023) e-Cigarette/Vaping Use: Currently Using Second Hand Smoke Exposure: Yes Substance Use Type: Marijuana service: No Current occupational status: unemployed Cognitive needs: No Hearing needs: No Vision needs: No Questionnaire Thrive Questionnaire Date Thrive assessed: 11/26/23 AUDIT C Alcohol Use Questionnaire (AUDIT-C) 1. How often do you have a drink containing alcohol?: Never 3. How often do you have six or more drinks on one occasion?: Never Total Score: 0 KM-7 AMB Questionnaire KM-7 Date KM - 7 assessed: 12/28/23 Source: Developed by Drs. Tom Posey, Arlette Taylor, Alberto Anaya and colleagues, with an educational vinay from [employer]. Review of Systems Const Denies body aches, Denies chills, Reports fatigue, Denies fever(s), Reports weakness and Reports weight loss Eyes Reports no additional complaints ENT Reports no additional complaints Card Denies chest pain, Denies leg edema, Denies lightheadedness and Denies dyspnea Resp Denies dyspnea GI Reports no additional complaints Reports no additional complaints Musc Details: Generalized joint pain Skin/Breast Reports system reviewed and no additional complaints, except as documented Neuro Reports weakness Endo Reports fatigue Physical exam (Primary Care) Vital Signs: Last Vital Signs Pulse 73 03/09/24 13:36 BP 92/58 L 03/09/24 13:36 Pulse Ox 98 03/09/24 13:36 Oxygen Delivery Method Room Air 03/09/24 13:36 BMI result Body Mass Index 17.6 Tobacco/Smoking Status: Tobacco use Status Tobacco use date assessed 08/12/23 03/09/24 13:36 Patient Tobacco Use Status Former Tobacco user 03/09/24 13:36 Tobacco use type Cigarette 03/09/24 13:36 e-Cigarette/Vaping Use Currently Using 03/09/24 13:36 Thrive Assessment: Date of Thrive Assessment Date Thrive assessed 11/26/23 03/09/24 13:36 Const General: cooperative, healthy appearing, comfortable and no acute distress Orientation/consciousness: patient oriented x3 HENMT Head: Yes normocephalic Ears: hearing grossly normal bilaterally General nose exam: Normal external nose present Eyes General: appearance normal, both eyes and all related structures Conjunctivae: conjunctivae normal Neck Neck: Yes full ROM and Yes no lymphadenopathy Resp Effort & Inspection: normal respiratory effort Auscultation: clear to auscultation bilaterally, no crackles, no rales, no rhonchi and no wheezes Cardio Rate: regular rate Rhythm: regular rhythm Skin General skin exam: no rashes or lesions noted Neuro General: patient oriented x3 Gait exam (Neuro): Normal gait present Extrem General: Yes normal to inspection, Yes full ROM and No edema Psych Affect: normal affect Attitude: cooperative Insight: Good insight present (Psych) Judgement: Good judgement present (Psych) Coding Level of Care Code Est Pt Level 3 (23426) Diagnoses Brittle hair L67.8 Leg cramps R25.2 Joint pain M25.50 Seizure disorder G40.909 Assessment & Plan Assessment & Plan (1) Brittle hair: Code(s): L67.8 - Other hair color and hair shaft abnormalities Category: Medical Plan: Initial blood work was within normal limits no evidence of autoimmune condition or other electrolyte abnormalities. Ordered for iron panel for further evaluation. Patient states she has very heavy menses and iron supplement was sent to pharmacy possible iron-deficiency anemia. (2) Leg cramps: Code(s): R25.2 - Cramp and spasm Category: Medical Plan: Advised patient to use magnesium at nighttime to help with leg cramping and constipation with the iron supplement. Patient states the cramping does not feel like restless legs but rather has actual leg pain. Ordered for muscle relaxer for severe nighttime pain. (3) Joint pain: Code(s): M25.50 - Pain in unspecified joint Category: Medical Plan: Initial workup with autoimmune panel, electrolytes, routine blood work all within normal limits. Patient states her symptoms began after moving into her apartment last year. Ordered for iron panel as well as lead level to evaluate possible toxicity. (4) Seizure disorder: Comment: Tonic-clonic April 2023 Code(s): G40.909 - Epilepsy, unspecified, not intractable, without status epilepticus Category: Medical Plan: Continue to follow up with Neurology. Continue on current medication regimen Plan This note was constructed using voice recognition software. While every effort has been made to ensure accuracy and control center operator, still areas may have been included sometimes these areas may affect the content or meeting of the given symptoms. Total time spent caring for the patient today was 20 minutes. This includes time spent before the visit reviewing the chart, time spent during the visit, and time spent after the visit and documentation. Orders: Orders IRON PROFILE Today L67.8 - Other hair color and hair shaft abnormalities, R25.2 - Cramp and spasm Venous Lead Today L67.8 - Other hair color and hair shaft abnormalities, R25.2 - Cramp and spasm Medications: New magnesium oxide 400 mg PO DAILY 90 tabs 1RF cyclobenzaprine 5 mg PO BEDTIME PRN 20 tabs 1RF muscle spasm ferrous sulfate (FeroSul) 325 mg PO DAILY 90 tabs 2RF
== END 2024-03-09 14:26 | disposition home or self-care (01) ==
LOC: HO.HMCH 13:33
PROVIDERS: PCP Internal Medicine
DX: L67.8 Other hair color and hair shaft abnormalities (principal); R25.2 Cramp and spasm; M25.50 Pain in unspecified joint; G40.909 Epilepsy, unspecified, not intractable, without status epilepticus

== ENCOUNTER → 2024-03-09 13:33 | Outpatient (BNVA) | payer OTHER, SELFPAY | PROVIDERS: PCP Internal Medicine | DX: L67.8 Other hair color and hair shaft abnormalities (principal); R25.2 Cramp and spasm; M25.50 Pain in unspecified joint; G40.909 Epilepsy, unspecified, not intractable, without status epilepticus | CPT/HCPCS: 99212 ==

== ENCOUNTER 2024-06-24 09:19 | Outpatient (REF) | payer OTHER, SELFPAY ==
[2024-06-24 12:56] LABS: Influenza A PCR NEGATIVE (Negative); Influenza B PCR NEGATIVE (Negative); Resp Syncy Virus RNA Qual PCR NEGATIVE (Negative); SARS COV2 PCR INHOUSE NEGATIVE (Negative)
== END 2024-06-24 09:20 | disposition home or self-care (01) ==
LOC: HO.LNP 09:19
PROVIDERS: PCP Internal Medicine; Visit Provider Physician Assistant Medical
DX: J02.9 Acute pharyngitis, unspecified (principal); J06.9 Acute upper respiratory infection, unspecified
CPT/HCPCS: 0241U; 87880; 99212

== ENCOUNTER 2024-06-24 09:19 | Outpatient (AMB) | payer OTHER, SELFPAY ==
[2024-06-24 09:24] VITALS: BP 100/70; PULSE 92; RESP 15; TEMP 37.1; O2SAT 96; BMI 16.0
--- NOTE | 2024-06-24 09:24 | AM.OFFWIN_ITS ---
Intake Vital Signs 06/24/24 09:24 Height 5 ft 6 in Weight 99 lb 4 oz BMI 16.0 BP 100/70 Blood Pressure Location Rt brachial Position Sitting Respiration 15 Pulse 92 Pulse Source Pulse Oximeter Temp 98.7 F Temp Source Oral Pulse Oximetry (%) 96 Oxygen Delivery Method Room Air Intake Visit Reasons: EP-Sore throat, fever Intake Note: Pt is here today c/o sore throat and fever Patient Tobacco Use Status: Former Tobacco user Allergies alprazolam Allergy (Unknown, Verified 06/24/24 09:29) I dont like taking it per patient azithromycin [From ZITHROMAX] Adverse Reaction (Unknown, Verified 06/24/24 09:2 9) VOMITING/DIARRHEA Zithromax Adverse Reaction (Mild, Uncoded 06/24/24 09:29) vomiting HPI EP-Sore throat, fever HPI Details Pt is here today c/o sore throat and fever PFSH Medical History Biliary dyskinesia Right sided abdominal pain Pre-employment examination Left otitis media Cocaine-induced mood disorder with manic symptoms Herpes genitalis Ureterolithiasis Peptic ulcer disease Anemia Contraceptive management IV drug user Hepatitis C Surgical History Status post laparoscopic cholecystectomy Hx of cholecystectomy H/O myringotomy H/O sinus surgery Hx of tonsillectomy Family History Other Mental health disorder Substance use disorder Social History Housing: Assisted Living Facility Housing Other:: treatment Do you presently have visiting nurse or other home services: No Alcohol intake: never Patient Tobacco Use Status: Former Tobacco user Tobacco use type: Cigarette Cigarettes Per Day: 3 Years Smoked: vape (08/2023) e-Cigarette/Vaping Use: Currently Using Second Hand Smoke Exposure: Yes Substance Use Type: Marijuana service: No Current occupational status: unemployed Cognitive needs: No Hearing needs: No Vision needs: No Review of Systems Const All systems reviewed & are unremarkable except as noted in HPI and below Physical Exam Vital Signs: Last Vital Signs Temp 98.7 F 06/24/24 09:24 Pulse 92 06/24/24 09:24 Resp 15 06/24/24 09:24 BP 100/70 06/24/24 09:24 Pulse Ox 96 06/24/24 09:24 Oxygen Delivery Method Room Air 06/24/24 09:24 BMI result Body Mass Index 16.0 Results AMB Rapid Strep AMB Rapid Strep Negative Last Edit by Francesca Garcia CMA on 06/24/24 09:40 Results Reviewed Results Reviewed: Laboratory Last Values Strep Scn [facility] Negative 06/24/24 09:38 Assessment & Plan Assessment & Plan Orders: Orders AMB Rapid Strep Screen Today Z13.9 - Encounter for screening, unspecified SARS-CoV2/FLU/RSV Today J06.9 - Acute upper respiratory infection, unspecified Medications: New amoxicillin-pot clavulanate 875-125 mg 1 tab PO BID 14 tabs 0RF Coding Level of Care Code Est Pt Level 4 (20252)
== END 2024-06-24 10:02 | disposition home or self-care (01) ==
LOC: HO.HMCWIC 09:19
PROVIDERS: PCP Internal Medicine; Visit Provider Physician Assistant Medical
DX: Z13.9 Encounter for screening, unspecified (principal)

== ENCOUNTER 2024-07-26 06:09 | Emergency (ER) | payer OTHER, SELFPAY ==
[2024-07-26 06:15] VITALS: BP 160/80; PULSE 100; O2SAT 100
[2024-07-26 06:17] VITALS: BP 115/69; PULSE 94; RESP 18; TEMP 36.7; O2SAT 96; BMI 18.6
--- NOTE | 2024-07-26 06:32 | ED.GENADULT ---
HPI - General Adult General Chief complaint: Seizure Stated complaint: HAD SEIZURE Time Seen by Provider: 07/26/24 06:29 Source: patient, EMS, RN notes reviewed and old records reviewed Mode of arrival: EMS Limitations: no limitations History of Present Illness ED Provider: Bj HPI narrative: Patient is a 29-year-old female with history of seizure disorder, hepatitis c, bipolar disorder, polysubstance use on methadone presenting to the emergency department after seizure. States seizure was witnessed by her boyfriend, was on the couch at the time. She is unsure if she fell or had a head strike, notes a small abrasion to her left thumb. Feel she did not bite her tongue. She is currently on Keppra and Tegretol, reports her medications were adjusted around 1 month ago after having several seizures. Reports she continues to have breakthrough seizures. Complains of headache, denies any other pain or complaints. States she has been taking her medications as prescribed without any missed doses. MD complaint: seizure Related Data Home Medications ?Medication ?Instructions ?Recorded ?Confirmed fluoxetine 10 mg capsule 10 mg PO DAILY 11/25/23 03/09/24 quetiapine 300 mg tablet 300 mg PO BEDTIME 11/25/23 03/09/24 carbamazepine 300 mg 300 mg PO BID 11/26/23 03/09/24 capsule,extended release [id number] methadone 10 mg/mL oral 26 mg PO DAILY 11/26/23 03/09/24 concentrate (Methadone Intensol) Previous Rx's ?Medication ?Instructions ?Recorded ondansetron 4 mg disintegrating 4 mg PO Q6H PRN nausea and 11/15/23 tablet vomiting #14 tabs levetiracetam 1,000 mg tablet 2,000 mg (2 x 1,000 mg) PO BID 11/27/23 #120 tabs ferrous sulfate 325 mg (65 mg 325 mg PO DAILY #90 tabs 03/09/24 iron) tablet (FeroSul) magnesium oxide 400 mg PO DAILY #90 tabs 03/09/24 amoxicillin 875 mg-potassium 1 tab PO BID #14 tabs 06/24/24 clavulanate 125 mg tablet cyclobenzaprine 5 mg tablet 5 mg PO BEDTIME PRN for muscle 06/26/24 spasm #20 tabs Allergies Allergy/AdvReac Type Severity Reaction Status Date / Time alprazolam Allergy Unknown I dont Verified 07/26/24 06:19 like taking it per patient azithromycin [From ZITHROMAX] AdvReac Unknown VOMITING/DI Verified 07/26/24 06:19 ARRHEA Zithromax AdvReac Mild vomiting Uncoded 06/24/24 09:29 Review of Systems Review of Systems: As per HPI Yes all other systems are reviewed and are negative Constitutional: Constitutional: Reports as per HPI [facility] Past Medical History Medical History Biliary dyskinesia Right sided abdominal pain Pre-employment examination Left otitis media Cocaine-induced mood disorder with manic symptoms Herpes genitalis Ureterolithiasis Peptic ulcer disease Anemia Contraceptive management IV drug user Hepatitis C Surgical History Status post laparoscopic cholecystectomy Hx of cholecystectomy H/O myringotomy H/O sinus surgery Hx of tonsillectomy Family History Family History Other Mental health disorder Substance use disorder Social History Social History Housing: Assisted Living Facility Housing Other:: treatment Do you presently have visiting nurse or other home services: No Alcohol intake: never Patient Tobacco Use Status: Former Tobacco user Tobacco use type: Cigarette Cigarettes Per Day: 3 Years Smoked: vape (08/2023) Smoked in Last 30 Days: No e-Cigarette/Vaping Use: Currently Using Second Hand Smoke Exposure: Yes Substance Use Type: Marijuana Advance Directives: Yes Advance Directives on File: Yes Advance Directives Date on File: 11/30/23 Do you have a plan to hurt others: No Plan Patient : No service: No Current occupational status: unemployed Cognitive needs: No Hearing needs: No Vision needs: No Physical Exam ED Vital Signs: Vital Signs - 24 hr 07/26/24 06:17 07/26/24 09:21 07/26/24 12:20 Temperature 98.0 F 98.1 F Pulse Rate 94 78 69 Respiratory Rate 18 16 20 Blood Pressure 115/69 105/71 93/49 L Pulse Oximetry 96 99 98 Oxygen Delivery Method Room Air Room Air Room Air BMI result Body Mass Index 18.6 Vital signs have been reviewed and appear to be correct. Blood pressure normal. Heart rate normal. Respiratory rate normal. Temperature normal. Oxygen saturation normal. Const General: cooperative, healthy appearing and no acute distress Orientation/consciousness: oriented to person, oriented to place, oriented to time and patient oriented x3 Limitations: no limitations HENMT Head: Yes normocephalic and Yes atraumatic Ears: external ears normal General nose exam: Normal external nose present Face and sinus: Yes face symmetric Mouth: oropharynx normal and moist mucous membranes Throat: Yes uvula midline Eyes Pupils: Equal, round and reactive pupils present Neck Neck: Yes normal visual inspection and Yes supple Resp Effort & Inspection: normal respiratory effort and able to speak in complete sentences Auscultation: clear to auscultation bilaterally Cardio Rate: regular rate Rhythm: regular rhythm Heart sounds: S1 normal heart sound present and S2 normal heart sound present GI Palpation (GI): Soft to palpation and nontender Auscultation: normoactive bowel sounds General: Yes no CVA tenderness Back/Spine/Pelvis Back: no CVA tenderness Skin General skin exam: elasticity normal and turgor normal Neuro General: oriented to person, oriented to place, oriented to time, patient oriented x3, moves all extremities, no focal motor deficits and CN's II-XI intact bilaterally Cranial nerves: Yes Equal, round and reactive pupils present Cognition (Neuro): normal cognition Extrem General: Yes full ROM, Yes no pedal edema and Yes no calf tenderness Right upper extremity: Extremity exam: right hand Details: normal ROM of fingers and abrasion Location: of the thumb Location: on the dorsal aspect Psych Mental Status: mental status grossly normal Affect: normal affect Thought process: Normal thought process present Medications Administered Discontinued Medications Generic Name Dose Route Start Last Admin Trade Name Freq PRN Reason Stop Dose Admin Acetaminophen 975 mg 07/26/24 07:38 07/26/24 07:46 Acetaminophen 325 Mg Tablet PO 07/26/24 07:39 975 mg ONCE ONE Administration Sodium Chloride 1,000 mls @ 999 mls/hr 07/26/24 07:45 07/26/24 09:12 Ns IV 07/26/24 08:45 Infused .Q1H1M JOSE Infusion Lorazepam 2 mg 07/26/24 07:38 07/26/24 07:46 Lorazepam 1 Mg Tablet PO 07/26/24 07:39 2 mg ONCE ONE Administration Medical Decision Making Medical Decision Making [facility] Narrative: Patient is a 29-year-old female with history of seizure disorder, hepatitis c, bipolar disorder, polysubstance use on methadone presenting to the emergency department after seizure. On exam patient is awake, A+Ox3, VS WNL, afebrile, normal neurological exam without focal deficits, physical exam findings as above. Given reported symptoms and physical exam findings, initial differential includes but is not limited to breakthrough seizure, infection, alcohol withdrawal seizure, electrolyte abnormality, ICH, drug or alcohol intoxication. Labs notable for no leukocytosis, no significant electrolyte abnormalities, slightly elevated initial lactic, repeat normal after IV fluids. Do not suspect sepsis at 6:49, elevated lactic likely due to seizure. Viral serology negative. Urinalysis is without evidence of infection. Urine drug screen positive fentanyl and THC. Patient remained in the emergency department for 8 hours without any additional seizure activity. Feel she is stable for discharge home at this time. Instructed patient to follow up with her neurologist within the next 2 days to discuss potential medication adjustments. Return precautions discussed at bedside. Patient advised to continue to avoid driving or other dangerous activities where she could become injured if she has a seizure. Patient verbalized understanding of and agreement with plan. Differential Diagnosis Differential Diagnoses: The differential diagnosis associated with the presentation includes As per [facility] Admission/Observation Consideration of admission/observation: Escalation of care including admission/observation considered Patient would have been admitted to the hospital had their work up had any findings where hospital admission was appropriate and their clinical presentation warranted hospital admission. Lab Data [facility] Lab Attestation statement: I reviewed the patient's lab results. As per [facility] 07/26/24 06:35 07/26/24 06:35 Labs: Lab Results 07/26/24 07/26/24 07/26/24 Range/Units 06:35 06:49 09:30 WBC 6.4 (4.8-10.8) X10*3/uL RBC 4.00 L (4.20-5.50) X10*6/uL Hgb 12.0 (12.0-16.0) g/dl Hct 36.9 L (37.0-47.0) % MCV 92.3 (80.0-98.0) fL MCH 30.0 (27.0-33.0) pg MCHC 32.5 (31.0-35.0) g/dl RDW 14.0 (11.0-16.0) % Plt Count 228 (160-400) X10*3/uL MPV 9.8 (9.4-12.3) fL Immature Gran % (Auto) 0.2 (0.0-0.4) % Neut % (Auto) 58.8 (45-73) % Lymph % (Auto) 30.9 (20-40) % Pettis % (Auto) 7.5 (2-11) % Eos % (Auto) 2.0 (0-4) % Baso % (Auto) 0.6 (0-2) % Lymph # (Auto) 2.0 (1.2-4.9) X10*3/uL Pettis # (Auto) 0.5 (0.1-1.2) X10*3/uL Eos # (Auto) 0.1 (0.0-0.4) X10*3/uL Baso # (Auto) 0.0 (0.0-0.2) X10*3/uL Abs Immat Gran (auto) 0.01 (0.00-0.03) X10*3/uL Absolute Neuts (auto) 3.8 (2.0-8.3) x10*3/uL Absolute Nucleated RBC 0.000 (0.0-0.012) X10*3/uL Nucleated RBC % (auto) 0.0 (0.0-0.2) /100WBC Hold Purple Top SEE NOTE Sodium 140 (135-145) mmol/L Potassium 3.7 (3.3-5.1) mmol/L Chloride 110 H (96-108) mmol/L Carbon Dioxide 24 (22-29) mmol/L Anion Gap 10 L (12-20) BUN 11 (9-16) mg/dL Creatinine 0.66 (0.5-1.4) mg/dL Estim Creat Clear Calc 96.6 Estimated GFR > 60 Random Glucose 94 (60-115) mg/dL Lactic Acid 2.1 H* (0.5-2.0) mmol/L Lactic Acid F/U @ 2Hr 0.5 (0.5-2.0) mmol/L Calcium 8.9 (8.4-10.2) mg/dL Total Bilirubin 0.3 (0.0-1.0) mg/dL AST 20 (5-31) U/L ALT 11 (0-31) U/L Alkaline Phosphatase 55 (39-117) U/L Total Protein 6.4 L (6.5-8.0) g/dL Albumin 3.9 (3.5-5.0) g/dL Lipase 12 (8-78) U/L Beta HCG, Quant < 2 mIU/mL Hold Yellow Top See Note Urine Color Urine Appearance Urine pH (5.0-9.0) Ur Specific [place] (1.005-1.025) Urine Protein (Neg-Trace) mg/dL Urine Glucose (UA) (Negative) mg/dL Urine Ketones (Negative) mg/dL Urine Blood (Negative) Urine Nitrite (Negative) Ur Leukocyte Esterase (Negative) Urine Opiates Screen (Not Detect) Ur Buprenorphine Scrn (Not Detect) ng/mL Ur Oxycodone Screen (Not Detect) ng/mL Urine Methadone Screen (Not Detect) ng/mL Urine Fentanyl Screen (Not Detect) Ur Barbiturates Screen (Not Detect) Ur Phencyclidine Scrn (Not Detect) Ur Amphetamines Screen (Not Detect) U Benzodiazepines Scrn (Not Detect) Urine Cocaine Screen (Not Detect) U Marijuana (THC) Screen (Not Detect) Ethyl Alcohol < 10 mg/dL Influenza Type A (PCR) NEGATIVE (Negative) Influenza Type B (PCR) NEGATIVE (Negative) RSV RNA Qual (PCR) NEGATIVE (Negative) SARS-CoV-2 RNA (RT-PCR) NEGATIVE (Negative) 07/26/24 07/26/24 Range/Units 10:14 12:23 WBC (4.8-10.8) X10*3/uL RBC (4.20-5.50) X10*6/uL Hgb (12.0-16.0) g/dl Hct (37.0-47.0) % MCV (80.0-98.0) fL MCH (27.0-33.0) pg MCHC (31.0-35.0) g/dl RDW (11.0-16.0) % Plt Count (160-400) X10*3/uL MPV (9.4-12.3) fL Immature Gran % (Auto) (0.0-0.4) % Neut % (Auto) (45-73) % Lymph % (Auto) (20-40) % Pettis % (Auto) (2-11) % Eos % (Auto) (0-4) % Baso % (Auto) (0-2) % Lymph # (Auto) (1.2-4.9) X10*3/uL Pettis # (Auto) (0.1-1.2) X10*3/uL Eos # (Auto) (0.0-0.4) X10*3/uL Baso # (Auto) (0.0-0.2) X10*3/uL Abs Immat Gran (auto) (0.00-0.03) X10*3/uL Absolute Neuts (auto) (2.0-8.3) x10*3/uL Absolute Nucleated RBC (0.0-0.012) X10*3/uL Nucleated RBC % (auto) (0.0-0.2) /100WBC Hold Purple Top Sodium (135-145) mmol/L Potassium (3.3-5.1) mmol/L Chloride (96-108) mmol/L Carbon Dioxide (22-29) mmol/L Anion Gap (12-20) BUN (9-16) mg/dL Creatinine (0.5-1.4) mg/dL Estim Creat Clear Calc Estimated GFR Random Glucose (60-115) mg/dL Lactic Acid (0.5-2.0) mmol/L Lactic Acid F/U @ 2Hr (0.5-2.0) mmol/L Calcium (8.4-10.2) mg/dL Total Bilirubin (0.0-1.0) mg/dL AST (5-31) U/L ALT (0-31) U/L Alkaline Phosphatase (39-117) U/L Total Protein (6.5-8.0) g/dL Albumin (3.5-5.0) g/dL Lipase (8-78) U/L Beta HCG, Quant mIU/mL Hold Yellow Top Urine Color Yellow Urine Appearance Cloudy Urine pH 8.5 (5.0-9.0) Ur Specific [place] 1.015 (1.005-1.025) Urine Protein Negative (Neg-Trace) mg/dL Urine Glucose (UA) Negative (Negative) mg/dL Urine Ketones Negative (Negative) mg/dL Urine Blood Negative (Negative) Urine Nitrite Negative (Negative) Ur Leukocyte Esterase Negative (Negative) Urine Opiates Screen Not Detected (Not Detect) Ur Buprenorphine Scrn Not Detected (Not Detect) ng/mL Ur Oxycodone Screen Not Detected (Not Detect) ng/mL Urine Methadone Screen Positive H (Not Detect) ng/mL Urine Fentanyl Screen Not Detected (Not Detect) Ur Barbiturates Screen Not Detected (Not Detect) Ur Phencyclidine Scrn Not Detected (Not Detect) Ur Amphetamines Screen Not Detected (Not Detect) U Benzodiazepines Scrn Not Detected (Not Detect) Urine Cocaine Screen Not Detected (Not Detect) U Marijuana (THC) Screen POSITIVE H (Not Detect) Ethyl Alcohol mg/dL Influenza Type A (PCR) (Negative) Influenza Type B (PCR) (Negative) RSV RNA Qual (PCR) (Negative) SARS-CoV-2 RNA (RT-PCR) (Negative) External Record Review External record reviewed: Inpatient record, Office record and Outpatient record Discharge Plan Discharge Clinical Impression: Breakthrough seizure Patient Disposition: Home, Self-Care Instructions: Recurrent Seizures in Adults (ED) Additional Instructions: You were evaluated in the emergency department today after witnessed seizure-like activity. You did not have any additional seizures while here in the emergency department. Your evaluation did not show evidence of any conditions requiring emergent medical treatment at this time. We recommend that you follow-up with your neurologist within the next 2 days. Return to the emergency department with additional episodes of seizures, dizziness or lightheadedness, confusion, difficulty walking or any other concerning symptoms. Avoid driving, operating heavy machinery, or any other high-risk activities where you could become injured if you have a seizure. Prescriptions: No Action cyclobenzaprine 5 mg tablet 5 mg PO BEDTIME PRN (Reason: for muscle spasm) Qty: 20 1RF ondansetron 4 mg tablet,disintegrating 4 mg PO Q6H PRN (Reason: nausea and vomiting) Qty: 14 0RF quetiapine 300 mg tablet 300 mg PO BEDTIME fluoxetine 10 mg capsule 10 mg PO DAILY methadone [Methadone Intensol] 10 mg/mL Concentrate 26 mg PO DAILY Rx Instructions: pt last dosed at clinic 11/09 with #27 take home bottles carbamazepine 300 mg Capsule, Er Multiphase 12 Hr 300 mg PO BID levetiracetam 1,000 mg Tablet 2,000 mg PO BID Qty: 120 0RF ferrous sulfate [FeroSul] 325 mg (65 mg iron) tablet 325 mg PO DAILY Qty: 90 2RF magnesium oxide 400 mg magnesium tablet 400 mg PO DAILY Qty: 90 1RF amoxicillin-pot clavulanate 875-125 mg tablet 1 tab PO BID Qty: 14 0RF Print Language: Afghan
[2024-07-26 06:43] LABS: MANUAL DIFF FLAG NO
[2024-07-26 06:48] LABS: Basophils Percent Auto 0.6 % (0-2); Eosinophils Absolute Auto 0.1 X10*3/uL (0.0-0.4); Hematocrit 36.9 % (37.0-47.0); Imm Gran Abs Auto 0.01 X10*3/uL (0.00-0.03); Imm Gran Pct Auto 0.2 % (0.0-0.4); Lymphocytes Percent Auto 30.9 % (20-40); Mean Corpuscular HGB Conc 32.5 g/dl (31.0-35.0); Mean Corpuscular Volume 92.3 fL (80.0-98.0); Mean Platelet Volume 9.8 fL (9.4-12.3); Monocytes Absolute Auto 0.5 X10*3/uL (0.1-1.2); Monocytes Percent Auto 7.5 % (2-11); Neutrophils Absolute Auto 3.8 x10*3/uL (2.0-8.3); Neutrophils Percent Auto 58.8 % (45-73); Platelet Count 228 X10*3/uL (160-400); White Blood Count 6.4 X10*3/uL (4.8-10.8)
[2024-07-26 07:21] LABS: Ethanol < 10 mg/dL
[2024-07-26 07:22] LABS: Alanine Aminotransferase 11 U/L (0-31); Albumin Level 3.9 g/dL (3.5-5.0); Alkaline Phosphatase 55 U/L (39-117); Anion Gap 10 (12-20); Aspartate Amino Transferase 20 U/L (5-31); Bilirubin Total 0.3 mg/dL (0.0-1.0); Blood Urea Nitrogen 11 mg/dL (9-16); Calcium 8.9 mg/dL (8.4-10.2); Carbon Dioxide 24 mmol/L (22-29); Chloride 110 mmol/L (96-108); Creatinine Clr Calc Pharmacy 96.6; Estimated Glomerular Filt Rate > 60; Glucose Random 94 mg/dL (60-115); HCG Quantitative < 2 mIU/mL; Lipase 12 U/L (8-78); Potassium 3.7 mmol/L (3.3-5.1); Sodium 140 mmol/L (135-145); Total Protein 6.4 g/dL (6.5-8.0)
[2024-07-26 07:23] LABS: Lactic Acid 2.1 mmol/L (0.5-2.0)
[2024-07-26 07:46] LABS: Influenza A PCR NEGATIVE (Negative); Influenza B PCR NEGATIVE (Negative); Resp Syncy Virus RNA Qual PCR NEGATIVE (Negative); SARS COV2 PCR INHOUSE NEGATIVE (Negative)
[2024-07-26] MEDS: LORazepam 1 MG TABLET 2 MG PO (07:46)
[2024-07-26] MEDS: Acetaminophen 325 MG TABLET 975 MG PO (07:46)
[2024-07-26] MEDS: 0.9 % Sodium Chloride 1,000 ML 999 ML IV (07:47)
--- NOTE | 2024-07-26 07:54 | PC.NURSE ---
Pt reports 7/10 REYNOLDS and feeling off and lightheaded ; pt states she often feels this way before a seizure; provider made aware; pt medicated per orders; IVF's infusing; neuros intact; vss
[2024-07-26 08:56] LABS: Reflex Lactate? Lactic Acid Added
[2024-07-26 09:21] VITALS: BP 105/71; PULSE 78; RESP 16; O2SAT 99
[2024-07-26 10:02] LABS: ~Lactic Acid-LAB USE ONLY 0.5 mmol/L (0.5-2.0)
--- NOTE | 2024-07-26 10:27 | PC.NURSE ---
Pt resting quietly in room; vss; no seizure activity since [employer]; seizure pads in place; awaiting lab results
[2024-07-26 10:36] LABS: Appearance Urine Cloudy; Color Urine Yellow; Glucose Urine UA Negative (Negative); Leukocyte Esterase Urine Negative (Negative); Nitrite Urine Negative (Negative); PH 8.5 (5.0-9.0); Specific Gravity - Urine 1.015 (1.005-1.025); Urine Blood Negative (Negative); Urine Ketones Negative (Negative); Urine Protein Negative (Neg-Trace)
[2024-07-26 12:20] VITALS: BP 93/49; PULSE 69; RESP 20; TEMP 36.7; O2SAT 98
[2024-07-26 12:42] LABS: Amphetamine Screen Urine Not Detected (Not Detect); Barbiturates, Urine Not Detected (Not Detect); Benzodiazepines Screen Urine Not Detected (Not Detect); Buprenorphine Scr Not Detected (Not Detect); Cannabinoid Screen Urine POSITIVE (Not Detect); Cocaine Screen Urine Not Detected (Not Detect); Fentanyl, urine Not Detected (Not Detect); Methadone Screen, Urine Positive (Not Detect); Opiate Screen Urine Not Detected (Not Detect); Oxycodone Screen Urine Not Detected (Not Detect); Phencyclidine Screen Urine Not Detected (Not Detect)
[2024-07-26 14:19] VITALS: BP 102/68; PULSE 81; RESP 15; TEMP 36.6; O2SAT 97
== END 2024-07-26 14:29 | disposition home or self-care (01) ==
PROVIDERS: Registered Nurse Emergency; Emergency Provider Emergency Medicine; PCP Internal Medicine
DX: G40.909 Epilepsy, unspecified, not intractable, without status epilepticus (principal); B19.20 Unspecified viral hepatitis C without hepatic coma; D64.9 Anemia, unspecified; F19.10 Other psychoactive substance abuse, uncomplicated; F11.20 Opioid dependence, uncomplicated; Z87.891 Personal history of nicotine dependence; Z79.899 Other long term (current) drug therapy; Z03.818 Encounter for observation for suspected exposure to other biological agents ruled out
CPT/HCPCS: 0241U; 36415; 80053; 80307; 81003; 83605; 83690; 84702; 85025; 96360; 99284

== ENCOUNTER 2024-08-18 07:54 | Emergency (ER) | payer OTHER, SELFPAY ==
[2024-08-18] VITALS (7 sets, daily range): BP systolic 86–114; BP diastolic 52–77; PULSE 63–90; RESP 12–19; TEMP 36.4–37.2; O2SAT 94–99; BMI 20.6
--- NOTE | ~2024-08-18 | CT_ITS ---
EXAMINATION: CT HEAD WITHOUT CONTRAST CLINICAL INFORMATION: seizure, fall, R occiptal hematoma R/O fracture COMPARISON: November 25, 2023. TECHNIQUE: Contiguous axial imaging was performed from the skull base to vertex without intravenous administration of contrast. This CT examination was performed using dose optimization techniques as appropriate, variously including the following: *Automated exposure control *Adjustment of mA and/or kV according to patient size (this includes techniques or standardized protocols for targeted exams where dose is matched to indication/reason for exam; i.e. extremities or head) *Use of iterative reconstruction technique DLP: 565.28 mGy-cm FINDINGS: No acute intracranial hemorrhage, mass effect, midline shift, hydrocephalus or herniation. Chopra-white matter differentiation is normal. Posterior cranial fossa contents demonstrated no acute intracranial hemorrhage. Sellar/suprasellar region demonstrated no gross masses or hemorrhage. Craniocervical junction is intact and normal. Bony calvarium is intact. Tympanic cavities and mastoid air cells are aerated. No air-fluid levels in the paranasal sinuses. Dextroconvex curvature nasal septum. No hematoma is in the intraconal or extraconal compartments of the orbits. CT/CT head/brain wo IV con IMPRESSION: No acute fracture, bony calvarium. No acute intracranial hemorrhage. Electronically signed by: Antonio Guzman MD 08/18/2024 11:32 AM EDT
--- NOTE | ~2024-08-18 | CT_ITS ---
EXAMINATION: CT CERVICAL SPINE WITHOUT CONTRAST CLINICAL INFORMATION: Seizure. Status post fall. COMPARISON: April 09, 2023. TECHNIQUE: Contiguous axial images through the cervical spine using 3 mm collimation with bone and soft tissue algorithm. Sagittal and coronal reformatted images acquired. This CT examination was performed using dose optimization techniques as appropriate, variously including the following: *Automated exposure control *Adjustment of mA and/or kV according to patient size (this includes techniques or standardized protocols for targeted exams where dose is matched to indication/reason for exam; i.e. extremities or head) *Use of iterative reconstruction technique DLP: 226.04 mGy centimeter FINDINGS: Craniocervical junction is intact. No malalignment between the vertebral bodies or the facet joints. C1 is intact. C2 is intact. C3 is intact. C4 is intact. C5 is intact. C6 is intact. C7 is intact. No gross hematoma, prevertebral compartment. Prominent lingual tonsils and secretions into the vallecula. Effervescent secretions in the sphenoid sinus. Tympanic cavities and mastoid cells are aerated. CT/CT cervical spine wo IV con IMPRESSION: No acute fracture or trauma-related listhesis. Probable acute sphenoid sinus disease. Prominent lingual tonsils. Fleischner guidelines were followed. Electronically signed by: Antonio Guzman MD 08/18/2024 11:36 AM EDT
--- NOTE | 2024-08-18 08:17 | ECG_ITS ---
Test Reason : SEIZURE Blood Pressure : */* mmHG Vent. Rate : 77 BPM Atrial Rate : 77 BPM P-R Int : 174 ms QRS Dur : 90 ms QT Int : 378 ms P-R-T Axes : 69 14 62 degrees QTcB Int : 427 ms Normal sinus rhythm Normal ECG When compared with ECG of 25-Nov-2023 09:55, Vent. rate has decreased by [address] no longer depressed in Inferior leads Referred By: Generic ED Physician Electronically Signed By: EDILBERTO IZQUIERDO MD
--- NOTE | 2024-08-18 08:23 | PC.NURSE ---
JESSICA from home for seizure. pt reports she woke up this AM and informed her she did not feel well before she had a seizure. witnessed by , pt fell to the ground with +HS, no thinners. unknown length of seizure. pt refused C-collar for EMS. she currently only is complaining of head pain at this time. reports she has been having seizures more frequently lately without change to her meds or lifestyle. pt reports she has an appointment set up with her neurologist in a couple of weeks. reports she has had no missed doses of keppra lately. IV established by EMS [facility]IST
[2024-08-18 08:39] LABS: MANUAL DIFF FLAG NO
[2024-08-18 08:44] LABS: Basophils Percent Auto 0.5 % (0-2); Eosinophils Absolute Auto 0.1 X10*3/uL (0.0-0.4); Eosinophils Percent Auto 0.9 % (0-4); Hematocrit 37.9 % (37.0-47.0); Hemoglobin 12.5 g/dl (12.0-16.0); Imm Gran Abs Auto 0.01 X10*3/uL (0.00-0.03); Imm Gran Pct Auto 0.2 % (0.0-0.4); Lymphocytes Absolute Auto 1.3 X10*3/uL (1.2-4.9); Lymphocytes Percent Auto 23.5 % (20-40); Mean Corpuscular Volume 90.9 fL (80.0-98.0); Mean Platelet Volume 9.2 fL (9.4-12.3); Monocytes Absolute Auto 0.4 X10*3/uL (0.1-1.2); Monocytes Percent Auto 6.4 % (2-11); Neutrophils Absolute Auto 3.8 x10*3/uL (2.0-8.3); Neutrophils Percent Auto 68.5 % (45-73); Platelet Count 243 X10*3/uL (160-400); Red Blood Count 4.17 X10*6/uL (4.20-5.50); Red Cell Distribution Width 13.2 % (11.0-16.0); White Blood Count 5.5 X10*3/uL (4.8-10.8)
[2024-08-18 08:59] LABS: Lactic Acid 2.3 mmol/L (0.5-2.0)
[2024-08-18 09:04] LABS: Alanine Aminotransferase 14 U/L (0-31); Albumin Level 4.2 g/dL (3.5-5.0); Alkaline Phosphatase 55 U/L (39-117); Anion Gap 11 (12-20); Aspartate Amino Transferase 22 U/L (5-31); Bilirubin Total 0.3 mg/dL (0.0-1.0); Blood Urea Nitrogen 9 mg/dL (9-16); Carbon Dioxide 25 mmol/L (22-29); Chloride 107 mmol/L (96-108); Creatinine Clr Calc Pharmacy 105.5; Estimated Glomerular Filt Rate > 60; Glucose Random 88 mg/dL (60-115); Magnesium 2.1 mg/dL (1.6-2.6); Potassium 4.1 mmol/L (3.3-5.1); Sodium 139 mmol/L (135-145); Troponin-I High Sensitivity < 2.7 ng/L (<3.5-17.0)
--- NOTE | 2024-08-18 09:36 | ED_ITS ---
HPI - Seizure General Chief Complaint: Seizure Stated Complaint: Seizure w/ fall, hit head per ems Time Seen by Provider: 08/18/24 09:35 Source: patient Mode of arrival: EMS Limitations: no limitations History of Present Illness ED Provider: ALICIA ATKINSON Narrative: 29 year-old female with PMHx of seizure, bipolar disorder, peptic ulcer disease, presents to the ED by means of EMS due to having a seizure this morning at home. She states she woke up this morning, got out of bed and said to her it's going to happen and began to seize. After she began seizing she fell backwards and hit the back of her head on the floor. She is experiencing anterograde and retrograde amnesia and cannot recall these details. She states she has chronic seizures and follows closely with [facility] neurologist Dr. Ley. She states she is currently on 1,000mg of Keppra twice daily and 300mg of carbemazepine twice daily, but did not take her keppra dose this morning, she is also on 26mg of methadone daily. She is currently experiencing mild nausea, with a throbbing right sided headache and pressure in her right eye after headstrike this morning. She denies fever, vomiting, vision changes, chest pain, or SOB. MD complaint: seizure and other (fall with headstrike) Onset (ago): hour(s) Description of Episode: loss of consciousness and post-event confusion Witnessed: Yes - by Other () Seizure History: Yes Place: Home Possible Precipitating Event: none Associated symptoms: other (headache, right eye pressure) Treatments prior to arrival: none Related Data Home Medications ?Medication ?Instructions ?Recorded ?Confirmed fluoxetine 10 mg capsule 10 mg PO DAILY 11/25/23 03/09/24 quetiapine 300 mg tablet 300 mg PO BEDTIME 11/25/23 03/09/24 carbamazepine 300 mg 300 mg PO BID 11/26/23 03/09/24 capsule,extended release [id number] methadone 10 mg/mL oral 26 mg PO DAILY 11/26/23 03/09/24 concentrate (Methadone Intensol) Previous Rx's ?Medication ?Instructions ?Recorded ondansetron 4 mg disintegrating 4 mg PO Q6H PRN nausea and 11/15/23 tablet vomiting #14 tabs levetiracetam 1,000 mg tablet 2,000 mg (2 x 1,000 mg) PO BID 11/27/23 #120 tabs ferrous sulfate 325 mg (65 mg 325 mg PO DAILY #90 tabs 03/09/24 iron) tablet (FeroSul) magnesium oxide 400 mg PO DAILY #90 tabs 03/09/24 amoxicillin 875 mg-potassium 1 tab PO BID #14 tabs 06/24/24 clavulanate 125 mg tablet cyclobenzaprine 5 mg tablet 5 mg PO BEDTIME PRN for muscle 06/26/24 spasm #20 tabs acetaminophen 500 mg tablet 1,000 mg (2 x 500 mg) PO Q6H PRN 08/18/24 (Tylenol Extra Strength) fever or pain #20 tabs ibuprofen 400 mg tablet 400 mg PO TID PRN fever or pain 08/18/24 #30 tabs phenobarbital 30 mg tablet 30 mg PO BEDTIME 30 days #30 tabs 08/18/24 Allergies Allergy/AdvReac Type Severity Reaction Status Date / Time azithromycin [From ZITHROMAX] AdvReac Unknown VOMITING/DI Verified 08/18/24 08:14 ARRHEA Zithromax AdvReac Mild vomiting Uncoded 08/18/24 08:14 Review of Systems 2 Review of Systems: Yes all other systems are reviewed and are negative COUNT INCLUDES THE [facility] Past Medical History Attestation statement: The following information was validated with the patient. COUNT INCLUDES THE [facility] Narrative: Social history: Patient denies cigarette use but does vape nicotine products. She denies alcohol use. She uses marijuana 2-3 times daily. Source: old records reviewed Medical History Biliary dyskinesia Right sided abdominal pain Pre-employment examination Left otitis media Cocaine-induced mood disorder with manic symptoms Herpes genitalis Ureterolithiasis Peptic ulcer disease Anemia Contraceptive management IV drug user Hepatitis C Surgical History Status post laparoscopic cholecystectomy Hx of cholecystectomy H/O myringotomy H/O sinus surgery Hx of tonsillectomy Family History Family History Other Mental health disorder Substance use disorder Social History Social History Housing: Assisted Living Facility Housing Other:: treatment Do you presently have visiting nurse or other home services: No Alcohol intake: never Patient Tobacco Use Status: Former Tobacco user Tobacco use type: Cigarette Cigarettes Per Day: 3 Years Smoked: vape (08/2023) e-Cigarette/Vaping Use: Currently Using Second Hand Smoke Exposure: Yes Substance Use Type: Marijuana Advance Directives Date on File: 11/30/23 service: No Current occupational status: unemployed Cognitive needs: No Hearing needs: No Vision needs: No Physical Exam 2 Vital Signs: Vital Signs: Last Vital Signs Temp 98.9 F 08/18/24 17:46 Pulse 67 08/18/24 17:46 Resp 14 08/18/24 17:46 BP 101/57 L 08/18/24 17:46 Pulse Ox 98 08/18/24 17:46 O2 Del Method Room Air 08/18/24 17:46 BMI result Body Mass Index 20.6 Initial vital signs: Stable and unremarkable Exam: General: Awake, alert in no distress Head: Normocephalic, 1-2cm occipital hematoma, negative racoon sign, negative soliz sign EENT: PERRL, Lids normal, sclera normal, conjunctiva normal, nose normal , ears normal, throat without erythema or exudates. Small bite wound on L lateral tongue Neck: Supple, no adenopathy Lung: breath sounds symmetric, no wheezing, rales or rhonchi Chest: symmetric movement, nontender Heart: regular rate and rhythm, normal S1, S2 no murmurs or rubs Abdomen: soft, non-tender, nondistended, normal bowel sounds Back: no vertebral tenderness, no CVAT Extremities: no deformities, moves all extremities symmetrically Neuro: Awake, alert, oriented, normal speech, cranial nerves intact, moves all extremities symmetrically, experiencing anterograde and retrograde amnesia after seizure Psych: Pleasant, cooperative Medications Administered Discontinued Medications Generic Name Dose Route Start Last Admin Trade Name Freq PRN Reason Stop Dose Admin Acetaminophen 975 mg 08/18/24 11:33 08/18/24 11:55 Acetaminophen 325 Mg Tablet PO 08/18/24 11:34 975 mg ONCE ONE Administration Diphenhydramine HCl 12.5 mg 08/18/24 15:43 08/18/24 16:20 Diphenhydramine Hcl 50 Mg/Ml Vial IVPUSH 08/18/24 15:44 12.5 mg ONCE ONE Administration Hydromorphone HCl 1 mg 08/18/24 15:43 08/18/24 16:20 Hydromorphone Hcl 1 Mg/Ml Syringe IVPUSH 08/18/24 15:44 1 mg ONCE STA Administration Protocol Levetiracetam 1,000 mg in 100 mls @ 400 mls/hr 08/18/24 09:53 08/18/24 11:54 Keppra IV 08/18/24 10:07 Infused ONCE ONE Infusion Sodium Chloride 1,000 mls @ 999 mls/hr 08/18/24 12:12 08/18/24 14:20 Ns IV 08/18/24 13:12 Infused .Q1H1M STA Infusion Metoclopramide HCl 5 mg 08/18/24 15:43 08/18/24 16:20 Metoclopramide Hcl 10 Mg/2 Ml Vial IVPUSH 08/18/24 15:44 5 mg ONCE STA Administration Midazolam HCl 4 mg 08/18/24 10:10 08/18/24 10:15 Midazolam Hcl 2 Mg/2 Ml Vial IVPUSH 08/18/24 10:11 4 mg ONCE ONE Administration Morphine Sulfate 4 mg 08/18/24 13:24 08/18/24 14:26 Morphine Sulfate 4 Mg/Ml Cartridge IVPUSH 08/18/24 13:25 4 mg ONCE ONE Administration Protocol Medical Decision Making Medical Decision Making MDM Narrative: 29 year-old female with PMHx of seizure, bipolar disorder, peptic ulcer disease, presents to the ED by means of EMS due to having a seizure this morning at home. She states she woke up this morning, got out of bed and said to her it's going to happen and began to seize. After she began seizing she fell backwards and hit the back of her head on the floor. She is experiencing anterograde and retrograde amnesia and cannot recall these details. She states she has chronic seizures and follows closely with [facility] neurologist Dr. Ley. She states she is currently on 1,000mg of Keppra twice daily and 300mg of carbemazepine twice daily, but did not take her keppra dose this morning, she is also on 26mg of methadone daily. She is currently experiencing mild nausea, with a throbbing right sided headache and pressure in her right eye after headstrike this morning. She denies fever, vomiting, vision changes, chest pain, or SOB. My interpretation of the labs are as follows: Labs are unremarkable with exception of lactic acid which is increased at 2.3 secondary to seizure. EKG is unremarkable and Troponin is below detectable limits suggesting no myocardial injury. Will obtain CT head/ neck to observe for ICH, skull fracture, or cervical fracture. Course 13:14- Head/neck CT with no acute findings 13:23- Patient experiencing 7/10 pain with headache. Will give 4mg morphine for pain managment. Patient did not take her morning dose of Keppra therefore she was given Keppra 1000 mg IV. She was also given Versed 4 mg IV to try to raise her seizure threshold to prevent breakthrough seizures. 17:32 -patient's presentation was discussed with Dr. Ley who recommended giving phenobarb 30 mg at night and continuing Keppra 1000mg b.i.d. Patient's carbamazepine level came back below detectable limits, after talking to Dr. Ley. Patient states she was not been taking this medication since it gives her side effects that she cannot tolerated. The patient's headache was treated with hydromorphone 1 mg, Reglan 5 mg IV. She states that her headache has improved however he was not resolved completely. the patient was given prescription for phenobarbital 30 mg at bedtime. She was advised to contact Dr. Ley and discuss her anti seizure medications. I did tell her that she needs to also Has to tell Dr. Ley that she cannot take carbamazepine due to side effects. The patient was discharged home with printed and verbal instructions. Differential Diagnosis Differential Diagnoses: The differential diagnosis associated with the presentation includes Seizure, ICH, fracture, concussion, Admission/Observation Consideration of admission/observation: Escalation of care including admission/observation considered Lab Data [facility] Lab Attestation statement: I reviewed the patient's lab results. 08/18/24 08:34 08/18/24 08:34 Labs: Lab Results 08/18/24 08/18/24 08/18/24 Range/Units 08:34 11:36 13:52 WBC 5.5 (4.8-10.8) X10*3/uL RBC 4.17 L (4.20-5.50) X10*6/uL Hgb 12.5 (12.0-16.0) g/dl Hct 37.9 (37.0-47.0) % MCV 90.9 (80.0-98.0) fL MCH 30.0 (27.0-33.0) pg MCHC 33.0 (31.0-35.0) g/dl RDW 13.2 (11.0-16.0) % Plt Count 243 (160-400) X10*3/uL MPV 9.2 L (9.4-12.3) fL Immature Gran % (Auto) 0.2 (0.0-0.4) % Neut % (Auto) 68.5 (45-73) % Lymph % (Auto) 23.5 (20-40) % [place] % (Auto) 6.4 (2-11) % Eos % (Auto) 0.9 (0-4) % Baso % (Auto) 0.5 (0-2) % Lymph # (Auto) 1.3 (1.2-4.9) X10*3/uL [place] # (Auto) 0.4 (0.1-1.2) X10*3/uL Eos # (Auto) 0.1 (0.0-0.4) X10*3/uL Baso # (Auto) 0.0 (0.0-0.2) X10*3/uL Abs Immat Gran (auto) 0.01 (0.00-0.03) X10*3/uL Absolute Neuts (auto) 3.8 (2.0-8.3) x10*3/uL Absolute Nucleated RBC 0.000 (0.0-0.012) X10*3/uL Nucleated RBC % (auto) 0.0 (0.0-0.2) /100WBC Sodium 139 (135-145) mmol/L Potassium 4.1 (3.3-5.1) mmol/L Chloride 107 (96-108) mmol/L Carbon Dioxide 25 (22-29) mmol/L Anion Gap 11 L (12-20) BUN 9 (9-16) mg/dL Creatinine 0.67 (0.5-1.4) mg/dL Estim Creat Clear Calc 105.5 Estimated GFR > 60 Random Glucose 88 (60-115) mg/dL Lactic Acid 2.3 H* (0.5-2.0) mmol/L Lactic Acid F/U @ 2Hr 0.9 (0.5-2.0) mmol/L Calcium 9.0 (8.4-10.2) mg/dL Magnesium 2.1 (1.6-2.6) mg/dL Total Bilirubin 0.3 (0.0-1.0) mg/dL AST 22 (5-31) U/L ALT 14 (0-31) U/L Alkaline Phosphatase 55 (39-117) U/L Troponin I High Sens < 2.7 (<3.5-17.0) ng/L Total Protein 7.0 (6.5-8.0) g/dL Albumin 4.2 (3.5-5.0) g/dL Beta HCG, Quant < 2 mIU/mL Carbamazepine < 2.0 L* (5.0-12.0) mcg/mL Independent Interpretation I performed an independent interpretation of an: EKG and CT Scan Radiology Impression Discussion of test interpretation with radiology: I have reviewed the radiologist's reading. Radiologist Impression: CT head/brain wo IV con IMPRESSION: No acute fracture, bony calvarium. No acute intracranial hemorrhage. Electronically signed by: Antonio Guzman MD 08/18/2024 11:[address] cervical spine wo IV con IMPRESSION: No acute fracture or trauma-related listhesis. Probable acute sphenoid sinus disease. Prominent lingual tonsils. Fleischner guidelines were followed. Electronically signed by: Antonio Guzman MD Independent Historian Clinical information obtained from an independent historian. History obtained from or confirmed by: EMS External Record Review External record reviewed: Inpatient record Chronic Conditions Patient?s care impacted by: Other (seizure ) Critical Care Time Critical Care Time Critical Care Time: Yes Total Critical Care Time: 35 Attestation: Critical Care: The patient was critically ill with a high probability of imminent or life threatening deterioration. I spent greater than 30 minutes of discontinuous time evaluating the patient,delivering critical care at the bedside, discussing and evaluating pertinent data with consultants. Critical care time does not include time spent performing separately billable procedures or teaching. Total time spent performing critical care was 35 minutes. Discharge Plan Discharge Clinical Impression: Seizure, Concussion, CHI (closed head injury), Medical non-compliance, Hematoma of occipital region of scalp Patient Disposition: Home, Self-Care Instructions: Concussion (ED), Head Injury (ED), Scalp Contusion in Adults (ED), Recurrent Seizures in Adults (ED) Additional Instructions: You were evaluated in the ED today due to seizure, bump on your head from your fall during seizure. Your labs, imaging of your head and neck were reassuring and did not find any fractures or evidence of a brain bleed. You should continue your anti-seizure medication Keppra at 1,000mg twice daily, and begin to take phenobarbital 30mg at night to manage recurrent seizures. You should follow up with your neurologist Dr. Ley within 5 days of discharge to ensure your progress. When you see Dr. Ley make sure to tell you you can not take your carbemazepine due to bad side effects and that you have not been taking this medication. Please return to the ED if you have worsening symptoms, nausea, vomiting, visual changes, seizure or any other concerning symptoms. You can manage your headache by alternating Tylenol and Motrin every 6 hours. You can begin to take these medications 6 hours after discharge due to receiving pain medications while in the hospital. Prescriptions: New acetaminophen [Tylenol Extra Strength] 500 mg tablet 1,000 mg PO Q6H PRN (Reason: fever or pain) Qty: 20 0RF ibuprofen 400 mg tablet 400 mg PO TID PRN (Reason: fever or pain) Qty: 30 0RF phenobarbital 30 mg tablet 30 mg PO BEDTIME 30 Days Qty: 30 0RF No Action cyclobenzaprine 5 mg tablet 5 mg PO BEDTIME PRN (Reason: for muscle spasm) Qty: 20 1RF ondansetron 4 mg tablet,disintegrating 4 mg PO Q6H PRN (Reason: nausea and vomiting) Qty: 14 0RF quetiapine 300 mg tablet 300 mg PO BEDTIME fluoxetine 10 mg capsule 10 mg PO DAILY methadone [Methadone Intensol] 10 mg/mL Concentrate 26 mg PO DAILY Rx Instructions: pt last dosed at clinic 11/09 with #27 take home bottles carbamazepine 300 mg Capsule, Er Multiphase 12 Hr 300 mg PO BID levetiracetam 1,000 mg Tablet 2,000 mg PO BID Qty: 120 0RF ferrous sulfate [FeroSul] 325 mg (65 mg iron) tablet 325 mg PO DAILY Qty: 90 2RF magnesium oxide 400 mg magnesium tablet 400 mg PO DAILY Qty: 90 1RF amoxicillin-pot clavulanate 875-125 mg tablet 1 tab PO BID Qty: 14 0RF Referrals: Rosi Ley MD [Physician] - 2 weeks (Seizure with head injury, patient was noncompliant with carbamazepine secondary to side effects and can not take this medication. Patient was started on phenobarbital 30 mg at bedtime and was advised to continue taking her Keppra 750 b.i.d.) Interventions: ED Discharge Assessment Last Done: 08/18/24 17:46 Discharge Date/Time: 08/18/24 17:54 Print Language: Somali
[2024-08-18] MEDS: Midazolam HCl 2 MG/2 ML VIAL 4 MG IVPUSH (10:15)
[2024-08-18] MEDS: levETIRAcetam in NaCl (iso-os) 1,000 MG/100 ML PIGGYBACK 400 MG IV (10:15)
[2024-08-18 10:37] LABS: Reflex Lactate? Lactic Acid Added
[2024-08-18 10:57] LABS: HCG Quantitative < 2 mIU/mL
[2024-08-18] MEDS: Acetaminophen 325 MG TABLET 975 MG PO (11:55)
[2024-08-18 11:58] LABS: ~Lactic Acid-LAB USE ONLY 0.9 mmol/L (0.5-2.0)
[2024-08-18] MEDS: 0.9 % Sodium Chloride 1,000 ML 999 ML IV (12:15)
[2024-08-18] MEDS: Morphine Sulfate 4 MG/ML CARTRIDGE IVPUSH (14:26)
[2024-08-18 15:22] LABS: Carbamazepine Tegretol < 2.0 mcg/mL (5.0-12.0)
[2024-08-18] MEDS: Metoclopramide HCl 10 MG/2 ML VIAL 5 MG IVPUSH (16:20)
[2024-08-18] MEDS: diphenhydrAMINE HCL 50 MG/ML VIAL 12.5 MG IVPUSH (16:20)
[2024-08-18] MEDS: HYDROmorphone HCl 1 MG/ML SYRINGE IVPUSH (16:20)
== END 2024-08-18 17:54 | disposition home or self-care (01) ==
PROVIDERS: Emergency Provider Emergency Medicine Emergency Medical Services; PCP Internal Medicine
DX: S06.0XAA Concussion with loss of consciousness status unknown, initial encounter (principal); S00.03XA Contusion of scalp, initial encounter; R56.9 Unspecified convulsions; R51.9 Headache, unspecified; R11.2 Nausea with vomiting, unspecified; M54.2 Cervicalgia; R10.2 Pelvic and perineal pain; X58.XXXA Exposure to other specified factors, initial encounter; Y93.9 Activity, unspecified; Y92.9 Unspecified place or not applicable; Y99.8 Other external cause status; Z87.891 Personal history of nicotine dependence; Z79.899 Other long term (current) drug therapy; Z91.148 Patient's other noncompliance with medication regimen for other reason
CPT/HCPCS: 36415; 70450; 72125; 80053; 80156; 83605; 83735; 84484; 84702; 85025; 93005; 96361; 96365; 96366; 96375; 99285; J1171; J1200; J1953; J2250; J2270; J2765

== ENCOUNTER → 2024-08-18 08:17 | Outpatient (BNV) | payer OTHER, SELFPAY | PROVIDERS: Emergency Provider Emergency Medicine Emergency Medical Services; PCP Internal Medicine; Visit Provider Internal Medicine Cardiovascular Disease | DX: R56.9 Unspecified convulsions (principal) | CPT/HCPCS: 93010 ==

== ENCOUNTER → 2024-08-18 09:53 | Outpatient (BNV) | payer OTHER, SELFPAY | PROVIDERS: Emergency Provider Emergency Medicine Emergency Medical Services; PCP Internal Medicine; Visit Provider Radiology Diagnostic Radiology | DX: G40.909 Epilepsy, unspecified, not intractable, without status epilepticus (principal) | CPT/HCPCS: 70450; 72125 ==

== ENCOUNTER 2024-08-25 16:04 | Outpatient (AMB) | payer OTHER, SELFPAY ==
[2024-08-25 16:30] VITALS: BP 114/80; PULSE 64; RESP 18; TEMP 36.3; O2SAT 99; BMI 17.2
--- NOTE | 2024-08-25 16:30 | MHC.PC.OV ---
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 Accompanied by: Self / Same As Patient Allergies carbamazepine Adverse Reaction (Intermediate, Unverified 08/25/24 16:47) dizzy azithromycin [From ZITHROMAX] Adverse Reaction (Unknown, Verified 08/25/24 16:30) VOMITING/DIARRHEA Zithromax Adverse Reaction (Mild, Uncoded 08/25/24 16:30) vomiting Medication List - Last Reconciled 08/25/24 by Eliazar Case MD acetaminophen (Tylenol Extra Strength) 1,000 mg (2 x 500 mg) PO Q6H PRN cyclobenzaprine 5 mg PO BEDTIME PRN fluoxetine 10 mg PO DAILY ibuprofen 400 mg PO TID PRN levetiracetam 2,000 mg (2 x 1,000 mg) PO BID methadone (Methadone Intensol) 26 mg PO DAILY phenobarbital 30 mg PO BEDTIME 30 days quetiapine 300 mg PO BEDTIME Tobacco use date assessed: 08/25/24 Dental Screening Dental Screen Date: 08/25/24 Did you have a dental visit in the last 12 months?: Yes Did you have a dental problem in the last 6 months where you did not have access to dental care?: No Was dental information given to patient?: Patient has dentist [facility] Medical History (Updated 08/25/24 @ 16:59 by Eliazar Case MD) Hypokalemia Status epilepticus Breakthrough seizure Weight loss Leg cramps Joint pain Brittle hair Biliary dyskinesia Right sided abdominal pain Pre-employment examination Left otitis media Cocaine-induced mood disorder with manic symptoms Herpes genitalis Ureterolithiasis Peptic ulcer disease Anemia Contraceptive management IV drug user Hepatitis C Surgical History Status post laparoscopic cholecystectomy Hx of cholecystectomy H/O myringotomy H/O sinus surgery Hx of tonsillectomy Family History (Updated 08/25/24 @ 16:50 by Eliazar Case MD) Father Heart attack Maternal Grandmother Lung cancer Mother CVA (cerebral vascular accident) Other Mental health disorder Substance use disorder Social History (Updated 08/25/24 @ 16:52 by Eliazar Case MD) Housing: Assisted Living Facility Housing Other:: treatment Do you presently have visiting nurse or other home services: No Alcohol intake: former Patient Tobacco Use Status: Former Tobacco user Tobacco use type: Cigarette Cigarettes Per Day: 3 Years Smoked: stopped 2021 vape (08/2023) e-Cigarette/Vaping Use: Currently Using Second Hand Smoke Exposure: Yes Substance Use Type: Marijuana Advance Directives Date on File: 11/30/23 service: No Current occupational status: unemployed Cognitive needs: No Hearing needs: No Vision needs: No Female Reproductive History Menstrual Date of last menstrual period: 08/08/24 Questionnaire PHQ-9 Over the last 2 weeks, how often have you been bothered by any of the following problems? 1. Little interest or pleasure in doing things: more than half the days 2. Feeling down, depressed, or hopeless: more than half the days 3. Trouble falling or staying asleep, or sleeping too much: nearly every day 4. Feeling tired or having little energy: not at all 5. Poor appetite or overeating: not at all 6. Feeling bad about yourself - or that you are a failure or have let yourself or your family down: not at all 7. Trouble concentrating on things, such as reading the newspaper or watching television: more than half the days 8. Moving or speaking so slowly that other people could have noticed. Or the opposite - being so fidgety or restless that you have been moving around a lot more than usual: nearly every day 9. Thoughts that you would be better off or of hurting yourself in some way: not at all Total score: 12 Depression Screening Interpretation: Positive Depression Screening Done: Yes 18999 - PHQ-9 Billing: Yes Source: Developed by Drs. Tom Posey, Arlette Taylor, Alberto Anaya and colleagues, with an educational vinay from [employer]. Thrive Questionnaire Date Thrive assessed: 08/25/24 I am a: Patient What is your living situation today?: I have a steady place to live Within the past 12 months, did the food you bought not last and you didn't have the money to get more?: Often true Within the past 12 months, did you worry whether your food would run out before you got money to buy more?: Sometimes True Do you have trouble paying for medicines?: No Do you have trouble getting transportation to medical appointments?: No Do you have trouble paying your heating and electricity bill?: Yes Do you have trouble taking care of your child, family member or friend?: No Do you have trouble with day-to-day activities such as bathing, preparing meals, shopping, managing finances, etc.?: I choose not to answer this question Are you currently unemployed and looking for a job?: Yes Are you interested in more education?: Yes Please select the resources that you would like help with: None Currently or been in a relationship where the following occur: No concerns reported THRIVE Score: 3 AUDIT C Alcohol Use Questionnaire (AUDIT-C) 1. How often do you have a drink containing alcohol?: Never Total Score: 0 Score Reviewed/Action Taken: No KM-7 AMB Questionnaire KM-7 Date KM - 7 assessed: 08/25/24 Feeling nervous, anxious, or on edge: 2 = More than half the days Not being able to stop or control worryin = Nearly every day Worrying too much about different things: 1 = Several days Trouble relaxin = Several days Being so restless that it is hard to sit still: 2 = More than half the days Becoming easily annoyed or irritable: 3 = Nearly every day Feeling afraid as if something awful might happen: 0 = Not at all Total KM-7 score (0-4 normal; 5-9 mild; 10-14 moderate; 15-21 severe): 12 Source: Developed by Drs. Tom Posey, Arlette Taylor, Alberto Anaya and colleagues, with an educational vinay from [employer]. KM-7 Assessment Billing KM-7 Assessment Tool: KM-7 Assessment 53590 Review of Systems Const Denies poor appetite and Denies weakness Eyes Denies no additional complaints ENT Reports Normal hearing present, Denies dizziness, Denies nasal congestion, Denies tinnitus and Denies sore throat Card Denies chest pain, Denies syncope, Denies rapid heart rate and Denies dyspnea Resp Denies cough and Denies dyspnea GI Denies change in stool character, Reports constipation, Denies diarrhea, Denies nausea and Denies vomiting Denies urinary frequency, Denies difficulty voiding and Denies dysuria Neuro Reports Normal hearing present, Denies confusion, Denies dizziness, Denies syncope and Denies weakness Psych Denies confusion Physical exam (Primary Care) Vital Signs: Last Vital Signs Temp 97.3 F 08/25/24 16:30 Pulse 64 08/25/24 16:30 Resp 18 08/25/24 16:30 BP 114/80 08/25/24 16:30 Pulse Ox 99 08/25/24 16:30 Oxygen Delivery Method Room Air 08/25/24 16:30 BMI result Body Mass Index 17.2 Tobacco/Smoking Status: Tobacco use Status Tobacco use date assessed 08/25/24 08/25/24 16:40 Patient Tobacco Use Status Former Tobacco user 08/25/24 16:52 Tobacco use type Cigarette 08/25/24 16:52 e-Cigarette/Vaping Use Currently Using 08/25/24 16:52 PHQ-9: PHQ-9 Score PHQ-9: Total score 12 08/25/24 18:54 Depression Screening Interpretation: Positive Thrive Assessment: Date of Thrive Assessment Date Thrive assessed 08/25/24 08/25/24 16:40 Currently or been in a relationship where the following occur: No concerns reported Const General: No confusion Orientation/consciousness: No confusion HENMT Head: Yes normocephalic Ears: external ears normal and TM's normal bilaterally Face and sinus: Yes normal facial exam Mouth: moist mucous membranes Throat: Yes tonsils normal Eyes Conjunctivae: conjunctivae normal Pupils: Equal, round and reactive pupils present and Pupil accommodation reflex normal Direct Ophthalmoscopy: normal light reflex Neck Neck: No lymphadenopathy Thyroid: Thyroid normal Chest Chest palpation & inspection: normal inspection of the chest Resp Effort & Inspection: normal respiratory effort and no audible wheezes Auscultation: clear to auscultation bilaterally, no crackles, no wheezes and lung sounds not diminished Cardio Rate: regular rate Rhythm: regular rhythm Peripheral pulses: radial pulses present and dorsalis pedis present GI Palpation (GI): no masses Auscultation: normal bowel sounds and normoactive bowel sounds Rectal Exam - Female: deferred Skin General skin exam: no rashes or lesions noted Rashes: no rashes Neuro General: No confusion Cranial nerves: Yes Equal, round and reactive pupils present and Yes Normal hearing present Cognition (Neuro): normal cognition Gait exam (Neuro): Normal gait present Motor exam (neuro): 5/5 motor strength present throughout Deep tendon reflexes (DTR's): Right brachioradialis reflex intensity grade: 2+, Left brachioradialis reflex intensity grade: 2+, Right patellar reflex intensity grade: 2+ and Left patellar reflex intensity grade: 2+ Extrem General: No edema Coding Level of Care Code Est Pt Prev Care 18-39y([id number]) Diagnoses Annual physical exam Z00.00 Seizure disorder G40.909 Peptic ulcer disease K27.9 Polysubstance abuse F19.10 Bipolar disorder F31.9 Cervical cancer screening Z12.4 Additional Codes KM-7 Assessment Billing - KM-7 Assessment Tool: KM-7 Assessment 78744 ([id number]) PHQ-9 - 54119 - PHQ-9 Billing: Yes ([id number]) Assessment & Plan Assessment & Plan (1) Annual physical exam: Code(s): Z00.00 - Encounter for general adult medical examination without abnormal findings Category: Medical Plan: Patient is advised to eat healthy, keep well hydrated, keep active and have adequate sleep. (2) Seizure disorder: Comment: Tonic-clonic April 2023 Code(s): G40.909 - Epilepsy, unspecified, not intractable, without status epilepticus Category: Medical Plan: Patient is being followed up by Neurology and on Keppra as well as phenobarbital patient was advised to make sure she follows up with Neurology (3) Peptic ulcer disease: Comment: Dr. Diaz 2013 colonoscopy and EGD Code(s): K27.9 - Peptic ulcer, site unspecified, unspecified as acute or chronic, without hemorrhage or perforation Category: Medical Plan: Avoid the foods that causes that usually spicy foods, tomato products, juices, coffee, soda and foods that your sensitive to. After eating do not lie down, allow 3-4 hours before in lie down. And keep the head of bed above 30 degrees to avoid the acid from going up. (4) Polysubstance abuse: Code(s): F19.10 - Other psychoactive substance abuse, uncomplicated Category: Medical Plan: Continue with the methadone clinic (5) Bipolar disorder: Comment: [facility] Ambreen coreas call Code(s): F31.9 - Bipolar disorder, unspecified Category: Medical Plan: Discussed about psychiatry and referral for counseling (6) Cervical cancer screening: Code(s): Z12.4 - Encounter for screening for malignant neoplasm of cervix Category: Medical Plan History of Present Illness The patient is a 29-year-old female presenting for a comprehensive physical examination and to address ongoing management of a seizure disorder. She has a psychiatric history of Bipolar Disorder, controlled under Dr. Alicea's supervision, and follows a regimen of antiepileptic medications, including Keppra and carbamazepine. Non-compliance with carbamazepine due to undesirable effects has been an issue. Post-fall seizures and anterograde amnesia were encountered in an August 18 emergency room visit, and a neurologic follow-up plan is in place. 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 The patient's lab results from August 18 were unremarkable, showing normal blood cell counts and organ function. 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 Discussions reveal emerging concerns about infrequent bowel movements and dietary habits lacking in vegetables and fibrous foods. Health Maintenance - Reviewed and updated vaccinations; tetanus up-to-date. - Recommended fiber supplements (Metamucil) for bowel regulation. - Discussed potential gynecological consultation due to painful heavy menstruation. - Advised continuation of routine neurologic and psychiatric follow-up. - Recommended regular fluid intake of six to eight glasses of water daily. Social History - Abstinent from alcohol for four years post-gastric bypass surgery. - Former smoker; currently vapes as an alternative. - Mother to a child, no recent gynecological consultations since childbirth. - Limited dietary intake, predominantly meat-based with low fiber intake. - Regular psychiatric consultations; attends therapy and psychiatry sessions. - Family history significant for heart attacks and lung cancer. Review of Systems - Neurological: Reports seizures; denies other neurological concerns. - Gastrointestinal: Reports infrequent bowel movements. - Musculoskeletal: Reports spasms managed with Tylenol as needed. - Cardiovascular: Denies chest pain or heart palpitations. - Genitourinary: Reports frequency in urination, especially at night. - Respiratory: Denies shortness of breath or respiratory distress. - General: Reports significant weight loss post-gastric bypass. Physical Exam General: Cooperative, healthy appearing, comfortable, no acute distress and well developed Orientation: Patient oriented x3 Limitations: No limitations Head: Normal to inspection Ears: Hearing grossly normal bilaterally, but noted scarring in the ears Nose: Normal external nose present Face and sinus: Normal facial exam Eyes: Appearance normal, both eyes and all related structures Neck: Normal visual inspection and Yes full ROM Respiratory: Normal respiratory effort and able to speak in complete sentences. Clear to auscultation bilaterally Cardiovascular: Regular rate and rhythm. Normal S1 and S2 GI: Normal to inspection. Soft to palpation and nontender Skin: No rashes or lesions noted Neuro: Patient oriented x3 Extremities: Normal to inspection Results - Labs: Normal blood cell counts, electrolytes, renal and liver function. - Imaging: Neck CT showed no acute findings. Plan The patient will continue on Keppra for seizure management with emphasis on adherence. Given the adverse effects of carbamazepine, further evaluation of antiepileptic treatment by her neurologist is crucial. Methadone for substance use disorder maintenance will persist. The extraperaminal movement disorder remains on Primepexol therapy. Fiber and hydration will be essential in managing constipation concerns, and gynecology referral for menorrhagia will help address menstrual complications. Regular psychological support is maintained through therapy and psychiatric consultations. Patient was informed and verbally consented to the use of an ambient scribe for clinic note documentation during this visit. Discussion Notes During this visit, I reviewed the management plan with the patient, highlighting the importance of medication adherence for seizure control, especially Keppra. Risks associated with exacerbations due to missed doses were emphasized. I elaborated the continued benefits of methadone for substance recovery and reassured the patient about Primepexol's role in managing movement disorders. Gynecological referral was discussed for her menstrual pain, ensuring follow-up and intervention for any abnormalities. The patient was advised on the importance of dietary fiber and hydration to tackle constipation. Follow-up visits with neurology, psychiatry, and potential gynecology were recommended to ensure comprehensive care. Patient Instructions - Take Keppra as prescribed and do not miss any doses. - Continue methadone as directed. - Follow-up with neurologist as scheduled. - Increase dietary fiber intake and drink at least 6-8 glasses of water daily. - Take fiber supplements as advised. - Contact mechanical handyman for consultation about painful periods. - Attend regular psychiatric appointments and report any mood changes. - Reach out for follow-up if seizure activity increases or for other concerns. Orders: Referrals [employer]AM[employer]ER Referral Z12.4 - Encounter for screening for malignant neoplasm of cervix Medications: New psyllium husk (Metamucil [employer] Fiber) 3 grams PO DAILY 660 grams 0RF
== END 2024-08-25 17:23 | disposition home or self-care (01) ==
LOC: HO.HMCH 16:05
PROVIDERS: PCP Internal Medicine; Visit Provider Internal Medicine
DX: Z00.00 Encounter for general adult medical examination without abnormal findings (principal); G40.909 Epilepsy, unspecified, not intractable, without status epilepticus; F19.10 Other psychoactive substance abuse, uncomplicated; F31.9 Bipolar disorder, unspecified; K27.9 Peptic ulcer, site unspecified, unspecified as acute or chronic, without hemorrhage or perforation

== ENCOUNTER → 2024-08-25 16:04 | Outpatient (BNVA) | payer OTHER, SELFPAY | PROVIDERS: PCP Internal Medicine; Visit Provider Internal Medicine | DX: Z00.00 Encounter for general adult medical examination without abnormal findings (principal); G40.909 Epilepsy, unspecified, not intractable, without status epilepticus; K27.9 Peptic ulcer, site unspecified, unspecified as acute or chronic, without hemorrhage or perforation; F19.10 Other psychoactive substance abuse, uncomplicated; F31.9 Bipolar disorder, unspecified; Z79.899 Other long term (current) drug therapy | CPT/HCPCS: 96127; 99395 ==

== ENCOUNTER 2024-10-14 09:04 | Emergency (ER) | payer OTHER, SELFPAY ==
--- NOTE | 2024-10-14 | ECG_ITS ---
Test Reason : SEIZURE Blood Pressure : */* mmHG Vent. Rate : 88 BPM Atrial Rate : 88 BPM P-R Int : 142 ms QRS Dur : 86 ms QT Int : 362 ms P-R-T Axes : 65 26 61 degrees QTcB Int : 438 ms Normal sinus rhythm Normal ECG When compared with ECG of 18-Aug-2024 08:22, No significant change was found Referred By: Asif Alvarez Electronically Signed By: EDILBERTO IZQUIERDO MD
--- NOTE | 2024-10-14 09:07 | ED.SEIZURE ---
HPI - Seizure General Chief Complaint: Seizure Stated Complaint: SZ,TONIC CLONIC,ON KEPPRA, POST ICTAL,REYNOLDS,DIZZY Time Seen by Provider: 10/14/24 09:06 Source: patient and family ( at bedside corroborating history) Mode of arrival: EMS Limitations: other (Currently Postictal) History of Present Illness ED Provider: Antonio Gold PA-C HPI Narrative: 29-year-old female accompanied by her with medical history of seizure, bipolar disorder, peptic ulcer disease, hepatitis c, bipolar disorder, polysubstance use on methadone presents to the emergency department by EMS due to seizure. Patient is mildly postictal and does not remember the seizure. states the patient was up this morning making breakfast when she stated ?I am not feeling well I am going to take my medicine? and took a dose of Keppra and sat down on the couch. At this point states patient began seizing for approximately 3 minutes and then entered the postictal phase. He called EMS for treatment in the department. Patient states she has been compliant with her Keppra dose which is 1000 mg b.i.d. patient states she is currently feeling ?foggy , headache, dizziness with mild nausea. She denies visual changes, chest pain, shortness of breath, vomiting, urinary symptoms, black/tarry stool, abdominal pain. MD complaint: seizure Onset (ago): hour(s) (1) Description of Episode: loss of consciousness, tonic-clonic movement and post-event confusion Duration of episode: 3 -: minutes(s) Witnessed: Yes - by Other () Trauma: No Seizure History: Yes Place: Home Possible Precipitating Event: none Associated symptoms: confusion and other (Headache) Treatments prior to arrival: none Related Data Home Medications ?Medication ?Instructions ?Recorded ?Confirmed fluoxetine 10 mg capsule 10 mg PO DAILY 11/25/23 08/25/24 quetiapine 300 mg tablet 300 mg PO BEDTIME 11/25/23 08/25/24 methadone 10 mg/mL oral 26 mg PO DAILY 11/26/23 08/25/24 concentrate (Methadone Intensol) Previous Rx's ?Medication ?Instructions ?Recorded levetiracetam 1,000 mg tablet 2,000 mg (2 x 1,000 mg) PO BID 11/27/23 #120 tabs cyclobenzaprine 5 mg tablet 5 mg PO BEDTIME PRN for muscle 06/26/24 spasm #20 tabs acetaminophen 500 mg tablet 1,000 mg (2 x 500 mg) PO Q6H PRN 08/18/24 (Tylenol Extra Strength) fever or pain #20 tabs ibuprofen 400 mg tablet 400 mg PO TID PRN fever or pain 08/18/24 #30 tabs phenobarbital 30 mg tablet 30 mg PO BEDTIME 30 days #30 tabs 08/18/24 psyllium husk 3.4 gram/5.8 gram 3 g PO DAILY #660 grams 08/25/24 oral powder (Metamucil [facility] Fiber) Allergies Allergy/AdvReac Type Severity Reaction Status Date / Time carbamazepine AdvReac Intermediate dizzy Verified 10/14/24 09:19 azithromycin [From ZITHROMAX] AdvReac Unknown VOMITING/DI Verified 10/14/24 09:19 ARRHEA Zithromax AdvReac Mild vomiting Uncoded 08/25/24 16:30 Review of Systems Review of Systems: CONST: Negative for fever, body aches and chills. HENT: Negative for neck pain/stiffness, congestion, sore throat, swelling. POS headache EYES: Negative for discharge/pain or vision changes. RESP: Negative for cough/hemoptysis and shortness of breath. CV: Negative chest pain, difficulty breathing, palpitations. ABD: Negative pain, vomiting. POS nausea : Negative increase frequency, dysuria, blood in urine or stool. MUSC: Negative for muscle aches, edema. SKIN: Negative rash, lesions/sores. NEURO: Negative headache, weakness. POS dizziness Yes all other systems are reviewed and are negative [facility] Past Medical History Attestation statement: The following information was validated with the patient. Source: old records reviewed, obtained from family ( at bedside) and nursing notes reviewed Medical History Hypokalemia Status epilepticus Breakthrough seizure Weight loss Leg cramps Joint pain Brittle hair Biliary dyskinesia Right sided abdominal pain Pre-employment examination Left otitis media Cocaine-induced mood disorder with manic symptoms Herpes genitalis Ureterolithiasis Peptic ulcer disease Anemia Contraceptive management IV drug user Hepatitis C Surgical History Status post laparoscopic cholecystectomy Hx of cholecystectomy H/O myringotomy H/O sinus surgery Hx of tonsillectomy Family History Family History Father Heart attack Maternal Grandmother Lung cancer Mother CVA (cerebral vascular accident) Other Mental health disorder Substance use disorder Social History Social History Housing: Assisted Living Facility Housing Other:: treatment Do you presently have visiting nurse or other home services: No Alcohol intake: former Patient Tobacco Use Status: Former Tobacco user Tobacco use type: Cigarette Cigarettes Per Day: 3 Years Smoked: stopped 2021 vape (08/2023) Smoked in Last 30 Days: Yes e-Cigarette/Vaping Use: Currently Using Second Hand Smoke Exposure: Yes Substance Use Type: Former Substance User Advance Directives: Yes Advance Directives on File: Yes Advance Directives Date on File: 11/30/23 Do you have a plan to hurt others: No Plan Patient : No service: No Current occupational status: unemployed Cognitive needs: No Hearing needs: No Vision needs: No Physical Exam Vital Signs: Vital Signs: Last Vital Signs Temp 97.1 F 10/14/24 10:00 Pulse 70 10/14/24 11:55 Resp 16 10/14/24 11:55 BP 109/61 10/14/24 11:55 Pulse Ox 99 10/14/24 11:55 O2 Del Method Room Air 10/14/24 11:55 BMI result Body Mass Index 18.5 GENERAL APPEARANCE: ?AxOx4, tired appearing, no acute distress. HEENT: ?NC, AT. MMM. EOMI, clear conjunctiva, oropharynx clear. NECK: ?Supple without lymphadenopathy.? No stiffness or restricted ROM. HEART:? Normal rate and regular rhythm, normal S1/S1, no m/r/g LUNGS:? CTAB, moving air well. No crackles or wheezes are heard. ABDOMEN: ?Soft, nontender, nondistended with good bowel sounds heard. BACK: No CVAT, no obvious deformity. EXTREMITIES: ?Without cyanosis, clubbing or edema. NEUROLOGICAL: ?Grossly nonfocal. Alert and oriented, moving all 4 extremities. Skin: ?Warm and dry without any rash. Medications Administered Discontinued Medications Generic Name Dose Route Start Last Admin Trade Name Irvin PRN Reason Stop Dose Admin Acetaminophen 975 mg 10/14/24 09:33 10/14/24 09:53 Acetaminophen 325 Mg Tablet PO 10/14/24 09:34 975 mg ONCE ONE Administration Diphenhydramine HCl 25 mg 10/14/24 11:03 10/14/24 11:19 Diphenhydramine Hcl 50 Mg/Ml Vial IVPUSH 10/14/24 11:04 25 mg ONCE ONE Administration Lactated Ringer's 1,000 mls @ 999 mls/hr 10/14/24 09:28 10/14/24 10:52 Lr IV 10/14/24 10:28 Infused .Q1H1M ONE Infusion Ketorolac Tromethamine 15 mg 10/14/24 11:09 10/14/24 11:19 Ketorolac Tromethamine 15 Mg/Ml Vial IVPUSH 10/14/24 11:10 15 mg ONCE ONE Administration Metoclopramide HCl 10 mg 10/14/24 11:03 10/14/24 11:20 Metoclopramide Hcl 10 Mg/2 Ml Vial IVPUSH 10/14/24 11:04 10 mg ONCE ONE Administration Ondansetron HCl 4 mg 10/14/24 09:49 10/14/24 09:54 Ondansetron Hcl 4 Mg/2 Ml Vial IVPUSH 10/14/24 09:50 4 mg ONCE ONE Administration Medical Decision Making Medical Decision Making MDM Narrative: 29-year-old female accompanied by her with medical history of seizure, bipolar disorder, peptic ulcer disease, hepatitis c, bipolar disorder, polysubstance use on methadone presents to the emergency department by EMS due to seizure. Patient is mildly postictal and does not remember the seizure. states the patient was up this morning making breakfast when she stated ?I am not feeling well I am going to take my medicine? and took a dose of Keppra and sat down on the couch. At this point states patient began seizing for approximately 3 minutes and then entered the postictal phase. He called EMS for treatment in the department. Patient states she has been compliant with her Keppra dose which is 1000 mg b.i.d. patient states she is currently feeling ?foggy , headache, dizziness with mild nausea VSS, tired appearing in no acute distress, nontoxic appearing. Physical exam benign, lungs CTAB, no murmurs rubs gallops, abdomen nontender, no neurological deficits, eyes EOMI. EKG without evidence of ST elevation/depression, T-wave inversions, arrhythmia- less likely dysrhythmia, no concern for ACS. Labs ordered awaiting results. Started patient on IV fluids with p.o. Tylenol for headache, 4mg IV zofran for nausea. Will reassess for symptoms after administration of medication. Course 10:39- Labs WNL, unremarkable. Patient states she is still experiencing headache, will give IV 10mg reglan, 25mg benadryl, and 15mg Toradol for relief. 12:05- patient headache has improved after medication. Feels confident to discharge for home care. Encouraged patient to stay compliant with medication and to follow up with her neurologist. Counseled on strict return precautions. Differential Diagnosis Differential Diagnoses: The differential diagnosis associated with the presentation includes ACS Seizure Dysrhythmia Electrolyte imbalance Medication noncompliance Admission/Observation Consideration of admission/observation: Escalation of care including admission/observation considered Lab Data MDM Lab Attestation statement: I reviewed the patient's lab results. 10/14/24 09:48 10/14/24 09:48 Labs: Lab Results 10/14/24 Range/Units 09:48 WBC 5.1 (4.8-10.8) X10*3/uL RBC 4.25 (4.20-5.50) X10*6/uL Hgb 12.9 (12.0-16.0) g/dl Hct 37.8 (37.0-47.0) % MCV 88.9 (80.0-98.0) fL MCH 30.4 (27.0-33.0) pg MCHC 34.1 (31.0-35.0) g/dl RDW 12.4 (11.0-16.0) % Plt Count 248 (160-400) X10*3/uL MPV 9.3 L (9.4-12.3) fL Immature Gran % (Auto) 0.2 (0.0-0.4) % Neut % (Auto) 73.5 H (45-73) % Lymph % (Auto) 19.8 L (20-40) % [place] % (Auto) 5.3 (2-11) % Eos % (Auto) 0.8 (0-4) % Baso % (Auto) 0.4 (0-2) % Lymph # (Auto) 1.0 L (1.2-4.9) X10*3/uL [place] # (Auto) 0.3 (0.1-1.2) X10*3/uL Eos # (Auto) 0.0 (0.0-0.4) X10*3/uL Baso # (Auto) 0.0 (0.0-0.2) X10*3/uL Abs Immat Gran (auto) 0.01 (0.00-0.03) X10*3/uL Absolute Neuts (auto) 3.8 (2.0-8.3) x10*3/uL Absolute Nucleated RBC 0.000 (0.0-0.012) X10*3/uL Nucleated RBC % (auto) 0.0 (0.0-0.2) /100WBC Sodium 139 (135-145) mmol/L Potassium 4.4 (3.3-5.1) mmol/L Chloride 107 (96-108) mmol/L Carbon Dioxide 24 (22-29) mmol/L Anion Gap 12 (12-20) BUN 8 L (9-16) mg/dL Creatinine 0.70 (0.5-1.4) mg/dL Estim Creat Clear Calc 90.9 Estimated GFR > 60 Random Glucose 94 (60-115) mg/dL Calcium 9.2 (8.4-10.2) mg/dL Magnesium 1.9 (1.6-2.6) mg/dL Total Bilirubin 0.3 (0.0-1.0) mg/dL AST 26 (5-31) U/L ALT 13 (0-31) U/L Alkaline Phosphatase 55 (39-117) U/L Total Creatine Kinase 84 (26-140) U/L Total Protein 6.9 (6.5-8.0) g/dL Albumin 4.4 (3.5-5.0) g/dL Independent Interpretation I performed an independent interpretation of an: EKG Interpretation: I independently interpreted the EKG Vent. Rate : 88 BPM Atrial Rate : 88 BPM P-R Int : 142 ms QRS Dur : 86 ms QT Int : 362 ms P-R-T Axes : 65 26 61 degrees QTcB Int : 438 ms Normal sinus rhythm Normal ECG When compared with ECG of 18-Aug-2024 08:22, No significant change was found Independent Historian Clinical information obtained from an independent historian. History obtained from or confirmed by: Spouse ( at bedside) External Record Review External record reviewed: Inpatient record, Office record and Outpatient record Chronic Conditions Patient?s care impacted by: Other (Seizure disorder) Discharge Plan Discharge Clinical Impression: Seizure disorder Patient Disposition: Home, Self-Care Instructions: Recurrent Seizures in Adults (ED) Additional Instructions: You were evaluated in the ED today due to seizure. You did not have another seizure while in the department. Your lab work was normal. Your EKG did not show any emergent cardiac processes. Your headache was treated with IV fluids, oral Tylenol, IV Reglan, Benadryl, and Toradol with good management. You can take another dose of Tylenol around 8:00 p.m. tonight, which will be 8 hours after your last dose. Please follow up with your neurologist to ensure improvement. Continue to take your daily Keppra doses without missing any doses. Please return to the ED if you experience fevers over 100.4?, worsening headache, additional seizures, vomiting, or any new/concerning/worsening symptoms Prescriptions: No Action cyclobenzaprine 5 mg tablet 5 mg PO BEDTIME PRN (Reason: for muscle spasm) Qty: 20 1RF acetaminophen [Tylenol Extra Strength] 500 mg tablet 1,000 mg PO Q6H PRN (Reason: fever or pain) Qty: 20 0RF ibuprofen 400 mg tablet 400 mg PO TID PRN (Reason: fever or pain) Qty: 30 0RF phenobarbital 30 mg tablet 30 mg PO BEDTIME 30 Days Qty: 30 0RF quetiapine 300 mg tablet 300 mg PO BEDTIME fluoxetine 10 mg capsule 10 mg PO DAILY methadone [Methadone Intensol] 10 mg/mL Concentrate 26 mg PO DAILY Rx Instructions: pt last dosed at clinic 11/09 with #27 take home bottles levetiracetam 1,000 mg Tablet 2,000 mg PO BID Qty: 120 0RF Metamucil [facility] Fiber 3.4 gram/5.8 gram powder 3 g PO DAILY Qty: 660 0RF Print Language: Grenadian
[2024-10-14 09:18] VITALS: BP 106/62; BP 108/72; PULSE 90; PULSE 96; RESP 18; TEMP 36.4; O2SAT 100; O2SAT 98; BMI 18.5
--- NOTE | 2024-10-14 09:23 | PC.NURSE ---
patient a&ox2- person/ place, after triage patient was stating she had fell during the seizure hitting her head, confirmed pt had seizure on the couch- there was no fall or head strike. 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
[2024-10-14] MEDS: Lactated Ringers 1,000 ML 999 ML IV (09:51)
[2024-10-14] MEDS: Acetaminophen 325 MG TABLET 975 MG PO (09:53)
[2024-10-14] MEDS: ondansetron HCL 4 MG/2 ML VIAL IVPUSH (09:54)
[2024-10-14 09:55] LABS: MANUAL DIFF FLAG NO
--- NOTE | 2024-10-14 09:55 | PC.NURSE ---
seizure precautions applied, iv inserted, labs drawn, pt medicated per order, call brandt within reach, plan of care ongoing
[2024-10-14 10:00] VITALS: BP 94/60; PULSE 82; RESP 17; TEMP 36.2; O2SAT 98
[2024-10-14 10:05] LABS: Basophils Percent Auto 0.4 % (0-2); Eosinophils Percent Auto 0.8 % (0-4); Hematocrit 37.8 % (37.0-47.0); Hemoglobin 12.9 g/dl (12.0-16.0); Imm Gran Abs Auto 0.01 X10*3/uL (0.00-0.03); Imm Gran Pct Auto 0.2 % (0.0-0.4); Lymphocytes Percent Auto 19.8 % (20-40); Mean Corpuscular HGB Conc 34.1 g/dl (31.0-35.0); Mean Corpuscular Hemoglobin 30.4 pg (27.0-33.0); Mean Corpuscular Volume 88.9 fL (80.0-98.0); Mean Platelet Volume 9.3 fL (9.4-12.3); Monocytes Absolute Auto 0.3 X10*3/uL (0.1-1.2); Monocytes Percent Auto 5.3 % (2-11); Neutrophils Absolute Auto 3.8 x10*3/uL (2.0-8.3); Neutrophils Percent Auto 73.5 % (45-73); Platelet Count 248 X10*3/uL (160-400); Red Blood Count 4.25 X10*6/uL (4.20-5.50); Red Cell Distribution Width 12.4 % (11.0-16.0); White Blood Count 5.1 X10*3/uL (4.8-10.8)
[2024-10-14 10:14] LABS: Alanine Aminotransferase 13 U/L (0-31); Albumin Level 4.4 g/dL (3.5-5.0); Alkaline Phosphatase 55 U/L (39-117); Anion Gap 12 (12-20); Aspartate Amino Transferase 26 U/L (5-31); Bilirubin Total 0.3 mg/dL (0.0-1.0); Blood Urea Nitrogen 8 mg/dL (9-16); Calcium 9.2 mg/dL (8.4-10.2); Carbon Dioxide 24 mmol/L (22-29); Chloride 107 mmol/L (96-108); Creatinine Clr Calc Pharmacy 90.9; Estimated Glomerular Filt Rate > 60; Glucose Random 94 mg/dL (60-115); Magnesium 1.9 mg/dL (1.6-2.6); Potassium 4.4 mmol/L (3.3-5.1); Sodium 139 mmol/L (135-145); Total Protein 6.9 g/dL (6.5-8.0)
[2024-10-14] MEDS: diphenhydrAMINE HCL 50 MG/ML VIAL 25 MG IVPUSH (11:19)
[2024-10-14] MEDS: Ketorolac Tromethamine 15 MG/ML VIAL IVPUSH (11:19)
[2024-10-14] MEDS: Metoclopramide HCl 10 MG/2 ML VIAL IVPUSH (11:20)
--- NOTE | 2024-10-14 11:27 | PC.NURSE ---
pt medicated per order, no seizure activity noted
[2024-10-14 11:55] VITALS: BP 109/61; PULSE 70; RESP 16; O2SAT 99
[2024-10-14 12:19] VITALS: BP 109/61; PULSE 70; RESP 16; TEMP 36.7; O2SAT 99
== END 2024-10-14 12:20 | disposition home or self-care (01) ==
PROVIDERS: Emergency Provider Emergency Medicine; PCP Internal Medicine
DX: G40.909 Epilepsy, unspecified, not intractable, without status epilepticus (principal); R51.9 Headache, unspecified; B19.20 Unspecified viral hepatitis C without hepatic coma; F31.9 Bipolar disorder, unspecified; F11.20 Opioid dependence, uncomplicated
CPT/HCPCS: 36415; 80053; 82550; 83735; 85025; 93005; 96361; 96374; 96375; 99284; 99285; J1200; J1885; J2405; J2765; J7120

== ENCOUNTER → 2024-10-14 09:22 | Outpatient (BNV) | payer OTHER, SELFPAY | PROVIDERS: Emergency Provider Emergency Medicine; PCP Internal Medicine; Visit Provider Internal Medicine Cardiovascular Disease | DX: R56.9 Unspecified convulsions (principal) | CPT/HCPCS: 93010 ==

== ENCOUNTER 2024-11-14 11:29 | Outpatient (REF) | payer OTHER, SELFPAY ==
[2024-11-14 12:36] LABS: Hematocrit 35.5 % (37.0-47.0); Hemoglobin 12.0 g/dl (12.0-16.0); Mean Corpuscular HGB Conc 33.8 g/dl (31.0-35.0); Mean Corpuscular Hemoglobin 30.2 pg (27.0-33.0); Mean Corpuscular Volume 89.2 fL (80.0-98.0); NRBC Abs Auto 0.000 X10*3/uL (0.0-0.012); NRBC Pct Auto 0.0 /100WBC (0.0-0.2); Platelet Count 257 X10*3/uL (160-400); Red Blood Count 3.98 X10*6/uL (4.20-5.50); White Blood Count 7.4 X10*3/uL (4.8-10.8)
[2024-11-14 21:58] LABS: CT PCR NOT DETECTED (Not Detect.); NG PCR NOT DETECTED (Not Detect.)
== END 2024-11-14 11:30 | disposition home or self-care (01) ==
LOC: HO.LAB 11:29
PROVIDERS: PCP Internal Medicine; Visit Provider Obstetrics & Gynecology
DX: Z01.419 Encounter for gynecological examination (general) (routine) without abnormal findings (principal)
CPT/HCPCS: 36415; 81025; 84443; 84702; 85027; 87491; 87591; 87626; 88175; 99202

== ENCOUNTER 2024-11-14 11:29 | Outpatient (AMB) | payer OTHER, SELFPAY ==
--- NOTE | 2024-11-14 11:32 | A.OFFVIS_ITS ---
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: No Information Interpreted: non-clinical & clinical Drill Press Tender: Drill Press Tender Present (Adrianne DE LEON) Accompanied by: Self / Same As Patient Allergies carbamazepine Adverse Reaction (Intermediate, Verified 11/14/24 11:36) dizzy azithromycin (From ZITHROMAX) Adverse Reaction (Unknown, Verified 11/14/24 11:36) VOMITING/DIARRHEA Zithromax Adverse Reaction (Mild, Uncoded 11/14/24 11:36) vomiting Is last menstrual period known: Yes Last menstrual period: 10/24/24 HPI Comments Details: Presenting complaining of heavy vaginal bleeding associated with passage of blood clots and pelvic cramping PFSH Medical History Hypokalemia Status epilepticus Breakthrough seizure Weight loss Leg cramps Joint pain Brittle hair Biliary dyskinesia Right sided abdominal pain Pre-employment examination Left otitis media Cocaine-induced mood disorder with manic symptoms Herpes genitalis Ureterolithiasis Peptic ulcer disease Anemia Contraceptive management IV drug user Hepatitis C Surgical History Status post laparoscopic cholecystectomy Hx of cholecystectomy H/O myringotomy H/O sinus surgery Hx of tonsillectomy Family History Father Heart attack Maternal Grandmother Lung cancer Mother CVA (cerebral vascular accident) Other Mental health disorder Substance use disorder Social History Housing: Assisted Living Facility Housing Other:: treatment Do you presently have visiting nurse or other home services: No Alcohol intake: former Patient Tobacco Use Status: Former Tobacco user Tobacco use type: Cigarette Cigarettes Per Day: 3 Years Smoked: stopped 2021 vape (08/2023) e-Cigarette/Vaping Use: Currently Using Second Hand Smoke Exposure: Yes Substance Use Type: Former Substance User Advance Directives Date on File: 11/30/23 service: No Current occupational status: unemployed Cognitive needs: No Hearing needs: No Vision needs: No Female Reproductive History Menstrual Duration of menses: 3-5 days Date of last menstrual period: 10/24/24 control method: none Review of Systems Const All systems reviewed & are unremarkable except as noted in HPI and below Card Reports as per HPI Resp Reports as per HPI GI Reports as per HPI and Reports no additional complaints Reports as per HPI Physical Exam Vital Signs: Last Vital Signs BP 98/62 11/14/24 11:35 BMI result Body Mass Index 17.7 Const General: cooperative, healthy appearing and comfortable Chest Chest palpation & inspection: normal inspection of the chest and normal palpation of entire chest wall Breast/axilla inspection: normal inspection of the breasts and normal inspection of the axillae Breast/axilla palpation: normal palpation of the breasts, normal palpation of the axillae and no axillary lymphadenopathy Resp Effort & Inspection: normal respiratory effort Auscultation: clear to auscultation bilaterally Percussion: percussion normal Cardio Palpation: normal PMI Rate: regular rate Rhythm: regular rhythm Heart sounds: no murmurs and no rubs Peripheral pulses: Peripheral pulses 2+ throughout GI Inspection: Yes normal to inspection Palpation (GI): Soft to palpation, nontender, no guarding, not rigid and No hepatosplenomegaly present Percussion: Yes normal to percussion Auscultation: normal bowel sounds Rectal Exam - Female: deferred General: Yes bladder normal to palpation External Female Exam: No lesion Speculum Exam - Vagina: normal appearance of the vagina, normal palpation, normal vaginal discharge and not erythematous Speculum Exam - Cervix: normal appearance of the cervix and normal palpation Bimanual exam- vagina & uterus: normal bimanual exam, normal palpation, uterine size normal, bladder normal to palpation, consistency normal and normal palpation Bimanual Exam- Adnexa, other: normal adnexae, no masses and no tenderness Results AMB Test Urine AMB Test Urine Negative Last Edit by Adrianne Morillo CMA on 11:40 Results Reviewed Results Reviewed: Laboratory Last Values Tst Clinic Negative 11/14/24 11:40 Assessment & Plan Assessment & Plan (1) Abnormal uterine bleeding (AUB): Code(s): N93.9 - Abnormal uterine and vaginal bleeding, unspecified Category: Medical Plan: Co testing done, GC and chlamydia taken CBC, TSH, HCG, and pelvic ultrasound ordered. Discussed with the patient the different causes of abnormal bleeding including thyroid disorders, uterine and ovarian pathology, other potential causes. Discussed with the patient the work up including CBC (to r/o anemia), TSH, pelvic Ultrasound. All questions answered and the patient verbalized understanding. Instructed the patient to schedule an appointment for an endometrial biopsy in 2 weeks. Orders: Orders AMB HCG Urine Test Today Z32.02 - Encounter for test, result negative Complete Blood Count no Diff Today N93.9 - Abnormal uterine and vaginal bleeding, unspecified TSH reflex Free T4 Today N93.9 - Abnormal uterine and vaginal bleeding, unspecified HCG Quantitative Today N93.9 - Abnormal uterine and vaginal bleeding, unspecified US pelvic and transvaginal Today N93.9 - Abnormal uterine and vaginal bleeding, unspecified Coding Level of Care Code New Pt Level 3 (57024) Diagnoses Abnormal uterine bleeding (AUB) N93.9
[2024-11-14 11:35] VITALS: BP 98/62; BMI 17.7
== END 2024-11-14 11:54 | disposition home or self-care (01) ==
LOC: HO.HWS 11:30
PROVIDERS: PCP Internal Medicine; Visit Provider Obstetrics & Gynecology
DX: N93.9 Abnormal uterine and vaginal bleeding, unspecified (principal); Z32.02 Encounter for pregnancy test, result negative
CPT/HCPCS: 99203

== ENCOUNTER 2024-12-07 10:09 | Inpatient (IN) | payer OTHER, SELFPAY ==
[2024-12-07] VITALS (11 sets, daily range): BP systolic 91–131; BP diastolic 51–73; PULSE 60–86; RESP 10–18; TEMP 36.3–36.8; O2SAT 93–100; BMI 19.0; BMI 18.0
--- NOTE | ~2024-12-07 | CT_ITS ---
EXAMINATION: CT HEAD WITHOUT IV CONTRAST HISTORY: breakthrough seizures. TECHNIQUE: Unenhanced helical CT of the head was performed per standard departmental protocol. Coronal and sagittal reformats of the head were also evaluated. One or more of the following techniques was used for dose reduction: Automated exposure control, adjustment of the mA and/or kV according to patient size, use of iterative reconstruction technique. DLP: 603 mGy-cm COMPARISON: Comparison is made with the prior examination dated 08/18/2024. FINDINGS: BRAIN: The brain parenchyma is unremarkable. There is normal torres/white differentiation. The ventricular system is normal in size and configuration. There is no mass effect or midline shift. No intra- or extra-axial fluid collections are identified. SINUSES: The visualized paranasal sinuses are clear. The mastoid air cells and middle ear cavities are well pneumatized. ORBITS: The visualized orbits are unremarkable. BONES/SOFT TISSUES: The extracranial soft tissues are unremarkable. The calvarium is intact. No suspicious lytic or sclerotic lesions. CT/CT head/brain wo IV con IMPRESSION: No acute intracranial abnormality. Electronically signed by: Tom Bhakta MD 12/07/2024 01:02 PM EDT
--- NOTE | 2024-12-07 10:43 | ED_ITS ---
HPI - General Adult General Chief complaint: Seizure Stated complaint: SZ, POST ICTAL PER EMS Time Seen by Provider: 12/07/24 10:43 Source: patient and EMS Mode of arrival: EMS Limitations: no limitations History of Present Illness ED Provider: Ana Ricardo PA-C HPI narrative: Patient is a 29-year-old female with a known history of seizure, bipolar disorder, peptic ulcer disease, hepatitis c, polysubstance use on methadone coming by EMS after having a seizure witnessed by her partner. The patient reports her last seizure occurred approximately 2?3 weeks ago. She state that she felt a seizure coming on today, describing a big sense of overwhelming tingles from head to toe prior to the event. There was no trauma leading up to the episode. The patient denies any recent illicit drug use and reports being clean for the past 7 years after a history of intravenous drug use. Patient states she has increased stress as her son started chemotherapy yesterday. The patient has a follow-up neurology appointment scheduled for the of this month. Patient states that she is taking all of her seizure medications as prescribed. Onset (ago): hour(s) Severity: similar to prior episodes Related Data Home Medications ?Medication ?Instructions ?Recorded ?Confirmed fluoxetine 10 mg capsule 10 mg PO DAILY 11/25/23 08/11/24 quetiapine 300 mg tablet 300 mg PO BEDTIME 11/25/23 0 12/07/24 methadone 10 mg/mL oral 26 mg PO DAILY 11/26/2308/02 concentrate (Methadone Intensol) divalproex 250 mg tablet,delayed 250 mg PO BID 5 12/07/24 release Previous Rx's ?Medication ?Instructions ?Recorded levetiracetam 1,000 mg tablet 2,000 mg (2 x 1,000 mg) PO BID 11/27/23 #120 tabs acetaminophen 500 mg tablet 1,000 mg (2 x 500 mg) PO Q 6H PRN 08/18/24 (Tylenol Extra Strength) fever or pain #20 tabs ibuprofen 400 mg tablet 400 mg PO TID PRN fever or p ain 08/18/24 #30 tabs Allergies Allergy/AdvReac Type Severity Reaction Status Date / Time carbamazepine AdvReac Intermediate dizzy Verified 12/07/24 10:31 azithromycin (From ZITHROMAX) AdvReac Unknown VOMITING/DI Verified 12/07/24 10:31 ARRHEA Zithromax AdvReac Mild vomiting Uncoded 12/07/24 10:31 Review of Systems 2 Constitutional: Constitutional: Reports as per HPI and Reports headache(s) Eyes: Eyes: Reports no additional eye complaints and Denies change in vision ENT: Denies dizziness and Reports headache(s) Cardiovascular: Cardiovascular: Reports no additional cardiovascular complaints, Denies chest pain, Denies lightheadedness, Denies Loss of Consciousness and Denies dyspnea Respiratory: Respiratory: Reports no additional respiratory complaints and Denies dyspnea Gastrointestinal: Gastrointestinal: Reports no additional gastrointestinal complaints Genitourinary: Genitourinary: Reports no additional female genitourinary complaints Musculoskeletal: Musculoskeletal: Reports no additional musculoskeletal complaints, Denies numbness and Denies tingling Neurologic: Denies dizziness, Reports headache(s), Denies numbness, Reports seizure-like activity (episode prior to arrival) and Denies tingling Psychiatric: Psychiatric: Reports no additional psychiatric complaints Endocrine: Endocrine: Reports no additional endocrine complaints Hematologic/Lymphatic: Hematologic/Lymphatic: Reports no additional hematologic/lymphatic complaints Allergic/Immunologic: Allergic/Immunologic: Reports no additional allergic/immunologic complaints [facility] Past Medical History Medical History Hypokalemia Status epilepticus Breakthrough seizure Weight loss Leg cramps Joint pain Brittle hair Biliary dyskinesia Right sided abdominal pain Pre-employment examination Left otitis media Cocaine-induced mood disorder with manic symptoms Herpes genitalis Ureterolithiasis Peptic ulcer disease Anemia Contraceptive management IV drug user Hepatitis C Surgical History Status post laparoscopic cholecystectomy Hx of cholecystectomy H/O myringotomy H/O sinus surgery Hx of tonsillectomy Family History Family History Father Heart attack Maternal Grandmother Lung cancer Mother CVA (cerebral vascular accident) Other Mental health disorder Substance use disorder Social History Social History Housing: Assisted Living Facility Housing Other:: treatment Do you presently have visiting nurse or other home services: No Alcohol intake: former Patient Tobacco Use Status: Former Tobacco user Tobacco use type: Cigarette Cigarettes Per Day: 3 Years Smoked: stopped 2021 vape (08/2023) Smoked in Last 30 Days: Yes e-Cigarette/Vaping Use: Currently Using Second Hand Smoke Exposure: Yes Use of substances other than those prescribed or required for medical reasons: No Substance Use Type: Former Substance User Advance Directives: Yes Advance Directives on File: Yes Advance Directives Date on File: 11/30/23 Patient : No service: No Current occupational status: unemployed Cognitive needs: No Hearing needs: No Vision needs: No Physical Exam ED Vital Signs: Vital Signs - 24 hr 12/07/24 10:30 12/07/24 11:41 12/07/24 12:09 Temperature 97.7 F 98.3 F Pulse Rate 70 86 84 Respiratory Rate 14 11 L 16 Blood Pressure 108/65 112/63 131/73 Pulse Oximetry 93 97 100 Oxygen Delivery Method Room Air Non-Rebreather Mask Room Air Oxygen Flow Rate 15 BMI result Body Mass Index 19.0 Const General: cooperative, no acute distress, alert and awake Nutritional Appearance: well nourished Orientation/consciousness: patient oriented x3 HENMT Head: Yes normal to inspection and Yes atraumatic Ears: hearing grossly normal bilaterally and external ears normal General nose exam: Normal external nose present, no nasal discharge noted and no epistaxis Face and sinus: Yes normal facial exam, No abrasion and No laceration Mouth: Normal oral and palatal mucosa present, no drooling and no muffled voice Eyes General: appearance normal, both eyes and all related structures Periorbital: periorbital findings normal Eyelids: Yes eyelids normal Conjunctivae: conjunctivae normal Pupils: Equal, round and reactive pupils present EOM: EOMs intact bilaterally Neck Neck: Yes normal visual inspection, Yes full ROM and Yes no lymphadenopathy Resp Effort & Inspection: normal respiratory effort and able to speak in complete sentences Neuro General: patient oriented x3, moves all extremities and CN's II-XI intact bilaterally Cranial nerves: Yes Equal, round and reactive pupils present Cognition (Neuro): normal cognition Extrem General: Yes normal to inspection, Yes full ROM and Yes capillary refill normal Psych Appearance: grossly normal Mental Status: mental status grossly normal Affect: normal affect Attitude: cooperative Thought process: Normal thought process present Thought content: Normal thought content present Insight: Good insight present (Psych) Medications Administered Discontinued Medications Generic Name Dose Route Start Last Admin Trade Name Freq PRN Reason Stop Dose Admin Diazepam 5 mg 12/07/24 11:41 12/07/24 11:42 Diazepam 10 Mg/2 Ml Cartridge IVPUSH 12/07/24 11:42 5 mg STAT STA Administration Levetiracetam 1,000 mg in 100 mls @ 400 mls/hr 12/07/24 11:32 12/07/24 12:12 Keppra IV 12/07/24 11:46 Infused ONCE ONE Infusion Acetaminophen 1,000 mg in 100 mls @ 400 mls/hr 12/07/24 12:56 12/07/24 13:45 Ofirmev IV 12/07/24 13:10 Infused ONCE ONE Infusion Sodium Chloride 1,000 mls @ 999 mls/hr 12/07/24 13:15 12/07/24 14:15 Ns IV 12/07/24 14:15 999 mls/hr .Q1H1M JOSE Administration Morphine Sulfate 4 mg 12/07/24 14:47 12/07/24 15:30 Morphine Sulfate 4 Mg/Ml Cartridge IVPUSH 12/07/24 14:48 4 mg ONCE ONE Administration Protocol Medical Decision Making Medical Decision Making MDM Narrative: Patient is a 29 year old assigned female at with a history of seizure, bipolar disorder, peptic ulcer disease, hepatitis c, polysubstance use on methadone coming by EMS after having a seizure witnessed by her partner presenting to the emergency department today after a seizure. Patient's physical exam was unremarkable. Patient's blood work showed an elevated lactic of 5.7. Patient's head CT showed no acute process. While in the department, the patient suffered another seizure. Patient was given valium and keppra. Patient came out of her postictal state and stated her head hurt. Patient was given IV tylenol + morphine. Upon re-evaluation the patient stated those medications helped her symptoms some. Patient was given IV fluids for her elevated lactic. Lactic level was elevated secondary to seizure and NOT sepsis. Given the patient's increased frequency in seizures and her current clinical presentation - I believe it is reasonable for the patient to be admitted to the hospital. I spoke with the hospitalist team who agreed to admission. I explained my physical exam findings as well as all test results to the patient. I answered all questions asked by the patient. Patient verbalized agreement and understanding with this treatment plan and admission. Differential Diagnosis Differential Diagnoses: The differential diagnosis associated with the presentation includes Seizure disorder Breakthrough seizures Poorly controlled seizure Admission/Observation Consideration of admission/observation: Escalation of care including admission/observation considered Patient admitted as noted in the MDM Rationale portion of this note. Consult Healthcare Provider Management of the patient was discussed with: Hospitalist (agreed to admission as noted in the MDM Rationale portion of this note. ) Lab Data [facility] Lab Attestation statement: I reviewed the patient's lab results. My interpretation of these results are in the MDM Rationale portion of this note. 12/07/24 11:21 12/07/24 11:21 Labs: Lab Results 12/07/24 12/07/24 12/07/24 Range/Units 11:21 12:23 14:46 WBC 3.1 L (4.8-10.8) X10*3/uL RBC 4.26 (4.20-5.50) X10*6/uL Hgb 13.0 (12.0-16.0) g/dl Hct 38.4 (37.0-47.0) % MCV 90.1 (80.0-98.0) fL MCH 30.5 (27.0-33.0) pg MCHC 33.9 (31.0-35.0) g/dl RDW 12.8 (11.0-16.0) % Plt Count 221 (160-400) X10*3/uL MPV 9.0 L (9.4-12.3) fL Immature Gran % (Auto) 0.3 (0.0-0.4) % Neut % (Auto) 54.1 (45-73) % Lymph % (Auto) 34.5 (20-40) % [place] % (Auto) 8.6 (2-11) % Eos % (Auto) 1.9 (0-4) % Baso % (Auto) 0.6 (0-2) % Lymph # (Auto) 1.1 L (1.2-4.9) X10*3/uL [place] # (Auto) 0.3 (0.1-1.2) X10*3/uL Eos # (Auto) 0.1 (0.0-0.4) X10*3/uL Baso # (Auto) 0.0 (0.0-0.2) X10*3/uL Abs Immat Gran (auto) 0.01 (0.00-0.03) X10*3/uL Absolute Neuts (auto) 1.7 L (2.0-8.3) x10*3/uL Absolute Nucleated RBC 0.000 (0.0-0.012) X10*3/uL Nucleated RBC % (auto) 0.0 (0.0-0.2) /100WBC Sodium 140 (135-145) mmol/L Potassium 4.1 (3.3-5.1) mmol/L Chloride 106 (96-108) mmol/L Carbon Dioxide 30 H (22-29) mmol/L Anion Gap 8 L (12-20) BUN 11 (9-16) mg/dL Creatinine 0.77 (0.5-1.4) mg/dL Estim Creat Clear Calc 87.1 Estimated GFR > 60 Random Glucose 83 (60-115) mg/dL Lactic Acid 5.7 H* (0.5-2.0) mmol/L Lactic Acid F/U @ 2Hr 0.8 (0.5-2.0) mmol/L Calcium 9.1 (8.4-10.2) mg/dL Magnesium 2.1 (1.6-2.6) mg/dL Total Bilirubin 0.3 (0.0-1.0) mg/dL AST 22 (5-31) U/L ALT 12 (0-31) U/L Alkaline Phosphatase 47 (39-117) U/L Total Protein 6.8 (6.5-8.0) g/dL Albumin 4.5 (3.5-5.0) g/dL Independent Interpretation I performed an independent interpretation of an: CT Scan Interpretation: My interpretation is in agreement with the radiologist's impression of this imaging study. L Report Number: [id number]: Total DLP = 603.00 mGy-cm EXAMINATION: CT HEAD WITHOUT IV CONTRAST HISTORY: breakthrough seizures. TECHNIQUE: Unenhanced helical CT of the head was performed per standard departmental protocol. Coronal and sagittal reformats of the head were also evaluated. One or more of the following techniques was used for dose reduction: Automated exposure control, adjustment of the mA and/or kV according to patient size, use of iterative reconstruction technique. DLP: 603 mGy-cm COMPARISON: Comparison is made with the prior examination dated 08/18/2024. FINDINGS: BRAIN: The brain parenchyma is unremarkable. There is normal torres/white differentiation. The ventricular system is normal in size and configuration. There is no mass effect or midline shift. No intra- or extra-axial fluid collections are identified. SINUSES: The visualized paranasal sinuses are clear. The mastoid air cells and middle ear cavities are well pneumatized. ORBITS: The visualized orbits are unremarkable. BONES/SOFT TISSUES: The extracranial soft tissues are unremarkable. The calvarium is intact. No suspicious lytic or sclerotic lesions. CT/CT head/brain wo IV con IMPRESSION: No acute intracranial abnormality. Electronically signed by: Tom Bhakta MD 12/07/2024 01:02 PM EDT RP Dictated By: Tom Bhakta MD Signed By: Electronically signed by Tom Bhakta MD 12/07/24 1302 Radiology Impression Discussion of test interpretation with radiology: I have reviewed the radiologist's reading. Independent Historian Clinical information obtained from an independent historian. History obtained from or confirmed by: EMS (EMS provided additional history and confirmed the history provided by the patient. ) External Record Review External record reviewed: Inpatient record Critical Care Time Critical Care Time Critical Care Time: Yes Total Critical Care Time: 46 Attestation: I spent 46 minutes of Critical Care Time with this patient. This does not include time spent on separately reported billable procedures. Discharge Plan Discharge Clinical Impression: Breakthrough seizure Patient Disposition: Admitted As Inpatient
[2024-12-07 11:26] LABS: MANUAL DIFF FLAG NO
[2024-12-07 11:30] LABS: Hematocrit 38.4 % (37.0-47.0); Hemoglobin 13.0 g/dl (12.0-16.0); Imm Gran Abs Auto 0.01 X10*3/uL (0.00-0.03); Imm Gran Pct Auto 0.3 % (0.0-0.4); Lymphocytes Absolute Auto 1.1 X10*3/uL (1.2-4.9); Mean Corpuscular HGB Conc 33.9 g/dl (31.0-35.0); Mean Corpuscular Hemoglobin 30.5 pg (27.0-33.0); Mean Corpuscular Volume 90.1 fL (80.0-98.0); NRBC Abs Auto 0.000 X10*3/uL (0.0-0.012); NRBC Pct Auto 0.0 /100WBC (0.0-0.2); Platelet Count 221 X10*3/uL (160-400); Red Blood Count 4.26 X10*6/uL (4.20-5.50); White Blood Count 3.1 X10*3/uL (4.8-10.8)
[2024-12-07 11:42] LABS: Alanine Aminotransferase 12 U/L (0-31); Albumin Level 4.5 g/dL (3.5-5.0); Alkaline Phosphatase 47 U/L (39-117); Anion Gap 8 (12-20); Aspartate Amino Transferase 22 U/L (5-31); Blood Urea Nitrogen 11 mg/dL (9-16); Calcium 9.1 mg/dL (8.4-10.2); Carbon Dioxide 30 mmol/L (22-29); Chloride 106 mmol/L (96-108); Creatinine Clr Calc Pharmacy 87.1; Estimated Glomerular Filt Rate > 60; Magnesium 2.1 mg/dL (1.6-2.6); Potassium 4.1 mmol/L (3.3-5.1); Sodium 140 mmol/L (135-145); Total Protein 6.8 g/dL (6.5-8.0)
[2024-12-07] MEDS: diazePAM 10 MG/2 ML CARTRIDGE 5 MG IVPUSH (11:42)
[2024-12-07] MEDS: levETIRAcetam in NaCl (iso-os) 1,000 MG/100 ML PIGGYBACK 400 MG IV (11:47)
--- NOTE | 2024-12-07 11:52 | PC.NURSE ---
This RN called to bedside by PA student stating Pt reports she feels a seizure coming on. Pt awake upon arrival bedside but does not verbally respond to questions. Pt with sudden onset of generalized rigidity. PA Student exits room to alert ED provider. O2 placed on Pt via non-rebreather Skin is moist. Seizure like activity lasts approx. 40 seconds No trauma as seizure precautions in place. No incontinence. Emergent IV Valium 5mg given STAT at approx 1130. Pt post-ictal at this time with noted confusion and refusing to follow direction. VSS O2 sat 94% RA at this time. IV Keppra given per JUL.
[2024-12-07 14:29] LABS: Reflex Lactate? Lactic Acid Added
[2024-12-07 15:04] LABS: ~Lactic Acid-LAB USE ONLY 0.8 mmol/L (0.5-2.0)
--- NOTE | 2024-12-07 15:49 | PHA.MEDREC ---
Addendum entered by Renee Mcgee RPh 12/07/24 16:04: [facility] REVIEWED Original Note: Pharmacy Consult ? Medication Reconciliation Pharmacy has completed the medication reconciliation. Spoke to patient to confirm med list. Patient states she is no longer taking Cyclobenzaprine 5 mg, Hydroxyzine Hcl 25 mg and Phenobarbital 30 mg. Patient confirmed Methadone 26 mg daily from [facility] in [place], last dose was this morning.
--- NOTE | 2024-12-07 16:05 | P.HPHOSP_ITS ---
History of Present Illness Date of Service: 12/07/24 Chief Complaint: Breakthrough seizures 29-year-old female with a known history of seizure, bipolar disorder, peptic ulcer disease, hepatitis c, polysubstance use on methadone coming by EMS after having a seizure witnessed by her partner. The patient reports her last seizure occurred approximately 2?3 weeks ago. She state that she felt a seizure coming on today, describing a big sense of overwhelming tingles from head to toe prior to the event. There was no trauma leading up to the episode. The patient denies any recent illicit drug use and reports being clean for the past 7 years after a history of intravenous drug use. Patient states she has increased stress as her son started chemotherapy yesterday. The patient has a follow-up neurology appointment scheduled for the of this month. Patient states that she is taking all of her seizure medications as prescribed. Review of Systems 2 Review of Systems: Denies chest pain Denies shortness of breath Denies nausea vomiting diarrhea Denies fever chills PMFSH Medical History Hypokalemia Status epilepticus Breakthrough seizure Weight loss Leg cramps Joint pain Brittle hair Biliary dyskinesia Right sided abdominal pain Pre-employment examination Left otitis media Cocaine-induced mood disorder with manic symptoms Herpes genitalis Ureterolithiasis Peptic ulcer disease Anemia Contraceptive management IV drug user Hepatitis C Family History Father Heart attack Maternal Grandmother Lung cancer Mother CVA (cerebral vascular accident) Other Mental health disorder Substance use disorder Surgical History Status post laparoscopic cholecystectomy Hx of cholecystectomy H/O myringotomy H/O sinus surgery Hx of tonsillectomy Social History Housing: Assisted Living Facility Housing Other:: treatment Do you presently have visiting nurse or other home services: No Alcohol intake: former Patient Tobacco Use Status: Former Tobacco user Tobacco use type: Cigarette Cigarettes Per Day: 3 Years Smoked: stopped 2021 vape (08/2023) Smoked in Last 30 Days: Yes e-Cigarette/Vaping Use: Currently Using Second Hand Smoke Exposure: Yes Use of substances other than those prescribed or required for medical reasons: No Substance Use Type: Former Substance User Advance Directives: Yes Advance Directives on File: Yes Advance Directives Date on File: 11/30/23 Patient : No service: No Current occupational status: unemployed Cognitive needs: No Hearing needs: No Vision needs: No Meds Allergies Allergy/AdvReac Type Severity Reaction Status Date / Time carbamazepine AdvReac Intermediate dizzy Verified 12/07/24 10:31 azithromycin (From ZITHROMAX) AdvReac Unknown VOMITING/DI Verified 12/07/24 10:31 ARRHEA Zithromax AdvReac Mild vomiting Uncoded 12/07/24 10:31 Active Medications: Current Medications Acetaminophen (Acetaminophen 325 Mg Tablet) 650 mg PO Q6H PRN PRN Reason: Pain, Mild 1-3,fever,headache Calcium Carbonate (Calcium Carbonate 750 Mg Tab.Chew) 750 mg PO Q4H PRN PRN Reason: Heartburn Magnesium Hydroxide (Milk Of Magnesia 30 Ml Oral.Susp) 30 ml PO DAILY PRN PRN Reason: Constipation Melatonin (Melatonin 3 Mg Tablet) 6 mg PO BEDTIME PRN PRN Reason: Insomnia Ondansetron HCl (Ondansetron Hcl 4 Mg/2 Ml Vial) 4 mg IVPUSH Q8H PRN PRN Reason: Nausea and Vomiting Oxycodone HCl (Oxycodone Hcl Immed Release 5 Mg Tablet) 5 mg PO Q6H PRN PRN Reason: Pain, Moderate(Pain Scale 4-6) Sodium Chloride (0.9 % Sodium Chloride Flush 3 Ml Syringe) 3 ml IVFLUSH [facility] Medications ?Medication ?Instructions ?Recorded ?Confirmed ?Last Taken ?Type fluoxetine 10 mg capsule 10 mg PO DAILY 11/25/23 08/0 11/2412/07/24 History quetiapine 300 mg tablet 300 mg PO BEDTIME 11/25/23 0 12/07/24 12/06/24 History methadone 10 mg/mL oral 26 mg PO DAILY 11/26/2308/0211/10/23 History concentrate (Methadone Intensol) divalproex 250 mg tablet,delayed 250 mg PO BID 5 12/07/24 12/07/24 History release Physical Exam 2 Vital Signs and Narrative: Vital Signs: Last Vital Signs Temp 97.3 F 12/07/24 15:33 Pulse 61 12/07/24 15:33 Resp 14 12/07/24 15:33 BP 91/64 12/07/24 15:33 Pulse Ox 98 12/07/24 15:33 O2 Del Method Room Air 12/07/24 15:33 O2 Flow Rate 15 12/07/24 11:41 BMI result Body Mass Index 19.0 Const: Other: Awake alert oriented x3 Resp: Other: Clear to auscultation bilaterally no rales rhonchi or wheezes Cardio: Other: No S4; positive S1-S2; no S3 murmurs rubs or gallops GI: Other: Soft nontender nondistended normoactive bowel sounds Neuro: Other: Cranial nerves 2-12 grossly intact as tested. Motor is 5/5 all extremities. Sensation is intact. Cognition appropriate. Gait not observed Extrem: Other: No edema bilaterally Results Labs 12/07/24 11:21 12/07/24 11:21 Labs: Laboratory Results - last 24 hr 12/07/24 12/07/24 12/07/24 11:21 12:23 14:46 MCV 90.1 MCH 30.5 MCHC 33.9 RDW 12.8 Plt Count 221 MPV 9.0 L Immature Gran % (Auto) 0.3 Neut % (Auto) 54.1 Lymph % (Auto) 34.5 [place] % (Auto) 8.6 Eos % (Auto) 1.9 Baso % (Auto) 0.6 Lymph # (Auto) 1.1 L [place] # (Auto) 0.3 Eos # (Auto) 0.1 Baso # (Auto) 0.0 Abs Immat Gran (auto) 0.01 Absolute Neuts (auto) 1.7 L Absolute Nucleated RBC 0.000 Nucleated RBC % (auto) 0.0 Anion Gap 8 L Estim Creat Clear Calc 87.1 Estimated GFR > 60 Random Glucose 83 Lactic Acid 5.7 H* Lactic Acid F/U @ 2Hr 0.8 Calcium 9.1 Magnesium 2.1 Total Bilirubin 0.3 AST 22 ALT 12 Alkaline Phosphatase 47 Total Protein 6.8 Albumin 4.5 Imaging Radiologist's Impressions: Impressions Head CT 12/07/24 12:35 IMPRESSION: No acute intracranial abnormality. Electronically signed by: Tom Bhakta MD 12/07/2024 01:02 PM EDT Assessment and Plan (1) Seizure disorder: Status: Acute (2) Polysubstance abuse: Status: Acute Plan 29-year-old female with known seizure disorder presents after partner witnessed a full tonic-clonic seizure at home. Patient states she has been under stress with a new diagnosis related to her son. She states she has been compliant with her medicine in his not using any substances 1. Seizure disorder -continue Keppra at outpatient doses -await Keppra level (pending) -seizure precautions -neuro consult in a.m. 2. Polysubstance abuse (on methadone) -addiction Medicine consult Full code Ambulation Patient will require at least 2 midnights going forward of inpatient hospitalization to further workup breakthrough seizures and specialty consultation. This can not be achieved a lesser acute setting Quality Stroke Does the patient have a stroke diagnosis?: No VTE Prior VTE?: No VTE Risk Level:: Medical - moderate - high VTE Device Contraindication: Treatment Not Indicated VTE Drug Contraindication: N/A - Med Ordered
[2024-12-07 17:26] LABS: Appearance Urine Cloudy; Glucose Urine UA Negative (Negative); PH 5.5 (5.0-9.0); Specific Gravity - Urine 1.020 (1.005-1.025)
[2024-12-07] MEDS: oxyCODONE HCl Immed Release 5 MG TABLET PO (17:54)
--- NOTE | 2024-12-07 20:42 | PC.NURSE ---
Patient awake, alert and oriented x4. Patient reports 6/10 generalized pain at present. Patient requests Tylenol 650 mg PO for pain management at this time.Patient reports she was not able to eat her dinner, turkey sandwich and pudding given to patient, patient has no issues with swallowing noted. Patient is able to make her needs known. Seizure precautions in place, call brandt within patient's reach.
--- NOTE | 2024-12-07 22:00 | PC.NURSE ---
Patient medicated per MAR with bedtime medication.
[2024-12-07] MEDS: 0.9 % Sodium Chloride Flush 3 ML SYRINGE IVFLUSH (23:34)
[2024-12-08 03:17] VITALS: BP 94/50; PULSE 58; RESP 18; TEMP 36.5; O2SAT 96
[2024-12-08 06:35] LABS: MANUAL DIFF FLAG NO
[2024-12-08 07:05] LABS: Alanine Aminotransferase 9 U/L (0-31); Albumin Level 3.7 g/dL (3.5-5.0); Alkaline Phosphatase 53 U/L (39-117); Anion Gap 9 (12-20); Aspartate Amino Transferase 22 U/L (5-31); Blood Urea Nitrogen 9 mg/dL (9-16); Calcium 9.0 mg/dL (8.4-10.2); Carbon Dioxide 25 mmol/L (22-29); Chloride 110 mmol/L (96-108); Creatinine Clr Calc Pharmacy 93.5; Estimated Glomerular Filt Rate > 60; Potassium 3.7 mmol/L (3.3-5.1); Sodium 140 mmol/L (135-145); Total Protein 5.8 g/dL (6.5-8.0)
[2024-12-08 07:09] LABS: Hematocrit 34.7 % (37.0-47.0); Hemoglobin 11.4 g/dl (12.0-16.0); Imm Gran Abs Auto 0.01 X10*3/uL (0.00-0.03); Imm Gran Pct Auto 0.2 % (0.0-0.4); Lymphocytes Absolute Auto 1.8 X10*3/uL (1.2-4.9); Mean Corpuscular HGB Conc 32.9 g/dl (31.0-35.0); Mean Corpuscular Hemoglobin 30.1 pg (27.0-33.0); Mean Corpuscular Volume 91.6 fL (80.0-98.0); NRBC Abs Auto 0.000 X10*3/uL (0.0-0.012); NRBC Pct Auto 0.0 /100WBC (0.0-0.2); Platelet Count 230 X10*3/uL (160-400); Red Blood Count 3.79 X10*6/uL (4.20-5.50); White Blood Count 4.7 X10*3/uL (4.8-10.8)
[2024-12-08 07:56] VITALS: BP 82/40; PULSE 57; RESP 14; TEMP 36.7; O2SAT 97
[2024-12-08] MEDS: 0.9 % Sodium Chloride Flush 3 ML SYRINGE IVFLUSH (08:52)
--- NOTE | 2024-12-08 09:52 | MHC.CM.PN ---
Addendum entered by Jailyn Cummings 12/08/24 14:49: PT TO DC HOME TODAY WITH NO SERVICES Original Note: PT REPORTS SHE LIVES WITH HER SON AND IS INDEPENDENT WITH CARE SHE IS ACTIVE AT [facility] FOR MAT HCP ON FILE PCP: GEE FIELDS DCP: HOME NO SERVICES PT TO ARRANGE TRANSPORT
[2024-12-08 11:33] VITALS: BMI 18.0
--- NOTE | 2024-12-08 11:44 | MHC.CLN ---
NUTRITION DIET=REGULAR. ADDING ENSURE TID PER CONVERSATION WITH PATIENT. SUPPLEMENT PROVIDES 1050 KCALS, 60 G PROTEIN. WEIGHT OVERALL STABLE X ONE YEAR. REPORTS THAT NOT ABLE TO GAIN WEIGHT. BMI=18.0. UNDERWEIGHT BUT DOES NOT APPEAR TO BE MALNOURISHED. FOLLOW FOR PO INTAKE AND WEIGHT. SEE CLINICAL NUTRITION ASSESSMENT 12/08/24.
--- NOTE | 2024-12-08 12:25 | PM.NEUROCN ---
History of Present Illness Data of Consult Service Date: 12/08/24 Primary Care Provider: Eliazar Case MD [facility] Reason for consult: Seizure 29-year-old female with a known history of probably secondarily generalized seizure disorder, bipolar disorder, peptic ulcer disease, hepatitis c, polysubstance use on methadone coming by EMS after having a seizure witnessed by her partner. Apparently her ambulatory EEG has revealed left temporal sharp waves. She said that this was a 3rd medicine that she was taking. She had tried levetiracetam, carbamazepine, and phenobarbital. When I saw her she was comfortable. Review of Systems Review of Systems: No recent cold or flu-like. She has been under significant stress as her 7 years old child has been diagnosed with kidney cancer. [facility] Past Medical History Medical History (Updated 12/08/24 @ 08:00 by Yoni Acosta [facility]) Extrapyramidal and movement disorder, unspecified Seizure disorder Hypokalemia Status epilepticus Breakthrough seizure Weight loss Leg cramps Joint pain Brittle hair Biliary dyskinesia Right sided abdominal pain Pre-employment examination Left otitis media Cocaine-induced mood disorder with manic symptoms Herpes genitalis Ureterolithiasis Peptic ulcer disease Anemia Contraceptive management IV drug user Hepatitis C Family History Family History Father Heart attack Maternal Grandmother Lung cancer Mother CVA (cerebral vascular accident) Other Mental health disorder Substance use disorder Surgical History Surgical History Status post laparoscopic cholecystectomy Hx of cholecystectomy H/O myringotomy H/O sinus surgery Hx of tonsillectomy Social History Social History Household Members: Children Housing: Apartment Housing Other:: treatment Do you presently have visiting nurse or other home services: No Alcohol intake: former Patient Tobacco Use Status: Former Tobacco user Tobacco use type: Cigarette Cigarettes Per Day: 3 Years Smoked: stopped 2021 vape (08/2023) e-Cigarette/Vaping Use: Currently Using Second Hand Smoke Exposure: Yes Substance Use Type: Former Substance User Advance Directives Date on File: 11/30/23 service: No Current occupational status: unemployed Cognitive needs: No Hearing needs: No Vision needs: No Meds Allergies Allergy/AdvReac Type Severity Reaction Status Date / Time carbamazepine AdvReac Intermediate dizzy Verified 12/07/24 10:31 azithromycin (From ZITHROMAX) AdvReac Unknown VOMITING/DI Verified 12/07/24 10:31 ARRHEA Zithromax AdvReac Mild vomiting Uncoded 12/07/24 10:31 Active Medications: Current Medications Acetaminophen (Acetaminophen 325 Mg Tablet) 650 mg PO Q6H PRN PRN Reason: Pain, Mild 1-3,fever,headache Last Admin: 12/07/24 20:41 Dose: 650 mg Calcium Carbonate (Calcium Carbonate 750 Mg Tab.Chew) 750 mg PO Q4H PRN PRN Reason: Heartburn Divalproex Sodium (Divalproex Sodium 250 Mg Tablet.Dr) 250 mg PO BID [facility] Last Admin: 12/08/24 08:51 Dose: 250 mg Fluoxetine HCl (Fluoxetine Hcl 10 Mg Capsule) 10 mg PO DAILY [facility] Last Admin: 12/08/24 08:52 Dose: 10 mg Levetiracetam (Levetiracetam 1,000 Mg Tablet) 2,000 mg PO BID [facility] Last Admin: 12/08/24 08:51 Dose: 2,000 mg Magnesium Hydroxide (Milk Of Magnesia 30 Ml Oral.Susp) 30 ml PO DAILY PRN PRN Reason: Constipation Melatonin (Melatonin 3 Mg Tablet) 6 mg PO BEDTIME PRN PRN Reason: Insomnia Ondansetron HCl (Ondansetron Hcl 4 Mg/2 Ml Vial) 4 mg IVPUSH Q8H PRN PRN Reason: Nausea and Vomiting Oxycodone HCl (Oxycodone Hcl Immed Release 5 Mg Tablet) 5 mg PO Q6H PRN PRN Reason: Pain, Moderate(Pain Scale 4-6) Last Admin: 12/07/24 17:54 Dose: 5 mg Quetiapine Fumarate (Quetiapine Fumarate 300 Mg Tablet) 300 mg PO BEDTIME [facility] Last Admin: 12/07/24 21:50 Dose: 300 mg Sodium Chloride (0.9 % Sodium Chloride Flush 3 Ml Syringe) [facility] Last Admin: 12/08/24 08:52 Dose: 3 ml Home Medications ?Medication ?Instructions ?Recorded ?Confirmed ?Last Taken ?Type fluoxetine 10 mg capsule 10 mg PO DAILY 11/25/23 12/07/24 12/07/24 History quetiapine 300 mg tablet 300 mg PO BEDTIME 11/25/23 12/07/24 12/06/24 History methadone 10 mg/mL oral 26 mg PO DAILY 11/26/23 08/25/24 11/10/23 History concentrate (Methadone Intensol) divalproex 250 mg tablet,delayed 250 mg PO BID 12/07/24 12/07/24 12/07/24 History release Physical Exam Vital Signs: Vital Signs: Last Vital Signs Temp 98.0 F 12/08/24 07:56 Pulse 57 12/08/24 07:56 Resp 14 12/08/24 07:56 BP 82/40 L 12/08/24 07:56 Pulse Ox 97 12/08/24 07:56 O2 Del Method Room Air 12/08/24 07:56 O2 Flow Rate 15 12/07/24 11:41 BMI result Body Mass Index 18.0 Neuro: Other: She is alert and awake with normal spontaneity of speech fluency comprehension and affect. Deep tendon reflexes are trace to absent with flexor plantars. Results Labs 12/08/24 06:29 12/08/24 06:29 Labs: Short CBC 12/08/24 Range/Units 06:29 WBC 4.7 L (4.8-10.8) X10*3/uL Hgb 11.4 L (12.0-16.0) g/dl Hct 34.7 L (37.0-47.0) % Plt Count 230 (160-400) X10*3/uL BMP 12/08/24 06:29 Sodium 140 Potassium 3.7 Chloride 110 H Carbon Dioxide 25 BUN 9 Creatinine 0.68 Calcium 9.0 Liver Function 12/08/24 Range/Units 06:29 Total Bilirubin 0.5 (0.0-1.0) mg/dL AST 22 (5-31) U/L ALT 9 (0-31) U/L Alkaline Phosphatase 53 (39-117) U/L Albumin 3.7 (3.5-5.0) g/dL Urine 12/07/24 Range/Units 17:18 Urine Color Yellow Urine Appearance Cloudy Urine pH 5.5 (5.0-9.0) Ur Specific [place] 1.020 (1.005-1.025) Urine Protein Negative (Neg-Trace) mg/dL Urine Glucose (UA) Negative (Negative) mg/dL Head CT did not reveal any significant abnormality Assessment and Plan (1) Seizure disorder: Status: Acute Young woman who carried diagnosis of probably secondarily generalized seizure disorder with no focal finding on imaging in complicated underlying psychiatric history. In addition, she has been under significant stress related to her child's recent diagnosis. There was fair possibility of epileptic and also nonepileptic spells and this type of patient and ambulatory EEG might be 1 way to figure that out. Otherwise, I recommend continuing her medications and increase dose of Depakote to 500 mg twice a day and continuing levetiracetam. She is taking relatively high dose of levetiracetam and I would recommend checking a level of both drugs to guide appropriate dose. 4000 mg of levetiracetam with Depakote is a significant antiepileptic regimen and if she continues to have seizures with that, 1 has to figure out exactly what might be the reason. It might be that these medicines are ineffective, or she has not been taking them as prescribed, or the seizures are or of different nature. This all can be investigated as an outpatient. Procedures Date of Service Date of Service: 12/08/24
--- NOTE | 2024-12-08 14:05 | PM.DS ---
DS: Providers Provider Date of Service: 12/08/24 Date of admission: 12/07/24 15:00 Date of discharge: 12/08/24 Primary care physician: Eliazar Case MD Consults: 12/07/24 16:04 Consult to Neurology Routine Consulting Provider: [facility] Reason for consultation: Breakthrough seizures Has provider been notified: No DS: Diagnosis Discharge Diagnosis (1) Seizure disorder: Status: Acute DS: Summary Hospital Course Hospital Course: 29-year-old female with a known history of seizure, bipolar disorder, peptic ulcer disease, hepatitis c, polysubstance use on methadone coming by EMS after having a seizure witnessed by her partner. The patient reports her last seizure occurred approximately 2?3 weeks ago. She state that she felt a seizure coming on today, describing a big sense of overwhelming tingles from head to toe prior to the event. There was no trauma leading up to the episode. The patient denies any recent illicit drug use and reports being clean for the past 7 years after a history of intravenous drug use. Patient states she has increased stress as her son started chemotherapy yesterday. The patient has a follow-up neurology appointment scheduled for the of this month. Patient states that she is taking all of her seizure medications as prescribed. Hospital Course Patient admitted to general medical floor where she remained seizure-free. Seen in the morning of discharge by Neurology who felt there were significant provoking issues to justify breakthrough seizure. At this point they are recommending outpatient workup and follow up. She is medically acceptable for discharge to resume all her meds and follow up with the PCP Time Attestation Discharge Coordination Time (in mins): 35 Quality: Safe Use of Opioids Does Pt have an Active Cancer Diagnosis on the Problem List?: No Quality: Stroke Does the patient have a stroke diagnosis?: No Physical Exam Vital Signs: Vital Signs: Last Vital Signs Temp 98.0 F 12/08/24 07:56 Pulse 57 12/08/24 07:56 Resp 14 12/08/24 07:56 BP 82/40 L 12/08/24 07:56 Pulse Ox 97 12/08/24 07:56 O2 Del Method Room Air 12/08/24 07:56 O2 Flow Rate 15 12/07/24 11:41 BMI result Body Mass Index 18.0 Const: Other: Awake alert oriented x3 Resp: Other: Clear to auscultation bilaterally no rales rhonchi or wheezes Cardio: Other: No S4; positive S1-S2; no S3 murmurs rubs or gallops GI: Other: Soft nontender nondistended normoactive bowel sounds Neuro: Other: Cranial nerves 2-12 grossly intact as tested. Motor is 5/5 all extremities. Sensation is intact. Cognition appropriate. Gait not observed Extrem: Other: No edema bilaterally DS: Data Data Completed and Pending Labs on day of discharge: Laboratory Results - last 24 hr 12/07/24 12/07/24 12/08/24 14:46 17:18 06:29 WBC 4.7 L RBC 3.79 L Hgb 11.4 L Hct 34.7 L MCV 91.6 MCH 30.1 MCHC 32.9 RDW 12.8 Plt Count 230 MPV 9.5 Immature Gran % (Auto) 0.2 Neut % (Auto) 53.5 Lymph % (Auto) 37.3 [place] % (Auto) 7.6 Eos % (Auto) 0.8 Baso % (Auto) 0.6 Lymph # (Auto) 1.8 [place] # (Auto) 0.4 Eos # (Auto) 0.0 Baso # (Auto) 0.0 Abs Immat Gran (auto) 0.01 Absolute Neuts (auto) 2.5 Absolute Nucleated RBC 0.000 Nucleated RBC % (auto) 0.0 Sodium 140 Potassium 3.7 Chloride 110 H Carbon Dioxide 25 Anion Gap 9 L BUN 9 Creatinine 0.68 Estim Creat Clear Calc 93.5 Estimated GFR > 60 Random Glucose 91 Lactic Acid F/U @ 2Hr 0.8 Calcium 9.0 Total Bilirubin 0.5 AST 22 ALT 9 Alkaline Phosphatase 53 Total Protein 5.8 L Albumin 3.7 Urine Color Yellow Urine Appearance Cloudy Urine pH 5.5 Ur Specific [place] 1.020 Urine Protein Negative Urine Glucose (UA) Negative Urine Ketones Negative Urine Blood Negative Urine Nitrite Negative Ur Leukocyte Esterase Negative Urine RBC 0-2 Urine WBC 0-5 Ur Squamous Epith Cells 6-10 Urine Bacteria Trace Hyaline Casts 0-2 Discharge Plan Discharge Anticipated Discharge Date/Time: 12/08/24 13:40 Patient Disposition: Home, Self-Care Discharge Diagnosis: Breakthrough seizure Referrals: Manpreet,Eliazar Denton MD [Primary Care Provider, Internal Medicine] - 1 Week Discharge Medications: Continued acetaminophen [Tylenol Extra Strength] 500 mg tablet 1,000 mg PO Q6H PRN (Reason: fever or pain) Qty: 20 0RF ibuprofen 400 mg tablet 400 mg PO TID PRN (Reason: fever or pain) Qty: 30 0RF divalproex 250 mg tablet,delayed release (DR/EC) 250 mg PO BID Rx Instructions: TAKE 1 TABLET BY MOUTH AT BEDTIME X1 WEEK THEN 1 TABLET TWICE A DAY DIRECTED quetiapine 300 mg tablet 300 mg PO BEDTIME fluoxetine 10 mg capsule 10 mg PO DAILY methadone [Methadone Intensol] 10 mg/mL Concentrate 26 mg PO DAILY Rx Instructions: pt last dosed at clinic 11/09 with #27 take home bottles levetiracetam 1,000 mg Tablet 2,000 mg PO BID Qty: 120 0RF Discharge Orders: Discharge Order (Routine); Ordered 12/08/24 Ordered By: Dario Littlejohn Diet: Advance to usual diet Activity on Discharge: As tolerated Stand Alone Forms: Patient Portal Discharge page Print Language: Lao Care Plan Goals: Resume all medicines as taken before the hospital Health Concerns: Follow up with Dr. Ley as an outpatient for further workup Plan of Treatment: Follow up with the PCP next available Assessment: See discharge summary
[2024-12-08 15:47] VITALS: BP 97/58; PULSE 72; RESP 16; TEMP 36.9; O2SAT 96
--- NOTE | 2024-12-09 14:42 | P.CDIM_ITS ---
PROVIDER RESPONSE TEXT: To clarify, the appropriate diagnosis supported by the clinical indicators: Acute QUERY TEXT: PHYSICIAN'S DOCUMENTATION REQUEST Date of Query: 12/08/2024 07:30 AM EDT Patient Name: Elsa De Los Santos Admit Date: 12/07/2024 Dear Dario Littlejohn DO, A review of the medical record indicates additional documentation may be needed. Please review below and update the documentation accordingly. Clinical Indicators: LABS: Lactic acid 5.7 H Fluids Clarify which of the following accurately represents the acuity of the Lactic acidosis: Possible options might include: Acute Chronic Other (explain) Clinically unable to determine (explain) Thank you, Jasmin Bland, CCS, CDIS Use of terms such as suspected, likely, concern for, or probable (associated with a specific diagnosis that is being evaluated, monitored, or treated as if it exists) are acceptable and can be coded in the inpatient setting, when documented at the time of discharge. Please use your independent medical judgment in providing your response. THIS QUERY IS PART OF THE PERMANENT MEDICAL RECORD
[2024-12-10 01:04] LABS: Levetiracetam Keppra <2.0 mcg/mL (6.0-46.0)
== END 2024-12-08 15:39 | disposition home or self-care (01) | DRG 53 ==
LOC: HO.ED 11:55 → HO.EDOVER 15:08 → HO.S3 22:56
PROVIDERS: Physician Assistant Medical; Admitting Provider Hospitalist; Emergency Provider Emergency Medicine; PCP Internal Medicine; Visit Provider Hospitalist
DX: G40.909 Epilepsy, unspecified, not intractable, without status epilepticus (principal); E87.21 Acute metabolic acidosis; F11.20 Opioid dependence, uncomplicated; F19.90 Other psychoactive substance use, unspecified, uncomplicated; Z87.891 Personal history of nicotine dependence; Z79.899 Other long term (current) drug therapy
CPT/HCPCS: 36415; 70450; 80053; 80177; 81001; 83605; 83735; 85025; 99285; J0131; J1953; J2270; J3360

== ENCOUNTER → 2024-12-07 11:55 | Outpatient (BNV) | payer OTHER, SELFPAY | PROVIDERS: PCP Internal Medicine; Visit Provider Radiology Diagnostic Radiology | DX: G40.89 Other seizures (principal) | CPT/HCPCS: 70450 ==

== ENCOUNTER → 2024-12-07 15:00 | Outpatient (BNV) | payer OTHER, SELFPAY | PROVIDERS: Admitting Provider Hospitalist; Emergency Provider Emergency Medicine; PCP Internal Medicine; Visit Provider Psychiatry & Neurology Neurology | DX: G40.909 Epilepsy, unspecified, not intractable, without status epilepticus (principal); G90.3 Multi-system degeneration of the autonomic nervous system | CPT/HCPCS: 99222 ==

== ENCOUNTER → 2024-12-07 15:00 | Outpatient (BNV) | payer OTHER, SELFPAY | PROVIDERS: Admitting Provider Hospitalist; Emergency Provider Emergency Medicine; PCP Internal Medicine; Visit Provider Hospitalist | DX: G40.909 Epilepsy, unspecified, not intractable, without status epilepticus (principal); F19.10 Other psychoactive substance abuse, uncomplicated | CPT/HCPCS: 99223; 99239 ==

== ENCOUNTER 2024-12-27 11:22 | Outpatient (REF) | payer OTHER, SELFPAY ==
--- NOTE | ~2024-12-27 | US_ITS ---
EXAMINATION: US PELVIS CLINICAL INFORMATION: AUB COMPARISON: December 27, 2022 TECHNIQUE: Ultrasound of the pelvis is performed using both transabdominal and transvaginal transducers along with Doppler. Transvaginal imaging is performed due to inadequate visualization transabdominally. FINDINGS: Uterus: The uterus is in retroversion flexion and measures 6 x 4 x 4 cm. Volume: 67 cc. The double wall endometrial thickness is 11 mm. Normal echotexture. No gross intramural fibroid. Adnexa: The ovaries aren't identified with flow on color Doppler interrogation.. Cshfc-ix-ammwkjuk volume of free fluid in the cul-de-sac. Right ovary measures 5 x 5 x 3 cm. Volume: 39 cc. There are or thin septated complex anechoic lesions in the right adnexa, there largest measures 3.4 cm. There is no flow on color Doppler interrogation to the is lesions. Left ovary measures 4 x 4 x 3 cm. Volume: 24 cc. There are multiple thin septated complex mixed anechoic lesions, the largest measures 3.6 cm without flow on color Doppler interrogation. US/US pelvic and transvaginal IMPRESSION: Complex, thin septated cystic lesions both ovaries. Concerning endometrioma among other differential diagnosis. No ovarian torsion. Uterus is in retroversion flexion position which could be seen in patients with endometriosis. Small to moderate volume of free fluid, cul-de-sac. Electronically signed by: Antonio Guzman MD 12/27/2024 12:20 PM EDT
== END 2024-12-27 11:23 | disposition home or self-care (01) ==
LOC: HO.US 11:22
PROVIDERS: PCP Internal Medicine; Visit Provider Obstetrics & Gynecology
DX: N93.9 Abnormal uterine and vaginal bleeding, unspecified (principal)
CPT/HCPCS: 76830; 76856

== ENCOUNTER → 2024-12-27 11:26 | Outpatient (BNV) | payer OTHER, SELFPAY | PROVIDERS: PCP Internal Medicine; Visit Provider Radiology Diagnostic Radiology | DX: N93.9 Abnormal uterine and vaginal bleeding, unspecified (principal) | CPT/HCPCS: 76830; 76856 ==

== ENCOUNTER 2025-01-10 13:51 | Outpatient (AMB) | payer OTHER, SELFPAY ==
--- NOTE | 2025-01-10 13:51 | A.OFFVIS_ITS ---
Intake Visit Reasons: us follow up Allergies carbamazepine Adverse Reaction (Intermediate, Verified 12/07/24 10:31) dizzy azithromycin (From ZITHROMAX) Adverse Reaction (Unknown, Verified 12/07/24 10:31) VOMITING/DIARRHEA Zithromax Adverse Reaction (Mild, Uncoded 12/07/24 10:31) vomiting HPI Comments Details: The patient is presenting for follow-up to discuss the results of her abnormal uterine bleeding workup and options of treatment. The following workup was done.: H&H= 11.4/34.7 TSH, hCG, GC and chlamydia were negative. Co testing was done was negative. Pelvic ultrasound showed the following: Uterus: The uterus is in retroversion flexion and measures 6 x 4 x 4 cm. Volume: 67 cc. The double wall endometrial thickness is 11 mm. Normal echotexture. No gross intramural fibroid. Adnexa: The ovaries aren't identified with flow on color Doppler interrogation.. Irkoh-hb-owvefcnn volume of free fluid in the cul-de-sac. Right ovary measures 5 x 5 x 3 cm. Volume: 39 cc. There are or thin septated complex anechoic lesions in the right adnexa, there largest measures 3.4 cm. There is no flow on color Doppler interrogation to the is lesions. Left ovary measures 4 x 4 x 3 cm. Volume: 24 cc. There are multiple thin septated complex mixed anechoic lesions, the largest measures 3.6 cm without flow on color Doppler interrogation. [facility] Medical History (Updated 01/10/25 @ 14:01 by Austin Warren MD) Polysubstance abuse Extrapyramidal and movement disorder, unspecified Seizure disorder Hypokalemia Status epilepticus Breakthrough seizure Weight loss Leg cramps Joint pain Brittle hair Biliary dyskinesia Right sided abdominal pain Pre-employment examination Left otitis media Cocaine-induced mood disorder with manic symptoms Herpes genitalis Ureterolithiasis Peptic ulcer disease Anemia Contraceptive management IV drug user Hepatitis C Surgical History Status post laparoscopic cholecystectomy Hx of cholecystectomy H/O myringotomy H/O sinus surgery Hx of tonsillectomy Family History Father Heart attack Maternal Grandmother Lung cancer Mother CVA (cerebral vascular accident) Other Mental health disorder Substance use disorder Social History Household Members: Children Housing: Apartment Housing Other:: treatment Do you presently have visiting nurse or other home services: No Alcohol intake: former Patient Tobacco Use Status: Former Tobacco user Tobacco use type: Cigarette Cigarettes Per Day: 3 Years Smoked: stopped 2021 vape (08/2023) e-Cigarette/Vaping Use: Currently Using Second Hand Smoke Exposure: Yes Substance Use Type: Former Substance User Advance Directives Date on File: 11/30/23 service: No Current occupational status: unemployed Cognitive needs: No Hearing needs: No Vision needs: No Review of Systems Const All systems reviewed & are unremarkable except as noted in HPI and below Reports as per HPI and Reports no additional complaints GI Reports no additional complaints Reports no additional complaints Telehealth Telehealth Telehealth Platform: [id number] Location of provider rendering services: practice address Location of patient: address on file Patient Identification confirmed using: Name, : Yes Telehealth method: video Patient verbally consented to treatment: Yes Patient verbally consented to billing insurance company: Yes Patient informed of any privacy concerns related to visit: Yes Minutes spent on Phone/Video with Pt.: 6 Assessment & Plan Assessment & Plan (1) Abnormal uterine bleeding (AUB): Code(s): N93.9 - Abnormal uterine and vaginal bleeding, unspecified Category: Medical Plan: Discussed with the patient the results of the work up done and options of treatment including Lysteda, control pills, Mirena IUD, endometrial ablation and hysterectomy. All pros, cons, risks and benefits if each option was discussed with the patient and the patient decided to go ahead with Mirena IUD so a more detailed discussion about it was conducted including mechanism of action, risks (uterine perforation, infection, injury to bladder, bowel, displacement, and others) benefits (hypo menorrhea, amenorrhea, ...). GC/CT were taken and were negative and the patient was instructed to schedule Mirena IUD insertion on day 1-5 of next cycle . All questions answered, the patient verbalized understanding (2) Complex cyst of both ovaries: Comment: Multiple/bilateral Code(s): N83.291 - Other ovarian cyst, right side; N83.292 - Other ovarian cyst, left side Category: Medical Plan: Discussed with the patient the multiple bilateral complex ovarian cyst by ultrasound. Discussed with the patient the Ultrasound findings, the main limitation of transvaginal ultrasonography alone as a diagnostic tool to distinguish benign from malignant masses relates to its lack of specificity and low positive predictive value for cancer. The differential diagnosis discussed with the patient includes the following but not limited to: benign and malignant gynecological and non-gynecological causes. . Recommended pelvic MRI next step in the evaluation of the bilateral complex ovarian cyst. Instructions given the patient to schedule pelvic MRI and a follow-up appointment within 2 weeks All questions were answered & the patient verbalized understanding and agreed with the plan. I spent a total of 20 minutes reviewing the chart, talking to the patient via video and documenting in the medical record. Orders: Orders MR pelvis wo/w con Today N83.291 - Other ovarian cyst, right side, N83.292 - Other ovarian cyst, left side Coding Level of Care Code Tele Est Pt Level 3 (53352) Diagnoses Abnormal uterine bleeding (AUB) N93.9 Complex cyst of both ovaries N83.291; N83.292
== END 2025-01-10 15:15 | disposition home or self-care (01) ==
LOC: HO.HWS 13:51
PROVIDERS: PCP Internal Medicine; Visit Provider Obstetrics & Gynecology
DX: N93.9 Abnormal uterine and vaginal bleeding, unspecified (principal); N83.291 Other ovarian cyst, right side; N83.292 Other ovarian cyst, left side
CPT/HCPCS: 99213

== ENCOUNTER 2025-02-18 12:30 | Emergency (ER) | payer OTHER, SELFPAY ==
--- NOTE | ~2025-02-18 | CT_ITS ---
CLINICAL HISTORY: Headache, seizure CT head without contrast Comparison: CT/SR - CT HEAD WITHOUT IV CONTRAST - 12/07/24 12:[address]/REG/[place]/SR - CT HEAD/BRAIN WO IV CON - 08/18/24 11:[address]/SR - CT HEAD WITHOUT IV CONTRAST - 11/25/23 08:47 EDT MR/REG/SR - MR BRAIN WITHOUT IV CONTRAST - 06/02/23 11:55 EST Findings: No acute hemorrhage. No extra-axial fluid collection. No hydrocephalus, mass-effect or herniation. Chopra-white differentiation is maintained. White matter is within normal limits for age. No acute orbital pathology. No acute soft tissue abnormality. No fracture. The visualized paranasal sinuses are predominantly clear. The mastoid air cells are clear. Impression: No acute findings. This document has been electronically signed by: Simran Santana MD on 02/18/2025 15:59:42
[2025-02-18 12:39] VITALS: BP 112/72; PULSE 78; O2SAT 98
[2025-02-18 12:41] VITALS: BP 104/65; PULSE 77; RESP 18; TEMP 36.7; O2SAT 97; BMI 18.4
--- NOTE | 2025-02-18 12:50 | ED_ITS ---
HPI - Seizure General Chief Complaint: Seizure Stated Complaint: SZ,DID NOT TAKE MED THIS AM PER EMS Time Seen by Provider: 02/18/25 12:50 Source: patient, family (Spouse), EMS and old records reviewed Mode of arrival: EMS Limitations: no limitations History of Present Illness ED Provider: DR. Cole HPI Narrative: 29-year-old female history of seizure, bipolar disorder, PUD, hepatitis, polysubstance abuse on methadone came in by ambulance for evaluation after having seizure witnessed by her , patient woke up in the morning normally she fell she will get a seizure told her who put her on bed patient had witnessed tonic-clonic seizure as per lasted for 1-2 minutes then followed by post ictal confusion, called 911 came to the hospital, patient taking Keppra 1000 mg b.i.d., and Depakote 400 mg b.i.d. that patient stated she has been taking it once a day, and she did not take last night, patient normally gets seizure once a month. As per 's there is no head injury, patient had a seizure while she is in bed and did not fall down. Patient feeling headache and feel foggy which is normal after patient had episode of seizure. Seizure History: Yes Related Data Home Medications ?Medication ?Instructions ?Recorded ?Confirmed fluoxetine 10 mg capsule 10 mg PO DAILY 11/25/2311/24 quetiapine 300 mg tablet 300 mg PO BEDTIME 11/25/23 0 12/07/24 methadone 10 mg/mL oral 26 mg PO DAILY 11/26/2308/02 concentrate (Methadone Intensol) divalproex 250 mg tablet,delayed 250 mg PO BID 5 12/07/24 release Previous Rx's ?Medication ?Instructions ?Recorded levetiracetam 1,000 mg tablet 2,000 mg (2 x 1,000 mg) PO BID 11/27/23 #120 tabs acetaminophen 500 mg tablet 1,000 mg (2 x 500 mg) PO Q 6H PRN 08/18/24 (Tylenol Extra Strength) fever or pain #20 tabs ibuprofen 400 mg tablet 400 mg PO TID PRN fever or p ain 08/18/24 #30 tabs Allergies Allergy/AdvReac Type Severity Reaction Status Date / Time carbamazepine AdvReac Intermediate dizzy Verified 02/18/25 12:42 azithromycin (From ZITHROMAX) AdvReac Unknown VOMITING/DI Verified 02/18/25 12:42 ARRHEA Zithromax AdvReac Mild vomiting Uncoded 02/18/25 12:42 Review of Systems 2 Review of Systems: All other systems are reviewed and are negative Constitutional: Reports as per HPI and Reports no additional constitutional complaints Eyes: Reports as per HPI and Reports no additional eye complaints Reports system reviewed and no additional complaints, except as documented Cardiovascular: Reports as per HPI and Reports no additional cardiovascular complaints Respiratory: Reports as per HPI and Reports no additional respiratory complaints Gastrointestinal: Reports as per HPI and Reports no additional gastrointestinal complaints Genitourinary: Reports no additional female genitourinary complaints Musculoskeletal: Reports no additional musculoskeletal complaints Skin/Breast: Reports system reviewed and no additional complaints, except as docu Psychiatric: Reports no additional psychiatric complaints Endocrine: Reports no additional endocrine complaints Hematologic/Lymphatic: Reports no additional hematologic/lymphatic complaints Allergic/Immunologic: Reports no additional allergic/immunologic complaints Reports system reviewed and no additional complaints, except as documented and Reports Abnormal speech present [facility] Past Medical History Medical History Polysubstance abuse Extrapyramidal and movement disorder, unspecified Seizure disorder Hypokalemia Status epilepticus Breakthrough seizure Weight loss Leg cramps Joint pain Brittle hair Biliary dyskinesia Right sided abdominal pain Pre-employment examination Left otitis media Cocaine-induced mood disorder with manic symptoms Herpes genitalis Ureterolithiasis Peptic ulcer disease Anemia Contraceptive management IV drug user Hepatitis C Surgical History Status post laparoscopic cholecystectomy Hx of cholecystectomy H/O myringotomy H/O sinus surgery Hx of tonsillectomy Family History Family History Father Heart attack Maternal Grandmother Lung cancer Mother CVA (cerebral vascular accident) Other Mental health disorder Substance use disorder Social History Social History Household Members: Children Housing: Apartment Housing Other:: treatment Do you presently have visiting nurse or other home services: No Alcohol intake: former Patient Tobacco Use Status: Former Tobacco user Tobacco use type: Cigarette Cigarettes Per Day: 3 Years Smoked: stopped 2021 vape (08/2023) Smoked in Last 30 Days: Yes e-Cigarette/Vaping Use: Currently Using Second Hand Smoke Exposure: Yes Use of substances other than those prescribed or required for medical reasons: Yes Substance Use Type: Marijuana Advance Directives: Yes Advance Directives on File: Yes Advance Directives Date on File: 11/30/23 Patient : No service: No Current occupational status: unemployed Cognitive needs: No Hearing needs: No Vision needs: No Physical Exam 2 Vital Signs: Vital Signs: Last Vital Signs Temp 98 F 02/18/25 17:58 Pulse 67 02/18/25 17:58 Resp 18 02/18/25 17:58 BP 92/55 L 02/18/25 17:58 Pulse Ox 98 02/18/25 17:58 O2 Del Method Room Air 02/18/25 17:58 BMI result Body Mass Index 18.4 Vital signs have been reviewed and appear to be correct. Blood pressure elevated. Heart rate normal. Respiratory rate normal. Temperature normal. Oxygen saturation normal. Appearance: Alert. Oriented X3. No acute distress. Head: Normal external exam. Normocephalic. Atraumatic. No Mckenzie signs noted. No raccoon eyes noted Eyes: PERRLA. EOMI. Conjunctiva and sclera normal. Eyelids normal. ENT: TM's Normal. Pharynx normal. Uvula midline. Moist mucous membranes. No trismus noted. No drooling noted. No muffled voice noted. Neck: Normal inspection. Neck supple. FROM. No adenopathy. Thyroid Normal. No meningeal signs. No neck mass noted. CVS: Normal heart rate and rhythm. Heart sound normal. No murmurs noted. Pulses normal throughout. Respiratory: No respiratory distress. Painless inspiration. Breath sounds normal. No wheezes/rales/rhonchi noted. Chest nontender. No accessory muscle usage noted or decreased air movement noted. Abdomen: Soft and nontender. Bowel sounds normal in all 4 quadrants. No distention noted. No organomegaly noted. No visible injury noted. Back: No CVA tenderness. Full range of motion noted. Skin: Skin warm and dry. Normal skin color. Normal skin turgor. No rashes/lesions/lacerations noted. Extremities: No lower extremity edema. Extremities exhibit normal range of motion. Extremities nontender. Neuro: Mental status: Normal attention, orientation, memory, and affect. Cranial nerves: Pupils are equal, round and reactive to light, EOMI, visual doss are fall, face is symmetric, facial sensations are normal. Motor examination normal muscle tone, strength to 4 extremities. DTR are +2, planter's are flexor. Sensory exam; normal coordination, no ataxia, gait stable. Cerebellar exam: [id number] and [id number] is normal. Extrapyramidal system: No tremors, no rigidity with normal facial expressions. Pronator drift not present Course Reevaluation(s) Reevaluation #1: One episode of seizure with postictal today, patient just realized that she supposed to take Depakote 400 mg b.i.d. she has been taking it once today's level is subtherapeutic patient was loaded with 1 extra tablet of Depakote and was instructed to go back on her normal regimen of medication, and follow-up with her neurologist. Postictal headache that improved with Tylenol/Toradol IV. Repeat neuro exam within normal. Time: 18:34 Medications Administered Discontinued Medications Generic Name Dose Route Start Last Admin Trade Name Edilsonq PRN Reason Stop Dose Admin Diazepam 5 mg 02/18/25 13:25 02/18/25 13:31 Diazepam 10 Mg/2 Ml Cartridge IVPUSH 02/18/25 13:26 5 mg STAT STA Administration Divalproex Sodium 500 mg 02/18/25 14:15 02/18/25 14:20 Divalproex Sodium 500 Mg Tablet.Dr PO 02/18/25 14:16 500 mg ONCE ONE Administration Levetiracetam 500 mg in 100 mls @ 400 mls/hr 02/18/25 13:25 02/18/25 14:07 Keppra IV 02/18/25 13:39 Infused ONCE ONE Infusion Acetaminophen 1,000 mg in 100 mls @ 400 mls/hr 02/18/25 14:28 02/18/25 15:26 Ofirmev IV 02/18/25 14:42 Infused ONCE ONE Infusion Ketorolac Tromethamine 30 mg 02/18/25 16:15 02/18/25 16:24 Ketorolac Tromethamine 30 Mg/Ml Vial IVPUSH 02/18/25 16:16 30 mg ONCE ONE Administration Medical Decision Making Differential Diagnosis Differential Diagnoses: The differential diagnosis associated with the presentation includes (Seizure, status epilepticus, electrolyte derangement, severe anemia, intracranial bleed, subtherapeutic level of antiseizure medication.) Admission/Observation Consideration of admission/observation: Escalation of care including admission/observation considered Lab Data MDM Lab Attestation statement: I reviewed the patient's lab results. 02/18/25 13:22 02/18/25 13:22 Labs: Lab Results 02/18/25 Range/Units 13:22 WBC 3.7 L (4.8-10.8) X10*3/uL RBC 4.41 (4.20-5.50) X10*6/uL Hgb 12.9 (12.0-16.0) g/dl Hct 39.2 (37.0-47.0) % MCV 88.9 (80.0-98.0) fL MCH 29.3 (27.0-33.0) pg MCHC 32.9 (31.0-35.0) g/dl RDW 12.4 (11.0-16.0) % Plt Count 206 (160-400) X10*3/uL MPV 11.2 (9.4-12.3) fL Immature Gran % (Auto) 0.3 (0.0-0.4) % Neut % (Auto) 58.7 (45-73) % Lymph % (Auto) 32.3 (20-40) % [place] % (Auto) 6.0 (2-11) % Eos % (Auto) 1.9 (0-4) % Baso % (Auto) 0.8 (0-2) % Lymph # (Auto) 1.2 (1.2-4.9) X10*3/uL [place] # (Auto) 0.2 (0.1-1.2) X10*3/uL Eos # (Auto) 0.1 (0.0-0.4) X10*3/uL Baso # (Auto) 0.0 (0.0-0.2) X10*3/uL Abs Immat Gran (auto) 0.01 (0.00-0.03) X10*3/uL Absolute Neuts (auto) 2.1 (2.0-8.3) x10*3/uL Absolute Nucleated RBC 0.000 (0.0-0.012) X10*3/uL Nucleated RBC % (auto) 0.0 (0.0-0.2) /100WBC Sodium 139 (135-145) mmol/L Potassium 4.3 (3.3-5.1) mmol/L Chloride 110 H (96-108) mmol/L Carbon Dioxide 22 (22-29) mmol/L Anion Gap 11 L (12-20) BUN 10 (9-16) mg/dL Creatinine 0.67 (0.5-1.4) mg/dL Estim Creat Clear Calc 94.4 Estimated GFR > 60 Random Glucose 100 (60-115) mg/dL Calcium 8.7 (8.4-10.2) mg/dL Beta HCG, Quant < 2 mIU/mL Valproic Acid < 12.5 L (50.0-100.0) mcg/mL Independent Interpretation I performed an independent interpretation of an: CT Scan (Head: No acute intracranial pathology.) Radiology Impression Discussion of test interpretation with radiology: I have reviewed the radiologist's reading. Discharge Plan Discharge Clinical Impression: Epileptic seizure Patient Disposition: Home, Self-Care Instructions: Epilepsy (ED) Additional Instructions: Take all your medication as prescribed. Follow-up with your neurologist as we discussed. Prescriptions: No Action acetaminophen [Tylenol Extra Strength] 500 mg tablet 1,000 mg PO Q6H PRN (Reason: fever or pain) Qty: 20 0RF ibuprofen 400 mg tablet 400 mg PO TID PRN (Reason: fever or pain) Qty: 30 0RF divalproex 250 mg tablet,delayed release (DR/EC) 250 mg PO BID Rx Instructions: TAKE 1 TABLET BY MOUTH AT BEDTIME X1 WEEK THEN 1 TABLET TWICE A DAY DIRECTED quetiapine 300 mg tablet 300 mg PO BEDTIME fluoxetine 10 mg capsule 10 mg PO DAILY methadone [Methadone Intensol] 10 mg/mL Concentrate 26 mg PO DAILY Rx Instructions: pt last dosed at clinic 11/09 with #27 take home bottles levetiracetam 1,000 mg Tablet 2,000 mg PO BID Qty: 120 0RF Referrals: Fior Leggett MD [Physician, Neurology] Print Language: Georgian
[2025-02-18 13:28] LABS: MANUAL DIFF FLAG NO
[2025-02-18 13:29] LABS: Hematocrit 39.2 % (37.0-47.0); Hemoglobin 12.9 g/dl (12.0-16.0); Imm Gran Abs Auto 0.01 X10*3/uL (0.00-0.03); Imm Gran Pct Auto 0.3 % (0.0-0.4); Lymphocytes Absolute Auto 1.2 X10*3/uL (1.2-4.9); Mean Corpuscular HGB Conc 32.9 g/dl (31.0-35.0); Mean Corpuscular Hemoglobin 29.3 pg (27.0-33.0); Mean Corpuscular Volume 88.9 fL (80.0-98.0); NRBC Abs Auto 0.000 X10*3/uL (0.0-0.012); NRBC Pct Auto 0.0 /100WBC (0.0-0.2); Platelet Count 206 X10*3/uL (160-400); Red Blood Count 4.41 X10*6/uL (4.20-5.50); White Blood Count 3.7 X10*3/uL (4.8-10.8)
[2025-02-18] MEDS: diazePAM 10 MG/2 ML CARTRIDGE 5 MG IVPUSH (13:31)
[2025-02-18] MEDS: levETIRAcetam in NaCl (iso-os) 500 MG/100 ML PIGGYBACK 400 MG IV (13:33)
[2025-02-18 13:35] VITALS: BP 100/60; PULSE 69; RESP 14; O2SAT 97
[2025-02-18 14:02] LABS: Anion Gap 11 (12-20); Blood Urea Nitrogen 10 mg/dL (9-16); Calcium 8.7 mg/dL (8.4-10.2); Carbon Dioxide 22 mmol/L (22-29); Chloride 110 mmol/L (96-108); Creatinine Clr Calc Pharmacy 94.4; Estimated Glomerular Filt Rate > 60; Potassium 4.3 mmol/L (3.3-5.1); Sodium 139 mmol/L (135-145)
[2025-02-18 17:58] VITALS: BP 92/55; PULSE 67; RESP 18; TEMP 36.6; O2SAT 98
[2025-02-21 22:08] LABS: Levetiracetam Keppra 18.7 mcg/mL (6.0-46.0)
== END 2025-02-18 19:06 | disposition home or self-care (01) ==
PROVIDERS: Emergency Provider Emergency Medicine; PCP Internal Medicine
DX: G40.909 Epilepsy, unspecified, not intractable, without status epilepticus (principal); Z79.899 Other long term (current) drug therapy; R51.9 Headache, unspecified
CPT/HCPCS: 36415; 70450; 80048; 80164; 80177; 84702; 85025; 96365; 96367; 96375; 99284; J0131; J1885; J1953; J3360

== ENCOUNTER → 2025-02-18 14:28 | Outpatient (BNV) | payer OTHER, SELFPAY | PROVIDERS: Emergency Provider Emergency Medicine; PCP Internal Medicine; Visit Provider Radiology Diagnostic Radiology | DX: R51.9 Headache, unspecified (principal); R56.9 Unspecified convulsions | CPT/HCPCS: 70450 ==

== ENCOUNTER → 2025-02-23 12:37 | Outpatient (BNV) | payer OTHER, SELFPAY | PROVIDERS: PCP Internal Medicine; Visit Provider Radiology Diagnostic Radiology | DX: N83.291 Other ovarian cyst, right side (principal) | CPT/HCPCS: 72197 ==

== ENCOUNTER 2025-02-23 12:40 | Outpatient (REF) | payer OTHER, SELFPAY ==
--- NOTE | ~2025-02-23 | MR_ITS ---
EXAMINATION: MR PELVIS WITHOUT AND WITH CONTRAST CLINICAL INFORMATION: Ovarian cyst s COMPARISON: Previous pelvic ultrasound most recent December [address] of the abdomen and pelvis most recent December 2022 TECHNIQUE: Sagittal axial and coronal sequences through the pelvis with and without IV contrast. Patient received 5 mL IV gadavist contrast. FINDINGS: The uterus is retroverted and measures 7.6 x 4.4 x 5 cm in dimension. The junctional zone does not appear thickened. There is heterogeneous signal seen in the anterior upper uterine body and fundus. This is not appreciated on other sequences. Appearance is questionable for focal adenomyosis. No other focal uterine lesion. There is a small amount of fluid in the endometrial cavity. The endometrium does not appear thickened. The cervix is normal. The right ovary is normal. The right ovary measures 2.5 x 2.1 x 1.8 cm. The previously seen complex right ovarian cysts measuring up to 2.5 cm and 3.4 cm on December 2024 pelvic ultrasound are no longer seen. The left ovary measures 3.5 x 3 x 2.5 cm. There is a 1.6 x 1.9 x 2.4 cm simple left ovarian cyst or dominant follicle. The previously seen 3.6 cm complex cyst in the left ovary on December 2024 pelvic ultrasound is no longer seen. The bladder is normal. No ascites or adenopathy. Visualized bowel is normal. Vascular structures are normal. Bony structures are normal. No hernia seen. MR/MR pelvis wo/w con IMPRESSION: Resolved bilateral complex ovarian cysts from December 2024 pelvic ultrasound. Heterogeneous signal in the upper anterior uterine body and fundus appreciated on T2 sequences only, question focal adenomyosis. Electronically signed by: Daisy Fernandes MD 02/23/2025 02:26 PM EDT
== END 2025-02-23 12:41 | disposition home or self-care (01) ==
LOC: HO.MRI 12:40
PROVIDERS: PCP Internal Medicine; Visit Provider Obstetrics & Gynecology
DX: N83.291 Other ovarian cyst, right side (principal); N83.292 Other ovarian cyst, left side
CPT/HCPCS: 72197; A9585

== ENCOUNTER 2025-03-30 06:35 | Emergency (ER) | payer OTHER, SELFPAY ==
[2025-03-30 06:46] VITALS: BP 134/71; PULSE 98; O2SAT 98
--- NOTE | 2025-03-30 06:56 | ED.SEIZURE ---
HPI - Seizure General Chief Complaint: Seizure Stated Complaint: seizure Time Seen by Provider: 03/30/25 06:48 Source: patient and EMS Mode of arrival: EMS Limitations: no limitations History of Present Illness ED Provider: HPI Narrative: 29-year-old female history of seizure, bipolar disorder, PUD, hepatitis, polysubstance abuse on methadone history of breakthrough seizures, she states she has approximately 10 seizures a year, currently reports taking Depakote and levetiracetam and in the past she has had breakthrough seizures due to not take her medications appropriately but also with taking her medications on regular basis, she states that her called EMS when she had a seizure, there was no injury to the oropharyngeal area, no loss of bowel or bladder function, she did not hit her head, as she reported to me. Denies chest pain no shortness of breath, she reports she commonly has postictal headache. There has been no fevers or chills. Seizure History: Yes Related Data Home Medications ?Medication ?Instructions ?Recorded ?Confirmed fluoxetine 10 mg capsule 10 mg PO DAILY 11/25/23 12/07/24 quetiapine 300 mg tablet 300 mg PO BEDTIME 11/25/23 12/07/24 methadone 10 mg/mL oral 26 mg PO DAILY 11/26/23 08/25/24 concentrate (Methadone Intensol) divalproex 250 mg tablet,delayed 250 mg PO BID 12/07/24 12/07/24 release Previous Rx's ?Medication ?Instructions ?Recorded levetiracetam 1,000 mg tablet 2,000 mg (2 x 1,000 mg) PO BID 11/27/23 #120 tabs acetaminophen 500 mg tablet 1,000 mg (2 x 500 mg) PO Q6H PRN 08/18/24 (Tylenol Extra Strength) fever or pain #20 tabs ibuprofen 400 mg tablet 400 mg PO TID PRN fever or pain 08/18/24 #30 tabs divalproex 250 mg tablet,delayed 250 mg PO BID 14 days #28 tabs 03/30/25 release (Depakote) Allergies Allergy/AdvReac Type Severity Reaction Status Date / Time carbamazepine AdvReac Intermediate dizzy Verified 03/30/25 07:13 azithromycin (From ZITHROMAX) AdvReac Unknown VOMITING/DI Verified 03/30/25 07:13 ARRHEA Zithromax AdvReac Mild vomiting Uncoded 03/30/25 07:13 Review of Systems Constitutional: Constitutional: Reports as per [facility] Past Medical History Medical History Polysubstance abuse Extrapyramidal and movement disorder, unspecified Seizure disorder Hypokalemia Status epilepticus Breakthrough seizure Weight loss Leg cramps Joint pain Brittle hair Biliary dyskinesia Right sided abdominal pain Pre-employment examination Left otitis media Cocaine-induced mood disorder with manic symptoms Herpes genitalis Ureterolithiasis Peptic ulcer disease Anemia Contraceptive management IV drug user Hepatitis C Surgical History Status post laparoscopic cholecystectomy Hx of cholecystectomy H/O myringotomy H/O sinus surgery Hx of tonsillectomy Family History Family History Father Heart attack Maternal Grandmother Lung cancer Mother CVA (cerebral vascular accident) Other Mental health disorder Substance use disorder Social History Social History Household Members: Children Housing: Apartment Housing Other:: treatment Do you presently have visiting nurse or other home services: No Alcohol intake: former Patient Tobacco Use Status: Former Tobacco user Tobacco use type: Cigarette Cigarettes Per Day: 3 Years Smoked: stopped 2021 vape (08/2023) Smoked in Last 30 Days: Yes e-Cigarette/Vaping Use: Currently Using Second Hand Smoke Exposure: Yes Use of substances other than those prescribed or required for medical reasons: Yes Substance Use Type: Marijuana Advance Directives: Yes Advance Directives on File: Yes Advance Directives Date on File: 11/30/23 Patient : No service: No Current occupational status: unemployed Cognitive needs: No Hearing needs: No Vision needs: No Physical Exam Exam: Exam: ?General: ??looks age appropriate, not postictal ?PERRLA, EOMI, MMM, no blood noted at the airway Neck: Supple, no LAD ?CV: RRR, no obvious murmurs appreciated ?Resp: ?No wheezing rales rhonchi no stridor moving air well Abd: ?Bowel sounds are present, no tenderness no rebound no rigidity MSK: FROM, strength 5/5 all extremities Skin: Warm, dry, intact, ?Neuro: ?Alert and oriented x3, moving upper and lower extremities symmetrically, no obvious facial asymmetry noted, cranial nerves 2-12 intact Vital Signs: Vital Signs: Last Vital Signs Temp 98.3 F 03/30/25 07:12 Pulse 70 03/30/25 07:12 Resp 18 03/30/25 07:12 BP 100/67 03/30/25 07:12 Pulse Ox 97 03/30/25 07:12 O2 Del Method Room Air 03/30/25 07:12 BMI result Body Mass Index 17.9 Medications Administered Discontinued Medications Generic Name Dose Route Start Last Admin Trade Name Freq PRN Reason Stop Dose Admin Divalproex Sodium 250 mg 03/30/25 06:59 03/30/25 07:31 Divalproex Sodium 250 Mg Tablet.Dr FIELDS 03/30/25 07:00 250 mg ONCE ONE Administration Acetaminophen 1,000 mg in 100 mls @ 400 mls/hr 03/30/25 06:57 03/30/25 07:59 Ofirmev IV 03/30/25 07:11 Infused ONCE ONE Infusion Levetiracetam 1,000 mg in 100 mls @ 400 mls/hr 03/30/25 06:57 03/30/25 07:59 Keppra IV 03/30/25 07:11 Infused ONCE ONE Infusion Sodium Chloride 1,000 mls @ 999 mls/hr 03/30/25 07:45 03/30/25 09:10 Ns IV 03/30/25 08:45 Infused .Q1H1M JOSE Infusion Medical Decision Making Medical Decision Making MDM Narrative: 7:26 AM 03/30/2025 (Dr. Gustavo Argueta): I reviewed notes from prior visits including neurology visit, patient is on a relative high dose of levetiracetam and Depakote with subtherapeutic levels of Depakote during her last visit I will be checking her levels but I will right now provide a 1000 mg IV of levetiracetam and 250 mg pill of Depakote, it seems that she is on 500 mg of Depakote twice a day, depending on what her level is now my add additional medications bowel hold off for more until I know the level, otherwise there was no indication that she had head injury, I will obtain ECG to make sure this is not underlying dysrhythmia, there was no loss of bowel or bladder function, and neuralgia has considered that she may have underlying nonepileptic seizures as well. In the past when she has had breakthrough seizures she has also tested positive for fentanyl, will recheck drug screen. 8:06 AM 03/30/2025 (Dr. Gustavo Argueta): Patient's valproic acid level is subtherapeutic as it was not October, she is going to check with the her partner to see whether she is actually taking this medication, as discussed she is supposed to be on 500 mg twice a day per Dr. Ley's note ( Young woman who carried diagnosis of probably secondarily generalized seizure disorder with no focal finding on imaging in complicated underlying psychiatric history. In addition, she has been under significant stress related to her child's recent diagnosis. There was fair possibility of epileptic and also nonepileptic spells and this type of patient and ambulatory EEG might be 1 way to figure that out. Otherwise, I recommend continuing her medications and increase dose of Depakote to 500 mg twice a day and continuing levetiracetam. She is taking relatively high dose of levetiracetam and I would recommend checking a level of both drugs to guide appropriate dose. 4000 mg of levetiracetam with Depakote is a significant antiepileptic regimen and if she continues to have seizures with that, 1 has to figure out exactly what might be the reason. It might be that these medicines are ineffective, or she has not been taking them as prescribed, or the seizures are or of different nature. This all can be investigated as an outpatient.) 9:21 AM 03/30/2025 (Dr. Gustavo Argueta): So seems that patient is not taking her appropriate medication she is not taking Depakote, she states she was likely taking another medication thinking that is this is what this is but she is taking levetiracetam, I will provide him with a prescription so she can have it available just for the next 2 weeks and thereafter she can contact Neurology her PCP for refill, she also states she is under lot of stress her child has diagnosed with bilateral Wilms tumor and so this can be exacerbating her symptoms Differential Diagnosis Differential Diagnoses: The differential diagnosis associated with the presentation includes (Breakthrough seizures, nonepileptic seizure, substance use disorder, medication noncompliant, trauma) Admission/Observation Consideration of admission/observation: Escalation of care including admission/observation considered Lab Data MDM Lab Attestation statement: I reviewed the patient's lab results. 03/30/25 07:29 03/30/25 07:29 Labs: Lab Results 03/30/25 03/30/25 Range/Units 07:29 08:03 WBC 5.2 (4.8-10.8) X10*3/uL RBC 4.30 (4.20-5.50) X10*6/uL Hgb 13.1 (12.0-16.0) g/dl Hct 38.3 (37.0-47.0) % MCV 89.1 (80.0-98.0) fL MCH 30.5 (27.0-33.0) pg MCHC 34.2 (31.0-35.0) g/dl RDW 12.5 (11.0-16.0) % Plt Count 217 (160-400) X10*3/uL MPV 9.6 (9.4-12.3) fL Immature Gran % (Auto) 0.4 (0.0-0.4) % Neut % (Auto) 60.8 (45-73) % Lymph % (Auto) 27.7 (20-40) % [place] % (Auto) 8.8 (2-11) % Eos % (Auto) 1.7 (0-4) % Baso % (Auto) 0.6 (0-2) % Lymph # (Auto) 1.5 (1.2-4.9) X10*3/uL [place] # (Auto) 0.5 (0.1-1.2) X10*3/uL Eos # (Auto) 0.1 (0.0-0.4) X10*3/uL Baso # (Auto) 0.0 (0.0-0.2) X10*3/uL Abs Immat Gran (auto) 0.02 (0.00-0.03) X10*3/uL Absolute Neuts (auto) 3.2 (2.0-8.3) x10*3/uL Absolute Nucleated RBC 0.000 (0.0-0.012) X10*3/uL Nucleated RBC % (auto) 0.0 (0.0-0.2) /100WBC Sodium 140 (135-145) mmol/L Potassium 4.3 (3.3-5.1) mmol/L Chloride 110 H (96-108) mmol/L Carbon Dioxide 23 (22-29) mmol/L Anion Gap 11 L (12-20) BUN 15 (9-16) mg/dL Creatinine 0.72 (0.5-1.4) mg/dL Estim Creat Clear Calc 85.1 Estimated GFR > 60 Random Glucose 94 (60-115) mg/dL Calcium 9.3 D (8.4-10.2) mg/dL Magnesium 2.0 (1.6-2.6) mg/dL Beta HCG, Quant < 2 mIU/mL Urine Opiates Screen Not Detected (Not Detect) Ur Buprenorphine Scrn Not Detected (Not Detect) ng/mL Ur Oxycodone Screen Not Detected (Not Detect) ng/mL Urine Methadone Screen Positive H (Not Detect) ng/mL Urine Fentanyl Screen Not Detected (Not Detect) Ur Barbiturates Screen Not Detected (Not Detect) Valproic Acid < 12.5 L (50.0-100.0) mcg/mL Ur Phencyclidine Scrn Not Detected (Not Detect) Ur Amphetamines Screen Not Detected (Not Detect) U Benzodiazepines Scrn Not Detected (Not Detect) Urine Cocaine Screen Not Detected (Not Detect) U Marijuana (THC) Screen POSITIVE H (Not Detect) Independent Interpretation I performed an independent interpretation of an: EKG (79 beats per minute otherwise normal ECG without dysrhythmia, AV black blocks or ST-T changes to suspect underlying ACS, my independent interpretation) External Record Review External record reviewed: Office record Chronic Conditions Patient?s care impacted by: Other (Seizure disorder) Critical Care Time Critical Care Time Critical Care Time: Yes Total Critical Care Time: 45 Attestation: Time is exclusive of separately billable procedures. Time includes: direct patient care, patient reassessment, coordination of patient care, interpretation of data (laboratory data, pulse oximetry, arterial blood gases and chest xrays), review of patient's medical records, medical consultation and documentation of patient care. Procedures excluded from critical care time: central intravenous line placement and electrocardiography. Discharge Plan Discharge Clinical Impression: Breakthrough seizure Patient Disposition: Home, Self-Care Additional Instructions: Levetiracetam a 1000 mg given IV, please take remaining doses during the day and I gave you 250 mg of Depakote, take 1 more pill today, I would confirm with the your neurologist in his note it says Depakote 500 mg twice a day but this seems to be too large of the dose so I recommend taking Depakote 250 mg twice daily until you can confirm dosages with your neurologist The rest of the workup has been reassuring Any other issues or concerns come back to the ER Prescriptions: New divalproex [Depakote] 250 mg tablet,delayed release (DR/EC) 250 mg PO BID 14 Days Qty: 28 0RF No Action acetaminophen [Tylenol Extra Strength] 500 mg tablet 1,000 mg PO Q6H PRN (Reason: fever or pain) Qty: 20 0RF ibuprofen 400 mg tablet 400 mg PO TID PRN (Reason: fever or pain) Qty: 30 0RF divalproex 250 mg tablet,delayed release (DR/EC) 250 mg PO BID Rx Instructions: TAKE 1 TABLET BY MOUTH AT BEDTIME X1 WEEK THEN 1 TABLET TWICE A DAY DIRECTED quetiapine 300 mg tablet 300 mg PO BEDTIME fluoxetine 10 mg capsule 10 mg PO DAILY methadone [Methadone Intensol] 10 mg/mL Concentrate 26 mg PO DAILY Rx Instructions: pt last dosed at clinic 11/09 with #27 take home bottles levetiracetam 1,000 mg Tablet 2,000 mg PO BID Qty: 120 0RF Print Language: Kiswahili
--- NOTE | 2025-03-30 06:57 | ECG_ITS ---
Test Reason : SEIZURE Blood Pressure : */* mmHG Vent. Rate : 79 BPM Atrial Rate : 79 BPM P-R Int : 160 ms QRS Dur : 84 ms QT Int : 390 ms P-R-T Axes : 72 15 55 degrees QTcB Int : 447 ms Normal sinus rhythm Nonspecific T wave abnormality Abnormal ECG When compared with ECG of 14-Oct-2024 09:22, No significant change was found Referred By: Gustavo Argueta Electronically Signed By: Luis Felipe Swartz
[2025-03-30 07:12] VITALS: BP 100/67; PULSE 70; RESP 18; TEMP 36.8; O2SAT 97; BMI 17.9
[2025-03-30] MEDS: levETIRAcetam in NaCl (iso-os) 1,000 MG/100 ML PIGGYBACK 400 MG IV (07:31)
[2025-03-30 07:38] LABS: MANUAL DIFF FLAG NO
[2025-03-30 07:45] LABS: Hematocrit 38.3 % (37.0-47.0); Hemoglobin 13.1 g/dl (12.0-16.0); Imm Gran Abs Auto 0.02 X10*3/uL (0.00-0.03); Imm Gran Pct Auto 0.4 % (0.0-0.4); Lymphocytes Absolute Auto 1.5 X10*3/uL (1.2-4.9); Mean Corpuscular HGB Conc 34.2 g/dl (31.0-35.0); Mean Corpuscular Hemoglobin 30.5 pg (27.0-33.0); Mean Corpuscular Volume 89.1 fL (80.0-98.0); NRBC Abs Auto 0.000 X10*3/uL (0.0-0.012); NRBC Pct Auto 0.0 /100WBC (0.0-0.2); Platelet Count 217 X10*3/uL (160-400); Red Blood Count 4.30 X10*6/uL (4.20-5.50); White Blood Count 5.2 X10*3/uL (4.8-10.8)
[2025-03-30 08:01] LABS: Anion Gap 11 (12-20); Blood Urea Nitrogen 15 mg/dL (9-16); Calcium 9.3 mg/dL (8.4-10.2); Carbon Dioxide 23 mmol/L (22-29); Chloride 110 mmol/L (96-108); Creatinine Clr Calc Pharmacy 85.1; Estimated Glomerular Filt Rate > 60; Magnesium 2.0 mg/dL (1.6-2.6); Potassium 4.3 mmol/L (3.3-5.1); Sodium 140 mmol/L (135-145)
--- NOTE | 2025-03-30 08:05 | PC.NURSE ---
Arrived via ems from home after her heard a thump and she fell off the couch having a seizure. IV placed, seizure pads placed, medicated per mar. Patient requesting a benzo and fluids, states she always gets them when she comes here. MD aware and let patient know that he does not routinely order benzos. Patient upset stating she always gets benzos so that she does not keep having seizures.
[2025-03-30 08:19] LABS: Cannabinoid Screen Urine POSITIVE (Not Detect)
--- NOTE | 2025-03-30 08:23 | PC.NURSE ---
Lab stating they can add keppra level to previously drawn send out red 10
[2025-03-30 09:34] VITALS: BP 100/67; PULSE 70; RESP 18; TEMP 36.8; O2SAT 97
[2025-04-01 19:08] LABS: Levetiracetam Keppra <2.0 mcg/mL (10.0-40.0)
== END 2025-03-30 09:34 | disposition home or self-care (01) ==
PROVIDERS: Emergency Provider Emergency Medicine; PCP Internal Medicine
DX: R56.9 Unspecified convulsions (principal); R11.0 Nausea; R94.31 Abnormal electrocardiogram [ECG] [EKG]; Z79.899 Other long term (current) drug therapy; Z87.891 Personal history of nicotine dependence; Z51.81 Encounter for therapeutic drug level monitoring
CPT/HCPCS: 36415; 80048; 80164; 80177; 80307; 83735; 84702; 85025; 93005; 96361; 96365; 96375; 99284; J0131; J1953

== ENCOUNTER → 2025-03-30 06:57 | Outpatient (BNV) | payer OTHER, SELFPAY | PROVIDERS: Emergency Provider Emergency Medicine; PCP Internal Medicine; Visit Provider Internal Medicine Cardiovascular Disease | DX: R94.31 Abnormal electrocardiogram [ECG] [EKG] (principal); R56.9 Unspecified convulsions | CPT/HCPCS: 93010 ==

== ENCOUNTER 2025-03-31 06:35 | Emergency (ER) | payer OTHER, SELFPAY ==
[2025-03-31 06:41] VITALS: BP 102/64; PULSE 120; O2SAT 99
[2025-03-31 06:51] VITALS: BP 102/56; PULSE 80; RESP 15; TEMP 36.7; O2SAT 98; BMI 19.3
--- NOTE | 2025-03-31 06:51 | ED.SEIZURE ---
HPI - Seizure General Chief Complaint: Seizure Stated Complaint: SZ,REYNOLDS, ALERT & OR PER EMS Time Seen by Provider: 03/31/25 06:41 Source: patient and EMS Mode of arrival: EMS Limitations: no limitations History of Present Illness HPI Narrative: This is a 29 years old female patient with a history of epilepsy on Keppra and valproic acid history of substance abuse as well presented by ambulance with a seizure according to the EMS crew he had to 3 minute seizure witnessed by the boyfriend. When they arrived she was somewhat postictal but she was transported to the emergency department right now she is awake alert oriented x3 back to the baseline. She was seen yesterday in this emergency department as well for breakthrough seizure, she had multiple visits for breakthrough seizure. She states yes she is compliant with antiseizure medication MD complaint: seizure Onset (ago): hour(s) (1) Description of Episode: tonic-clonic movement -: minutes(s) (3) Witnessed: Yes - by Other (Boyfriend) Trauma: No Seizure History: Yes Place: Home Possible Precipitating Event: drug use, lack of sleep and stress Associated symptoms: denies other symptoms Related Data Home Medications ?Medication ?Instructions ?Recorded ?Confirmed fluoxetine 10 mg capsule 10 mg PO DAILY 11/25/23 12/07/24 quetiapine 300 mg tablet 300 mg PO BEDTIME 11/25/23 12/07/24 methadone 10 mg/mL oral 26 mg PO DAILY 11/26/23 08/25/24 concentrate (Methadone Intensol) divalproex 250 mg tablet,delayed 250 mg PO BID 12/07/24 12/07/24 release Previous Rx's ?Medication ?Instructions ?Recorded levetiracetam 1,000 mg tablet 2,000 mg (2 x 1,000 mg) PO BID 11/27/23 #120 tabs acetaminophen 500 mg tablet 1,000 mg (2 x 500 mg) PO Q6H PRN 08/18/24 (Tylenol Extra Strength) fever or pain #20 tabs ibuprofen 400 mg tablet 400 mg PO TID PRN fever or pain 08/18/24 #30 tabs divalproex 250 mg tablet,delayed 250 mg PO BID 14 days #28 tabs 03/30/25 release (Depakote) Allergies Allergy/AdvReac Type Severity Reaction Status Date / Time carbamazepine AdvReac Intermediate dizzy Verified 03/31/25 06:55 azithromycin (From ZITHROMAX) AdvReac Unknown VOMITING/DI Verified 03/31/25 06:55 ARRHEA Zithromax AdvReac Mild vomiting Uncoded 03/31/25 06:55 Review of Systems Constitutional: Constitutional: Reports no additional constitutional complaints ENT: Reports system reviewed and no additional complaints, except as documented Cardiovascular: Cardiovascular: Reports no additional cardiovascular complaints Neurologic: Reports as per [facility] Past Medical History Attestation statement: The following information was validated with the patient. Medical History Polysubstance abuse Extrapyramidal and movement disorder, unspecified Seizure disorder Hypokalemia Status epilepticus Breakthrough seizure Weight loss Leg cramps Joint pain Brittle hair Biliary dyskinesia Right sided abdominal pain Pre-employment examination Left otitis media Cocaine-induced mood disorder with manic symptoms Herpes genitalis Ureterolithiasis Peptic ulcer disease Anemia Contraceptive management IV drug user Hepatitis C Surgical History Status post laparoscopic cholecystectomy Hx of cholecystectomy H/O myringotomy H/O sinus surgery Hx of tonsillectomy Family History Family History Father Heart attack Maternal Grandmother Lung cancer Mother CVA (cerebral vascular accident) Other Mental health disorder Substance use disorder Social History Social History Household Members: Children Housing: Apartment Housing Other:: treatment Do you presently have visiting nurse or other home services: No Alcohol intake: former Patient Tobacco Use Status: Former Tobacco user Tobacco use type: Cigarette Cigarettes Per Day: 3 Years Smoked: stopped 2021 vape (08/2023) Smoked in Last 30 Days: Yes e-Cigarette/Vaping Use: Currently Using Second Hand Smoke Exposure: Yes Substance Use Type: Marijuana Advance Directives: Yes Advance Directives on File: Yes Advance Directives Date on File: 11/30/23 Patient : No service: No Current occupational status: unemployed Cognitive needs: No Hearing needs: No Vision needs: No Physical Exam Exam: Exam: No acute distress awake alert oriented x3 Vital Signs: Vital Signs: Last Vital Signs Temp 97.8 F 03/31/25 08:26 Pulse 82 03/31/25 08:35 Resp 18 03/31/25 08:35 BP 98/60 03/31/25 08:35 Pulse Ox 97 03/31/25 08:35 O2 Del Method Room Air 03/31/25 08:35 BMI result Body Mass Index 19.3 Const: General: cooperative Nutritional Appearance: well nourished Orientation/consciousness: patient oriented x3 Limitations: no limitations HEENT: Head: Yes normal to inspection Ears: hearing grossly normal bilaterally General nose exam: Normal external nose present Face and sinus: Yes normal facial exam Mouth: Normal oral and palatal mucosa present Throat: Yes posterior oropharynx normal Neck: Neck: Yes normal visual inspection and Yes full ROM Carotids: normal carotid upstroke Chest: Chest palpation & inspection: normal inspection of the chest Resp: Effort & Inspection: normal respiratory effort Auscultation: clear to auscultation bilaterally Percussion: percussion normal Cardio: Rate: regular rate Rhythm: regular rhythm GI: Inspection: Yes normal to inspection Palpation (GI): Soft to palpation and not firm Auscultation: normal bowel sounds Skin: General skin exam: no rashes or lesions noted, elasticity normal and turgor normal Neuro: Other: Patient is now awake alert oriented x3 no focal back to the baseline General: patient oriented x3 Course Reevaluation(s) Reevaluation #1: Remained stable seizure free anticipate discharge Time: 09:29 Reevaluation #2: Asyntomatic Time: 10:47 Medications Administered Discontinued Medications Generic Name Dose Route Start Last Admin Trade Name Freq PRN Reason Stop Dose Admin Sodium Chloride 1,000 mls @ 999 mls/hr 03/31/25 06:45 03/31/25 08:50 Ns IVCONT 03/31/25 07:45 Infused .Q1H1M JOSE Infusion Levetiracetam 2,000 mg/ Sodium 120 mls @ 480 mls/hr 03/31/25 06:50 03/31/25 07:44 Chloride IV 03/31/25 07:04 Infused ONCE ONE Infusion Valproic Acid 1,000 mg/ Sodium 60 mls @ 60 mls/hr 03/31/25 08:56 03/31/25 10:41 Chloride IV 03/31/25 09:50 Infused ONCE ONE Infusion Lorazepam 1 mg 03/31/25 06:49 11/29/25 07:30 Lorazepam 1 Mg Tablet PO 03/31/25 06:50 1 mg ONCE ONE Administration Medical Decision Making Medical Decision Making [facility] Narrative: Patient is here with a recurrent seizure she is on Keppra and valproic acid we will check the level we will check blood work electrolytes I will give him an extra 2 g of Keppra IV (she did not take her Keppra this morning which is a 1000 mg) Keppra level from yesterday is pending, valproic acid the is less than 12.5 I will give her 1 dose of IV valproic acid 1000 mg I will tell her to increase the Depakote to 500 mg b.i.d. from 250 b.i.d.. Also we will tell to call her neurologist on Wednesday for follow-up. She was told not to drive or operate machine 6 Months Differential Diagnosis Differential Diagnoses: The differential diagnosis associated with the presentation includes Epilepsy/seizure/nonepileptic seizures/drug induced seizure Admission/Observation Consideration of admission/observation: Escalation of care including admission/observation considered Lab Data [facility] Lab Attestation statement: I reviewed the patient's lab results. 03/31/25 07:28 03/31/25 07:28 Labs: Lab Results 03/31/25 03/31/25 03/31/25 Range/Units 07:28 08:12 08:43 WBC 4.3 L (4.8-10.8) X10*3/uL RBC 4.07 L (4.20-5.50) X10*6/uL Hgb 12.3 (12.0-16.0) g/dl Hct 36.2 L (37.0-47.0) % MCV 88.9 (80.0-98.0) fL MCH 30.2 (27.0-33.0) pg MCHC 34.0 (31.0-35.0) g/dl RDW 12.6 (11.0-16.0) % Plt Count 208 (160-400) X10*3/uL MPV 9.2 L (9.4-12.3) fL Immature Gran % (Auto) 0.2 (0.0-0.4) % Neut % (Auto) 73.7 H (45-73) % Lymph % (Auto) 18.9 L (20-40) % [place] % (Auto) 6.0 (2-11) % Eos % (Auto) 0.5 (0-4) % Baso % (Auto) 0.7 (0-2) % Lymph # (Auto) 0.8 L (1.2-4.9) X10*3/uL [place] # (Auto) 0.3 (0.1-1.2) X10*3/uL Eos # (Auto) 0.0 (0.0-0.4) X10*3/uL Baso # (Auto) 0.0 (0.0-0.2) X10*3/uL Abs Immat Gran (auto) 0.01 (0.00-0.03) X10*3/uL Absolute Neuts (auto) 3.2 (2.0-8.3) x10*3/uL Absolute Nucleated RBC 0.000 (0.0-0.012) X10*3/uL Nucleated RBC % (auto) 0.0 (0.0-0.2) /100WBC Sodium 139 (135-145) mmol/L Potassium 4.4 (3.3-5.1) mmol/L Chloride 111 H (96-108) mmol/L Carbon Dioxide 22 (22-29) mmol/L Anion Gap 10 L (12-20) BUN 11 (9-16) mg/dL Creatinine 0.73 (0.5-1.4) mg/dL Estim Creat Clear Calc 90.7 Estimated GFR > 60 Random Glucose 106 (60-115) mg/dL Calcium 8.9 (8.4-10.2) mg/dL Total Bilirubin 0.4 (0.0-1.0) mg/dL AST 24 (5-31) U/L ALT 9 (0-31) U/L Alkaline Phosphatase 48 (39-117) U/L Total Protein 6.9 (6.5-8.0) g/dL Albumin 4.6 (3.5-5.0) g/dL Beta HCG, Quant < 2 mIU/mL Urine Opiates Screen Not Detected (Not Detect) Ur Buprenorphine Scrn Not Detected (Not Detect) ng/mL Ur Oxycodone Screen Not Detected (Not Detect) ng/mL Urine Methadone Screen Not Detected (Not Detect) ng/mL Urine Fentanyl Screen Not Detected (Not Detect) Ur Barbiturates Screen Not Detected (Not Detect) Valproic Acid < 12.5 L (50.0-100.0) mcg/mL Ur Phencyclidine Scrn Not Detected (Not Detect) Ur Amphetamines Screen Not Detected (Not Detect) U Benzodiazepines Scrn Not Detected (Not Detect) Urine Cocaine Screen Not Detected (Not Detect) U Marijuana (THC) Screen POSITIVE H (Not Detect) Independent Historian Clinical information obtained from an independent historian. History obtained from or confirmed by: EMS Spoke with the EMS Chronic Conditions Patient?s care impacted by: Other (Epilepsy) Critical Care Time Critical Care Time Critical Care Time: Yes Total Critical Care Time: 60 Attestation: seizure requiring IV keppra and IV depakote Discharge Plan Discharge Clinical Impression: Seizure Patient Disposition: Home, Self-Care Instructions: Recurrent Seizures in Adults (ED) Additional Instructions: Follow-up with your neurologist on Wednesday, return to the emergency room if you worse, your Depakote level is persistently low, it may be reasonable that you increase your Depakote to 500 mg twice a day from 250 twice a day. Call your neurologist on Wednesday for follow-up Prescriptions: No Action acetaminophen [Tylenol Extra Strength] 500 mg tablet 1,000 mg PO Q6H PRN (Reason: fever or pain) Qty: 20 0RF ibuprofen 400 mg tablet 400 mg PO TID PRN (Reason: fever or pain) Qty: 30 0RF divalproex 250 mg tablet,delayed release (DR/EC) 250 mg PO BID Rx Instructions: TAKE 1 TABLET BY MOUTH AT BEDTIME X1 WEEK THEN 1 TABLET TWICE A DAY DIRECTED quetiapine 300 mg tablet 300 mg PO BEDTIME fluoxetine 10 mg capsule 10 mg PO DAILY methadone [Methadone Intensol] 10 mg/mL Concentrate 26 mg PO DAILY Rx Instructions: pt last dosed at clinic 11/09 with #27 take home bottles levetiracetam 1,000 mg Tablet 2,000 mg PO BID Qty: 120 0RF divalproex [Depakote] 250 mg tablet,delayed release (DR/EC) 250 mg PO BID 14 Days Qty: 28 0RF Referrals: Rosi Ley MD [Physician, Neurology] - 04/02/25 Print Language: Occitan
[2025-03-31 07:31] LABS: MANUAL DIFF FLAG NO
[2025-03-31 07:32] LABS: Hematocrit 36.2 % (37.0-47.0); Hemoglobin 12.3 g/dl (12.0-16.0); Imm Gran Abs Auto 0.01 X10*3/uL (0.00-0.03); Imm Gran Pct Auto 0.2 % (0.0-0.4); Lymphocytes Absolute Auto 0.8 X10*3/uL (1.2-4.9); Mean Corpuscular HGB Conc 34.0 g/dl (31.0-35.0); Mean Corpuscular Hemoglobin 30.2 pg (27.0-33.0); Mean Corpuscular Volume 88.9 fL (80.0-98.0); NRBC Abs Auto 0.000 X10*3/uL (0.0-0.012); NRBC Pct Auto 0.0 /100WBC (0.0-0.2); Platelet Count 208 X10*3/uL (160-400); Red Blood Count 4.07 X10*6/uL (4.20-5.50); White Blood Count 4.3 X10*3/uL (4.8-10.8)
[2025-03-31 07:57] LABS: Alanine Aminotransferase 9 U/L (0-31); Albumin Level 4.6 g/dL (3.5-5.0); Alkaline Phosphatase 48 U/L (39-117); Anion Gap 10 (12-20); Aspartate Amino Transferase 24 U/L (5-31); Blood Urea Nitrogen 11 mg/dL (9-16); Calcium 8.9 mg/dL (8.4-10.2); Carbon Dioxide 22 mmol/L (22-29); Chloride 111 mmol/L (96-108); Creatinine Clr Calc Pharmacy 90.7; Estimated Glomerular Filt Rate > 60; Potassium 4.4 mmol/L (3.3-5.1); Sodium 139 mmol/L (135-145); Total Protein 6.9 g/dL (6.5-8.0)
[2025-03-31 08:26] VITALS: BP 85/44; PULSE 75; RESP 20; TEMP 36.6; O2SAT 98
--- NOTE | 2025-03-31 08:32 | PC.NURSE ---
22g IV access in left hand. IV fluids infusing as ordered. Patient is mildly agitated stating why is this taking so long? Yesterday's IV went in faster! This RN Explained that today's IV line is smaller, and infusing in a more delicate area, but infusing well. Patient requesting to leave at this time. Patient attempted to call a ride home, but they didn't answer the phone. Agreed to stay until IV fluids infuse, and once she gets a safe ride home. Patient ambulates with steady gait, answers questions appropriately, alert/oriented. Care ongoing by this RN.
[2025-03-31 08:35] VITALS: BP 98/60; PULSE 82; RESP 18; O2SAT 97
--- NOTE | 2025-03-31 08:41 | PC.NURSE ---
Patient attempting to provide urine specimen at this time. To be sent for analysis upon collection.
[2025-03-31 08:57] LABS: Cannabinoid Screen Urine POSITIVE (Not Detect)
--- NOTE | 2025-03-31 09:01 | PC.NURSE ---
Valproic Acid 1000mg IV infusion ordered by Dr. Meraz. This RN requested the medication from pharmacy department, unavailable in ED Pyxis. Patient is sleeping at this time, respirations even/unlabored. Care ongoing by this RN. Medication to be infused upon arrival from pharmacy.
[2025-03-31 10:52] VITALS: BP 101/60; PULSE 78; RESP 16; TEMP 36.6; O2SAT 98
[2025-04-03 11:14] LABS: Levetiracetam Keppra 81.8 mcg/mL (10.0-40.0)
== END 2025-03-31 10:52 | disposition home or self-care (01) ==
PROVIDERS: Emergency Provider Emergency Medicine; PCP Internal Medicine
DX: R56.9 Unspecified convulsions (principal); R51.9 Headache, unspecified; F43.9 Reaction to severe stress, unspecified; F12.90 Cannabis use, unspecified, uncomplicated; R11.2 Nausea with vomiting, unspecified; Z79.899 Other long term (current) drug therapy; Z51.81 Encounter for therapeutic drug level monitoring; Z87.891 Personal history of nicotine dependence
CPT/HCPCS: 36415; 80053; 80164; 80177; 80307; 84702; 85025; 96361; 96365; 96375; 99284; J1953

== ENCOUNTER 2025-04-05 09:31 | Outpatient (AMB) | payer OTHER, SELFPAY ==
[2025-04-05 09:53] VITALS: BP 98/62; BMI 19.1
--- NOTE | 2025-04-05 09:53 | MHC.OFFVIS ---
Vital Signs 04/05/25 09:53 Height 5 ft 4 in Weight 111 lb BMI 19.1 BP 98/62 Intake Visit Reasons: MRI Results Allergies carbamazepine Adverse Reaction (Intermediate, Verified 03/31/25 06:55) dizzy azithromycin (From ZITHROMAX) Adverse Reaction (Unknown, Verified 03/31/25 06:55) VOMITING/DIARRHEA Zithromax Adverse Reaction (Mild, Uncoded 03/31/25 06:55) vomiting HPI Comments Details: Presenting for follow-up after pelvic MRI regarding bilateral complex ovarian cyst seen on pelvic ultrasound. 02/23/2025 pelvic ultrasound showed the following: IMPRESSION: Resolved bilateral complex ovarian cysts from December 2024 pelvic ultrasound. Heterogeneous signal in the upper anterior uterine body and fundus appreciated on T2 sequences only, question focal adenomyosis. [facility] Medical History Polysubstance abuse Extrapyramidal and movement disorder, unspecified Seizure disorder Hypokalemia Status epilepticus Breakthrough seizure Weight loss Leg cramps Joint pain Brittle hair Biliary dyskinesia Right sided abdominal pain Pre-employment examination Left otitis media Cocaine-induced mood disorder with manic symptoms Herpes genitalis Ureterolithiasis Peptic ulcer disease Anemia Contraceptive management IV drug user Hepatitis C Surgical History Status post laparoscopic cholecystectomy Hx of cholecystectomy H/O myringotomy H/O sinus surgery Hx of tonsillectomy Family History Father Heart attack Maternal Grandmother Lung cancer Mother CVA (cerebral vascular accident) Other Mental health disorder Substance use disorder Social History Household Members: Children Housing: Apartment Housing Other:: treatment Do you presently have visiting nurse or other home services: No Alcohol intake: former Patient Tobacco Use Status: Former Tobacco user Tobacco use type: Cigarette Cigarettes Per Day: 3 Years Smoked: stopped 2021 vape (08/2023) e-Cigarette/Vaping Use: Currently Using Second Hand Smoke Exposure: Yes Substance Use Type: Marijuana Advance Directives Date on File: 11/30/23 service: No Current occupational status: unemployed Cognitive needs: No Hearing needs: No Vision needs: No Review of Systems Const All systems reviewed & are unremarkable except as noted in HPI and below Reports as per HPI and Reports no additional complaints GI Reports no additional complaints Reports no additional complaints Physical Exam Vital Signs: BMI result Body Mass Index 19.1 Assessment & Plan Assessment & Plan (1) Complex cyst of both ovaries: Comment: Multiple/bilateral-resolved Code(s): N83.291 - Other ovarian cyst, right side; N83.292 - Other ovarian cyst, left side Category: Medical Plan: Discussed with the patient the results of the MRI, bilateral complex ovarian cyst resolved. The patient was reassured, all questions answered, the patient verbalized understanding. Coding Level of Care Code Est Pt Level 3 (76099) Diagnoses Complex cyst of both ovaries N83.291; N83.292
== END 2025-04-05 10:02 | disposition home or self-care (01) ==
LOC: HO.HWS 09:32
PROVIDERS: PCP Internal Medicine; Visit Provider Obstetrics & Gynecology
DX: N83.291 Other ovarian cyst, right side (principal); N83.292 Other ovarian cyst, left side
CPT/HCPCS: 99213

== ENCOUNTER → 2025-04-05 09:31 | Outpatient (BNVA) | payer OTHER, SELFPAY | PROVIDERS: PCP Internal Medicine; Visit Provider Obstetrics & Gynecology | DX: N83.291 Other ovarian cyst, right side (principal); N83.292 Other ovarian cyst, left side | CPT/HCPCS: 99212 ==